=== PATIENT | female | born 1930 | race Caucasian/White ===

== ENCOUNTER → 2016-05-26 | Outpatient (CLI) | payer MEDICARE, OTHER ==
[~2016-05-26] MED LIST: ASCO-262 PO; BUPR300T PO; CALC-80 PO; CARB1TAB7 PO; CHOL200035 PO; CRAN1TAB PO; DIAZ10TA PO; DNPZ10T PO; HYDR1TAB86 PO; METO-272 PO; NITR100C PO; OMEP-10 PO; OMG1KC PO; POTA10CA43 PO; ROPI0.25 PO; SITA50TA PO; triam/hctz PO
== END ==
LOC: FS 10:32
PROVIDERS: ATTEND Internal Medicine Hematology & Oncology
DX: D61.818 Other pancytopenia (principal); G20 Parkinson's disease; I12.9 Hypertensive chronic kidney disease with stage 1 through stage 4 chronic kidney disease, or unspecified chronic kidney disease; N18.3 Chronic kidney disease, stage 3 (moderate); E78.5 Hyperlipidemia, unspecified; D64.9 Anemia, unspecified; Z79.899 Other long term (current) drug therapy
CPT/HCPCS: 99213

== ENCOUNTER 2016-07-16 13:48 | Outpatient (RCR) | payer MEDICARE, OTHER ==
[2016-06-30 13:48] LABS: BASOPHILS % (AUTO) 0 % (0-10); EOSINOPHILS % (AUTO) 2 % (0-10); LYMPHOCYTES # (AUTO) 0.6 X 10^3 (1.0-4.0); LYMPHOCYTES % (AUTO) 25 % (12-44); MEAN CORPUSCULAR HEMOGLOBIN 27 PG (25-34); MEAN CORPUSCULAR HGB CONC 30 G/DL (32-36); MEAN CORPUSCULAR VOLUME 88 FL (80-99); MEAN PLATELET VOLUME 9.6 FL (7.4-10.4); MONOCYTES # (AUTO) 0.3 X 10^3 (0.0-1.0); MONOCYTES % (AUTO) 10 % (0-12); NEUTROPHILS # (AUTO) 1.6 X 10^3 (1.8-7.8); NEUTROPHILS % (AUTO) 63 % (42-75); PLATELET COUNT 124 10^3/uL (130-400); RED BLOOD COUNT 3.36 10^6/uL (4.35-5.85); RED CELL DISTRIBUTION WIDTH 17.7 % (10.0-14.5); RETICULOCYTE % 1.26 % (0.50-2.40); WHITE BLOOD COUNT 2.5 10^3/uL (4.3-11.0)
[2016-06-30 14:59] LABS: BAND NEUTROPHILS 6 %; BASOPHILS % (MANUAL) 1 %; EOSINOPHILS % (MANUAL) 1 %; LYMPHOCYTES % (MANUAL) 26 %; NEUTROPHILS % (MANUAL) 56 %
[2016-06-30 15:00] LABS: ANISOCYTOSIS SLIGHT; POIKILOCYTOSIS SLIGHT
== END 2016-09-28 | disposition home or self-care (01) ==
LOC: ONC 13:48
PROVIDERS: ATTEND Internal Medicine Hematology & Oncology
DX: D61.818 Other pancytopenia (principal); G20 Parkinson's disease; I10 Essential (primary) hypertension; E78.5 Hyperlipidemia, unspecified; Z79.899 Other long term (current) drug therapy
CPT/HCPCS: 36415; 38221; 85007; 85027; 85045; 88305; 88311; 88313; 99213

== ENCOUNTER 2016-12-22 14:29 | Outpatient (RCR) | payer MEDICARE, OTHER | END 2017-03-22 | disposition home or self-care (01) | LOC: ONC 14:29 | PROVIDERS: ATTEND Internal Medicine Hematology & Oncology | DX: D61.818 Other pancytopenia (principal); G20 Parkinson's disease; I12.9 Hypertensive chronic kidney disease with stage 1 through stage 4 chronic kidney disease, or unspecified chronic kidney disease; N18.3 Chronic kidney disease, stage 3 (moderate); E78.5 Hyperlipidemia, unspecified; Z79.899 Other long term (current) drug therapy | CPT/HCPCS: 99213 ==

== ENCOUNTER 2017-06-22 13:45 | Outpatient (RCR) | payer MEDICARE, OTHER | END 2017-09-20 | disposition home or self-care (01) | LOC: ONC 13:45 | PROVIDERS: ATTEND Internal Medicine Hematology & Oncology | DX: D61.818 Other pancytopenia (principal); G20 Parkinson's disease; I12.9 Hypertensive chronic kidney disease with stage 1 through stage 4 chronic kidney disease, or unspecified chronic kidney disease; N18.3 Chronic kidney disease, stage 3 (moderate); E78.5 Hyperlipidemia, unspecified; Z79.899 Other long term (current) drug therapy | CPT/HCPCS: 99213 ==

== ENCOUNTER 2017-10-06 13:10 | Outpatient (RCR) | payer MEDICARE, OTHER ==
[~2017-10-06 13:10] MED LIST changes: +FERRIC CARBOXYMALTOSE (CANCER) 750 MG in NS (IVPB) CANCER CENTER 250 ML IV SCH
== END 2017-10-15 | disposition home or self-care (01) ==
LOC: ONC 13:10
PROVIDERS: ATTEND Internal Medicine Hematology & Oncology
DX: D61.818 Other pancytopenia (principal); I12.9 Hypertensive chronic kidney disease with stage 1 through stage 4 chronic kidney disease, or unspecified chronic kidney disease; N18.3 Chronic kidney disease, stage 3 (moderate); E78.5 Hyperlipidemia, unspecified; G20 Parkinson's disease; Z79.899 Other long term (current) drug therapy
CPT/HCPCS: 96365

== ENCOUNTER 2017-12-06 08:59 | Inpatient (IN) | payer MEDICARE, OTHER ==
[2017-12-06] VITALS (15 sets, daily range): BP systolic 104–179; BP diastolic 46–76
[~2017-12-06] VITALS: Ht 157.5 cm; Wt 69.4 kg
[~2017-12-06 08:59] MED LIST changes: -FERRIC CARBOXYMALTOSE (CANCER) 750 MG in NS (IVPB) CANCER CENTER 250 ML IV SCH
--- NOTE | 2017-12-06 12:11 | History & Physical-Hospitalist ---
History of Present Illness HPI/Chief Complaint Pt is an 87yoCF with a PMH of IDDMII, anemia of chronic disease, HTN who presented as a direct admit from [facility] for a GI bleed. She states her symptoms started on 12/04 evening with bright red blood per rectum. It continued to worsen and she began to vomit bright red blood as well today. She was then sent from her NH to the ER for evaluation where she was found to be anemic at 7.5 down from labs just a few days ago of 9.8. She denies any abdominal pain or history of GI bleeds. She was transferred here for surgical evaluation. Source: patient, family Exam Limitations: clinical condition Date Seen 12/06/17 Time Seen by a Provider: 12:03 Attending Physician Anirudh Martinez MD PCP Samir Zarate DO Referring Physician Date of Admission Home Medications & Allergies Home Medications Reviewed patient Home Medication Reconciliation performed by pharmacy medication reconciliations cartography technician and/or nursing. Patients Allergies have been reviewed. Allergies Allergies Coded Allergies celecoxib (Verified Allergy, Unknown, 12/06/17) Sulfa (Sulfonamide Antibiotics) (Verified Adverse Reaction, Severe, 05/27/05) Past Hmcygek-Jgmnej-Ihhein Hx Past Med/Social Hx: Reviewed Nursing Past Med/Soc Hx Patient Social History Employed/Student: retired Smoking Status: Never a Smoker Immunizations Up To Date Date of Influenza Vaccine: Nov 15, 2010 Past Medical History Surgeries: Appendectomy, Gallbladder, Hysterectomy, Joint Replacement Cardiac: Hypertension Neurological: Dementia Reproductive: Yes Family History Reviewed Nursing Family Hx No Pertinent Family Hx Review of Systems Constitutional: No chills, No fever EENTM: No blurred vision, No double vision, No nose congestion, No throat pain Respiratory: No cough, No dyspnea on exertion, No short of breath Cardiovascular: No chest pain, No edema, No palpitations Gastrointestinal: No abdominal pain, No constipation, No diarrhea; hematemesis , melena; No nausea; vomiting Genitourinary: No dysuria, No frequency Musculoskeletal: No joint pain, No muscle pain Skin: No lesions, No rash Psychiatric/Neurological: Denies Headache, Denies Numbness, Denies Tingling Physical Exam Physical Exam Vital Signs Vital Signs - First Documented 12/06/17 12/06/17 11:00 11:15 Temp 97.0 Pulse 76 Resp 11 B/P (MAP) 179/72 (107) Pulse Ox 100 O2 Delivery Nasal Cannula O2 Flow Rate 2.00 Capillary Refill : Height, Weight, BMI Height: '" Weight: lbs. oz. kg; BMI Method: General Appearance: No Apparent Distress, Chronically ill HEENT: PERRL/EOMI, Moist Mucous Membranes Neck: Non Tender, Supple Respiratory: Lungs Clear, No Respiratory Distress Cardiovascular: Regular Rate, Rhythm, No Murmur Gastrointestinal: Normal Bowel Sounds, Non Tender, Soft Extremity: Normal Capillary Refill, No Calf Tenderness Neurologic/Psychiatric: Alert, Oriented x3, Normal Mood/Affect Skin: Normal Color, Warm/Dry Results Results/Procedures Labs Laboratory Tests 12/09/17 03:02 12/10/17 05:30 Patient resulted labs reviewed. Assessment/Plan Admission Diagnosis GI Bleed Admission Status: Inpatient Order (span 2 midnights) Reason for Inpatient Admission: needs surgery evaluation, will take more than two days to stabilize for DC Diagnosis/Problems Diagnosis/Problems (1) GI (gastrointestinal bleed) Status: Acute Assessment & Plan: Will get CBC and T&S now INR at [facility] normal Transfused 1 unit pRBCs at [facility] Monitor in ICU Qualifiers: GI bleed type/associated pathology: unspecified gastrointestinal hemorrhage type Qualified Codes: K92.2 - Gastrointestinal hemorrhage, unspecified (2) Insulin dependent diabetes mellitus Assessment & Plan: Resume home insulin and SSI (3) Essential (primary) hypertension Assessment & Plan: BP well controlled Will hold home meds for now (4) Dementia Assessment & Plan: On Carbidopa at baseline but denied history of parkinsons Qualifiers: Dementia type: unspecified type ANIRUDH MARTINEZ MD Dec 06, 2017 12:11
[2017-12-06] MEDS ORDERED: PANTOPRAZOLE 40 MG (PROTONIX) VIAL IV SCH (12:18)
[2017-12-06] MEDS: NS IV 1000 ML 1,000 ML IV SCH ×2 (12:25→19:19)
[2017-12-06] MEDS ORDERED: CATHETER FLUSH 10 ML SYR IV PRN (12:30)
[2017-12-06 13:01] LABS: HEMOGLOBIN 8.2 G/DL (11.5-16.0); MEAN PLATELET VOLUME 9.8 FL (7.4-10.4); RED BLOOD COUNT 2.68 10^6/uL (4.35-5.85); WHITE BLOOD COUNT 4.3 10^3/uL (4.3-11.0)
[2017-12-06] MEDS ORDERED: RIVA1PAT13 TD (13:27)
[2017-12-06] MEDS ORDERED: ACID1TAB PO (13:27)
[2017-12-06] MEDS ORDERED: ROTI1PAT12 TD (13:27)
[2017-12-06] MEDS ORDERED: OMEP40CA36 PO (13:27)
[2017-12-06] MEDS ORDERED: SITA50TA PO (13:27)
[2017-12-06] MEDS ORDERED: POTA10TA36 PO (13:27)
[2017-12-06] MEDS ORDERED: POLY119P5 PO (13:27)
[2017-12-06] MEDS ORDERED: GLIM2TAB PO (13:27)
[2017-12-06] MEDS ORDERED: BRIMON0.2 OU (13:27)
[2017-12-06] MEDS ORDERED: CARB1TAB22 PO (13:27)
[2017-12-06] MEDS ORDERED: ASPI-999 PO (13:27)
[2017-12-06] MEDS ORDERED: METO-387 PO (13:27)
[2017-12-06] MEDS ORDERED: PROC10TA10 PO (13:27)
[2017-12-06] MEDS ORDERED: DOCU-143 PO ×2 (13:27→13:39)
[2017-12-06] MEDS ORDERED: TRIA1TAB3 PO (13:27)
[2017-12-06] MEDS ORDERED: CITA10TA7 PO (13:27)
[2017-12-06] MEDS ORDERED: HYDR-3820 PO ×2 (13:27→13:39)
[2017-12-06] MEDS ORDERED: TRIM100T PO (13:27)
[2017-12-06] MEDS ORDERED: FENT1PAT11 TD (13:27)
[2017-12-06] MEDS ORDERED: CRAN405C PO (13:27)
[2017-12-06] MEDS ORDERED: INSU300I SC (13:27)
[2017-12-06] MEDS ORDERED: SUCR100P PO (13:39)
[2017-12-06] MEDS ORDERED: POLY17PO6 PO (13:39)
[2017-12-06] MEDS ORDERED: ACET325T38 PO (13:39)
[2017-12-06] MEDS ORDERED: DIAZ2TAB2 PO (13:39)
[2017-12-06] MEDS ORDERED: MAG355OR16 PO (13:39)
[2017-12-06] MEDS ORDERED: MIRT30TA6 PO (13:39)
[2017-12-06] MEDS ORDERED: LEG CRAMP PO (13:39)
[2017-12-06] MEDS ORDERED: DIAZ2TAB PO (13:39)
[2017-12-06] MEDS ORDERED: ONDN4T PO (13:39)
[2017-12-06] MEDS ORDERED: FAMO1TAB21 PO (13:39)
[2017-12-06] MEDS ORDERED: INSU100I14 SQ (13:39)
[2017-12-06] MEDS ORDERED: NAPR220T66 PO (13:39)
--- NOTE | 2017-12-06 15:54 | Consultation ---
History of Present Illness History of Present Illness Patient Consulted On(oscar/time) 12/06/17 15:49 Time Seen by Provider: 10:49 History of Present Illness Surgery asked to consult regarding Hematemesis and Hematochezia. HPI per IM: Pt is an 87yoCF with a PMH of IDDMII, anemia of chronic disease, HTN who presented as a direct admit from [facility] for a GI bleed. She states her symptoms started on 12/04 evening with bright red blood per rectum. It continued to worsen and she began to vomit bright red blood as well today. She was then sent from her NH to the ER for evaluation where she was found to be anemic at 7.5 down from labs just a few days ago of 9.8. She denies any abdominal pain or history of GI bleeds. She was transferred here for surgical evaluation. Source: patient, family We spoke to pt this am and just spoke to her daughter. Daughter states she has had "vomiting problems for past 3 years"; nothing seems to bring it on, happens more after waking up in am, but has had some in the afternoon. She also relates a possible history of Cirrhosis which apparently she went to [facility] for about 18 yrs ago. She does not see a doctor about this. She has never had hematemesis prior to this; "always a yellow or green liquid". Daughter thinks she had a colonoscopy more than 10 yrs ago; has never had bleeding from below before. Pt is alert to name and place, but cannot tell the day, month or year. Allergies and Home Medications Allergies Coded Allergies: celecoxib (Verified Allergy, Unknown, 12/06/17) Sulfa (Sulfonamide Antibiotics) (Verified Adverse Reaction, Severe, ) Home Medications Acetaminophen 325 Mg Tablet, 650 MG PO Q4H PRN for FEVER, (Reported) Aspirin 81 Mg Tab.chew, 81 MG PO DAILY, (Reported) Brimonidine Tartrate 5 Ml Btl, 1 DROP OU BID, (Reported) Carbidopa/Levodopa 1 Each Tablet, 1 TAB PO 0700,1100,1500,1900, (Reported) Citalopram Hydrobromide 10 Mg Tablet, 10 MG PO DAILY, (Reported) Cranberry Extract 405 Mg Capsule, 405 MG PO DAILY, (Reported) Diazepam 2 Mg Tablet, 2 MG PO 0800,1400, (Reported) Diazepam 2 Mg Tablet, 2 MG PO DAILY PRN for AGITATION, (Reported) Docusate Sodium 100 Mg Capsule, 100 MG PO DAILY, (Reported) Docusate Sodium 100 Mg Capsule, 100 MG PO BID PRN for CONSTIPATION-1ST LINE, ( Reported) Famotidine/Ca Carb/Mag Hydrox 1 Each Tab.chew, 1 TAB PO Q8H PRN for NAUSEA, ( Reported) Fentanyl 1 Each Patch.td72, 100 MCG TD Q72H, (Reported) Glimepiride 2 Mg Tablet, 2 MG PO DAILY, (Reported) Hydrocodone/Acetaminophen 1 Each Tablet, 1 TAB PO BID, (Reported) Hydrocodone/Acetaminophen 1 Each Tablet, 1 TAB PO DAILY PRN for PAIN-MODERATE, ( Reported) Insulin Aspart 300 Units/3 Ml Solution, SQ UD PRN for BLOOD SUGAR, (Reported) >200 = 2 UNITS >250 = 4 UNITS >300 = 6 UNITS Insulin Glargine,Hum.rec.anlog 300 Unit/1 Ml Insuln.pen, 18 UNITS SC 1600, ( Reported) L. Acidophilus/Bulgaricus 1 Each Tablet, 2 TAB PO BID, (Reported) Mag Hydrox/Aluminum Hyd/Simeth 355 Ml Oral.susp, 15 ML PO UD PRN for STOMACH UPSET, (Reported) Metoprolol Succinate 25 Mg Tab.er.24h, 25 MG PO BID, (Reported) Mirtazapine 30 Mg Tablet, 30 MG PO HS, (Reported) Naproxen Sodium 220 Mg Tablet, 220 MG PO BID PRN for PAIN-MILD, (Reported) Omeprazole 40 Mg Capsule.dr, 40 MG PO DAILY, (Reported) Ondansetron HCl 4 Mg Tab, 4 MG PO Q6H PRN for NAUSEA/VOMITING-1ST LINE, ( Reported) Polyethylene Glycol 3350 119 Gm Powder, 8.5 GM PO DAILY, (Reported) Polyethylene Glycol 3350 17 Gm Powd.pack, 17 GM PO Q72H PRN for CONSTIPATION- 2ND LINE, (Reported) Potassium Chloride 10 Meq Tab.er.prt, 10 MEQ PO DAILY, (Reported) Prochlorperazine Maleate 10 Mg Tablet, 10 MG PO BID PRN for NAUSEA/VOMITING-4TH LINE, (Reported) Rivastigmine 1 Each Patch.td24, 13.3 MG TD DAILY, (Reported) Rotigotine 1 Each Patch.td24, 1 PATCH TD HS, (Reported) Sitagliptin Phosphate 50 Mg Tablet, 50 MG PO DAILY, (Reported) Triamterene/Hydrochlorothiazid 1 Each Tablet, 1 TAB PO DAILY, (Reported) Trimethoprim 100 Mg Tablet, 100 MG PO DAILY, (Reported) [Leg Cramp] , 2 TAB PO HS PRN for LEG CRAMPS, (Reported) Patient Home Medication List Home Medication List Reviewed: Yes Past Hjrkuhj-Iwdnqn-Ublood Hx Patient Social History Alcohol Use: Denies Use Number of Drinks Today: 0 Recreational Drug Use: No Smoking Status: Never a Smoker Recent Foreign Travel: No Contact w/Someone Who Travel: No Recent Infectious Disease Expo: No Recent Hopitalizations: Yes (with surgery) Physical Abuse Screen: No Sexual Abuse: No Immunizations Up To Date Date of Pneumonia Vaccine: Nov 18, 2015 Date of Influenza Vaccine: Nov 29, 2017 Seasonal Allergies Seasonal Allergies: No Surgeries Surgeries: Appendectomy, Gallbladder, Hysterectomy, Joint Replacement Respiratory History of Respiratory Disorde: No Cardiovascular History of Cardiac Disorders: Yes Cardiac Disorders: Hypertension Neurological History of Neurological Disord: Yes (scarlet fever) Neurological Disorders: Dementia Reproductive System Hx Reproductive Disorders: Yes Genitourinary History of Genitourinary Disor: Yes (CKD) Gastrointestinal History of Gastrointestinal Di: Yes Gastrointestinal Disorders: Gastroesophageal Reflux Musculoskeletal History of Musculoskeletal Dis: Yes Musculoskeletal Disorders: Back Injury, Chronic Back Pain Endocrine History of Endocrine Disorders: Yes Endocrine Disorders: Diabetes, Non-Insulin dep HEENT History of HEENT Disorders: No Cancer History of Cancer: No Psychosocial History of Psychiatric Problem: No Integumentary History of Skin or Integumenta: No Blood Transfusions History of Blood Disorders: No Adverse Reaction to a Blood Tr: No Family Medical History Significant Family History: Cancer (denies any colon cancer in her family), Diabetes (brother) Review of Systems-General Constitutional: No chills, No diaphoresis; malaise, weakness EENTM: blurred vision; No mouth pain, No mouth swelling, No epistaxis, No throat swelling Respiratory: No cough, No dyspnea on exertion, No hemoptysis Cardiovascular: No chest pain, No edema, No palpitations Gastrointestinal: No abdominal pain; constipation, hematemesis, jaundice ( daughter thinks 18 yrs ago "skin was a little yellow", nothing since then), nausea, vomiting Genitourinary: No dysuria, No frequency, No hematuria Musculoskeletal: back pain, joint pain, muscle stiffness Skin: No change in color, No change in hair/nails Psychiatric/Neurological: Denies Anxiety, Denies Depressed, Denies Seizure, Denies Tingling; Tremors Other pt denies any abnormal bleeding or bruising, no heat or cold intolerance Physical Exam-General Problems Physical Exam Vital Signs Vital Signs - First Documented 12/06/17 12/06/17 11:00 11:15 Temp 97.0 Pulse 76 Resp 11 B/P (MAP) 179/72 (107) Pulse Ox 100 O2 Delivery Nasal Cannula O2 Flow Rate 2.00 Capillary Refill : General Appearance: no apparent distress, thin Eyes: Bilateral Eye PERRL, Bilateral Eye EOMI HEENT: pharynx normal; No scleral icterus (R), No scleral icterus (L), No pale conjunctivae (R), No pale conjunctivae (L) Neck: non-tender; No thyromegaly Respiratory: chest non-tender, lungs clear, normal breath sounds, no respiratory distress, no accessory muscle use Cardiovascular: regular rate, rhythm, no edema, no murmur Gastrointestinal: normal bowel sounds, non tender, soft, no organomegaly, no pulsatile mass Back: no CVA tenderness, no vertebral tenderness Extremities: no pedal edema, no calf tenderness, normal capillary refill Neurologic/Psychiatric: hybrid car mechanic II-XII nml as tested, no motor/sensory deficits, alert, normal mood/affect Skin: normal color, warm/dry Lymphatic: no adenopathy (neck, axilla or groin) Data Review Labs Laboratory Tests 12/06/17 12:50: White Blood Count 4.3, Red Blood Count 2.68L, Hemoglobin 8.2L, Hematocrit 26L, Mean Corpuscular Volume 96, Mean Corpuscular Hemoglobin 31, Mean Corpuscular Hemoglobin Concent 32, Red Cell Distribution Width 18.0H, Platelet Count 130, Mean Platelet Volume 9.8 Assessment/Plan Assessment/Plan Assessment/Plan Hematemesis Hematochezia DM, HTN Parkinson's Dementia Anemia Pt is anemic, but current Hg is even lower than 3 days ago. I spoke with daughter and went over options; 1) do nothing and treat symptoms 2) EGD 3) Colonoscopy. We did talk about risks and complications not limited to pain, bleeding, infection, possible esophageal perforation or intestinal perforation. The daughter is not sure if we found a colon cancer that they would want surgery. At this time, they want to go ahead with the colonoscopy and then make a decision on possible colonoscopy tomorrow. I think this is a reasonable course of action. All questions answered to their satisfaction. Clinical Quality Measures DVT/VTE Risk/Contraindication: Risk Factor Score Per Nursin RFS Level Per Nursing on Admit: 2=Moderate ELLI HAYES DO Dec 06, 2017 15:54
[2017-12-06] MEDS ORDERED: proPOfol 200 MG/20 ML (DIPRIVAN) VIAL IV ONE ×2 (16:15→17:13)
[2017-12-06] MEDS ORDERED: EPINEPHrine INJECTION 1 MG/ML AMP ONE (16:20)
--- NOTE | 2017-12-06 19:25 | Progress Note-Post Operative ---
Post-Operative Progess Note Surgeon (s)/Solar Energy Sales Specialist (s) Surgeon ELLI HAYES DO Solar Energy Sales Specialist: Aneta Pre-Operative Diagnosis GI bleed Post-Operative Diagnosis Gastric Mass - bleeding Procedure & Operative Findings Date of Procedure 12/06/17 Procedure Performed/Findings EGD with removal of Gastric mass Anesthesia Type IV sedation by WIRE PULLER Estimated Blood Loss Estimated blood loss (mL): 500ml Specimens/Packing Specimens Removed gastric mass ELLI HAYES DO Dec 06, 2017 19:25
[2017-12-06 19:43] LABS: BASOPHILS % (AUTO) 0 % (0-10); EOSINOPHILS % (AUTO) 0 % (0-10); HEMATOCRIT 23 % (35-52); HEMOGLOBIN 7.4 G/DL (11.5-16.0); LYMPHOCYTES # (AUTO) 1.7 X 10^3 (1.0-4.0); LYMPHOCYTES % (AUTO) 20 % (12-44); MEAN CORPUSCULAR HEMOGLOBIN 31 PG (25-34); MEAN CORPUSCULAR HGB CONC 32 G/DL (32-36); MEAN CORPUSCULAR VOLUME 97 FL (80-99); MONOCYTES # (AUTO) 0.6 X 10^3 (0.0-1.0); MONOCYTES % (AUTO) 7 % (0-12); NEUTROPHILS # (AUTO) 6.1 X 10^3 (1.8-7.8); NEUTROPHILS % (AUTO) 73 % (42-75); PLATELET COUNT 200 10^3/uL (130-400); RED BLOOD COUNT 2.38 10^6/uL (4.35-5.85); RED CELL DISTRIBUTION WIDTH 18.8 % (10.0-14.5); WHITE BLOOD COUNT 8.3 10^3/uL (4.3-11.0)
[2017-12-06] MEDS: PANTOPRAZOLE 40 MG (PROTONIX) VIAL IV SCH (20:49)
[2017-12-07] VITALS (29 sets, daily range): BP systolic 105–171; BP diastolic 46–94
--- NOTE | 2017-12-07 00:27 | CONSULTATION REPORT ---
DATE OF SERVICE: 12/06/2017 The patient is admitted to ICU bed 10. IMPRESSION: 1. An 87-year-old female transferred from [facility] with gastrointestinal bleeding. 2. Previous history of iron deficiency anemia since 2011 with no significant benefit from oral iron replacement. 3. 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 4. Status post parenteral iron therapy with the most recent dose in 09/2017. RECOMMENDATIONS: 1. Agree with the surgical consult for evaluation of GI tract because of amadou hematochezia and hematemesis. Proceed with EGD and colonoscopy. 2. Agree with packed red blood cell transfusion to maintain hemoglobin more than 8 grams per deciliter because of her age and general condition. 3. Obtain serum ferritin level and if this is low, the patient may need parenteral iron therapy. 4. Continue Aranesp 25 mcg weekly to maintain hemoglobin around 10 grams per deciliter. 5. Continue rest of medical care as you are doing. BRIEF HISTORY: The patient is an 87-year-old female with a history of borderline pancytopenia since the last few years. The patient had an initial bone marrow aspiration biopsy in 2011 at [facility], which was nondiagnostic. She has been following with me since mid-2015 and had a bone marrow evaluation in 06/2016, which showed no significant abnormality other than absent iron stores. She was initially on oral iron replacement and later on required parenteral iron therapy with some benefit. She also had chronic kidney disease and it was felt that she has a combination of anemia of chronic disease and iron deficiency. Because of this, she was started on erythropoietic stimulating agents since the last several months to prevent transfusion requirement. The patient gives a history of hematochezia and hematemesis since last Wednesday with fairly sudden drop in her hemoglobin level. Because of this, she was transferred from [place] to [facility] for further evaluation and management. PAST MEDICAL HISTORY: Significant for: 1. Diabetes mellitus type 2 diagnosed more than 8 years ago. 2. Hypertension, more than 20 years and on treatment. 3. Parkinson's disease diagnosed approximately 8 years ago and is on treatment. 4. Osteoarthritis involving major joints. 5. Questionable liver problems in the past. 6. Chronic kidney disease, stage III to IV, diagnosed few years ago. PAST SURGICAL HISTORY: Include tonsillectomy and adenoidectomy in 1952, double inguinal hernia repair in 1952, appendectomy in 1943, breast biopsies in 1952 and 1984, which was benign. D and C is between 1967 and 1978. Hysterectomy in 2001, cholecystectomy in 2001, right knee replacement in 2002, right hip replacement in 2005, bilateral cataract surgeries in 2006, dental surgery in 2006. SOCIAL HISTORY: The patient is . She lives in [facility] in [place]. She has 2 daughters, one of whom lives in [place], [place] and another in [place], [place]. 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 She gives a significant history of exposure to pesticides, fertilizers, etc. over the years. No history of tobacco, alcohol or other recreational drug use. FAMILY HISTORY: Unremarkable with no malignancies or hematologic problems in the family that the patient or her family knows of. PHYSICAL EXAMINATION: GENERAL: Showed an elderly female, somnolent after an endoscopic procedure. VITAL SIGNS: She was afebrile. Pulse rate of 76, respirations 8, blood pressure 119/56, oxygen saturation 98% on 2 liters of oxygen by nasal cannula. HEENT: Normocephalic, conjunctivae slightly pale, oral mucosa moist. NECK: Supple, with no JVD. No lymphadenopathy palpable. CHEST: Symmetrical. LUNGS: Clear to auscultation without wheezes or rales. CARDIOVASCULAR: Regular in rate and rhythm. No murmurs or gallops heard. ABDOMEN: Soft, nontender with no hepatosplenomegaly or other masses palpable. EXTREMITIES: Showed no edema. NEUROLOGIC: Could not be completed as she was somnolent, but arousable. She is moving all 4 extremities. LABORATORY DATA: CBC done today showed WBC 4.3, hemoglobin 8.2, MCV 96, platelet count 130,000. Chemistry panel was not done today. Thank you for allowing me to participate in this patient's care. I will follow the patient with you and make appropriate recommendations. Job ID: [id number] DocumentID: [id number] Dictated Date: 12/06/2017 17:23:58 Electrical Engineering Intern Date: 12/07/2017 00:26:20 Dictated By: YVONNE GREEN MD
[2017-12-07 04:09] LABS: BASOPHILS % (AUTO) 0 % (0-10); EOSINOPHILS % (AUTO) 0 % (0-10); LYMPHOCYTES # (AUTO) 1.2 X 10^3 (1.0-4.0); LYMPHOCYTES % (AUTO) 21 % (12-44); MEAN CORPUSCULAR HEMOGLOBIN 31 PG (25-34); MEAN CORPUSCULAR HGB CONC 32 G/DL (32-36); MEAN CORPUSCULAR VOLUME 98 FL (80-99); MEAN PLATELET VOLUME 10.4 FL (7.4-10.4); MONOCYTES # (AUTO) 0.6 X 10^3 (0.0-1.0); MONOCYTES % (AUTO) 10 % (0-12); NEUTROPHILS % (AUTO) 69 % (42-75); PLATELET COUNT 126 10^3/uL (130-400); RED BLOOD COUNT 1.84 10^6/uL (4.35-5.85); RED CELL DISTRIBUTION WIDTH 18.5 % (10.0-14.5); WHITE BLOOD COUNT 5.9 10^3/uL (4.3-11.0)
[2017-12-07 04:21] LABS: HEMATOCRIT 18 % (35-52); HEMOGLOBIN 5.7 G/DL (11.5-16.0)
[2017-12-07 04:22] LABS: INR 1.4 (0.8-1.4); PROTHROMBIN TIME PATIENT 17.1 SEC (12.2-14.7)
[2017-12-07] MEDS: NS IV 1000 ML 1,000 ML IV SCH ×4 (04:29→21:45)
[2017-12-07 04:32] LABS: ALBUMIN 2.5 GM/DL (3.2-4.5); BILIRUBIN,TOTAL 0.4 MG/DL (0.1-1.0); CREATININE SERUM 1.68 MG/DL (0.60-1.30); MAGNESIUM 1.4 MG/DL (1.8-2.4); PHOSPHORUS 4.9 MG/DL (2.3-4.7); POTASSIUM 6.1 MMOL/L (3.6-5.0); TOTAL PROTEIN 4.1 GM/DL (6.4-8.2)
--- NOTE | 2017-12-07 04:47 | OPERATIVE REPORT ---
DATE OF SERVICE: PREOPERATIVE DIAGNOSES: 1. Hematemesis. 2. Hematochezia. 3. Anemia. POSTOPERATIVE DIAGNOSES: Gastric mass with bleeding. PROCEDURE: EGD with resection of gastric mass. SURGEON: Christopher Hayes DO CASEWORKER PROTECTIVE SERVICES: Tyson Cornell DO. ANESTHESIA: IV sedation. SPECIMEN: Gastric mass sent in portion in pieces. BLOOD LOSS: Approximately 500 mL. INDICATION FOR PROCEDURE: The patient is an 87-year-old female who was transferred down from an outside institution secondary to hematochezia, hematemesis and anemia. FINDINGS: The patient had a large gastric mass with what looked like the fundus of the stomach and what was probably a large hiatal hernia. PROCEDURE NOTE: After informed consent was obtained, the patient in her bed in the ICU, was given IV sedation by the CAN WASHER who then monitored her vitals the entire time, heart rate, blood pressure and pulse ox and the scope was inserted down the mouth into the esophagus, which was tortuous and into the stomach, pushed into the stomach, saw a large clot in the fundus and what was looked like a hiatal hernia. Pushed into the rest of the stomach, there was blood covering the garibay and all the way towards the antrum. Pushed in the duodenum, there was blood coming in this, but did not see any ulcers in the duodenum and pulled back. No ulcers in the antrum. Retroflexed, it looked like a large hiatal hernia and then pulled the scope back into the fundus, which was in the hiatal hernia and saw this large clot. We started flushing it off with saline. Once I flushed the clot, suction as much as I could, noted a gastric mass. Pictures were taken. I then elected to do a snare to get around this and try and snare to remove this gastric mass en bloc. Removed it, actually to take in 2 pieces, tried to go slowly with the cautery, but it looked like the second time with the second piece, cut a slit through too fast and then there was some bleeding from a vessel, tried to clip this, released the clip, but did not look like it went down and then it had been bleeding, so we could not see. I then spent about 40 minutes trying to suction out the clot and to flush the clot out. Used flushes of saline as well as on the pump, tried to grasp some of the mass and some of the clot to get out of the way with a Qu[employer] Net pulling the scope in and out. Tried to place a NG tube to try and suction out some of this blood, so we could see the bleeding. I had a very hard time. Finally switched to a pediatric colonoscope, placed this down the mouth into the esophagus and into the stomach and able to sit the patient up and flushed most of the clot out, still some bleeding and elected to use some epinephrine injected in 1 mL increments around the bleeding area. This seemed to slow down, so we could see it and then deployed another clip. This stopped the bleeding. We flushed all clots. There was a little bit of clot left, but there was no bleeding at the end of the case. The patient's vitals were stable. The scope was removed out of the mouth and she was recovered in her ICU room. We will recheck her hemoglobin tonight and in the morning. Job ID: [id number] DocumentID: [id number] Dictated Date: 12/06/2017 21:49:14 Offset Pressman Date: 12/07/2017 04:47:06 Dictated By: CHRISTOPHER HAYES DO
[2017-12-07 05:06] LABS: HEMOGLOBIN 5.8 G/DL (11.5-16.0)
--- NOTE | 2017-12-07 05:35 | Pulmonary Consultation ---
History of Present Illness History of Present Illness Date of Consultation 12/07/17 05:30 Time Seen by Provider: 05:30 Date of Admission History of Present Illness yo wiht hx of IDDM, anemia of chronic disease admitted as direct admit from [facility] secondary to acute GIB. Symptoms started on 12/04 with BRBPR and progressed to hematemesis. Hb was found to be 7.5 down from 9.8 3 days prior. denies abominal pain. no prior hx of major GIB. This Am hb is down to 5.8. Allergies and Home Medications Allergies Coded Allergies: celecoxib (Verified Allergy, Unknown, 12/06/17) Sulfa (Sulfonamide Antibiotics) (Verified Adverse Reaction, Severe, ) Home Medications Acetaminophen 325 Mg Tablet, 650 MG PO Q4H PRN for FEVER, (Reported) Aspirin 81 Mg Tab.chew, 81 MG PO DAILY, (Reported) Brimonidine Tartrate 5 Ml Btl, 1 DROP OU BID, (Reported) Carbidopa/Levodopa 1 Each Tablet, 1 TAB PO 0700,1100,1500,1900, (Reported) Citalopram Hydrobromide 10 Mg Tablet, 10 MG PO DAILY, (Reported) Cranberry Extract 405 Mg Capsule, 405 MG PO DAILY, (Reported) Diazepam 2 Mg Tablet, 2 MG PO 0800,1400, (Reported) Diazepam 2 Mg Tablet, 2 MG PO DAILY PRN for AGITATION, (Reported) Docusate Sodium 100 Mg Capsule, 100 MG PO DAILY, (Reported) Docusate Sodium 100 Mg Capsule, 100 MG PO BID PRN for CONSTIPATION-1ST LINE, ( Reported) Famotidine/Ca Carb/Mag Hydrox 1 Each Tab.chew, 1 TAB PO Q8H PRN for NAUSEA, ( Reported) Fentanyl 1 Each Patch.td72, 100 MCG TD Q72H, (Reported) Glimepiride 2 Mg Tablet, 2 MG PO DAILY, (Reported) Hydrocodone/Acetaminophen 1 Each Tablet, 1 TAB PO BID, (Reported) Hydrocodone/Acetaminophen 1 Each Tablet, 1 TAB PO DAILY PRN for PAIN-MODERATE, ( Reported) Insulin Aspart 300 Units/3 Ml Solution, SQ UD PRN for BLOOD SUGAR, (Reported) >200 = 2 UNITS >250 = 4 UNITS >300 = 6 UNITS Insulin Glargine,Hum.rec.anlog 300 Unit/1 Ml Insuln.pen, 18 UNITS SC 1600, ( Reported) L. Acidophilus/Bulgaricus 1 Each Tablet, 2 TAB PO BID, (Reported) Mag Hydrox/Aluminum Hyd/Simeth 355 Ml Oral.susp, 15 ML PO UD PRN for STOMACH UPSET, (Reported) Metoprolol Succinate 25 Mg Tab.er.24h, 25 MG PO BID, (Reported) Mirtazapine 30 Mg Tablet, 30 MG PO HS, (Reported) Naproxen Sodium 220 Mg Tablet, 220 MG PO BID PRN for PAIN-MILD, (Reported) Omeprazole 40 Mg Capsule.dr, 40 MG PO DAILY, (Reported) Ondansetron HCl 4 Mg Tab, 4 MG PO Q6H PRN for NAUSEA/VOMITING-1ST LINE, ( Reported) Polyethylene Glycol 3350 119 Gm Powder, 8.5 GM PO DAILY, (Reported) Polyethylene Glycol 3350 17 Gm Powd.pack, 17 GM PO Q72H PRN for CONSTIPATION- 2ND LINE, (Reported) Potassium Chloride 10 Meq Tab.er.prt, 10 MEQ PO DAILY, (Reported) Prochlorperazine Maleate 10 Mg Tablet, 10 MG PO BID PRN for NAUSEA/VOMITING-4TH LINE, (Reported) Rivastigmine 1 Each Patch.td24, 13.3 MG TD DAILY, (Reported) Rotigotine 1 Each Patch.td24, 1 PATCH TD HS, (Reported) Sitagliptin Phosphate 50 Mg Tablet, 50 MG PO DAILY, (Reported) Triamterene/Hydrochlorothiazid 1 Each Tablet, 1 TAB PO DAILY, (Reported) Trimethoprim 100 Mg Tablet, 100 MG PO DAILY, (Reported) [Leg Cramp] , 2 TAB PO HS PRN for LEG CRAMPS, (Reported) Past Xdgeleb-Demrdv-Cylqia Hx Past Med/Social Hx: Reviewed Nursing Past Med/Soc Hx Patient Social History Alcohol Use: Denies Use Number of Drinks Today: 0 Recreational Drug Use: No Smoking Status: Never a Smoker Recent Foreign Travel: No Contact w/Someone Who Travel: No Recent Infectious Disease Expo: No Recent Hopitalizations: Yes (with surgery) Immunizations Up To Date Date of Pneumonia Vaccine: Nov 18, 2015 Date of Influenza Vaccine: Nov 29, 2017 Seasonal Allergies Seasonal Allergies: No Past Medical History Appendectomy, Gallbladder, Hysterectomy, Joint Replacement Respiratory: No Cardiac: Yes Hypertension Neurological: Yes (scarlet fever) Dementia Reproductive Disorders: Yes Genitourinary: Yes (CKD) Gastrointestinal: Yes Gastroesophageal Reflux Musculoskeletal: Yes Back Injury, Chronic Back Pain Endocrine: Yes Diabetes, Non-Insulin dep Are Your Blood Sugars Over 250: No HEENT: No Cancer: No Psychosocial: No Integumentary: No Blood Disorders: No Adverse Reaction/Blood Tranf: No Family Medical History Reviewed Nursing Family Hx Cancer (denies any colon cancer in her family), Diabetes (brother) Review of Systems Constitutional: Weakness, Malaise; No: Fever, Chills, Sweats, Other Eyes: No: Pain, Vision change, Conjunctivae inflammation, Eyelid inflammation, Other, Redness ENT: No: Ear pain, Ear discharge, Nose pain, Nose discharge, Nose congestion, Mouth pain, Mouth swelling, Throat pain, Throat swelling, Other Respiratory: No: Cough, Dry, Shortness of breath, SOB with excertion, Wheezing , Hemoptysis, Pleuritic Pain, Sputum, Wheezing, Other Gastrointestinal: Vomiting, Hematochezia; No: Nausea, Abdominal Pain, Diarrhea , Constipation, Melena, Other Neurological: Weakness, Confusion Sepsis Event Evaluation Height, Weight, BMI Height: 5'2.00" Weight: 146lbs. 0.0oz. 66.746084wb; 26.7 BMI Method: Exam Exam Vital Signs Date Time Temp Pulse Resp B/P (MAP) Pulse Ox O2 Delivery O2 Flow Rate FiO2 12/07/17 04:00 98.1 12/07/17 04:00 100 Nasal Cannula 2.00 12/07/17 03:00 85 14 116/47 (70) 97 Room Air 12/07/17 02:00 97 15 110/48 (68) 97 Room Air 12/07/17 01:00 93 19 117/51 (73) 98 Room Air 12/07/17 01:00 97 12/07/17 00:00 97.6 98 Room Air 12/07/17 00:00 100 Nasal Cannula 2.00 12/07/17 00:00 81 13 112/46 (68) 100 Room Air 12/06/17 23:00 82 11 110/46 (67) 99 Nasal Cannula 2.00 12/06/17 22:00 85 14 126/52 (76) 98 Nasal Cannula 2.00 12/06/17 21:00 88 13 117/64 (81) 100 Nasal Cannula 2.00 12/06/17 20:00 100 Nasal Cannula 2.00 12/06/17 20:00 96.7 85 15 138/70 (92) 100 Nasal Cannula 2.00 12/06/17 19:00 80 158/63 (94) 99 Nasal Cannula 2.00 12/06/17 19:00 80 12/06/17 18:00 85 8 109/65 (80) 100 Nasal Cannula 2.00 12/06/17 17:00 106 16 96 Nasal Cannula 2.00 12/06/17 16:00 99 Nasal Cannula 2.00 12/06/17 16:00 76 8 119/56 (77) 98 Nasal Cannula 2.00 12/06/17 16:00 97.2 12/06/17 15:00 77 8 104/76 (85) 98 Nasal Cannula 2.00 12/06/17 14:00 81 152/70 (97) 99 Nasal Cannula 2.00 12/06/17 13:38 98 Nasal Cannula 2.00 12/06/17 13:00 75 8 120/48 (72) 99 Nasal Cannula 2.00 12/06/17 13:00 75 12/06/17 12:00 73 11 119/55 (76) 100 Nasal Cannula 2.00 12/06/17 11:45 78 17 137/62 (87) 100 Nasal Cannula 2.00 12/06/17 11:30 77 11 148/65 (92) 100 Nasal Cannula 2.00 12/06/17 11:15 85 11 153/65 (94) 100 Nasal Cannula 2.00 12/06/17 11:03 73 12/06/17 11:00 76 179/72 (107) 100 Nasal Cannula 2.00 12/06/17 11:00 97.0 I & O 12/07/17 07:00 Intake Total 1000 ml Output Total 575 ml Balance 425 ml Height & Weight Height: 5'2.00" Weight: 146lbs. 0.0oz. 66.216776ju; 26.7 BMI Method: General Appearance: No Apparent Distress, WD/WN HEENT: PERRL/EOMI, Moist Mucous Membranes Neck: Non Tender, Supple Respiratory: Lungs Clear, No Respiratory Distress Cardiovascular: Regular Rate, Rhythm, No Murmur Gastrointestinal: normal bowel sounds, non tender, soft, no organomegaly, no pulsatile mass Extremity: Normal Capillary Refill, No Calf Tenderness Neurologic/Psychiatric: Alert, Oriented x3, Normal Mood/Affect Skin: Normal Color, Warm/Dry Results Lab Laboratory Tests 12/06/17 12:50 12/06/17 19:30 12/07/17 03:45 12/07/17 04:55 Assessment/Plan Assessment/Plan Acute GIB with hematemesis hematochezia s/p EGD -pt had 1 unit of PRBC yesterday -Hb decreased from 8.2 to 5.8 this AM -EICU ordered 1 unit of PRBC secondary to significant drop and tachycardia I am going to add another unit for total 2 units of PRBC transfusion this morning. -IVF NS at 125 -Monitor H&H Q6 Hyperkalemia -10 units regular insulin, 1 amp D50, 2 amp bicarb, -recheck 2 hours after treatment Pankinson's/dementia Sinus tach -IVF and transfusion OUMOU DAWSON DO Dec 07, 2017 05:35
[2017-12-07] MEDS ORDERED: inSUlin (REGULAR) HUMAN 1 UNIT/0.01 ML (CHARGE PER UNIT) IV ONE (05:45)
[2017-12-07] MEDS ORDERED: DEXTROSE 50% 50 ML (IMS) SYR IV ONE (05:45)
[2017-12-07] MEDS ORDERED: SODIUM BICARB 8.4% 50 MEQ/50 ML (ABBOTT) SYR IV ONE (05:45)
[2017-12-07] MEDS: MAGNESIUM 1 GM/100 ML IVPB 100 ML IV SCH ×5 (06:00→09:10)
[2017-12-07] MEDS: inSUlin ASPART (NovoLOG) 1 UNIT/0.01 ML (CHARGE PER UNIT) SQ SCH ×4 (06:00→18:53)
[2017-12-07] MEDS: KCL 20 MEQ TAB (K-DUR) PO SCH (06:00)
[2017-12-07] MEDS: POTASSIUM CL 10MEQ/50ML IVPB 50 ML IV SCH (06:00)
--- NOTE | 2017-12-07 07:53 | Diagnostic Imaging Report ---
INDICATION: Dyspnea. FINDINGS: There is cardiomegaly. Mediastinum is unremarkable. There are some patchy bibasilar atelectasis and/or pneumonitis. There are small bilateral pleural effusions. There is no pneumothorax. IMPRESSION: Patchy bibasilar atelectasis and/or pneumonitis and small bilateral pleural effusions. Cardiomegaly. Dictated by: Dictated on workstation # [id number]
--- NOTE | 2017-12-07 08:03 | Progress Note-Hospitalist ---
Subjective HPI/CC On Admission Date Seen by Provider: Dec 07, 2017 Time Seen by Provider: 07:57 Pt is an 87yoCF with a PMH of IDDMII, anemia of chronic disease, HTN who presented as a direct admit from [facility] for a GI bleed. She states her symptoms started on 12/04 evening with bright red blood per rectum. It continued to worsen and she began to vomit bright red blood as well today. She was then sent from her NH to the ER for evaluation where she was found to be anemic at 7.5 down from labs just a few days ago of 9.8. She denies any abdominal pain or history of GI bleeds. She was transferred here for surgical evaluation. Subjective/Events-last exam Pt sleeping and resting comfortably. Awakens easily. Denies pain or continued hematemesis or BRBPR. Objective Exam Vital Signs Vital Signs Date Time Temp Pulse Resp B/P (MAP) Pulse Ox O2 Delivery O2 Flow Rate FiO2 12/07/17 06:04 98.3 103 17 132/50 99 Room Air 12/07/17 04:00 2.00 Capillary Refill : General Appearance: No Apparent Distress, WD/WN Respiratory: Lungs Clear, No Respiratory Distress Cardiovascular: Regular Rate, Rhythm, No Murmur Gastrointestinal: Normal Bowel Sounds, Non Tender, Soft Extremity: No Calf Tenderness, Pedal Edema Neurologic/Psychiatric: Alert Results/Procedures Lab Laboratory Tests 12/06/17 12:50 12/06/17 19:30 12/07/17 03:45 12/07/17 04:55 Patient resulted labs reviewed. Assessment/Plan Assessment and Plan Assess & Plan/Chief Complaint GI Bleed Diagnosis/Problems Diagnosis/Problems (1) GI (gastrointestinal bleed) Status: Acute Assessment & Plan: Hgb 8.2 yesterday down to 5.8 this AM 2u pRBCs ordered Underwent EGD yesterday which revealed gastric mass Monitor in ICU Surgery consulted appreciate recs Protonix BID Qualifiers: GI bleed type/associated pathology: unspecified gastrointestinal hemorrhage type Qualified Codes: K92.2 - Gastrointestinal hemorrhage, unspecified (2) Gastric mass Status: Acute Assessment & Plan: Gastric mass noted on EGD Discussed with Dr Velez and concerning for malignancy based on appearance Was able to sample some tissue but began bleeding and unsure of quality of specimen obtained Will discuss with family and patient regarding findings when daughter arrives (3) Anemia Assessment & Plan: Acute blood loss on chronic anemia Currently being transfused Heme/Onc consulted, appreciate recs Qualifiers: Anemia type: due to chronic kidney disease Chronic kidney disease stage: stage 3 (moderate) Qualified Codes: N18.3 - Chronic kidney disease, stage 3 ( moderate); D63.1 - Anemia in chronic kidney disease (4) Insulin dependent diabetes mellitus Assessment & Plan: Fasting blood sugar was 149 this AM with no basal insulin Trend this AM with SSI (5) Essential (primary) hypertension Assessment & Plan: BP well controlled Will hold home meds for now (6) Hyperkalemia Assessment & Plan: s/p 10 units Regular insulin with an amp of D50 and bicarb Recheck in 2 hours Monitor on Telemetry (7) Dementia Assessment & Plan: On Carbidopa at baseline but denied history of parkinsons Qualifiers: Dementia type: unspecified type Clinical Quality Measures DVT/VTE Risk/Contraindication: Risk Factor Score Per Nursin RFS Level Per Nursing on Admit: 2=Moderate ANIRUDH LEDESMA MD Dec 07, 2017 8:03 am
[2017-12-07] MEDS: PANTOPRAZOLE 40 MG (PROTONIX) VIAL IV SCH ×2 (08:09→20:46)
--- NOTE | 2017-12-07 10:34 | Diagnostic Imaging Report ---
PROCEDURE: CT abdomen without contrast. TECHNIQUE: Multiple contiguous axial images were obtained through the abdomen without the use of intravenous contrast. INDICATION: Gastric mass recently resected. COMPARISON: CT abdomen and pelvis of 10/05/2006 FINDINGS: Large sliding-type hiatal hernia is present with approximately half the stomach in the chest. The stomach is decompressed and has apparent wall thickening throughout its entirety. Correlation with recent endoscopy is advised. The colon is incompletely imaged on the CT of the abdomen. The visualized aspects of the transverse colon have no definitive wall thickening. If there is concern for mucosal-based lesion, then colonoscopy is the study of choice. Nodular liver is indicative of cirrhosis. The spleen is enlarged measuring 15 cm and suggest portal hypertension. Cholecystectomy has been performed. No adrenal mass. Multiple bilateral renal exophytic hypodensities are likely cysts but incompletely evaluated. No renal stones are identified. Mild stranding within the omentum and mesenteric root is likely due to fluid associated with liver failure. Atherosclerotic aorta. IMPRESSION: 1. Large sliding-type hiatal hernia with diffuse gastric wall thickening. Correlation with recent endoscopy is recommended for etiology. 2. Colon is incompletely imaged on a CT abdomen. The visualized aspects of the transverse, ascending and descending colon have no definitive mass lesion. Correlation with colonoscopy is advised. 3. Cirrhosis with splenomegaly suggests portal hypertension. Small amount of abdominal ascites is present. Dictated by: Dictated on workstation # [id number]
[2017-12-07 12:35] LABS: CALCIUM 8.5 MG/DL (8.5-10.1); CREATININE SERUM 1.6 MG/DL (0.60-1.30); MAGNESIUM 2.6 MG/DL (1.8-2.4); PHOSPHORUS 4.1 MG/DL (2.3-4.7); POTASSIUM 4.8 MMOL/L (3.6-5.0)
[2017-12-07 12:54] LABS: HEMOGLOBIN 9.1 G/DL (11.5-16.0)
[2017-12-07 17:59] LABS: HEMOGLOBIN 8.1 G/DL (11.5-16.0)
--- NOTE | 2017-12-07 20:57 | Progress Note ---
Subjective Time Seen by a Provider: 13:11 Subjective/Events-last exam Pt seen and examined, lying comfortably in bed. Denies abdominal pain, has had multiple melanotic stools. Review of Systems General: No Chills, No Night Sweats; Fatigue Cardiovascular: No: Chest Pain, Palpitations Gastrointestinal: No: Nausea, Vomiting Objective Exam Vital Signs Date Time Temp Pulse Resp B/P (MAP) Pulse Ox O2 Delivery O2 Flow Rate FiO2 12/07/17 20:00 111 22 164/67 (99) 95 Room Air 12/07/17 19:52 100.0 118 20 158/68 (98) 98 Room Air 12/07/17 19:00 104 19 158/68 (98) 94 Room Air 12/07/17 19:00 102 12/07/17 18:00 98 20 122/88 (99) 96 Room Air 12/07/17 17:32 97.8 12/07/17 17:00 108 16 135/70 (91) 96 Room Air 12/07/17 16:21 2 Nasal Cannula 12/07/17 16:00 99 8 140/66 (90) 96 Room Air 12/07/17 16:00 Room Air 12/07/17 15:00 107 15 150/75 (100) 97 Room Air 12/07/17 14:38 98.7 12/07/17 14:00 110 14 156/65 (95) 97 Room Air 12/07/17 13:00 100 12 145/68 (93) 97 Room Air 12/07/17 13:00 104 12/07/17 12:00 99 15 97 Room Air 12/07/17 12:00 Room Air 12/07/17 11:51 97.9 12/07/17 11:00 95 8 96 Room Air 12/07/17 10:00 102 26 137/69 (91) 96 Room Air 12/07/17 09:51 97.9 105 137/69 12/07/17 09:00 103 10 171/66 (101) 96 Room Air 12/07/17 08:25 98.6 100 17 134/65 96 Room Air 12/07/17 08:05 97.7 104 10 153/61 95 Room Air 12/07/17 08:03 97.7 98 10 153/61 96 Room Air 12/07/17 08:00 98 10 153/61 (91) 97 Room Air 12/07/17 08:00 Room Air 12/07/17 07:30 97.7 12/07/17 07:00 108 12/07/17 07:00 109 22 127/47 (73) 97 Room Air 12/07/17 06:04 98.3 103 17 132/50 99 Room Air 12/07/17 06:00 99 11 132/50 (77) 96 Room Air 12/07/17 05:43 97.8 98 14 105/46 96 Room Air 12/07/17 05:00 101 14 113/50 (71) 96 Room Air 12/07/17 04:00 98 13 129/48 (75) 96 Room Air 12/07/17 04:00 98.1 12/07/17 04:00 100 Nasal Cannula 2.00 12/07/17 03:00 85 14 116/47 (70) 97 Room Air 12/07/17 02:00 97 15 110/48 (68) 97 Room Air 12/07/17 01:00 93 19 117/51 (73) 98 Room Air 12/07/17 01:00 97 12/07/17 00:00 97.6 98 Room Air 12/07/17 00:00 100 Nasal Cannula 2.00 12/07/17 00:00 81 13 112/46 (68) 100 Room Air 12/06/17 23:00 82 11 110/46 (67) 99 Nasal Cannula 2.00 12/06/17 22:00 85 14 126/52 (76) 98 Nasal Cannula 2.00 12/06/17 21:00 88 13 117/64 (81) 100 Nasal Cannula 2.00 I & O 12/07/17 07:00 Intake Total 1000 ml Output Total 750 ml Balance 250 ml Capillary Refill : General Appearance: No Apparent Distress, WD/WN HEENT: PERRL/EOMI, Moist Mucous Membranes Neck: Non Tender, Supple Respiratory: Lungs Clear, No Respiratory Distress Cardiovascular: Regular Rate, Rhythm, No Murmur Gastrointestinal: normal bowel sounds, non tender, soft, no organomegaly, no pulsatile mass Extremity: No Calf Tenderness, Pedal Edema Neurologic/Psychiatric: Alert Skin: Normal Color, Warm/Dry Results Lab Laboratory Tests 12/06/17 21:16: Glucometer 211H 12/07/17 01:27: Glucometer 174H 12/07/17 03:45: White Blood Count 5.9, Red Blood Count 1.84L, Hemoglobin 5.7#*L, Hematocrit 18*L , Mean Corpuscular Volume 98, Mean Corpuscular Hemoglobin 31, Mean Corpuscular Hemoglobin Concent 32, Red Cell Distribution Width 18.5H, Platelet Count 126L, Mean Platelet Volume 10.4, Neutrophils (%) (Auto) 69, Lymphocytes (%) (Auto) 21 , Monocytes (%) (Auto) 10, Eosinophils (%) (Auto) 0, Basophils (%) (Auto) 0, Neutrophils # (Auto) 4.0, Lymphocytes # (Auto) 1.2, Monocytes # (Auto) 0.6, Eosinophils # (Auto) 0.0, Basophils # (Auto) 0.0, Prothrombin Time 17.1H, INR Comment 1.4, Sodium Level 139, Potassium Level 6.1H, Chloride Level 112H, Carbon Dioxide Level 19L, Anion Gap 8, Blood Urea Nitrogen 44H, Creatinine 1.68H , Estimat Glomerular Filtration Rate 29, BUN/Creatinine Ratio 26, Glucose Level 149H, Calcium Level 8.0L, Corrected Calcium 9.2, Phosphorus Level 4.9H, Magnesium Level 1.4L, Total Bilirubin 0.4, Aspartate Amino Transf (AST/SGOT) 20 , Alanine Aminotransferase (ALT/SGPT) 14, Alkaline Phosphatase 66, Total Protein 4.1L, Albumin 2.5L 12/07/17 04:55: Hemoglobin 5.8*L, Hematocrit 19*L 12/07/17 12:09: Sodium Level 141, Potassium Level 4.8, Chloride Level 111H, Carbon Dioxide Level 20L, Anion Gap 10, Blood Urea Nitrogen 47H, Creatinine 1.60H, Estimat Glomerular Filtration Rate 31, BUN/Creatinine Ratio 29, Glucose Level 181H, Calcium Level 8.5, Phosphorus Level 4.1, Magnesium Level 2.6H 12/07/17 12:45: Hemoglobin 9.1#L, Hematocrit 27L 12/07/17 17:24: Glucometer 128H 12/07/17 17:55: Hemoglobin 8.1L, Hematocrit 24L Microbiology 12/06/17 MRSA Screen - Final, Complete MRSA not isolated Assessment/Plan Assessment/Plan Assessment/Plan Gastric Mass - was the cause of bleeding, sent to pathology Hematemesis Hematochezia DM, HTN Parkinson's Dementia Anemia Pt required transfusion and is still having melanotic stools, this was expected. Will hold off on colonscopy; probably not necessary. May repeat EGD tomorrow to determine if pt is still bleeding. Daughter had no questions; they are just waiting on pathology. Clinical Quality Measures DVT/VTE Risk/Contraindication: Risk Factor Score Per Nursin RFS Level Per Nursing on Admit: 2=Moderate ELLI HAYES DO Dec 07, 2017 20:57
[2017-12-08] VITALS (31 sets, daily range): BP systolic 104–230; BP diastolic 58–117
[2017-12-08] MEDS: inSUlin ASPART (NovoLOG) 1 UNIT/0.01 ML (CHARGE PER UNIT) SQ SCH ×4 (00:20→18:16)
[2017-12-08 03:54] LABS: BASOPHILS % (AUTO) 0 % (0-10); EOSINOPHILS % (AUTO) 0 % (0-10); HEMATOCRIT 23 % (35-52); HEMOGLOBIN 7.5 G/DL (11.5-16.0); LYMPHOCYTES # (AUTO) 0.8 X 10^3 (1.0-4.0); LYMPHOCYTES % (AUTO) 15 % (12-44); MEAN CORPUSCULAR HEMOGLOBIN 30 PG (25-34); MEAN CORPUSCULAR HGB CONC 33 G/DL (32-36); MEAN CORPUSCULAR VOLUME 92 FL (80-99); MEAN PLATELET VOLUME 10.2 FL (7.4-10.4); MONOCYTES # (AUTO) 0.5 X 10^3 (0.0-1.0); MONOCYTES % (AUTO) 10 % (0-12); NEUTROPHILS # (AUTO) 3.9 X 10^3 (1.8-7.8); NEUTROPHILS % (AUTO) 75 % (42-75); PLATELET COUNT 92 10^3/uL (130-400); RED BLOOD COUNT 2.49 10^6/uL (4.35-5.85); RED CELL DISTRIBUTION WIDTH 19.2 % (10.0-14.5); WHITE BLOOD COUNT 5.2 10^3/uL (4.3-11.0)
[2017-12-08 04:14] LABS: ALBUMIN 2.7 GM/DL (3.2-4.5); BILIRUBIN,TOTAL 0.6 MG/DL (0.1-1.0); CALCIUM 8.4 MG/DL (8.5-10.1); CREATININE SERUM 1.39 MG/DL (0.60-1.30); PHOSPHORUS 2.7 MG/DL (2.3-4.7); POTASSIUM 3.9 MMOL/L (3.6-5.0); TOTAL PROTEIN 4.2 GM/DL (6.4-8.2)
[2017-12-08] MEDS: POTASSIUM CL 10MEQ/50ML IVPB 50 ML IV SCH (05:06)
[2017-12-08] MEDS: MAGNESIUM 1 GM/100 ML IVPB 100 ML IV SCH (05:07)
[2017-12-08] MEDS: KCL 20 MEQ TAB (K-DUR) PO SCH (05:07)
[2017-12-08] MEDS ORDERED: morphine INJ 4 MG/ML 1 ML (VIAL/SYRINGE) IVP PRN (05:45)
[2017-12-08] MEDS: NS IV 1000 ML 1,000 ML IV SCH (05:49)
--- NOTE | 2017-12-08 06:03 | Pulmonary Progress Note ---
Subjective Time Seen by a Provider: 06:03 Sepsis Event Evaluation Height, Weight, BMI Height: 5'2.00" Weight: 149lbs. 1.0oz. 67.920190xp; 26.7 BMI Method: Exam Exam Vital Signs Date Time Temp Pulse Resp B/P (MAP) Pulse Ox O2 Delivery O2 Flow Rate FiO2 12/08/17 04:00 99.4 12/08/17 04:00 98 Room Air 12/08/17 03:00 112 19 104/85 (91) 95 Room Air 12/08/17 02:00 115 27 159/69 (99) 95 Room Air 12/08/17 01:35 115 12/08/17 01:00 107 17 158/58 (91) 96 Room Air 12/08/17 00:00 110 12 159/72 (101) 96 Room Air 12/08/17 00:00 98 Room Air 12/07/17 23:55 98.9 12/07/17 23:00 106 28 160/69 (99) 96 Room Air 12/07/17 22:00 106 21 160/70 (100) 95 Room Air 12/07/17 21:00 105 19 159/94 (115) 96 Room Air 12/07/17 20:00 98 Room Air 12/07/17 20:00 111 22 164/67 (99) 95 Room Air 12/07/17 19:52 100.0 118 20 158/68 (98) 98 Room Air 12/07/17 19:00 104 19 158/68 (98) 94 Room Air 12/07/17 19:00 102 12/07/17 18:00 98 20 122/88 (99) 96 Room Air 12/07/17 17:32 97.8 12/07/17 17:00 108 16 135/70 (91) 96 Room Air 12/07/17 16:21 2 Nasal Cannula 12/07/17 16:00 99 8 140/66 (90) 96 Room Air 12/07/17 16:00 Room Air 12/07/17 15:00 107 15 150/75 (100) 97 Room Air 12/07/17 14:38 98.7 12/07/17 14:00 110 14 156/65 (95) 97 Room Air 12/07/17 13:00 100 12 145/68 (93) 97 Room Air 12/07/17 13:00 104 12/07/17 12:00 99 15 97 Room Air 12/07/17 12:00 Room Air 12/07/17 11:51 97.9 12/07/17 11:00 95 8 96 Room Air 12/07/17 10:00 102 26 137/69 (91) 96 Room Air 12/07/17 09:51 97.9 105 137/69 12/07/17 09:00 103 10 171/66 (101) 96 Room Air 12/07/17 08:25 98.6 100 17 134/65 96 Room Air 12/07/17 08:05 97.7 104 10 153/61 95 Room Air 12/07/17 08:03 97.7 98 10 153/61 96 Room Air 12/07/17 08:00 98 10 153/61 (91) 97 Room Air 12/07/17 08:00 Room Air 12/07/17 07:30 97.7 12/07/17 07:00 108 12/07/17 07:00 109 22 127/47 (73) 97 Room Air 12/07/17 06:04 98.3 103 17 132/50 99 Room Air 12/07/17 06:00 99 11 132/50 (77) 96 Room Air I & O 12/08/17 07:00 Intake Total 1400 ml Output Total 1675 ml Balance -275 ml Height & Weight Height: 5'2.00" Weight: 149lbs. 1.0oz. 67.996662ou; 26.7 BMI Method: General Appearance: No Apparent Distress, WD/WN HEENT: PERRL/EOMI, Moist Mucous Membranes Neck: Non Tender, Supple Respiratory: Lungs Clear, No Respiratory Distress Cardiovascular: Regular Rate, Rhythm, No Murmur Gastrointestinal: normal bowel sounds, non tender, soft, no organomegaly, no pulsatile mass Extremity: No Calf Tenderness, Pedal Edema Neurologic/Psychiatric: Alert Skin: Normal Color, Warm/Dry Results Lab Laboratory Tests 12/06/17 12:50 12/06/17 19:30 12/07/17 03:45 12/07/17 04:55 12/07/17 12:09 12/07/17 12:45 12/07/17 17:55 12/08/17 03:15 Assessment/Plan Assessment/Plan Acute GIB with hematemesis hematochezia s/p EGD -Hb dropped from 9.1 to 7.5. -secondary to persistent drop and continuation of blood per rectum will transfuse 2 units of PRBC. -IVF NS at 125 -Monitor H&H Q6 Pankinson's/dementia Sinus tach -IVF and transfusion OUMOU DAWSON DO Dec 08, 2017 06:03
--- NOTE | 2017-12-08 07:34 | Progress Note-Hospitalist ---
Subjective HPI/CC On Admission Date Seen by Provider: Dec 08, 2017 Time Seen by Provider: 07:34 Pt is an 87yoCF with a PMH of IDDMII, anemia of chronic disease, HTN who presented as a direct admit from [facility] for a GI bleed. She states her symptoms started on 12/04 evening with bright red blood per rectum. It continued to worsen and she began to vomit bright red blood as well today. She was then sent from her NH to the ER for evaluation where she was found to be anemic at 7.5 down from labs just a few days ago of 9.8. She denies any abdominal pain or history of GI bleeds. She was transferred here for surgical evaluation. Subjective/Events-last exam Pt complains of pain all over. States still have dark stools. Pt states she hopes Dr Velez can do the scope today to "get some answers even if they're bad. " Objective Exam Vital Signs Vital Signs Date Time Temp Pulse Resp B/P (MAP) Pulse Ox O2 Delivery O2 Flow Rate FiO2 12/08/17 06:00 112 23 182/64 (103) 97 Room Air 12/08/17 04:00 99.4 12/07/17 04:00 2.00 Capillary Refill : General Appearance: No Apparent Distress, Chronically ill Respiratory: Lungs Clear, No Respiratory Distress Cardiovascular: No Murmur, Tachycardia Gastrointestinal: Normal Bowel Sounds, Soft Rectal: Other (rectal tube in place) Extremity: No Calf Tenderness, No Pedal Edema Neurologic/Psychiatric: Alert, Other (oriented to person and place) Results/Procedures Lab Laboratory Tests 12/07/17 12:09 12/07/17 12:45 12/07/17 17:55 12/08/17 03:15 Patient resulted labs reviewed. Assessment/Plan Assessment and Plan Assess & Plan/Chief Complaint GI Bleed Diagnosis/Problems Diagnosis/Problems (1) GI (gastrointestinal bleed) Status: Acute Assessment & Plan: Hgb 7.5 2u pRBCs ordered again by Dr Ulrich Total will be 5 units transfused Underwent EGD 12/07 which revealed gastric mass Surgery consulted appreciate recvidhya Protonix BID Qualifiers: GI bleed type/associated pathology: unspecified gastrointestinal hemorrhage type Qualified Codes: K92.2 - Gastrointestinal hemorrhage, unspecified (2) Gastric mass Status: Acute Assessment & Plan: Gastric mass noted on EGD Discussed with Dr Velez and concerning for malignancy based on appearance Was able to sample some tissue but began bleeding and unsure of quality of specimen obtained Discussed this with family who would like to discuss with Dr Lopez regarding options (3) Anemia Assessment & Plan: Acute blood loss on chronic anemia Transfusions ordered Heme/Onc consulted, appreciate recs Qualifiers: Anemia type: due to chronic kidney disease Chronic kidney disease stage: stage 3 (moderate) Qualified Codes: N18.3 - Chronic kidney disease, stage 3 ( moderate); D63.1 - Anemia in chronic kidney disease (4) Insulin dependent diabetes mellitus Assessment & Plan: Fasting blood sugar within range Continue SSI (5) Essential (primary) hypertension Assessment & Plan: BP well controlled Will hold home meds for now (6) Hyperkalemia Status: Resolved Assessment & Plan: Resolved (7) Dementia Assessment & Plan: On Carbidopa at baseline but denied history of parkinsons Qualifiers: Dementia type: unspecified type Clinical Quality Measures DVT/VTE Risk/Contraindication: Risk Factor Score Per Nursin RFS Level Per Nursing on Admit: 2=Moderate ANIRUDH LEDESMA MD Dec 08, 2017 7:34 am
[2017-12-08] MEDS ORDERED: fentaNYL INJECTION 100 MCG/2 ML AMP IVP PRN (07:45)
[2017-12-08] MEDS: 1/2 NS IV SOLUTION 1,000 ML IV SCH ×2 (07:51→17:42)
[2017-12-08] MEDS: PANTOPRAZOLE 40 MG (PROTONIX) VIAL IV SCH ×2 (07:51→20:15)
[2017-12-08] MEDS: NITROGLYCERIN 2% OINT 1 GM UNIT DOSE PACKET TOP PRN (07:51)
[2017-12-08] MEDS ORDERED: NS IV 500 ML 500 ML ONE (09:22)
[2017-12-08] MEDS ORDERED: NS IV 500 ML 500 ML IV ONE (09:45)
[2017-12-08] MEDS: LORazepam INJ 2 MG/ML (ATIVAN) VIAL IVP PRN (09:52)
--- NOTE | 2017-12-08 10:40 | Progress Note ---
Subjective Time Seen by a Provider: 09:31 Subjective/Events-last exam Pt seen and examined, states she feels "bad"; however, she is talking about "feeling jittery". She is asking to take her valium. She denies abdominal pain. Has a rectal tube in place, appears to have only brown fecal material right now (no maroone, melena or bright red color). Review of Systems General: No Chills, No Night Sweats; Fatigue Pulmonary: No Dyspnea, No Cough Cardiovascular: Palpitations; No: Chest Pain Gastrointestinal: No: Nausea, Vomiting Objective Exam Vital Signs Date Time Temp Pulse Resp B/P (MAP) Pulse Ox O2 Delivery O2 Flow Rate FiO2 12/08/17 10:00 126 32 196/93 (127) 97 Room Air 12/08/17 09:46 98.5 123 24 200/75 100 12/08/17 09:31 99.1 123 23 182/84 97 Room Air 12/08/17 09:24 182/84 (116) 12/08/17 09:00 124 22 215/97 (136) 100 Room Air 12/08/17 08:00 124 23 213/103 (139) 100 Room Air 12/08/17 08:00 98 Room Air 12/08/17 07:54 99.7 12/08/17 07:00 124 12/08/17 07:00 124 19 230/91 (137) 92 Room Air 12/08/17 06:00 112 23 182/64 (103) 97 Room Air 12/08/17 05:00 107 21 175/97 (123) 96 Room Air 12/08/17 04:00 99.4 12/08/17 04:00 98 Room Air 12/08/17 04:00 121 12 185/97 (126) 97 Room Air 12/08/17 03:00 112 19 104/85 (91) 95 Room Air 12/08/17 02:00 115 27 159/69 (99) 95 Room Air 12/08/17 01:35 115 12/08/17 01:00 107 17 158/58 (91) 96 Room Air 12/08/17 00:00 110 12 159/72 (101) 96 Room Air 12/08/17 00:00 98 Room Air 12/07/17 23:55 98.9 12/07/17 23:00 106 28 160/69 (99) 96 Room Air 12/07/17 22:00 106 21 160/70 (100) 95 Room Air 12/07/17 21:00 105 19 159/94 (115) 96 Room Air 12/07/17 20:00 98 Room Air 12/07/17 20:00 111 22 164/67 (99) 95 Room Air 12/07/17 19:52 100.0 118 20 158/68 (98) 98 Room Air 12/07/17 19:00 104 19 158/68 (98) 94 Room Air 12/07/17 19:00 102 12/07/17 18:00 98 20 122/88 (99) 96 Room Air 12/07/17 17:32 97.8 12/07/17 17:00 108 16 135/70 (91) 96 Room Air 12/07/17 16:21 2 Nasal Cannula 12/07/17 16:00 99 8 140/66 (90) 96 Room Air 12/07/17 16:00 Room Air 12/07/17 15:00 107 15 150/75 (100) 97 Room Air 12/07/17 14:38 98.7 12/07/17 14:00 110 14 156/65 (95) 97 Room Air 12/07/17 13:00 100 12 145/68 (93) 97 Room Air 12/07/17 13:00 104 12/07/17 12:00 99 15 97 Room Air 12/07/17 12:00 Room Air 12/07/17 11:51 97.9 12/07/17 11:00 95 8 96 Room Air I & O 12/08/17 07:00 Intake Total 3400 ml Output Total 1675 ml Balance 1725 ml Capillary Refill : General Appearance: Chronically ill, Mild Distress HEENT: PERRL/EOMI, Moist Mucous Membranes Neck: Non Tender, Supple Respiratory: Lungs Clear, No Respiratory Distress Cardiovascular: No Murmur, Tachycardia Gastrointestinal: normal bowel sounds, non tender, soft, no organomegaly, no pulsatile mass Extremity: No Calf Tenderness, No Pedal Edema Neurologic/Psychiatric: Alert, Other (oriented to person and place) Skin: Normal Color, Warm/Dry Results Lab Laboratory Tests 12/07/17 12:09: Sodium Level 141, Potassium Level 4.8, Chloride Level 111H, Carbon Dioxide Level 20L, Anion Gap 10, Blood Urea Nitrogen 47H, Creatinine 1.60H, Estimat Glomerular Filtration Rate 31, BUN/Creatinine Ratio 29, Glucose Level 181H, Calcium Level 8.5, Phosphorus Level 4.1, Magnesium Level 2.6H 12/07/17 12:45: Hemoglobin 9.1#L, Hematocrit 27L 12/07/17 17:24: Glucometer 128H 12/07/17 17:55: Hemoglobin 8.1L, Hematocrit 24L 12/08/17 03:15: White Blood Count 5.2, Red Blood Count 2.49L, Hemoglobin 7.5L, Hematocrit 23L, Mean Corpuscular Volume 92, Mean Corpuscular Hemoglobin 30, Mean Corpuscular Hemoglobin Concent 33, Red Cell Distribution Width 19.2H, Platelet Count 92L, Mean Platelet Volume 10.2, Neutrophils (%) (Auto) 75, Lymphocytes (%) (Auto) 15 , Monocytes (%) (Auto) 10, Eosinophils (%) (Auto) 0, Basophils (%) (Auto) 0, Neutrophils # (Auto) 3.9, Lymphocytes # (Auto) 0.8L, Monocytes # (Auto) 0.5, Eosinophils # (Auto) 0.0, Basophils # (Auto) 0.0, Sodium Level 144, Potassium Level 3.9, Chloride Level 116H, Carbon Dioxide Level 18L, Anion Gap 10, Blood Urea Nitrogen 44H, Creatinine 1.39H, Estimat Glomerular Filtration Rate 36, BUN/ Creatinine Ratio 32, Glucose Level 164H, Calcium Level 8.4L, Corrected Calcium 9.4, Phosphorus Level 2.7, Magnesium Level 2.0, Total Bilirubin 0.6, Aspartate Amino Transf (AST/SGOT) 23, Alanine Aminotransferase (ALT/SGPT) 20, Alkaline Phosphatase 64, Total Protein 4.2L, Albumin 2.7L Microbiology 12/06/17 MRSA Screen - Final, Complete MRSA not isolated Assessment/Plan Assessment/Plan Assessment/Plan Gastric Mass - was the cause of bleeding, sent to pathology Hematemesis Hematochezia DM, HTN Parkinson's Dementia Anemia Pt required transfusion and is still having melanotic stools, this was expected. Will D/C rectal tube it is not doing anything at this time. Ordered clear liquids to try and flush out stomach; plan to repeat EGD tomorrow to determine if pt is still bleeding. Daughter had no questions; still waiting on pathology. Clinical Quality Measures DVT/VTE Risk/Contraindication: Risk Factor Score Per Nursin RFS Level Per Nursing on Admit: 2=Moderate ELLI HAYES DO Dec 08, 2017 10:40
[2017-12-08] MEDS ORDERED: HYDROcodone/APAP 10 MG/325 MG (LORTAB) TAB PO PRN (11:15)
[2017-12-08] MEDS ORDERED: fentaNYL PATCH 100 MCG (DURAGESIC) TD SCH (11:15)
[2017-12-08] MEDS: SINEMET 25/250 (CARBIDOPA/LEVODOPA) TAB PO SCH ×3 (11:36→20:15)
[2017-12-08] MEDS: meTOprolol 5 MG/5 ML (LOPRESSOR) VIAL IV PRN ×2 (11:36→21:09)
[2017-12-08] MEDS: RIVASTIGMINE 9.5 MG PATCH (EXELON) NON-FORMULARY TD SCH (13:20)
[2017-12-08] MEDS: RIVASTIGMINE 4.6 MG PATCH (EXELON) TD SCH (13:20)
[2017-12-08] MEDS: DIAZEPAM 2 MG (VALIUM) TAB PO SCH (15:28)
--- NOTE | 2017-12-08 16:41 | Progress Note-Standard ---
Standard Progress Note Progress Notes/Assess & Plan Date Seen by a Provider: Dec 08, 2017 Time Seen by a Provider: 14:15 Progress/Assessment & Plan 87-year-old female admitted with hematemesis, hematochezia and melena. Patient has history of iron deficiency anemia in the past with EGD showing gastritis. She has required parenteral iron therapy a few years ago and recently. She also has chronic kidney disease stage 3-4 and was on ESAs. EGD done this time showed a gastric mass with bleeding. Biopsies obtained were negative with no tissue other than blood and blood clot. Today I had a discussion with the patient and her daughters regarding further options. They would like to know the diagnosis and options before deciding how to proceed. I have discussed this with Dr. Martinez. Patient will need a repeat EGD with biopsies for tissue diagnosis. Continue transfusion support if continued bleeding. I am out of the office until 12/16/17. YVONNE GREEN Dec 08, 2017 16:41
[2017-12-08] MEDS: HYDROcodone/APAP 10 MG/325 MG (LORTAB) TAB PO SCH (20:15)
[2017-12-08] MEDS: MIRTAZAPINE 15 MG (REMERON) TAB PO SCH (20:15)
[2017-12-09] VITALS (20 sets, daily range): BP systolic 111–201; BP diastolic 6–110
[2017-12-09] MEDS: inSUlin ASPART (NovoLOG) 1 UNIT/0.01 ML (CHARGE PER UNIT) SQ SCH ×3 (00:21→11:16)
[2017-12-09] MEDS: 1/2 NS IV SOLUTION 1,000 ML IV SCH (01:20)
[2017-12-09] MEDS: meTOprolol 5 MG/5 ML (LOPRESSOR) VIAL IV PRN (03:30)
[2017-12-09 03:38] LABS: BASOPHILS % (AUTO) 0 % (0-10); EOSINOPHILS % (AUTO) 1 % (0-10); HEMATOCRIT 32 % (35-52); HEMOGLOBIN 10.7 G/DL (11.5-16.0); LYMPHOCYTES # (AUTO) 0.9 X 10^3 (1.0-4.0); LYMPHOCYTES % (AUTO) 17 % (12-44); MEAN CORPUSCULAR HEMOGLOBIN 30 PG (25-34); MEAN CORPUSCULAR HGB CONC 33 G/DL (32-36); MEAN CORPUSCULAR VOLUME 90 FL (80-99); MEAN PLATELET VOLUME 10.1 FL (7.4-10.4); MONOCYTES # (AUTO) 0.6 X 10^3 (0.0-1.0); MONOCYTES % (AUTO) 10 % (0-12); NEUTROPHILS % (AUTO) 72 % (42-75); PLATELET COUNT 93 10^3/uL (130-400); RED BLOOD COUNT 3.61 10^6/uL (4.35-5.85); WHITE BLOOD COUNT 5.6 10^3/uL (4.3-11.0)
[2017-12-09 04:00] LABS: ALBUMIN 3.2 GM/DL (3.2-4.5); BILIRUBIN,TOTAL 1.1 MG/DL (0.1-1.0); CALCIUM 9.1 MG/DL (8.5-10.1); CREATININE SERUM 1.14 MG/DL (0.60-1.30); POTASSIUM 3.2 MMOL/L (3.6-5.0); TOTAL PROTEIN 5.3 GM/DL (6.4-8.2)
[2017-12-09 04:06] LABS: MAGNESIUM 1.6 MG/DL (1.8-2.4); PHOSPHORUS 1.7 MG/DL (2.3-4.7)
[2017-12-09] MEDS: NITROGLYCERIN 2% OINT 1 GM UNIT DOSE PACKET TOP PRN (05:17)
--- NOTE | 2017-12-09 05:40 | Pulmonary Progress Note ---
Subjective Time Seen by a Provider: 05:51 Subjective/Events-last exam Pt became agitated last night. Sitter at bedside. Ativan was given. Sepsis Event Evaluation Height, Weight, BMI Height: 5'2.00" Weight: 149lbs. 1.0oz. 67.238913dx; 26.7 BMI Method: Exam Exam Vital Signs Date Time Temp Pulse Resp B/P (MAP) Pulse Ox O2 Delivery O2 Flow Rate FiO2 12/09/17 05:00 85 200/101 (134) 98 Room Air 12/09/17 04:00 88 195/97 (129) 98 Room Air 12/09/17 04:00 98 Room Air 12/09/17 03:00 88 186/106 (132) 100 Room Air 12/09/17 02:00 86 24 100 Room Air 12/09/17 01:00 92 12/09/17 01:00 92 13 173/90 (117) 100 Room Air 12/09/17 00:00 98 Room Air 12/09/17 00:00 98.9 12/09/17 00:00 90 20 Room Air 12/08/17 23:00 96 20 162/68 (99) 99 Room Air 12/08/17 22:00 104 22 196/78 (117) Room Air 12/08/17 21:00 105 21 183/83 (116) 98 Room Air 12/08/17 20:00 98 Room Air 12/08/17 20:00 98.3 105 20 182/71 (108) 98 Room Air 12/08/17 19:00 100 22 180/81 (114) 100 Room Air 12/08/17 19:00 96 12/08/17 18:00 98 23 172/70 (104) 97 Room Air 12/08/17 17:00 97 24 194/105 (134) Room Air 12/08/17 16:00 92 17 155/90 (111) Room Air 12/08/17 16:00 100 Room Air 12/08/17 15:58 99.9 12/08/17 15:23 98.3 98 22 159/81 100 OxyMask 12/08/17 15:00 103 13 171/78 (109) Room Air 12/08/17 14:00 101 18 178/95 (122) Room Air 12/08/17 13:26 99.6 102 20 172/74 99 12/08/17 13:11 98.9 110 20 192/92 100 12/08/17 13:00 93 12/08/17 13:00 93 23 178/113 (134) 100 Room Air 12/08/17 12:00 104 24 207/104 (138) Room Air 12/08/17 12:00 100 Room Air 12/08/17 11:43 98.1 12/08/17 11:42 91 26 174/71 98 Room Air 12/08/17 11:42 98.1 12/08/17 11:00 125 32 202/91 (128) 93 Room Air 12/08/17 10:00 126 32 196/93 (127) 97 Room Air 12/08/17 09:46 98.5 123 24 200/75 100 12/08/17 09:31 99.1 123 23 182/84 97 Room Air 12/08/17 09:24 182/84 (116) 12/08/17 09:00 124 22 215/97 (136) 100 Room Air 12/08/17 08:00 124 23 213/103 (139) 100 Room Air 12/08/17 08:00 98 Room Air 12/08/17 07:54 99.7 12/08/17 07:00 124 12/08/17 07:00 124 19 230/91 (137) 92 Room Air 12/08/17 06:00 112 23 182/64 (103) 97 Room Air I & O 12/09/17 07:00 Intake Total 795 ml Output Total 905 ml Balance -110 ml Height & Weight Height: 5'2.00" Weight: 149lbs. 1.0oz. 67.694089ug; 26.7 BMI Method: General Appearance: Chronically ill, Mild Distress HEENT: PERRL/EOMI, Moist Mucous Membranes Neck: Non Tender, Supple Respiratory: Lungs Clear, No Respiratory Distress Cardiovascular: No Murmur, Tachycardia Gastrointestinal: normal bowel sounds, non tender, soft, no organomegaly, no pulsatile mass Extremity: No Calf Tenderness, No Pedal Edema Neurologic/Psychiatric: Alert, Other (oriented to person and place) Skin: Normal Color, Warm/Dry Results Lab Laboratory Tests 12/07/17 12:09 12/07/17 12:45 12/07/17 17:55 12/08/17 03:15 12/09/17 03:02 Assessment/Plan Assessment/Plan Acute GIB with hematemesis hematochezia s/p EGD -HB is now stable -repeat EGD planned for today Hypokalemia -IVF 1/2 NS add 20meq KCL -Replace Decreased UO -will give 40mg of IV lasix Agitation -Will add PRN Haldol HTN urgency -Add Vasotec PRN -Nitro paste was also added Pankinson's/dementia Sinus tach -IVF and transfusion OUMOU DAWSON DO Dec 09, 2017 05:40
[2017-12-09] MEDS ORDERED: POTASSIUM CHLORIDE INJ 20 MEQ in 1/2 NS IV SOLUTION 1,000 ML IV SCH (05:42)
[2017-12-09] MEDS ORDERED: FUROSEMIDE 40 MG/4 ML INJ (LASIX) IVP ONE (05:45)
[2017-12-09] MEDS ORDERED: HALOPERIDOL 5 MG/ML (HALDOL) AMP IV PRN (06:00)
[2017-12-09] MEDS: POTASSIUM CL 10MEQ/50ML IVPB 50 ML IV SCH (06:18)
[2017-12-09] MEDS: KCL 20 MEQ TAB (K-DUR) PO SCH (06:18)
[2017-12-09] MEDS: MAGNESIUM 1 GM/100 ML IVPB 100 ML IV SCH ×4 (06:18→08:25)
[2017-12-09] MEDS ORDERED: 1/2 NS W/KCL 20 MEQ/L 1,000 ML IV ONE (06:30)
[2017-12-09] MEDS: ENALAPRILAT 2.5 MG/2 ML (VASOTEC) VIAL IV PRN (06:31)
[2017-12-09] MEDS ORDERED: POTASSIUM PHOSPHATE INJ 30 MM in NS (IVPB) 250 ML IV NR (06:40)
[2017-12-09] MEDS: 1/2 NS W/KCL 20 MEQ/L 1,000 ML IV SCH (06:47)
--- NOTE | 2017-12-09 07:25 | Progress Note-Hospitalist ---
Subjective HPI/CC On Admission Date Seen by Provider: Dec 09, 2017 Time Seen by Provider: 07:21 Pt is an 87yoCF with a PMH of IDDMII, anemia of chronic disease, HTN who presented as a direct admit from [facility] for a GI bleed. She states her symptoms started on 12/04 evening with bright red blood per rectum. It continued to worsen and she began to vomit bright red blood as well today. She was then sent from her NH to the ER for evaluation where she was found to be anemic at 7.5 down from labs just a few days ago of 9.8. She denies any abdominal pain or history of GI bleeds. She was transferred here for surgical evaluation. Subjective/Events-last exam Pt reports feeling well today. Pain improved. BP remains high. Objective Exam Vital Signs Vital Signs Date Time Temp Pulse Resp B/P (MAP) Pulse Ox O2 Delivery O2 Flow Rate FiO2 12/09/17 05:00 85 200/101 (134) 98 Room Air 12/09/17 02:00 24 12/09/17 00:00 98.9 12/07/17 04:00 2.00 Capillary Refill : General Appearance: No Apparent Distress, Chronically ill Respiratory: Lungs Clear, No Respiratory Distress Cardiovascular: Regular Rate, Rhythm, No Murmur Gastrointestinal: Normal Bowel Sounds, Non Tender, Soft Genital/Rectal: Other (morton in place) Extremity: No Calf Tenderness, No Pedal Edema Neurologic/Psychiatric: Alert, Oriented x3 Results/Procedures Lab Laboratory Tests 12/09/17 03:02 Patient resulted labs reviewed. Assessment/Plan Assessment and Plan Assess & Plan/Chief Complaint GI Bleed Diagnosis/Problems Diagnosis/Problems (1) GI (gastrointestinal bleed) Status: Acute Assessment & Plan: Hgb 10.7 Total 5 units transfused this hospitalization Underwent EGD 12/07 which revealed gastric mass, per Surgery note plan to repeat today Surgery consulted appreciate recs Protonix BID Qualifiers: GI bleed type/associated pathology: unspecified gastrointestinal hemorrhage type Qualified Codes: K92.2 - Gastrointestinal hemorrhage, unspecified (2) Gastric mass Status: Acute Assessment & Plan: Gastric mass noted on EGD, plan to repeat today Per Dr John foote showed just blood Oncology consulted, appreciate recs (3) Anemia Assessment & Plan: Acute blood loss on chronic anemia Transfusions ordered Heme/Onc consulted, appreciate recs Qualifiers: Anemia type: due to chronic kidney disease Chronic kidney disease stage: stage 3 (moderate) Qualified Codes: N18.3 - Chronic kidney disease, stage 3 ( moderate); D63.1 - Anemia in chronic kidney disease (4) Insulin dependent diabetes mellitus Assessment & Plan: Fasting blood sugar within range Continue SSI (5) Essential (primary) hypertension Assessment & Plan: BP elevated COntineu home meds Vasotec and NItropaste prn (6) Dementia Assessment & Plan: Continue Carbidopa Qualifiers: Dementia type: unspecified type (7) Hyperkalemia Status: Resolved Assessment & Plan: Resolved Clinical Quality Measures DVT/VTE Risk/Contraindication: Risk Factor Score Per Nursin RFS Level Per Nursing on Admit: 2=Moderate ANIRUDH LEDESMA MD Dec 09, 2017 7:25 am
[2017-12-09] MEDS: PANTOPRAZOLE 40 MG (PROTONIX) VIAL IV SCH ×2 (07:42→21:29)
[2017-12-09] MEDS: DIAZEPAM 2 MG (VALIUM) TAB PO SCH ×2 (07:42→13:14)
[2017-12-09] MEDS: SINEMET 25/250 (CARBIDOPA/LEVODOPA) TAB PO SCH ×4 (07:42→18:30)
[2017-12-09] MEDS: RIVASTIGMINE 4.6 MG PATCH (EXELON) TD SCH (07:43)
[2017-12-09] MEDS: RIVASTIGMINE 9.5 MG PATCH (EXELON) NON-FORMULARY TD SCH (07:43)
[2017-12-09] MEDS: HYDROcodone/APAP 10 MG/325 MG (LORTAB) TAB PO SCH ×2 (08:20→21:31)
[2017-12-09] MEDS ORDERED: proPOfol 200 MG/20 ML (DIPRIVAN) VIAL IV ONE (09:05)
[2017-12-09] MEDS ORDERED: NS IV 500 ML 500 ML ONE (09:08)
--- NOTE | 2017-12-09 09:33 | Diagnostic Imaging Report ---
INDICATION: Dyspnea. COMPARISON: 12/07/2017. FINDINGS: Single frontal radiographic view of the chest was obtained and demonstrates low inspiratory volumes. There are coarse prominent interstitial opacities suggestive of underlying chronic interstitial lung disease. No large effusion or pneumothorax is seen on today's study. Cardiac silhouette is mildly enlarged. Pulmonary vasculature is within normal limits. Bony structures show no acute abnormalities. IMPRESSION: 1. Stable exam of the chest showing probable chronic interstitial lung disease. 2. Mild cardiomegaly. No evidence of overt failure. Dictated by: Dictated on workstation # [id number]
--- NOTE | 2017-12-09 10:45 | Anesthesia-Procedure Note ---
Procedures/Interventions Procedure Start/Stop/Diagnosis Date of Procedure: Dec 09, 2017 Start Time: 09:10 Stop Time: 09:27 Additional Procedures Procedures Consulted for sedation in ICU. Report obtained. Supplies at bedside. Propofol 200 mg IV total, pt chioma procedure well. VSS, report to PRESCRIPTION CLERK LENSES care assumed. ANN MEMBRENO CRNA Dec 09, 2017 10:45
--- NOTE | 2017-12-09 10:45 | Anesthesia-General Post-Op ---
MAC Patient Condition Mental Status/LOC: Same as Preop Cardiovascular: Satisfactory Nausea/Vomiting: Absent Respiratory: Satisfactory Pain: Controlled Complications: Absent Post Op Complications Complications None Follow Up Care/Instructions Patient Instructions None needed. Anesthesiology Discharge Order Discharge Order Patient is doing well, no complaints, stable vital signs, no apparent adverse anesthesia problems. No complications reported per nursing. ANN MEMBRENO CRNA Dec 09, 2017 10:45
--- NOTE | 2017-12-09 20:51 | Progress Note-Post Operative ---
Post-Operative Progess Note Surgeon (s)/Blender/Braze Applicator (s) Surgeon ELLI HAYES DO Blender/Braze Applicator: none Pre-Operative Diagnosis GI bleed Post-Operative Diagnosis Same plus Gastric Mass Hiatal Hernia Gastritis Procedure & Operative Findings Date of Procedure 12/09/17 Procedure Performed/Findings EGD with bx Anesthesia Type iv sedation by dust puller Estimated Blood Loss Estimated blood loss (mL): scant Specimens/Packing Specimens Removed bx of gastric mass and washings ELLI HAYES DO Dec 09, 2017 20:51
[2017-12-09] MEDS ORDERED: ROTIGOTINE 8 MG TD SCH (21:00)
--- NOTE | 2017-12-09 21:07 | OPERATIVE REPORT ---
DATE OF SERVICE: PREOPERATIVE DIAGNOSES: Gastrointestinal bleed, history gastric mass. POSTOPERATIVE DIAGNOSES: Gastrointestinal bleed, history of gastric mass pending pathology plus hiatal hernia and gastritis. PROCEDURE: EGD with biopsy. SURGEON: Christopher Hayes DO. HEADING PINNER: None. ANESTHESIA: IV sedation by the ROLLER INSPECTOR AND MENDER. SPECIMEN: Biopsy gastric mass and washings. BLOOD LOSS: Scant. FLUIDS: Per anesthesia. POSTOPERATIVE CONDITION: Stable. INDICATION FOR PROCEDURE: The patient is an 87-year-old female who had some GI bleed, had a gastric mass removed, but then had some excess bleeding. Unfortunately, pathology came back that only got the blood clots, did not able to grasp the mass when we removed it with a [employer] on last time. A scope was done today to make sure she was not continuing to bleed. FINDINGS: The patient had no bleeding, could see the spot. The clip was actually off, but there was no bleeding. There was still a small portion of mass, did a small biopsy here and then did some washings. PROCEDURE NOTE: After informed consent was obtained, the patient was in her bed in the ICU. She was given IV sedation by the ROLLER INSPECTOR AND MENDER who then monitored her vitals the entire time, heart rate, blood pressure and pulse ox and the scope was inserted down the mouth into the esophagus and then down in the stomach. Entered the hiatal hernia where we saw the gastric mass. It was not bleeding at this time. The clip was not in place. Pictures were taken. Pushed pass this into the stomach, again saw gastritis. At this point, I then elected to try and take a very small bite of the mass, tried not to cause any bleeding like before got a very small bite, also washed this area and then suctioned this up to be sent for pathology for spin down. There was no bleeding at the end the case. Pulled the scope up, suctioned out all the air and then pulled the scope up the esophagus and out the mouth. The patient tolerated the procedure. She was recovered in her ICU bed. Job ID: [id number] DocumentID: [id number] Dictated Date: 12/09/2017 20:50:48 Hand Spring Repairer Date: 12/09/2017 21:06:56 Dictated By: CHRISTOPHER HAYES DO
[2017-12-09] MEDS: MIRTAZAPINE 15 MG (REMERON) TAB PO SCH (21:30)
[2017-12-09] MEDS: LORazepam INJ 2 MG/ML (ATIVAN) VIAL IVP PRN (21:30)
[2017-12-09] MEDS: inSUlin ASPART (NovoLOG) 1 UNIT/0.01 ML (CHARGE PER UNIT) SC SCH (21:31)
[2017-12-10] MEDS: 1/2 NS W/KCL 20 MEQ/L 1,000 ML IV SCH (00:13)
[2017-12-10 04:00] VITALS: BP 198/92
[2017-12-10] MEDS: ENALAPRILAT 2.5 MG/2 ML (VASOTEC) VIAL IV PRN (04:04)
[2017-12-10 04:52] VITALS: BP 170/80
[2017-12-10 05:45] LABS: BASOPHILS % (AUTO) 0 % (0-10); EOSINOPHILS # (AUTO) 0.1 10^3/uL (0.0-0.3); EOSINOPHILS % (AUTO) 3 % (0-10); HEMATOCRIT 31 % (35-52); HEMOGLOBIN 10.4 G/DL (11.5-16.0); LYMPHOCYTES # (AUTO) 0.9 X 10^3 (1.0-4.0); LYMPHOCYTES % (AUTO) 23 % (12-44); MEAN CORPUSCULAR HEMOGLOBIN 31 PG (25-34); MEAN CORPUSCULAR HGB CONC 34 G/DL (32-36); MEAN CORPUSCULAR VOLUME 91 FL (80-99); MEAN PLATELET VOLUME 10.1 FL (7.4-10.4); MONOCYTES # (AUTO) 0.5 X 10^3 (0.0-1.0); MONOCYTES % (AUTO) 13 % (0-12); NEUTROPHILS # (AUTO) 2.4 X 10^3 (1.8-7.8); NEUTROPHILS % (AUTO) 62 % (42-75); PLATELET COUNT 81 10^3/uL (130-400); RED BLOOD COUNT 3.38 10^6/uL (4.35-5.85); RED CELL DISTRIBUTION WIDTH 18.6 % (10.0-14.5); WHITE BLOOD COUNT 3.9 10^3/uL (4.3-11.0)
[2017-12-10] MEDS: inSUlin ASPART (NovoLOG) 1 UNIT/0.01 ML (CHARGE PER UNIT) SC SCH ×2 (05:54→11:56)
[2017-12-10 05:59] LABS: BUN/CREATININE RATIO 30; CALCIUM 8.6 MG/DL (8.5-10.1); CARBON DIOXIDE 18 MMOL/L (21-32); CHLORIDE 111 MMOL/L (98-107); CREATININE SERUM 0.88 MG/DL (0.60-1.30); GFR ESTIMATED > 60; GLUCOSE 159 MG/DL (70-105); POTASSIUM 3.3 MMOL/L (3.6-5.0); SODIUM 139 MMOL/L (135-145)
[2017-12-10] MEDS: SINEMET 25/250 (CARBIDOPA/LEVODOPA) TAB PO SCH ×2 (06:47→11:56)
[2017-12-10 07:56] VITALS: BP 180/90
[2017-12-10] MEDS: DIAZEPAM 2 MG (VALIUM) TAB PO SCH (08:27)
[2017-12-10] MEDS: HYDROcodone/APAP 10 MG/325 MG (LORTAB) TAB PO SCH (08:28)
[2017-12-10] MEDS: PANTOPRAZOLE 40 MG (PROTONIX) VIAL IV SCH (08:28)
[2017-12-10] MEDS: RIVASTIGMINE 9.5 MG PATCH (EXELON) NON-FORMULARY TD SCH (08:29)
[2017-12-10] MEDS: RIVASTIGMINE 4.6 MG PATCH (EXELON) TD SCH (08:29)
--- NOTE | 2017-12-10 10:44 | Progress Note ---
Subjective Time Seen by a Provider: 10:01 Subjective/Events-last exam Pt seen and examined, laying comfortably in bed. Pt denies pain and has no complaints. Review of Systems General: No Chills, No Night Sweats Pulmonary: No Dyspnea, No Cough Cardiovascular: No: Chest Pain, Palpitations Gastrointestinal: No: Abdominal Pain Objective Exam Vital Signs Date Time Temp Pulse Resp B/P (MAP) Pulse Ox O2 Delivery O2 Flow Rate FiO2 12/10/17 07:56 97.8 98 20 180/90 (120) 100 Room Air 12/10/17 07:00 92 12/10/17 04:52 170/80 (110) 12/10/17 04:00 96.9 94 20 198/92 (127) 99 Room Air 12/10/17 01:00 102 12/09/17 23:08 98.2 91 20 179/82 (114) 98 Room Air 12/09/17 20:00 98.3 92 16 164/78 (106) 96 Room Air 12/09/17 19:54 99 12/09/17 16:00 89 15 135/110 (118) Room Air 12/09/17 15:38 Room Air 12/09/17 15:20 98.0 12/09/17 15:00 84 17 164/70 (101) Room Air 12/09/17 14:00 82 21 163/85 (111) 100 Room Air 12/09/17 13:00 86 12/09/17 13:00 87 20 111/91 (98) 99 Room Air 12/09/17 12:00 87 17 142/76 (98) 99 Room Air 12/09/17 11:28 Room Air 12/09/17 11:13 97.2 12/09/17 11:00 91 13 154/82 (106) 99 Room Air I & O 12/10/17 07:00 Intake Total 2360 ml Output Total 2785 ml Balance -425 ml Capillary Refill : General Appearance: No Apparent Distress, Chronically ill HEENT: PERRL/EOMI, Moist Mucous Membranes Respiratory: Lungs Clear, No Respiratory Distress Cardiovascular: Regular Rate, Rhythm, No Murmur Gastrointestinal: normal bowel sounds, non tender, soft, no organomegaly, no pulsatile mass Extremity: No Calf Tenderness, No Pedal Edema Neurologic/Psychiatric: Alert, Oriented x3 Skin: Normal Color, Warm/Dry Results Lab Laboratory Tests 12/09/17 11:02: Lab Scanned Report Transfusion Reaction Form 12/09/17 11:10: Glucometer 220H 12/09/17 17:23: Glucometer 186H 12/09/17 20:10: Glucometer 186H 12/10/17 05:30: White Blood Count 3.9L, Red Blood Count 3.38L, Hemoglobin 10.4L, Hematocrit 31L , Mean Corpuscular Volume 91, Mean Corpuscular Hemoglobin 31, Mean Corpuscular Hemoglobin Concent 34, Red Cell Distribution Width 18.6H, Platelet Count 81L, Mean Platelet Volume 10.1, Neutrophils (%) (Auto) 62, Lymphocytes (%) (Auto) 23 , Monocytes (%) (Auto) 13H, Eosinophils (%) (Auto) 3, Basophils (%) (Auto) 0, Neutrophils # (Auto) 2.4, Lymphocytes # (Auto) 0.9L, Monocytes # (Auto) 0.5, Eosinophils # (Auto) 0.1, Basophils # (Auto) 0.0, Sodium Level 139, Potassium Level 3.3L, Chloride Level 111H, Carbon Dioxide Level 18L, Anion Gap 10, Blood Urea Nitrogen 26H, Creatinine 0.88, Estimat Glomerular Filtration Rate > 60, BUN /Creatinine Ratio 30, Glucose Level 159H, Calcium Level 8.6 12/10/17 05:38: Glucometer 159H Microbiology 12/06/17 MRSA Screen - Final, Complete MRSA not isolated Assessment/Plan Assessment/Plan Assessment/Plan Gastric Mass - was the cause of bleeding, sent to pathology Hematemesis Hematochezia DM, HTN Parkinson's Dementia Anemia Pt's Hg is stable, just waiting on pathology; hopefully got big enough piece this time. Ok to D/C home from surgical standpoint. Clinical Quality Measures DVT/VTE Risk/Contraindication: Risk Factor Score Per Nursin RFS Level Per Nursing on Admit: 2=Moderate ELLI HAYES DO Dec 10, 2017 10:44
--- NOTE | 2017-12-10 13:16 | D/C HH Face to Face Order ---
D/C Face to Face Orders Instructions for Patient Via [facility], Patient Instructions/FollowUp: Please continue to take your medications as written. Please follow up as scheduled with Dr Lopez next Wednesday and with your PCP. Physician to follow Patient: Dr Zarate Discharge Diet for Home: No Restrictions Patient Data-Allergies,Ht & Wt Patient Allergies: Coded Allergies: celecoxib (Verified Allergy, Unknown, 12/06/17) Sulfa (Sulfonamide Antibiotics) (Verified Adverse Reaction, Severe, ) Height (Feet): 5 Height (Inches): 2.00 Weight (Pounds): 153 Weight (Ounces): 1.0 Home Health Need/Face to Face Date of Face to Face: Dec 10, 2017 Clinical Findings: Generalized weakness and fatigue I have seen Pt [id number]: Yes Discharged To: Other (Assisted Living Facility) Diagnosis/Conditions: GI Bleed, gastric mass, HTN Patient is Homebound due to: CognItive deficits, Jaylen fall risk due to instabilty Homebound Status Due to the above stated illness, injury or surgical procedure (medical condition or diagnosis) and associated clinical findings, the patient is homebound because of his/her inability to leave home except with aid of a supportive device and/or person AND leaving the home requires a considerable and taxing effort or is medically contraindicated. Pt req the following assistanc: Aid of another person, [facility] Nursing Orders Home Health Services Order: [facility] Coordinator-Evaluate & Treat, Physical Therapy-Evaluate & Treat Home Health Infusion Therapy Line Type: Peripheral IV Site Location: Hand Therapy Orders Therapy Orders: OT (must have SN or PT order), Physical Therapy Therapy Specific Orders: Eval assistive deivces, Teach strategies/cognitive deficits, Increase strength/endurance Certify Stmt I certify that this patient is under my care and that I, a nurse practitioner or a physician; a central supply assistant working with me, had a face to face encounter that - meets the physician face to face encounter requirements with this patient as dated. ANIRUDH LEDESMA MD Dec 10, 2017 1:16 pm
--- NOTE | 2017-12-10 13:18 | Discharge Summary-Hospitalist ---
Diagnosis/Chief Complaint Date of Admission Dec 06, 2017 at 10:50 am Date of Discharge Discharge Date: Dec 10, 2017 Admission Diagnosis GI Bleed Discharge Diagnosis (1) GI (gastrointestinal bleed) Status: Acute Assessment & Plan: Hgb 10.7 Total 5 units transfused this hospitalization Underwent EGD 12/07 which revealed gastric mass, per Surgery note plan to repeat today Surgery consulted appreciate recs Protonix BID (2) Gastric mass Status: Acute Assessment & Plan: Gastric mass noted on EGD, plan to repeat today Per Dr John foote showed just blood Oncology consulted, appreciate recs (3) Anemia Assessment & Plan: Acute blood loss on chronic anemia Transfusions ordered Heme/Onc consulted, appreciate recs (4) Insulin dependent diabetes mellitus Assessment & Plan: Fasting blood sugar within range Continue SSI (5) Essential (primary) hypertension Assessment & Plan: BP elevated COntineu home meds Vasotec and NItropaste prn (6) Dementia Assessment & Plan: Continue Carbidopa (7) Hyperkalemia Status: Resolved Assessment & Plan: Resolved Discharge Summary Discharge Physical Exam Allergies: Coded Allergies: celecoxib (Verified Allergy, Unknown, 12/06/17) Sulfa (Sulfonamide Antibiotics) (Verified Adverse Reaction, Severe, ) Vitals & I&Os Vital Signs Date Time Temp Pulse Resp B/P (MAP) Pulse Ox O2 Delivery O2 Flow Rate FiO2 12/10/17 07:56 97.8 98 20 180/90 (120) 100 Room Air 12/07/17 04:00 2.00 Hospital Course Labs (last 24 hrs) Laboratory Tests 12/09/17 17:23: Glucometer 186H 12/09/17 20:10: Glucometer 186H 12/10/17 05:30: White Blood Count 3.9L, Red Blood Count 3.38L, Hemoglobin 10.4L, Hematocrit 31L , Mean Corpuscular Volume 91, Mean Corpuscular Hemoglobin 31, Mean Corpuscular Hemoglobin Concent 34, Red Cell Distribution Width 18.6H, Platelet Count 81L, Mean Platelet Volume 10.1, Neutrophils (%) (Auto) 62, Lymphocytes (%) (Auto) 23 , Monocytes (%) (Auto) 13H, Eosinophils (%) (Auto) 3, Basophils (%) (Auto) 0, Neutrophils # (Auto) 2.4, Lymphocytes # (Auto) 0.9L, Monocytes # (Auto) 0.5, Eosinophils # (Auto) 0.1, Basophils # (Auto) 0.0, Sodium Level 139, Potassium Level 3.3L, Chloride Level 111H, Carbon Dioxide Level 18L, Anion Gap 10, Blood Urea Nitrogen 26H, Creatinine 0.88, Estimat Glomerular Filtration Rate > 60, BUN /Creatinine Ratio 30, Glucose Level 159H, Calcium Level 8.6 12/10/17 05:38: Glucometer 159H 12/10/17 11:45: Glucometer 175H Microbiology 12/06/17 MRSA Screen - Final, Complete MRSA not isolated Patient resulted labs reviewed. Pending Labs Laboratory Tests 12/10/17 05:30: White Blood Count 3.9, Red Blood Count 3.38, Hemoglobin 10.4, Hematocrit 31, Mean Corpuscular Volume 91, Mean Corpuscular Hemoglobin 31, Mean Corpuscular Hemoglobin Concent 34, Red Cell Distribution Width 18.6, Platelet Count 81, Mean Platelet Volume 10.1, Neutrophils (%) (Auto) 62, Lymphocytes (%) (Auto) 23 , Monocytes (%) (Auto) 13, Eosinophils (%) (Auto) 3, Basophils (%) (Auto) 0, Neutrophils # (Auto) 2.4, Lymphocytes # (Auto) 0.9, Monocytes # (Auto) 0.5, Eosinophils # (Auto) 0.1, Basophils # (Auto) 0.0, Sodium Level 139, Potassium Level 3.3, Chloride Level 111, Carbon Dioxide Level 18, Anion Gap 10, Blood Urea Nitrogen 26, Creatinine 0.88, Estimat Glomerular Filtration Rate > 60, BUN/ Creatinine Ratio 30, Glucose Level 159, Calcium Level 8.6 12/10/17 05:38: Glucometer 159 12/10/17 11:45: Glucometer 175 Discharge Home Medications: Active Scripts Active Reported Aleve (Naproxen Sodium) 220 Mg Tablet 220 Mg PO BID PRN Valium (Diazepam) 2 Mg Tablet 2 Mg PO DAILY PRN Zofran (Ondansetron HCl) 4 Mg Tab 4 Mg PO Q6H PRN Tylenol (Acetaminophen) 325 Mg Tablet 650 Mg PO Q4H PRN Maalox Advanced Suspension (Mag Hydrox/Aluminum Hyd/Simeth) 355 Ml Oral.susp 15 Ml PO UD PRN Pepcid Complete Tablet Chew (Famotidine/Ca Carb/Mag Hydrox) 1 Each Tab.chew 1 Tab PO Q8H PRN Miralax (Polyethylene Glycol 3350) 17 Gm Powd.pack 17 Gm PO Q72H PRN Hydrocodon-Acetaminophn 10-325 (Hydrocodone/Acetaminophen) 1 Each Tablet 1 Tab PO DAILY PRN Colace (Docusate Sodium) 100 Mg Capsule 100 Mg PO BID PRN Novolog Flexpen (Insulin Aspart) 300 Units/3 Ml Solution SQ UD PRN >200 = 2 UNITS >250 = 4 UNITS >300 = 6 UNITS [Leg Cramp] 2 Tab PO HS PRN Mirtazapine 30 Mg Tablet 30 Mg PO HS Diazepam 2 Mg Tablet 2 Mg PO 0800,1400 Prochlorperazine Maleate 10 Mg Tablet 10 Mg PO BID PRN Trimethoprim 100 Mg Tablet 100 Mg PO DAILY Colace (Docusate Sodium) 100 Mg Capsule 100 Mg PO DAILY Fentanyl Patch 100 MCG (Fentanyl) 1 Each Patch.td72 100 Mcg TD Q72H Neupro (Rotigotine) 1 Each Patch.td24 8 Mg TD HS Carbidopa-Levodopa 25-250 Tab (Carbidopa/Levodopa) 1 Each Tablet 1 Tab PO 0700, 1100,1500,1900 Toujeo Solostar (Insulin Glargine,Hum.rec.anlog) 300 Unit/1 Ml Insuln.pen 18 Units SC 1600 Brimonidine Tartrate 5 Ml Btl 1 Drop OU BID Metoprolol Succinate 25 Mg Tab.er.24h 25 Mg PO BID Hydrocodon-Acetaminophn 10-325 (Hydrocodone/Acetaminophen) 1 Each Tablet 1 Tab PO BID Floranex Tablet (L. Acidophilus/Bulgaricus) 1 Each Tablet 2 Tab PO BID Aspirin 81 Mg Tab.chew 81 Mg PO DAILY Januvia (Sitagliptin Phosphate) 50 Mg Tablet 50 Mg PO DAILY Triamterene-Hctz 37.5-25 mg Tb (Triamterene/Hydrochlorothiazid) 1 Each Tablet 1 Tab PO DAILY Potassium Chloride 10 Meq Tab.er.prt 10 Meq PO DAILY Rivastigmine 1 Each Patch.td24 13.3 Mg TD DAILY Glimepiride 2 Mg Tablet 2 Mg PO DAILY Citalopram HBr (Citalopram Hydrobromide) 10 Mg Tablet 10 Mg PO DAILY Omeprazole 40 Mg Capsule.dr 40 Mg PO DAILY Miralax (Polyethylene Glycol 3350) 119 Gm Powder 8.5 Gm PO DAILY Cranberry (Cranberry Extract) 405 Mg Capsule 405 Mg PO DAILY Instructions to patient/family Please see electronic discharge instructions given to patient. Clinical Quality Measures DVT/VTE Risk/Contraindication: Risk Factor Score Per Nursin RFS Level Per Nursing on Admit: 2=Moderate Problem Qualifiers (1) GI (gastrointestinal bleed): GI bleed type/associated pathology: unspecified gastrointestinal hemorrhage type Qualified Codes: K92.2 - Gastrointestinal hemorrhage, unspecified (2) Anemia: Anemia type: due to chronic kidney disease Chronic kidney disease stage: stage 3 (moderate) Qualified Codes: N18.3 - Chronic kidney disease, stage 3 ( moderate); D63.1 - Anemia in chronic kidney disease (3) Dementia: Dementia type: unspecified type ANIRUDH LEDESMA MD Dec 10, 2017 1:18 pm
[2017-12-10 13:55] VITALS: BP 180/90
[2017-12-11] MEDS ORDERED: FENTANYL PATCH REMOVAL TP SCH (11:15)
== END 2017-12-10 13:40 | disposition home health service (06) | DRG 378 ==
LOC: ICU 10:50 → 4TH 12-09 16:10
PROVIDERS: ADMIT Family Medicine; ATTEND Family Medicine
PROC: 0W3P8ZZ Control Bleeding in Gastrointestinal Tract, Via Natural or Artificial Opening Endoscopic (ICD-10-PCS; 2017-12-06)
PROC: 0DB68ZX Excision of Stomach, Via Natural or Artificial Opening Endoscopic, Diagnostic (ICD-10-PCS; principal; 2017-12-06 16:20)
PROC: 0DB68ZX Excision of Stomach, Via Natural or Artificial Opening Endoscopic, Diagnostic (ICD-10-PCS; 2017-12-09)
DX: K92.2 Gastrointestinal hemorrhage, unspecified (principal); I12.9 Hypertensive chronic kidney disease with stage 1 through stage 4 chronic kidney disease, or unspecified chronic kidney disease; N18.4 Chronic kidney disease, stage 4 (severe); I16.0 Hypertensive urgency; D63.1 Anemia in chronic kidney disease; D50.0 Iron deficiency anemia secondary to blood loss (chronic); G20 Parkinson's disease; F02.80 Dementia in other diseases classified elsewhere, unspecified severity, without behavioral disturbance, psychotic disturbance, mood disturbance, and anxiety; Z66 Do not resuscitate; K44.9 Diaphragmatic hernia without obstruction or gangrene; K29.70 Gastritis, unspecified, without bleeding; M19.91 Primary osteoarthritis, unspecified site; E11.9 Type 2 diabetes mellitus without complications; Z79.4 Long term (current) use of insulin; K21.9 Gastro-esophageal reflux disease without esophagitis; M54.9 Dorsalgia, unspecified; Z96.60 Presence of unspecified orthopedic joint implant; E87.5 Hyperkalemia; R00.0 Tachycardia, unspecified; E87.6 Hypokalemia; R45.1 Restlessness and agitation
CPT/HCPCS: 36415; 71045; 74150; 80048; 80053; 82962; 83735; 84100; 85014; 85018; 85025; 85027; 85610; 86850; 86900; 86901; 86920; 87081; 88305

== ENCOUNTER 2017-12-12 10:58 | Inpatient (IN) | payer MEDICARE, OTHER ==
[~2017-12-12] VITALS: Ht 157.5 cm; Wt 67.7 kg
[~2017-12-12 10:58] MED LIST changes: +ACET325T38 PO; +ACID1TAB PO; +ASPI-999 PO; +BRIMON0.2 OU; +CARB1TAB22 PO; +CITA10TA7 PO; +CRAN405C PO; +DIAZ2TAB PO; +DIAZ2TAB2 PO; +DOCU-143 PO; +FAMO1TAB21 PO; +FENT1PAT11 TD; +GLIM2TAB PO; +HYDR-3820 PO; +INSU100I14 SQ; +INSU300I SC; +LEG CRAMP PO; +MAG355OR16 PO; +METO-387 PO; +MIRT30TA6 PO; +NAPR220T66 PO; +OMEP40CA36 PO; +ONDN4T PO; +POLY119P5 PO; +POLY17PO6 PO; +POTA10TA36 PO; +PROC10TA10 PO; +RIVA1PAT13 TD; +ROTI1PAT12 TD; +SUCR100P PO; +TRIA1TAB3 PO; +TRIM100T PO
--- NOTE | 2017-12-12 11:10 | ED General ---
General Stated Complaint: ABDOMEN SWELLING Source of Information: Patient Exam Limitations: No Limitations History of Present Illness Date Seen by Provider: Dec 12, 2017 Time Seen by Provider: 11:06 Initial Comments To ER per private vehicle accompanied by her adult children with reports of left -sided abdominal discomfort, vomiting without blood, distended abdomen and swelling in her legs. She was admitted here a few days ago for hematemesis and bloody stools. On EGD a large mass was identified in the stomach as the source of blood. Timing/Duration: 2-3 Days Severity: Moderate Associated Systoms: Nausea/Vomiting Allergies and Home Medications Allergies Coded Allergies: celecoxib (Verified Allergy, Unknown, 12/06/17) Sulfa (Sulfonamide Antibiotics) (Verified Adverse Reaction, Severe, ) Home Medications Acetaminophen 325 Mg Tablet, 650 MG PO Q4H PRN for FEVER, (Reported) Brimonidine Tartrate 5 Ml Btl, 1 DROP OU BID, (Reported) Carbidopa/Levodopa 1 Each Tablet, 1 TAB PO 0700,1100,1500,1900, (Reported) Citalopram Hydrobromide 10 Mg Tablet, 10 MG PO DAILY, (Reported) Cranberry Extract 405 Mg Capsule, 405 MG PO DAILY, (Reported) Diazepam 2 Mg Tablet, 2 MG PO 0800,1400, (Reported) Diazepam 2 Mg Tablet, 2 MG PO DAILY PRN for AGITATION, (Reported) Docusate Sodium 100 Mg Capsule, 100 MG PO DAILY, (Reported) Docusate Sodium 100 Mg Capsule, 100 MG PO BID PRN for CONSTIPATION-1ST LINE, ( Reported) Famotidine/Ca Carb/Mag Hydrox 1 Each Tab.chew, 1 TAB PO Q8H PRN for NAUSEA, ( Reported) Fentanyl 1 Each Patch.td72, 100 MCG TD Q72H, (Reported) Hydrocodone/Acetaminophen 1 Each Tablet, 1 TAB PO BID, (Reported) Hydrocodone/Acetaminophen 1 Each Tablet, 1 TAB PO DAILY PRN for PAIN-MODERATE, ( Reported) Insulin Aspart 300 Units/3 Ml Solution, SQ UD PRN for BLOOD SUGAR, (Reported) >200 = 2 UNITS >250 = 4 UNITS >300 = 6 UNITS L. Acidophilus/Bulgaricus 1 Each Tablet, 2 TAB PO BID, (Reported) Mag Hydrox/Aluminum Hyd/Simeth 355 Ml Oral.susp, 15 ML PO UD PRN for STOMACH UPSET, (Reported) Metoprolol Succinate 25 Mg Tab.er.24h, 25 MG PO BID, (Reported) Mirtazapine 30 Mg Tablet, 30 MG PO HS, (Reported) Omeprazole 40 Mg Capsule.dr, 40 MG PO DAILY, (Reported) Ondansetron HCl 4 Mg Tab, 4 MG PO Q6H PRN for NAUSEA/VOMITING-1ST LINE, ( Reported) Polyethylene Glycol 3350 119 Gm Powder, 8.5 GM PO DAILY, (Reported) Polyethylene Glycol 3350 17 Gm Powd.pack, 17 GM PO Q72H PRN for CONSTIPATION- 2ND LINE, (Reported) Potassium Chloride 10 Meq Tab.er.prt, 10 MEQ PO DAILY, (Reported) Prochlorperazine Maleate 10 Mg Tablet, 10 MG PO BID PRN for NAUSEA/VOMITING-4TH LINE, (Reported) Rivastigmine 1 Each Patch.td24, 13.3 MG TD DAILY, (Reported) Rotigotine 1 Each Patch.td24, 8 MG TD HS, (Reported) Triamterene/Hydrochlorothiazid 1 Each Tablet, 1 TAB PO DAILY, (Reported) Trimethoprim 100 Mg Tablet, 100 MG PO DAILY, (Reported) [Leg Cramp] , 2 TAB PO HS PRN for LEG CRAMPS, (Reported) Patient Home Medication List Home Medication List Reviewed: Yes Review of Systems Review of Systems Constitutional: see HPI EENTM: see HPI Respiratory: no symptoms reported Cardiovascular: see HPI Genitourinary: no symptoms reported Musculoskeletal: no symptoms reported Skin: no symptoms reported Psychiatric/Neurological: No Symptoms Reported Hematologic/Lymphatic: No Symptoms Reported Past Kxzfvpo-Icyxty-Nrnynb Hx Patient Social History Recent Foreign Travel: No Contact w/Someone Who Travel: No Recent Hopitalizations: Yes (with surgery) Immunizations Up To Date Date of Pneumonia Vaccine: Nov 18, 2015 Date of Influenza Vaccine: Nov 29, 2017 Seasonal Allergies Seasonal Allergies: No Past Medical History Appendectomy, Gallbladder, Hysterectomy, Joint Replacement Respiratory: No Cardiac: Yes Hypertension Neurological: Yes (scarlet fever) Dementia Reproductive Disorders: Yes Genitourinary: Yes (CKD) Gastrointestinal: Yes Gastroesophageal Reflux Musculoskeletal: Yes Back Injury, Chronic Back Pain Endocrine: Yes Diabetes, Non-Insulin dep HEENT: No Cancer: No Psychosocial: No Integumentary: No Blood Disorders: No Adverse Reaction/Blood Tranf: No Family Medical History Cancer, Diabetes Physical Exam Vital Signs Vital Signs - First Documented 10/28/18 11:05 Temp 97.5 Pulse 89 Resp 18 B/P (MAP) 194/99 (130) Pulse Ox 100 Capillary Refill : Height, Weight, BMI Height: 5'2.00" Weight: 153lbs. 1.0oz. 69.895997ez; 26.7 BMI Method: General Appearance: No Apparent Distress, WD/WN Eyes: Bilateral Eye Normal Inspection, Bilateral Eye PERRL, Bilateral Eye EOMI Neck: Full Range of Motion, Normal Inspection Respiratory: Normal Breath Sounds, No Accessory Muscle Use, No Respiratory Distress Cardiovascular: Regular Rate, Rhythm, Normal Peripheral Pulses Gastrointestinal: Non Tender, Soft Extremity: Normal Capillary Refill, Pedal Edema (3+ ble) Neurologic/Psychiatric: Alert, Oriented x3 Skin: Normal Color, Warm/Dry Progress/Results/Core Measures Suspected Sepsis SIRS Temperature: Pulse: Respiratory Rate: Laboratory Tests 12/12/17 11:08: White Blood Count 5.7 Blood Pressure / Mean: Laboratory Tests 12/12/17 11:08: Creatinine 1.06, Platelet Count 146, Total Bilirubin 1.0 Results/Orders Lab Results Laboratory Tests Test 12/12/17 11:08 Range/Units White Blood Count 5.7 4.3-11.0 10^3/uL Red Blood Count 4.07 L 4.35-5.85 10^6/uL Hemoglobin 12.3 11.5-16.0 G/DL Hematocrit 37 35-52 % Mean Corpuscular Volume 92 80-99 FL Mean Corpuscular Hemoglobin 30 25-34 PG Mean Corpuscular Hemoglobin Concent 33 32-36 G/DL Red Cell Distribution Width 18.9 H 10.0-14.5 % Platelet Count 146 130-400 10^3/uL Mean Platelet Volume 10.4 7.4-10.4 FL Neutrophils (%) (Auto) 66 42-75 % Lymphocytes (%) (Auto) 21 12-44 % Monocytes (%) (Auto) 9 0-12 % Eosinophils (%) (Auto) 3 0-10 % Basophils (%) (Auto) 0 0-10 % Neutrophils # (Auto) 3.8 1.8-7.8 X 10^3 Lymphocytes # (Auto) 1.2 1.0-4.0 X 10^3 Monocytes # (Auto) 0.5 0.0-1.0 X 10^3 Eosinophils # (Auto) 0.2 0.0-0.3 10^3/uL Basophils # (Auto) 0.0 0.0-0.1 10^3/uL Sodium Level 141 135-145 MMOL/L Potassium Level 3.7 3.6-5.0 MMOL/L Chloride Level 109 H 98-107 MMOL/L Carbon Dioxide Level 22 21-32 MMOL/L Anion Gap 10 5-14 MMOL/L Blood Urea Nitrogen 20 H 7-18 MG/DL Creatinine 1.06 0.60-1.30 MG/DL Estimat Glomerular Filtration Rate 49 BUN/Creatinine Ratio 19 Glucose Level 160 H 70-105 MG/DL Calcium Level 9.7 8.5-10.1 MG/DL Corrected Calcium 10.2 H 8.5-10.1 MG/DL Total Bilirubin 1.0 0.1-1.0 MG/DL Aspartate Amino Transf (AST/SGOT) 27 5-34 U/L Alanine Aminotransferase (ALT/SGPT) 8 0-55 U/L Alkaline Phosphatase 91 40-136 U/L Troponin I 1.16 *H <0.30 NG/ML B-Type Natriuretic Peptide 238.1 H <100.0 PG/ML Total Protein 5.9 L 6.4-8.2 GM/DL Albumin 3.4 3.2-4.5 GM/DL My Orders Orders - RAMÍREZ MARTE APRN Cbc With Automated Diff (12/12/17 11:06) Comprehensive Metabolic Panel (12/12/17 11:06) BNP (12/12/17 11:06) Ua Culture If Indicated (12/12/17 11:06) Iv Heplock-Insert (Order) (12/12/17 11:06) Troponin I (12/12/17 11:10) Ekg Tracing (12/12/17 11:10) Continuous Ekg Monitoring (12/12/17 11:10) Ct Abdomen/Pelvis Wo (12/12/17 11:11) Vital Signs/I&O 12/12/17 11:05 Temp 97.5 Pulse 89 Resp 18 B/P (MAP) 194/99 (130) Pulse Ox 100 Capillary Refill : Departure Communication (Admissions) Time/Spoke to Admitting Phy: 12:[address] Horta. We will admit, consult cardiology also consult palliative care Time/Spoke to Consulting Phy: 12:[address] Torres. He agrees to consult. Total 6-patient is hypertensive so I'll order Lopressor 5 mg IV. Her troponin was elevated but anticoagulant use would be contraindicated given the life threatening GI bleed that she just had. Impression Primary Impression: Anasarca Additional Impressions: Gastric mass NSTEMI (non-ST elevated myocardial infarction) Disposition: ADMITTED INPATIENT Condition: Stable Admissions Decision to Admit Reason: Admit from ER (General) Decision to Admit/Date: Dec 12, 2017 Time/Decision to Admit Time: 12:07 Departure-Patient Inst. Referrals: MARIANNE HAUSER DO (PCP/Family) Primary Care Physician RAMÍREZ MARTE APRN Dec 12, 2017 11:10
[2017-12-12 11:23] LABS: BASOPHILS % (AUTO) 0 % (0-10); EOSINOPHILS # (AUTO) 0.2 10^3/uL (0.0-0.3); EOSINOPHILS % (AUTO) 3 % (0-10); HEMATOCRIT 37 % (35-52); HEMOGLOBIN 12.3 G/DL (11.5-16.0); LYMPHOCYTES # (AUTO) 1.2 X 10^3 (1.0-4.0); LYMPHOCYTES % (AUTO) 21 % (12-44); MEAN CORPUSCULAR HEMOGLOBIN 30 PG (25-34); MEAN CORPUSCULAR HGB CONC 33 G/DL (32-36); MEAN CORPUSCULAR VOLUME 92 FL (80-99); MEAN PLATELET VOLUME 10.4 FL (7.4-10.4); MONOCYTES # (AUTO) 0.5 X 10^3 (0.0-1.0); MONOCYTES % (AUTO) 9 % (0-12); NEUTROPHILS # (AUTO) 3.8 X 10^3 (1.8-7.8); NEUTROPHILS % (AUTO) 66 % (42-75); PLATELET COUNT 146 10^3/uL (130-400); RED BLOOD COUNT 4.07 10^6/uL (4.35-5.85); RED CELL DISTRIBUTION WIDTH 18.9 % (10.0-14.5); WHITE BLOOD COUNT 5.7 10^3/uL (4.3-11.0)
[2017-12-12 11:38] LABS: ALBUMIN 3.4 GM/DL (3.2-4.5); CALCIUM 9.7 MG/DL (8.5-10.1); CREATININE SERUM 1.06 MG/DL (0.60-1.30); POTASSIUM 3.7 MMOL/L (3.6-5.0); TOTAL PROTEIN 5.9 GM/DL (6.4-8.2)
--- NOTE | 2017-12-12 11:59 | Diagnostic Imaging Report ---
PROCEDURE: CT abdomen and pelvis without contrast. TECHNIQUE: Multiple contiguous axial images were obtained through the abdomen and pelvis without the use of intravenous contrast. INDICATION: Abdominal distention, recent episodes of hematemesis and blood per stool. The exam compared with an abdominal CT 12/07/2017. FINDINGS: There has been increased now moderate volume of abdominal pelvic free fluid without evidence for its loculation. Bibasilar small nonloculated pleural effusions have also increased. There is a large retrocardiac gastric hernia. Some nodularity of the contour of the liver most notably at its somewhat atrophic left hepatic lobe unchanged; underlying cirrhosis could not be excluded. Mild splenomegaly without focal splenic parenchymal abnormality, this is unchanged. Low-density bilateral renal nodules unchanged likely cystic although incompletely characterized owing to the absence of contrast. There is no hydronephrosis and the adrenals are negative. There is a periumbilical midline ventral fatty abdominal wall hernia without herniated viscus. There is diverticulosis of the sigmoid without features of diverticulitis. There is no small or large bowel obstruction and no focal or regional perienteric or pericolonic edema. No focal inflammatory changes. IMPRESSION: 1. Increased third space fluids in the pleural space and peritoneal cavity. No loculated collection. 2. 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 3. Sigmoid diverticulosis without features of active diverticulitis. Chronic fatty umbilical hernia. Unobstructed urinary tracts with renal nodules bilaterally believed cystic but incompletely characterized owing to the absence of contrast. Dictated by: Dictated on workstation # [id number]
[2017-12-12] MEDS ORDERED: meTOprolol 5 MG/5 ML (LOPRESSOR) VIAL IV ONE (12:15)
--- OUTSIDE RECORDS SUMMARY | 2017-12-12 12:26 | XMS REPORT | Clinical Summary ---
Author Author [facility] Organization [facility] Address Unknown Phone Unavailable Care Team Providers Care Yard Stocker Name Role Phone PCP Unavailable Allergies Not on File Current Medications Not on file Active Problems Not on file Social History Tobacco Use Types Packs/Day Years Used Date Never Assessed Sex Assigned at Date Recorded Not on file Last Filed Vital Signs Not on file Plan of Treatment Not on file Results Not on filefrom Last 3 Months
[2017-12-12 13:20] VITALS: BP 198/88
[2017-12-12] MEDS ORDERED: ANTACID SUSP 30 ML UDC (MYLANTA) PO PRN (15:00)
[2017-12-12] MEDS ORDERED: MILK OF MAGNESIA 400 MG/5 ML 30 ML UDC PO PRN (15:00)
[2017-12-12] MEDS ORDERED: MELATONIN 3 MG TABLET PO PRN (15:00)
[2017-12-12] MEDS ORDERED: ACETAMINOPHEN 325 MG TABLET PO PRN (15:00)
[2017-12-12] MEDS ORDERED: ONDANSETRON 4 MG/2 ML (SDV) Z0FRAN IV PRN (15:00)
[2017-12-12] MEDS ORDERED: BENZONATATE 100 MG (TESSALON) CAPSULE PO PRN (15:00)
[2017-12-12] MEDS ORDERED: lisINopril 10 MG (PRINIVIL) TABLET PO NR (15:30)
[2017-12-12 15:50] VITALS: BP 210/93
[2017-12-12] MEDS ORDERED: cloNIDine 0.1 MG (CATAPRES) TAB PO ONE (17:30)
[2017-12-12] MEDS: inSUlin ASPART (NovoLOG) 1 UNIT/0.01 ML (CHARGE PER UNIT) SC SCH ×2 (17:42→21:17)
--- NOTE | 2017-12-12 17:49 | Consultation-Cardiology ---
HPI-Cardiology Cardiology Consultation Date of Consultation 12/12/17 Date of Admission Time Seen by Provider: 17:44 Indication: Hypertension, elevated troponin level HPI 87 years old lady with history of GI bleed, was hospitalized recently for massive GI bleed required multiple blood transfusion. Was feeling better, prior to discharge was having some increasing abdominal distention, after discharge she reported that her abdominal distention became worse and she had worsening pedal edema. She denied any chest pain, had some fatigue and loss of energy. Return to the ER today with increasing abdominal distention and abdominal discomfort. Denied any chest pain. She was noted to be severely hypertensive and had elevation in troponin level Home Medications & Allergies Allergies: Coded Allergies: celecoxib (Verified Allergy, Unknown, 12/12/17) Sulfa (Sulfonamide Antibiotics) (Verified Adverse Reaction, Severe, ) Home Medication List Reviewed: Yes [id number] Hx Patient Social History Marital Status: Alcohol Use: Denies Use Recreational Drug Use: No Smoking Status: Never a Smoker Recent Foreign Travel: No Recent Infectious Disease Expo: No Recent Hopitalizations: Yes (with surgery) Physical Abuse Screen: No Sexual Abuse: No Immunizations Up To Date Date of Pneumonia Vaccine: Nov 18, 2015 Date of Influenza Vaccine: Dec 01, 2017 Past Medical History Past medical history as described below Family Medical History Significant Family History: Cancer, Diabetes Family Medical Hx Non contributory Review of Systems Constitutional: see HPI, malaise, weakness EENTM: see HPI, no symptoms reported Respiratory: see HPI; No cough; dyspnea on exertion; No hemoptysis, No orthopnea, No phlegm, No short of breath, No stridor, No wheezing, No other Cardiovascular: see HPI; No chest pain; edema; No Hx of Intervention, No palpitations, No syncope, No vascular heart diseas, No other Gastrointestinal: see HPI, other (Abdominal distention and discomfort) Genitourinary: no symptoms reported, see HPI Musculoskeletal: see HPI, joint pain Skin: no symptoms reported, see HPI Psychiatric/Neurological: No Symptoms Reported, See HPI Reviewed Test Results Reviewed Test Results Lab Laboratory Tests Test 12/12/17 11:08 12/12/17 16:17 Range/Units White Blood Count 5.7 4.3-11.0 10^3/uL Red Blood Count 4.07 L 4.35-5.85 10^6/uL Hemoglobin 12.3 11.5-16.0 G/DL Hematocrit 37 35-52 % Mean Corpuscular Volume 92 80-99 FL Mean Corpuscular Hemoglobin 30 25-34 PG Mean Corpuscular Hemoglobin Concent 33 32-36 G/DL Red Cell Distribution Width 18.9 H 10.0-14.5 % Platelet Count 146 130-400 10^3/uL Mean Platelet Volume 10.4 7.4-10.4 FL Neutrophils (%) (Auto) 66 42-75 % Lymphocytes (%) (Auto) 21 12-44 % Monocytes (%) (Auto) 9 0-12 % Eosinophils (%) (Auto) 3 0-10 % Basophils (%) (Auto) 0 0-10 % Neutrophils # (Auto) 3.8 1.8-7.8 X 10^3 Lymphocytes # (Auto) 1.2 1.0-4.0 X 10^3 Monocytes # (Auto) 0.5 0.0-1.0 X 10^3 Eosinophils # (Auto) 0.2 0.0-0.3 10^3/uL Basophils # (Auto) 0.0 0.0-0.1 10^3/uL Sodium Level 141 135-145 MMOL/L Potassium Level 3.7 3.6-5.0 MMOL/L Chloride Level 109 H 98-107 MMOL/L Carbon Dioxide Level 22 21-32 MMOL/L Anion Gap 10 5-14 MMOL/L Blood Urea Nitrogen 20 H 7-18 MG/DL Creatinine 1.06 0.60-1.30 MG/DL Estimat Glomerular Filtration Rate 49 BUN/Creatinine Ratio 19 Glucose Level 160 H 70-105 MG/DL Calcium Level 9.7 8.5-10.1 MG/DL Corrected Calcium 10.2 H 8.5-10.1 MG/DL Total Bilirubin 1.0 0.1-1.0 MG/DL Aspartate Amino Transf (AST/SGOT) 27 5-34 U/L Alanine Aminotransferase (ALT/SGPT) 8 0-55 U/L Alkaline Phosphatase 91 40-136 U/L Troponin I 1.16 *H <0.30 NG/ML B-Type Natriuretic Peptide 238.1 H <100.0 PG/ML Total Protein 5.9 L 6.4-8.2 GM/DL Albumin 3.4 3.2-4.5 GM/DL Glucometer 314 H 70-110 MG/DL Physical Exam Vital Signs Vital Signs - First Documented 12/12/17 12/12/17 11:05 13:20 Temp 97.5 Pulse 89 Resp 18 B/P (MAP) 194/99 (130) Pulse Ox 100 O2 Delivery Room Air Capillary Refill : Less Than 3 Seconds Height, Weight, BMI Height: 5'2.00" Weight: 140lbs. 1.0oz. [id number]; 25.6 BMI Method:Stated General Appearance: WD/WN, Mild Distress Eyes: Bilateral Eye Normal Inspection, Bilateral Eye PERRL, Bilateral Eye EOMI HEENT: PERRL/EOMI, TMs Normal, Normal ENT Inspection, Pharynx Normal Neck: Full Range of Motion, Normal Inspection, Non Tender, Supple, Carotid Bruit Respiratory: Chest Non Tender, Normal Breath Sounds, No Accessory Muscle Use, No Respiratory Distress, Crackles Cardiovascular: Regular Rate, Rhythm, No Edema, No JVD, Normal Peripheral Pulses, Systolic Murmur Gastrointestinal: Normal Bowel Sounds, No Organomegaly, No Pulsatile Mass, Soft , Distended, Tenderness Back: Normal Inspection, No CVA Tenderness, No Vertebral Tenderness Extremity: Normal Capillary Refill, Normal Inspection, Normal Range of Motion, Non Tender, No Calf Tenderness, Pedal Edema Neurologic/Psychiatric: Alert, Oriented x3, No Motor/Sensory Deficits, Normal Mood/Affect Skin: Normal Color, Warm/Dry Lymphatic: No Adenopathy A/P-Cardiology Admission Diagnosis Coronary artery disease Hypertension Anasarca Diabetes mellitus Assessment/Plan Elevated troponin level, probably combination of severe anemia and coronary artery disease. At this time patient cannot tolerate aggressive anticoagulation due to her current condition and recent GI bleed. Pathology report is pending. We will continue monitoring. Planning to evaluate 2-D echocardiogram Anasarca, increasing abdominal distention and peripheral edema. Mild elevation in troponin and BNP. Starting Lasix and monitor her tolerance and response. Hypertension, resistant to metoprolol, I started lisinopril without improvement , blood pressure is still significantly elevated. I will add clonidine and evaluate tolerance and response. Gastric mass, status post massive GI bleed, biopsy was done, pathology report is pending. Chronic kidney disease stage 3-4. Continue to monitor while receiving diuretics and PAMELA inhibitor. Diabetes mellitus, followed and managed by primary care physician History of dementia Clinical Quality Measures DVT/VTE Risk/Contraindication: Risk Factor Score Per Nursin RFS Level Per Nursing on Admit: 4+=Very High JASON CAGE MD Dec 12, 2017 17:49
[2017-12-12] MEDS ORDERED: FUROSEMIDE 40 MG/4 ML INJ (LASIX) IVP ONE (18:00)
[2017-12-12] MEDS ORDERED: FUROSEMIDE 40 MG/4 ML INJ (LASIX) ONE (18:29)
[2017-12-12] MEDS ORDERED: cloNIDine 0.1 MG (CATAPRES) TAB ONE (18:29)
[2017-12-12 20:30] VITALS: BP 177/79
[2017-12-12] MEDS: cloNIDine 0.1 MG (CATAPRES) TAB PO SCH (21:17)
[2017-12-12 22:00] VITALS: BP 159/70
[2017-12-13] VITALS: BP 177/81
[2017-12-13 04:00] VITALS: BP_SYST 190; BP_SYST 205; BP_DIAS 94; BP_DIAS 95
[2017-12-13] MEDS: inSUlin ASPART (NovoLOG) 1 UNIT/0.01 ML (CHARGE PER UNIT) SC SCH ×4 (06:03→21:22)
[2017-12-13 06:34] LABS: BASOPHILS % (AUTO) 0 % (0-10); EOSINOPHILS # (AUTO) 0.1 10^3/uL (0.0-0.3); EOSINOPHILS % (AUTO) 3 % (0-10); HEMATOCRIT 33 % (35-52); HEMOGLOBIN 10.5 G/DL (11.5-16.0); LYMPHOCYTES # (AUTO) 0.9 X 10^3 (1.0-4.0); LYMPHOCYTES % (AUTO) 24 % (12-44); MEAN CORPUSCULAR HEMOGLOBIN 30 PG (25-34); MEAN CORPUSCULAR HGB CONC 32 G/DL (32-36); MEAN CORPUSCULAR VOLUME 92 FL (80-99); MEAN PLATELET VOLUME 10.6 FL (7.4-10.4); MONOCYTES # (AUTO) 0.4 X 10^3 (0.0-1.0); MONOCYTES % (AUTO) 12 % (0-12); NEUTROPHILS # (AUTO) 2.2 X 10^3 (1.8-7.8); NEUTROPHILS % (AUTO) 62 % (42-75); PLATELET COUNT 94 10^3/uL (130-400); RED BLOOD COUNT 3.55 10^6/uL (4.35-5.85); RED CELL DISTRIBUTION WIDTH 18.5 % (10.0-14.5); WHITE BLOOD COUNT 3.6 10^3/uL (4.3-11.0)
[2017-12-13 06:49] LABS: ALANINE AMINOTRANSFERASE 20 U/L (0-55); ALBUMIN 2.8 GM/DL (3.2-4.5); ALKALINE PHOSPHATASE 79 U/L (40-136); BILIRUBIN,TOTAL 0.9 MG/DL (0.1-1.0); BUN/CREATININE RATIO 21; CALCIUM 9.2 MG/DL (8.5-10.1); CARBON DIOXIDE 22 MMOL/L (21-32); CHLORIDE 108 MMOL/L (98-107); CREATININE SERUM 0.85 MG/DL (0.60-1.30); GFR ESTIMATED > 60; GLUCOSE 157 MG/DL (70-105); POTASSIUM 3.6 MMOL/L (3.6-5.0); SODIUM 139 MMOL/L (135-145); TOTAL PROTEIN 4.8 GM/DL (6.4-8.2)
[2017-12-13 07:49] VITALS: BP 196/80
--- NOTE | 2017-12-13 08:29 | Cardiology Progress Note ---
Subjective Date Seen by Provider: Dec 13, 2017 Time Seen by Provider: 08:26 Subjective/Events-last exam Patient is laying down in bed, was having nausea this morning. No chest pain. Still having abdominal discomfort and distention Review of Systems General: No Chills, No Night Sweats, No Fatigue, No Malaise, No Appetite, No Other HEENT: No Head Aches, No Visual Changes, No Eye Pain, No Ear Pain, No Dysphasia , No Sinus Congestion, No Post Nasal Drip, No Sore Throat, No Other Pulmonary: Dyspnea; No Cough, No Pleuritic Chest Pain, No Other Cardiovascular: Edema; No: Chest Pain, Palpitations, Orthopnea, Paroxysmal Noc. Dyspnea, Lt Headedness, Other Objective-Cardiology Exam Last Set of Vital Signs Vital Signs 12/13/17 12/13/17 07:49 08:18 Temp 98.6 Pulse 90 Resp 16 B/P (MAP) 196/80 (118) Pulse Ox 97 O2 Delivery Room Air Capillary Refill : Less Than 3 Seconds I&O Intake and Output 12/13/17 00:00 Intake Total 275 ml Output Total 400 ml Balance -125 ml Intake Oral 275 ml Output Urine Total 400 ml Daily Weight Change No General: Alert, Oriented X3, Cooperative HEENT: Atraumatic, PERRLA Neck: Supple, No JVD, No Thyromegaly Lungs: Clear to Auscultation, Normal Air Movement Heart: Normal S1, Normal S2, No Murmurs, Other (Systolic murmur, S3) Abdomen: Normal Bowel Sounds, Soft, No Tenderness, No Hepatosplenomegaly, No Masses, Other (Distended abdomen) Extremities: No Clubbing, No Cyanosis, Normal Pulses, No Tenderness/Swelling, Other (+2- 3 edema) Skin: No Rashes, No Breakdown, No Significant Lesion Neuro: Normal Gait, Normal Speech, Strength at 5/5 X4 Ext, Normal Tone, Sensation Intact Psych/Mental Status: Mental Status NL, Mood NL Results Lab Laboratory Tests 12/12/17 11:08 12/13/17 06:05 A/P-Cardiology Admission Diagnosis Coronary artery disease Hypertension Anasarca Diabetes mellitus Assessment/Plan Elevated troponin level, probably combination of severe anemia and coronary artery disease. At this time patient cannot tolerate aggressive anticoagulation due to her current condition and recent GI bleed. Pathology report is pending. We will continue monitoring. Planning to evaluate 2-D echocardiogram Anasarca, increasing abdominal distention and peripheral edema. Mild elevation in troponin and BNP. Give daily Lasix and start hydrochlorothiazide and monitor tolerance and response Hypertension, resistant to metoprolol, continue on lisinopril and clonidine, I added hydrochlorothiazide today, monitor tolerance and response Gastric mass, status post massive GI bleed, biopsy was done, pathology report is pending. Chronic kidney disease stage 3-4. Continue to monitor while receiving diuretics and PAMELA inhibitor. Diabetes mellitus, followed and managed by primary care physician History of dementia Clinical Quality Measures DVT/VTE Risk/Contraindication: Risk Factor Score Per Nursin RFS Level Per Nursing on Admit: 4+=Very High JASNO CAGE MD Dec 13, 2017 08:29
[2017-12-13] MEDS: lisINopril 10 MG (PRINIVIL) TABLET PO SCH (10:26)
[2017-12-13] MEDS: FUROSEMIDE 40 MG/4 ML INJ (LASIX) IVP SCH (10:26)
[2017-12-13] MEDS: HYDROCHLOROTHIAZIDE 25 MG (HCTZ) TAB PO SCH (10:26)
[2017-12-13] MEDS: cloNIDine 0.1 MG (CATAPRES) TAB PO SCH ×2 (10:26→20:16)
[2017-12-13 11:12] VITALS: BP 156/74
[2017-12-13] MEDS ORDERED: GLIM2TAB PO (12:23)
[2017-12-13] MEDS ORDERED: SITA50TA PO (12:24)
[2017-12-13] MEDS ORDERED: INSU300I SQ (12:27)
[2017-12-13] MEDS ORDERED: MAG355OR16 PO (12:31)
[2017-12-13 15:45] VITALS: BP 176/76
--- NOTE | 2017-12-13 16:48 | History & Physical-Hospitalist ---
History of Present Illness HPI/Chief Complaint The patient is an 87-year-old white female who was admitted here on 12/06 and discharged on 12/10 in an admission triggered by significant upper GI bleeding. Endoscopy was performed but did not yield a positive diagnosis. CT scan showed a large gastric mass. She returned on 12/12 brought to the emergency room by her children with reports of left-sided abdominal pain and vomiting without blood. Her abdomen was said to be distended and she had developed swelling in her legs. She is a resident of a correction and suffers from dementia. When questioning her she had no idea why she was here but did agree that her children had brought her down from [place]. Date Seen 12/13/17 Attending Physician Carrol Martinez MD PCP Maykel Marley MD Referring Physician Date of Admission Dec 12, 2017 at 12:09 Home Medications & Allergies Home Medications Reviewed patient Home Medication Reconciliation performed by pharmacy medication reconciliations automotive service technician and/or nursing. Patients Allergies have been reviewed. Allergies Allergies Coded Allergies celecoxib (Verified Allergy, Unknown, 12/12/17) Sulfa (Sulfonamide Antibiotics) (Verified Adverse Reaction, Severe, 12/12/17) Past Nzszpty-[id number]-Flplwm Hx Patient Social History Marrital Status: Alcohol Use: Denies Use Recreational Drug Use: No Smoking Status: Never a Smoker Physical Abuse Screen: No Sexual Abuse: No Recent Foreign Travel: No Contact w/other who traveled: No Recent Hopitalizations: Yes (with surgery) Recent Infectious Disease Expo: No Immunizations Up To Date Date of Pneumonia Vaccine: Nov 18, 2015 Date of Influenza Vaccine: Dec 01, 2017 Seasonal Allergies Seasonal Allergies: No Past Medical History Surgeries: Appendectomy, Gallbladder, Hysterectomy, Joint Replacement Currently Using CPAP: No Currently Using BIPAP: No Cardiac: Hypertension Neurological: Dementia Reproductive: Yes Gastrointestinal: Gastroesophageal Reflux Musculoskeletal: Chronic Back Pain Endocrine: Diabetes, Non-Insulin dep History of Blood Disorders: No Adverse Reaction to Blood Mercedes: No Family History Cancer, Diabetes Physical Exam Physical Exam Vital Signs Vital Signs - First Documented 12/12/17 12/12/17 11:05 13:20 Temp 97.5 Pulse 89 Resp 18 B/P (MAP) 194/99 (130) Pulse Ox 100 O2 Delivery Room Air Capillary Refill : Less Than 3 Seconds Height, Weight, BMI Height: 5'2.00" Weight: 140lbs. 1.0oz. 63.159858xr; 25.6 BMI Method:Stated Results Results/Procedures Labs Laboratory Tests 12/12/17 11:08 12/13/17 06:05 Patient resulted labs reviewed. Clinical Quality Measures DVT/VTE Risk/Contraindication: Risk Factor Score Per Nursin RFS Level Per Nursing on Admit: 4+=Very High JÚNIOR LOREDO MD Dec 13, 2017 16:48
[2017-12-13 19:10] VITALS: BP 186/89
[2017-12-14 00:20] VITALS: BP 145/67
[2017-12-14 04:02] VITALS: BP 149/73
[2017-12-14] MEDS: inSUlin ASPART (NovoLOG) 1 UNIT/0.01 ML (CHARGE PER UNIT) SC SCH ×4 (06:25→22:15)
[2017-12-14 06:49] LABS: CALCIUM 8.9 MG/DL (8.5-10.1); CREATININE SERUM 1.08 MG/DL (0.60-1.30); POTASSIUM 3.4 MMOL/L (3.6-5.0)
[2017-12-14 07:27] VITALS: BP 169/77
--- NOTE | 2017-12-14 07:58 | Cardiology Progress Note ---
Subjective Date Seen by Provider: Dec 14, 2017 Time Seen by Provider: 07:56 Subjective/Events-last exam Patient is in bed, feeling better, no new complaint Review of Systems General: No Chills, No Night Sweats, No Fatigue, No Malaise, No Appetite, No Other HEENT: No Head Aches, No Visual Changes, No Eye Pain, No Ear Pain, No Dysphasia , No Sinus Congestion, No Post Nasal Drip, No Sore Throat, No Other Pulmonary: Dyspnea; No Cough, No Pleuritic Chest Pain, No Other Cardiovascular: No: Chest Pain, Palpitations, Orthopnea, Paroxysmal Noc. Dyspnea, Edema, Lt Headedness, Other Objective-Cardiology Exam Last Set of Vital Signs Vital Signs 12/14/17 07:27 Temp 97.7 Pulse 88 Resp 17 B/P (MAP) 169/77 (107) Pulse Ox 98 O2 Delivery Room Air Capillary Refill : Less Than 3 Seconds I&O Intake and Output 12/14/17 00:00 Intake Total 1095 ml Output Total 2000 ml Balance -905 ml Intake Oral 1095 ml Output Urine Total 2000 ml # Bowel Movements 3 General: Alert, Oriented X3, Cooperative HEENT: Atraumatic, PERRLA Neck: Supple, No JVD, No Thyromegaly Lungs: Clear to Auscultation, Normal Air Movement Heart: Normal S1, Normal S2, No Murmurs, Other (Systolic murmur, S3) Abdomen: Normal Bowel Sounds, Soft, No Tenderness, No Hepatosplenomegaly, No Masses, Other (Distended abdomen) Extremities: No Clubbing, No Cyanosis, Normal Pulses, No Tenderness/Swelling, Other (+2- 3 edema) Skin: No Rashes, No Breakdown, No Significant Lesion Neuro: Normal Gait, Normal Speech, Strength at 5/5 X4 Ext, Normal Tone, Sensation Intact Psych/Mental Status: Mental Status NL, Mood NL Results Lab Laboratory Tests 12/14/17 06:03 A/P-Cardiology Admission Diagnosis Coronary artery disease Hypertension Anasarca Diabetes mellitus Assessment/Plan Elevated troponin level, probably combination of severe anemia and coronary artery disease and severe LVH. At this time patient cannot tolerate aggressive anticoagulation due to her current condition and recent GI bleed. Pathology report is pending. We will continue monitoring. Planning to evaluate 2-D echocardiogram Anasarca, increasing abdominal distention and peripheral edema. Mild elevation in troponin and BNP. or congestive heart failure, acute left ventricular diastolic dysfunction secondary to hypertensive heart disease, normal systolic function. continue to monitor intake and output. Malignant Hypertension, resistant to multiple medication, slightly better at this time. Continue to monitor Gastric mass, status post massive GI bleed, biopsy was done, pathology report is pending. managed by primary care team Chronic kidney disease stage 3-4. Continue to monitor while receiving diuretics and PAMELA inhibitor. Diabetes mellitus, followed and managed by primary care physician History of dementia Clinical Quality Measures DVT/VTE Risk/Contraindication: Risk Factor Score Per Nursin RFS Level Per Nursing on Admit: 4+=Very High JASON CAGE MD Dec 14, 2017 07:58
[2017-12-14] MEDS: lisINopril 10 MG (PRINIVIL) TABLET PO SCH (07:59)
[2017-12-14] MEDS: cloNIDine 0.1 MG (CATAPRES) TAB PO SCH ×2 (07:59→22:14)
[2017-12-14] MEDS: HYDROCHLOROTHIAZIDE 25 MG (HCTZ) TAB PO SCH (07:59)
[2017-12-14] MEDS: FUROSEMIDE 40 MG/4 ML INJ (LASIX) IVP SCH (08:00)
[2017-12-14 12:00] VITALS: BP 136/61
[2017-12-14] MEDS: SPIRONOLACTONE 25 MG (ALDACTONE) TAB PO SCH ×2 (12:30→18:35)
--- NOTE | 2017-12-14 12:44 | Progress Note-Hospitalist ---
Progress Note Progress Notes/Assess & Plan Date Seen 12/14/17 Time Seen by Provider: 12:36 Assessment & Plan The patient remains quite charming and is considerably better oriented today than yesterday. I conducted a rather extensive chart review from the patient's last visit. The gastric mass described in the last visit was not seen on CT scan but rather at endoscopy to evaluate for cause of bleeding. Attempts were made at Gastro scopic removal of the mass. Specimens submitted to pathology provided no clear cut diagnosis. It is also noted on the [address] scans that the liver was somewhat small and its character suggested cirrhosis. In addition the spleen appeared quite large which would be consistent. Finally ascites was noted. She reports that she has never been told that she has cirrhosis. She does not know of any incidents of previous hepatitis that might have been cofactors. She is a non-inbiber of alcoholic beverages. Physical exam: She is alert and vivacious. Lungs are clear to auscultation. CV is regular. Abdomen is slightly protuberant. No fluid wave is elicited. Extremities show 1-2+ bilateral pretibial edema. It is noted that her albumin is 2.5. Impression: Hepatic cirrhosis, undefined. 2.splenomegaly secondary to number 1. 3.ascites and pedal edema secondary to number 1. Plan: Add spironolactone and Lasix for diuresis. JÚNIOR LOREDO MD Dec 14, 2017 12:44
[2017-12-14] MEDS ORDERED: CRAMP PO PRN (14:15)
[2017-12-14] MEDS ORDERED: NON-FORMULARY MEDICATION 1 EA EA (Polyethylene Glycol 3350 (Miralax) 17 GM) PO PRN (14:15)
[2017-12-14] MEDS ORDERED: DIAZEPAM 2 MG (VALIUM) TAB PO PRN (14:15)
[2017-12-14] MEDS ORDERED: NON-FORMULARY MEDICATION 1 EA EA (Ondansetron HCl (Zofran) 4 MG) PO PRN (14:15)
[2017-12-14] MEDS ORDERED: DOCUSATE SODIUM 100 MG (COLACE) CAP PO PRN (14:15)
[2017-12-14] MEDS ORDERED: PROCHLORPERAZINE 10 MG TAB (COMPAZINE) PO PRN (14:15)
[2017-12-14] MEDS ORDERED: HYDROcodone/APAP 10 MG/325 MG (LORTAB) TAB PO PRN (14:15)
[2017-12-14] MEDS: DIAZEPAM 2 MG (VALIUM) TAB PO SCH (15:06)
[2017-12-14] MEDS ORDERED: POLYETHYLENE GLYCOL 17 GM (MIRALAX) PACK PO PRN (15:15)
[2017-12-14] MEDS ORDERED: ONDANSETRON 4 MG (ZOFRAN) ORAL DISSOLVE TAB PO PRN (15:15)
[2017-12-14 15:50] VITALS: BP 138/64
[2017-12-14] MEDS: TRIMETHOPRIM 100 MG TAB (PROLOPRIM) NON-FORMULARY PO SCH (15:50)
[2017-12-14] MEDS: MIRTAZAPINE 15 MG (REMERON) TAB PO SCH ×2 (15:51→22:14)
[2017-12-14] MEDS: SINEMET 25/250 (CARBIDOPA/LEVODOPA) TAB PO SCH ×2 (15:51→18:35)
[2017-12-14] MEDS ORDERED: FENTANYL PATCH REMOVAL TP SCH (15:59)
[2017-12-14] MEDS ORDERED: fentaNYL PATCH 100 MCG (DURAGESIC) TD SCH (16:00)
[2017-12-14 20:00] VITALS: BP 144/74
[2017-12-14] MEDS ORDERED: ROTIGOTINE 8 MG TD SCH (21:00)
[2017-12-14] MEDS: POLYETHYLENE GLYCOL 17 GM (MIRALAX) PACK PO SCH (22:15)
[2017-12-14] MEDS: HYDROcodone/APAP 10 MG/325 MG (LORTAB) TAB PO SCH (22:16)
[2017-12-14] MEDS: BRIMONIDINE 0.2% (ALPHAGAN) OPHTH SOLN 5 ML BTL OU SCH (22:17)
[2017-12-15 00:32] VITALS: BP 147/70
[2017-12-15 04:02] VITALS: BP 143/74
[2017-12-15] MEDS: PANTOPRAZOLE 40 MG (PROTONIX) TAB PO SCH (06:26)
[2017-12-15] MEDS: KCL 10 MEQ TAB (MICRO K) PO SCH (06:26)
[2017-12-15] MEDS: SPIRONOLACTONE 25 MG (ALDACTONE) TAB PO SCH ×2 (06:26→16:59)
[2017-12-15] MEDS: SINEMET 25/250 (CARBIDOPA/LEVODOPA) TAB PO SCH ×4 (06:26→18:28)
[2017-12-15] MEDS: inSUlin ASPART (NovoLOG) 1 UNIT/0.01 ML (CHARGE PER UNIT) SC SCH ×4 (06:27→22:22)
[2017-12-15 06:49] LABS: HEPATITIS C ANTIBODY C Non-Reactive (Non-Reactive)
[2017-12-15 08:00] VITALS: BP 137/74
[2017-12-15] MEDS: lisINopril 10 MG (PRINIVIL) TABLET PO SCH (08:27)
[2017-12-15] MEDS: DIAZEPAM 2 MG (VALIUM) TAB PO SCH ×2 (08:27→14:44)
[2017-12-15] MEDS: FUROSEMIDE 40 MG (LASIX) TAB PO SCH (08:27)
[2017-12-15] MEDS: HYDROCHLOROTHIAZIDE 25 MG (HCTZ) TAB PO SCH (08:27)
[2017-12-15] MEDS: cloNIDine 0.1 MG (CATAPRES) TAB PO SCH ×2 (08:27→22:21)
[2017-12-15] MEDS: HYDROcodone/APAP 10 MG/325 MG (LORTAB) TAB PO SCH ×2 (08:27→22:22)
[2017-12-15] MEDS: TRIAMTERENE/HCTZ 75-50 (MAXZIDE,DYAZIDE) TABLET PO SCH (08:27)
[2017-12-15] MEDS: TRIMETHOPRIM 100 MG TAB (PROLOPRIM) NON-FORMULARY PO SCH (08:28)
[2017-12-15] MEDS: BRIMONIDINE 0.2% (ALPHAGAN) OPHTH SOLN 5 ML BTL OU SCH ×2 (08:30→22:23)
--- NOTE | 2017-12-15 08:44 | Cardiology Progress Note ---
Subjective Date Seen by Provider: Dec 15, 2017 Time Seen by Provider: 08:42 Subjective/Events-last exam Patient sitting up in bed, no new complaints. Denies any chest pain or dyspnea. No other complaints at this time. Review of Systems General: No Night Sweats, No Fatigue, No Malaise HEENT: No Visual Changes, No Dysphasia Pulmonary: No Dyspnea, No Cough Cardiovascular: No: Chest Pain, Palpitations, Paroxysmal Noc. Dyspnea, Edema Gastrointestinal: No: Nausea, Vomiting, Abdominal Pain Genitourinary: No Dysuria, No Frequency Musculoskeletal: No: neck pain, back pain Neurological: No: Weakness, Numbness, Change in speech, Confusion Objective-Cardiology Exam Last Set of Vital Signs Vital Signs 12/15/17 12/15/17 04:02 07:00 Temp 97.7 Pulse 82 Resp 17 B/P (MAP) 143/74 (97) Pulse Ox 98 O2 Delivery Room Air Capillary Refill : Less Than 3 Seconds I&O Intake and Output 12/15/17 00:00 Intake Total 1020 ml Output Total 900 ml Balance 120 ml Intake Oral 1020 ml Output Urine Total 900 ml # Voids 16 # Bowel Movements 3 General: Alert, Oriented X3, Cooperative HEENT: Atraumatic, PERRLA Neck: Supple, No JVD, No Thyromegaly Lungs: Clear to Auscultation, Normal Air Movement Heart: Normal S1, Normal S2, No Murmurs, Other (Systolic murmur, S3) Abdomen: Normal Bowel Sounds, Soft, No Tenderness, No Hepatosplenomegaly, No Masses, Other (Distended abdomen) Extremities: No Clubbing, No Cyanosis, Normal Pulses, No Tenderness/Swelling, Other (+2- 3 edema) Skin: No Rashes, No Breakdown, No Significant Lesion Neuro: Normal Gait, Normal Speech, Strength at 5/5 X4 Ext, Normal Tone, Sensation Intact Psych/Mental Status: Mental Status NL, Mood NL A/P-Cardiology Admission Diagnosis Coronary artery disease Hypertension Anasarca Diabetes mellitus Assessment/Plan Elevated troponin level, probably combination of severe anemia and coronary artery disease and severe LVH. At this time patient cannot tolerate aggressive anticoagulation due to her current condition and recent GI bleed. Pathology report is pending. We will continue monitoring. 2D Echo revealed Normal EF with grade 2 diastolic dysfunction. Anasarca, increasing abdominal distention and peripheral edema. Mild elevation in troponin and BNP.Improving. 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 Continue to monitor Gastric mass, status post massive GI bleed, biopsy was done, pathology report is pending. managed by primary care team Chronic kidney disease stage 3-4. Continue to monitor while receiving diuretics and PAMELA inhibitor. Diabetes mellitus, followed and managed by primary care physician History of dementia Clinical Quality Measures DVT/VTE Risk/Contraindication: Risk Factor Score Per Nursin RFS Level Per Nursing on Admit: 4+=Very High CHELSEY NORMAN Dec 15, 2017 08:44
[2017-12-15] MEDS ORDERED: POLYETHYLENE GLYCOL 8.5 GM PO SCH (09:00)
[2017-12-15] MEDS ORDERED: DOCUSATE SODIUM 100 MG (COLACE) CAP PO SCH (09:00)
[2017-12-15] MEDS ORDERED: RIVASTIGMINE 13.3 MG TD SCH (09:00)
[2017-12-15] MEDS ORDERED: NON-FORMULARY MEDICATION 1 EA EA (Triamterene/Hydrochlorothiazid (Triamterene-Hctz 37.5-25 PO SCH (09:00)
--- NOTE | 2017-12-15 10:39 | Progress Note-Hospitalist ---
Subjective HPI/CC On Admission Date Seen by Provider: Dec 15, 2017 Time Seen by Provider: 09:30 The patient is an 87-year-old white female who was admitted here on 12/06 and discharged on 12/10 in an admission triggered by significant upper GI bleeding. Endoscopy was performed but did not yield a positive diagnosis. CT scan showed a large gastric mass. She returned on 12/12 brought to the emergency room by her children with reports of left-sided abdominal pain and vomiting without blood. Her abdomen was said to be distended and she had developed swelling in her legs. She is a resident of a long term and suffers from dementia. When questioning her she had no idea why she was here but did agree that her children had brought her down from [place]. Subjective/Events-last exam Patient in process of disposition May need to go to long term skilled instead of assisted living Will order ultrasound and INR and ammonia level due to ascites and diagnosis of probable hospice enrollment Cirrhosis as noted on CT scan Conferred with Dr. stephen frias and reviewed office notes but no mention of any type of cancer Conferred with Dr. Velez regarding gastric mass but no varices were noted on EGD when completed last admission Cardiology okay with discharge also Denies any pain Baseline confusion Poor prognosis overall Review of Systems Cardiovascular: Edema Neurological: Confusion Objective Exam Vital Signs Vital Signs Date Time Temp Pulse Resp B/P (MAP) Pulse Ox O2 Delivery O2 Flow Rate FiO2 12/15/17 08:30 Room Air 12/15/17 08:00 97.8 91 18 137/74 (95) 97 Capillary Refill : Less Than 3 Seconds General Appearance: No Apparent Distress, WD/WN Respiratory: Chest Non Tender, Lungs Clear, Normal Breath Sounds, No Accessory Muscle Use, No Respiratory Distress Cardiovascular: Regular Rate, Rhythm, No Gallop, No JVD, No Murmur, Normal Peripheral Pulses Gastrointestinal: Other (ascites) Extremity: Pedal Edema Neurologic/Psychiatric: Alert, No Motor/Sensory Deficits, Normal Mood/Affect, Disoriented Results/Procedures Lab Laboratory Tests 12/15/17 10:45 Patient resulted labs reviewed. Assessment/Plan Assessment and Plan Assess & Plan/Chief Complaint Assessment: Anasarca Cirrhosis on CT scan Pancytopenia sees Dr. Roland on a regular basis Iron deficiency sees Dr. 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 Diagnosis/Problems Diagnosis/Problems (1) NSTEMI (non-ST elevated myocardial infarction) Status: Acute (2) Anasarca Status: Acute (3) Ascites Status: Acute Qualifiers: Ascites type: other type Qualified Codes: R18.8 - Other ascites (4) Parkinson disease Status: Chronic (5) Recurrent UTI Status: Chronic (6) Iron deficiency Status: Chronic (7) GI (gastrointestinal bleed) Status: Acute Qualifiers: GI bleed type/associated pathology: unspecified gastrointestinal hemorrhage type Qualified Codes: K92.2 - Gastrointestinal hemorrhage, unspecified (8) Anemia Status: Chronic Qualifiers: Anemia type: iron deficiency Iron deficiency anemia type: unspecified iron deficiency Qualified Codes: D50.9 - Iron deficiency anemia, unspecified (9) Essential (primary) hypertension Status: Chronic (10) Dementia Status: Chronic (11) Insulin dependent diabetes mellitus Status: Chronic Clinical Quality Measures DVT/VTE Risk/Contraindication: Risk Factor Score Per Nursin RFS Level Per Nursing on Admit: 4+=Very High MARISELA FIGUEROA DO Dec 15, 2017 10:39
[2017-12-15 10:55] LABS: BASOPHILS % (AUTO) 0 % (0-10); EOSINOPHILS % (AUTO) 1 % (0-10); HEMATOCRIT 32 % (35-52); HEMOGLOBIN 10.2 G/DL (11.5-16.0); LYMPHOCYTES # (AUTO) 0.8 X 10^3 (1.0-4.0); LYMPHOCYTES % (AUTO) 19 % (12-44); MEAN CORPUSCULAR HEMOGLOBIN 30 PG (25-34); MEAN CORPUSCULAR HGB CONC 32 G/DL (32-36); MEAN CORPUSCULAR VOLUME 93 FL (80-99); MEAN PLATELET VOLUME 10.2 FL (7.4-10.4); MONOCYTES # (AUTO) 0.5 X 10^3 (0.0-1.0); MONOCYTES % (AUTO) 11 % (0-12); NEUTROPHILS # (AUTO) 2.9 X 10^3 (1.8-7.8); NEUTROPHILS % (AUTO) 69 % (42-75); PLATELET COUNT 89 10^3/uL (130-400); RED CELL DISTRIBUTION WIDTH 17.6 % (10.0-14.5); WHITE BLOOD COUNT 4.2 10^3/uL (4.3-11.0)
[2017-12-15 11:12] LABS: ALBUMIN 2.7 GM/DL (3.2-4.5); BILIRUBIN,TOTAL 0.6 MG/DL (0.1-1.0); CALCIUM 8.8 MG/DL (8.5-10.1); CREATININE SERUM 1.27 MG/DL (0.60-1.30); POTASSIUM 3.5 MMOL/L (3.6-5.0); TOTAL PROTEIN 4.5 GM/DL (6.4-8.2)
[2017-12-15 12:34] LABS: INR 1.1 (0.8-1.4); PROTHROMBIN TIME PATIENT 14.3 SEC (12.2-14.7)
[2017-12-15 12:59] VITALS: BP 126/71
--- NOTE | 2017-12-15 14:04 | Occupational Therapy Eval ---
OT Evaluation-General/PLF Medical Diagnosis Admission Date Dec 12, 2017 at 12:09 Medical Diagnosis: anasarca, gastric mass, NSTEMI Onset Date: Dec 12, 2017 Therapy Diagnosis Therapy Diagnosis: impaired self care skills Height/Weight Height (Feet): 5 Height (Inches): 2.00 Weight (Pounds): 153 Weight (Ounces): 1.2 Precautions Precautions/Isolations: Fall Prevention, Standard Precautions Safety Interventions: Bed Exit Alarm Referral Physician: Miguelina Medical History Pertinent Medical History: CAD, DM, Dementia Additional Medical History GI bleed, gastric mass, chronic kidney disease, Reviewed History: Yes Social History Home: Assisted Living ADL-Prior Level of Function Functional Corder Measure 0=Not Assessed/NA 4=Minimal Assistance 1=Total Assistance 5=Supervision or Setup 2=Maximal Assistance 6=Modified Corder 3=Moderate Assistance 7=Complete Corder ADL PLOF Comments Pt reports she is able to complete basic self care tasks, but has assistance as needed. Uses 4WW Self Care OT Current Status Subjective Pt in bed, agrees to therapy. Pt states she feels a little better today. Pt reports pain in left LE with transfer. Pt states pain is chronic, but does not rate. Mental Status/Objective Patient Orientation: Person, Confused, Place Current Glasses/Contacts: Yes Upper Extremity ROM Not formally assessed, but appears to be grossly functional ADL-Treatment ADL-Current Pt supine to sit with supervision and increased time. Pt requests to use BSC. Sit to stand with minimal assistance. Pt requires verbal cues for safety when transferring. Assist required to pull Depends down/up, but able to complete toileting hygiene. Pt transferred back to bed. Sit to supine with minimal assistance. Pt resting in bed with needs met and nurse aide present after session. Bed alarm on. Functional Corder Measure 0=Not Assessed/NA 4=Minimal Assistance 1=Total Assistance 5=Supervision or Setup 2=Maximal Assistance 6=Modified Corder 3=Moderate Assistance 7=Complete IndependenceIRFPAI Quality Coding Scale 6 Independent with activity with or without an assistive device 5 Patient requires set up or clean up by helper. Patient completes activity by themselves 4 Supervision or touching assist (CGA). [place] provide cues , steadying assist 3 The helper provides less than half the effort to complete the activity 2 The helper provides more than half the effort to complete the activity 1 Dependent. The helper does all the effort to complete an activity 7 Patient refused to complete or attempt activity 9 The patient did not perform the activity before the current illness or injury 88 Not attempted due to Medical conditions or safety concerns Toileting (FIM): 2 Education OT Patient Education: Rehab process Teaching Recipient: Patient Teaching Methods: Discussion Response to Teaching: Reinforcement Needed OT Short Term Goals Short Term Goals 1=Demonstrate adherence to instructed precautions during ADL tasks. 2=Patient will verbalize/demonstrate understanding of assistive devices/ modifications for ADL. 3=Patient will improve strength/tolerance for activity to enable patient to perform ADL's. OT Senior Living Goals Senior Living Goals Time Frame: Dec 25, 2017 Grooming(FIM): 5 Bathing(FIM): 4 Upper Body Dressing(FIM): 5 Toileting(FIM): 4 Toilet/Commode Transfer(FIM): 4 Additional Goals: 1-Demonstrate ADL Tasks, 2-Verbalize Understanding, 3- ImproveStrength/Evelio 1=Demonstrate adherence to instructed precautions during ADL tasks. 2=Patient will verbalize/demonstrate understanding of assistive devices/ modifications for ADL. 3=Patient will improve strength/tolerance for activity to enable patient to perform ADL's. OT Education/Plan Problem List/Assessment Pt demonstrates decreased ADL functioning, mobility, strength, and activity tolerance. Pt to benefit from skilled OT intervention for ADL training, transfers, strengthening, and safety education to increase level of independence and allow safe discharge plan. Discharge Recommendations Plan/Recommendations: Continue POC Treatment Plan/Plan of Care Treatment,Training & Education: Yes Patient would benefit from OT for education, treatment and training to promote independence in ADL's, mobility, safety and/or upper extremity function for ADL' s. Plan of Care: ADL Retraining, Functional Mobility, UE Funct Exercise/Act Treatment Duration: Dec 25, 2017 Frequency: 5 times per week Estimated Hrs Per Day: .25 hour per day Rehab Potential: Fair Time/GCodes Start Time: 13:30 Stop Time: 13:52 Total Time Billed (hr/min): 22 Billed Treatment Time 1 visit, TRUPTI(22minutes) KIRSTEN BUTTS OT Dec 15, 2017 14:04
--- NOTE | 2017-12-15 14:28 | Cardiology Progress Note ---
Subjective Date Seen by Provider: Dec 15, 2017 Time Seen by Provider: 14:27 Subjective/Events-last exam Patient is in bed, feeling better, no chest pain. No palpitation. Edema is improving Review of Systems General: No Chills, No Night Sweats, No Fatigue, No Malaise, No Appetite, No Other HEENT: No Head Aches, No Visual Changes, No Eye Pain, No Ear Pain, No Dysphasia , No Sinus Congestion, No Post Nasal Drip, No Sore Throat, No Other Pulmonary: No Dyspnea, No Cough, No Pleuritic Chest Pain, No Other Cardiovascular: Edema; No: Chest Pain, Palpitations, Orthopnea, Paroxysmal Noc. Dyspnea, Lt Headedness, Other Objective-Cardiology Exam Last Set of Vital Signs Vital Signs 12/15/17 12/15/17 08:00 08:30 Temp 97.8 Pulse 91 Resp 18 B/P (MAP) 137/74 (95) Pulse Ox 97 O2 Delivery Room Air Capillary Refill : Less Than 3 Seconds I&O Intake and Output 12/15/17 00:00 Intake Total 1020 ml Output Total 900 ml Balance 120 ml Intake Oral 1020 ml Output Urine Total 900 ml # Voids 16 # Bowel Movements 3 General: Alert, Oriented X3, Cooperative HEENT: Atraumatic, PERRLA Neck: Supple, No JVD, No Thyromegaly Lungs: Clear to Auscultation, Normal Air Movement Heart: Normal S1, Normal S2, No Murmurs, Other (Systolic murmur, S3) Abdomen: Normal Bowel Sounds, Soft, No Tenderness, No Hepatosplenomegaly, No Masses, Other (Distended abdomen) Extremities: No Clubbing, No Cyanosis, Normal Pulses, No Tenderness/Swelling, Other (+2- 3 edema) Skin: No Rashes, No Breakdown, No Significant Lesion Neuro: Normal Gait, Normal Speech, Strength at 5/5 X4 Ext, Normal Tone, Sensation Intact Psych/Mental Status: Mental Status NL, Mood NL Results Lab Laboratory Tests 12/15/17 10:45 A/P-Cardiology Admission Diagnosis Coronary artery disease Hypertension Anasarca Diabetes mellitus Assessment/Plan Elevated troponin level, probably combination of severe anemia and coronary artery disease and severe LVH. At this time patient cannot tolerate aggressive anticoagulation due to her current condition and recent GI bleed. Pathology report is pending. We will continue monitoring. 2D Echo revealed Normal EF with grade 2 diastolic dysfunction. Anasarca, increasing abdominal distention and peripheral edema. Mild elevation in troponin and BNP. Liver cirrhosis, responding to diuretic, started on Aldactone. Continue to monitor. 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 Continue to monitor Gastric mass, status post massive GI bleed, biopsy was done, followed by primary care team Chronic kidney disease stage 3-4. Continue to monitor while receiving diuretics and PAMELA inhibitor. Diabetes mellitus, followed and managed by primary care physician History of dementia Clinical Quality Measures DVT/VTE Risk/Contraindication: Risk Factor Score Per Nursin RFS Level Per Nursing on Admit: 4+=Very High JASON CAGE MD Dec 15, 2017 2:28 pm
--- NOTE | 2017-12-15 14:41 | Physical Therapy Evaluation ---
PT Evaluation-General Medical Diagnosis Admission Date Dec 12, 2017 at 12:09 Medical Diagnosis: anasarca, gastric mass, NSTEMI Onset Date: Dec 12, 2017 Therapy Diagnosis Therapy Diagnosis: impaired mobility Height/Weight Height (Feet): 5 Height (Inches): 2.00 Weight (Pounds): 153 Weight (Ounces): 1.2 Precautions Precautions/Isolations: Fall Prevention, Standard Precautions Weight Bear Status Right Lower Extremity: Right Full Weight Bearing Left Lower Extremity: Left Full Weight Bearing Referral Physician: Miguelina Reason for Referral: Evaluation/Treatment Medical History Pertinent Medical History: CAD, DM, Dementia Additional Medical History TKA Current History Pt presented to the ER 12/10 with GI bleed. Returned home but 2 days later was re-admitted with abdominal pain. Reviewed History: Yes Social History Home: Assisted Living Current Living Status: Alone Prior/Core FIM Prior Level of Function Functional [place] Measure 0=Not Assessed/NA 4=Minimal Assistance 1=Total Assistance 5=Supervision or Setup 2=Maximal Assistance 6=Modified [place] 3=Moderate Assistance 7=Complete IndependenceIRFPAI Quality Coding Scale 6 Independent with activity with or without an assistive device 5 Patient requires set up or clean up by helper. Patient completes activity by themselves 4 Supervision or touching assist (CGA). [place] provide cues , steadying assist 3 The helper provides less than half the effort to complete the activity 2 The helper provides more than half the effort to complete the activity 1 Dependent. The helper does all the effort to complete an activity 7 Patient refused to complete or attempt activity 9 The patient did not perform the activity before the current illness or injury 88 Not attempted due to Medical conditions or safety concerns PT Evaluation-Current Subjective Pt reports she is feeling stronger today. No c/o pain. Objective Patient Orientation: Person, Place, Situation Problem Solving: Fair ROM/Strength Strength Upper Extremities gross 4/5 Strength Lower Extremities gross 4/5 Sensory Vision: Wears Glasses Hearing: Functional Transfers Functional [place] Measure 0=Not Assessed/NA 4=Minimal Assistance 1=Total Assistance 5=Supervision or Setup 2=Maximal Assistance 6=Modified [place] 3=Moderate Assistance 7=Complete [place] Transfers (B, C, W/C) (FIM): 4 Scootin Rollin Supine to/from Sit: 4 Sit to/from Stand: 4 assist for single leg into bed, light assist to forward wt shift to come to standing Gait Distance (FIM): 9=018-55 ft Distance: 125 Gait Level of Assist: 4 Gait Persons Needed: 1 Gait Assistive Device: Walker 4 Wheeled Comments/Gait Description forward flexed posture with minimal ability to correct posture due to contracture Balance Sitting Static: Good Sitting Dynamic: Good Standing Static: Poor Standing Dynamic: Poor Assessment/Needs Rehab Potential: Fair Post Rehab Potential-Barriers: cognition, age PT Long-Term Goals Long-Term Goals PT Telecommunications Engineer Goals Time Frame: Dec 24, 2017 Transfers (B,C,W/C) (FIM): 5 Gait (FIM): 5 Gait distance (FIM): 3=150 ft Distance: 150 Gait Assistive Device: Walker 4 Wheeled PT Plan Problem List Problem List: Balance, Gait, Transfer, Bed Mobility Treatment/Plan Treatment Plan: Continue Plan of Care Treatment Plan: Bed Mobility, Education, Functional Activity Evelio, Functional Strength, Gait, Transfers Treatment Duration: Dec 24, 2017 Frequency: 6 times per week Estimated Hrs Per Day: .25 hour per day Patient and/or Family Agrees t: Yes Time/GCodes Time In: 1410 Time Out: 1440 Total Billed Treatment Time: 30 Total Billed Treatment visit, eval mod complexity 30 min G Codes Necessary: No JOSE CARLOS SKINNER PT Dec 15, 2017 14:41
--- NOTE | 2017-12-15 15:25 | Diagnostic Imaging Report ---
PROCEDURE: US abdomen complete. TECHNIQUE: Multiple real-time grayscale images were obtained over the abdomen in various projections. INDICATION: Ascites and cirrhosis. FINDINGS: The liver is upper limits of normal in size. Liver is markedly heterogeneous and demonstrates a nodular contour suggestive of cirrhosis. No discrete liver mass is identified. The portal vein appears patent and shows normal direction of flow. Gallbladder is surgically absent. No definite biliary duct dilatation is seen. The visualized pancreas is unremarkable. Spleen is enlarged at 18 cm. Aorta was obscured by bowel gas. IVC is unremarkable. Both kidneys contain cysts, largest on the right approximately 4.4 cm in diameter. Cyst on the left is 2.5 cm. There is upper abdominal ascites. IMPRESSION: 1. Features suggestive of cirrhosis and portal hypertension with splenomegaly and ascites. No discrete liver mass is detected. 2. Bilateral renal cystic disease. Dictated by: Dictated on workstation # [id number]
[2017-12-15 15:50] VITALS: BP 119/58
[2017-12-15 20:00] VITALS: BP 146/72
[2017-12-15] MEDS: MIRTAZAPINE 15 MG (REMERON) TAB PO SCH (22:21)
[2017-12-15] MEDS: POLYETHYLENE GLYCOL 17 GM (MIRALAX) PACK PO SCH (22:27)
[2017-12-16] VITALS: BP 119/57
[2017-12-16 04:20] VITALS: BP 150/67
[2017-12-16] MEDS: SINEMET 25/250 (CARBIDOPA/LEVODOPA) TAB PO SCH ×2 (06:32→11:09)
[2017-12-16] MEDS: KCL 10 MEQ TAB (MICRO K) PO SCH (06:32)
[2017-12-16] MEDS: SPIRONOLACTONE 25 MG (ALDACTONE) TAB PO SCH (06:32)
[2017-12-16] MEDS: inSUlin ASPART (NovoLOG) 1 UNIT/0.01 ML (CHARGE PER UNIT) SC SCH ×2 (06:32→10:58)
[2017-12-16] MEDS: PANTOPRAZOLE 40 MG (PROTONIX) TAB PO SCH (06:32)
--- NOTE | 2017-12-16 07:35 | Cardiology Progress Note ---
Subjective Date Seen by Provider: Dec 16, 2017 Time Seen by Provider: 07:31 Subjective/Events-last exam Patient is in bed, feeling better, still having edema Review of Systems General: No Chills, No Night Sweats, No Fatigue, No Malaise, No Appetite, No Other HEENT: No Head Aches, No Visual Changes, No Eye Pain, No Ear Pain, No Dysphasia , No Sinus Congestion, No Post Nasal Drip, No Sore Throat, No Other Pulmonary: Dyspnea; No Cough, No Pleuritic Chest Pain, No Other Cardiovascular: No: Chest Pain, Palpitations, Orthopnea, Paroxysmal Noc. Dyspnea, Edema, Lt Headedness, Other Objective-Cardiology Exam Last Set of Vital Signs Vital Signs 12/16/17 04:20 Temp 97.5 Pulse 77 Resp 16 B/P (MAP) 150/67 (94) Pulse Ox 97 O2 Delivery Room Air Capillary Refill : Less Than 3 Seconds I&O Intake and Output 12/16/17 00:00 Intake Total 700 ml Output Total 900 ml Balance -200 ml Intake Oral 700 ml Output Urine Total 900 ml # Voids 1 General: Alert, Oriented X3, Cooperative HEENT: Atraumatic, PERRLA Neck: Supple, No JVD, No Thyromegaly Lungs: Clear to Auscultation, Normal Air Movement Heart: Normal S1, Normal S2, No Murmurs, Other (Systolic murmur, S3) Abdomen: Normal Bowel Sounds, Soft, No Tenderness, No Hepatosplenomegaly, No Masses, Other (Distended abdomen) Extremities: No Clubbing, No Cyanosis, Normal Pulses, No Tenderness/Swelling, Other (+2- 3 edema) Skin: No Rashes, No Breakdown, No Significant Lesion Neuro: Normal Gait, Normal Speech, Strength at 5/5 X4 Ext, Normal Tone, Sensation Intact Psych/Mental Status: Mental Status NL, Mood NL Results Lab Laboratory Tests 12/15/17 10:45 A/P-Cardiology Admission Diagnosis Coronary artery disease Hypertension Anasarca Diabetes mellitus Assessment/Plan Elevated troponin level, probably combination of severe anemia and coronary artery disease and severe LVH. 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 Continue to monitor Gastric mass, status post massive GI bleed, biopsy was done, followed by primary care team Chronic kidney disease stage 3-4. Continue to monitor while receiving diuretics and PAMELA inhibitor. Diabetes mellitus, followed and managed by primary care physician History of dementia Clinical Quality Measures DVT/VTE Risk/Contraindication: Risk Factor Score Per Nursin RFS Level Per Nursing on Admit: 4+=Very High JASON CAGE MD Dec 16, 2017 07:35
[2017-12-16 08:00] VITALS: BP 107/57
[2017-12-16] MEDS ORDERED: FURO40TA4 PO (09:21)
[2017-12-16] MEDS ORDERED: LISI10TA2 PO (09:21)
[2017-12-16] MEDS ORDERED: FENT1PAT11 TD (09:21)
[2017-12-16] MEDS ORDERED: CLON0.1T PO (09:21)
[2017-12-16] MEDS ORDERED: SPIR25TA5 PO (09:21)
--- NOTE | 2017-12-16 09:23 | Discharge Summary-Hospitalist ---
Diagnosis/Chief Complaint Date of Admission Dec 12, 2017 at 12:09 Date of Discharge Discharge Date: Dec 16, 2017 Discharge Diagnosis (1) Cirrhosis Status: Chronic (2) NSTEMI (non-ST elevated myocardial infarction) Status: Acute (3) Anasarca Status: Acute (4) Ascites Status: Acute (5) Parkinson disease Status: Chronic (6) Recurrent UTI Status: Chronic (7) Iron deficiency Status: Chronic (8) GI (gastrointestinal bleed) Status: Resolved (9) Anemia Status: Chronic (10) Essential (primary) hypertension Status: Chronic (11) Dementia Status: Chronic (12) Insulin dependent diabetes mellitus Status: Chronic Discharge Summary Discharge Physical Exam Allergies: Coded Allergies: celecoxib (Verified Allergy, Unknown, 12/12/17) Sulfa (Sulfonamide Antibiotics) (Verified Adverse Reaction, Severe, ) Vitals & I&Os Vital Signs Date Time Temp Pulse Resp B/P (MAP) Pulse Ox O2 Delivery O2 Flow Rate FiO2 12/16/17 12:25 78 16 107/57 95 Room Air 12/16/17 08:00 98.0 General Appearance: No Apparent Distress, WD/WN, Chronically ill Respiratory: Chest Non Tender, Lungs Clear, Normal Breath Sounds, No Accessory Muscle Use, No Respiratory Distress Cardiovascular: Regular Rate, Rhythm, No Edema, No Gallop, No JVD, No Murmur, Normal Peripheral Pulses Neurologic/Psychiatric: Alert, Oriented x3, No Motor/Sensory Deficits, Normal Mood/Affect Hospital Course Hospital course: patient had a lengthy hospital course when she was admitted shortly after DC from previous admit for GIB. She was admitted for anasarca and placed on diuretics and closely monitored. NSTEMI was managed conservatively due to recent GIB and patient was not a candidate for aggressive CAD management. End stage cirrhosis was confirmed and patient did improve on diuresis and was able to return back to AL in [facility] and all in agreement with the plan. Dr Marley was out of the office so I was unable to update him on the plan but will be available if needed for any additional questions. Pt is deemed a Hospice candidate for end stage cirrhosis. Labs (last 24 hrs) Patient resulted labs reviewed. Pending Labs Discussion & Recommendations Discharge Planning: <30 minutes discharge planning Discharge Home Medications: Active Scripts Active Furosemide 40 Mg Tablet 40 Mg PO DAILY Spironolactone 25 Mg Tablet 50 Mg PO LASIXBID Lisinopril 10 Mg Tablet 10 Mg PO DAILY Clonidine HCl 0.1 Mg Tablet 0.1 Mg PO BID Fentanyl Patch 100 MCG (Fentanyl) 1 Each Patch.td72 100 Mcg TD Q72H Reported Ina Leónostar (Insulin Glargine,Hum.rec.anlog) 300 Unit/1 Ml Insuln.pen 18 Unit SQ DAILY Valium (Diazepam) 2 Mg Tablet 2 Mg PO DAILY PRN Zofran (Ondansetron HCl) 4 Mg Tab 4 Mg PO Q6H PRN Tylenol (Acetaminophen) 325 Mg Tablet 650 Mg PO Q4H PRN Maalox Advanced Suspension (Mag Hydrox/Aluminum Hyd/Simeth) 355 Ml Oral.susp 15 Ml PO UD PRN Pepcid Complete Tablet Chew (Famotidine/Ca Carb/Mag Hydrox) 1 Each Tab.chew 1 Tab PO Q8H PRN Miralax (Polyethylene Glycol 3350) 17 Gm Powd.pack 17 Gm PO Q72H PRN Hydrocodon-Acetaminophn 10-325 (Hydrocodone/Acetaminophen) 1 Each Tablet 1 Tab PO DAILY PRN Colace (Docusate Sodium) 100 Mg Capsule 100 Mg PO BID PRN Novolog Flexpen (Insulin Aspart) 300 Units/3 Ml Solution SQ UD PRN >200 = 2 UNITS >250 = 4 UNITS >300 = 6 UNITS [Leg Cramp] 2 Tab PO HS PRN Mirtazapine 30 Mg Tablet 30 Mg PO HS Diazepam 2 Mg Tablet 2 Mg PO 0800,1400 Prochlorperazine Maleate 10 Mg Tablet 10 Mg PO BID PRN Trimethoprim 100 Mg Tablet 100 Mg PO DAILY Colace (Docusate Sodium) 100 Mg Capsule 100 Mg PO DAILY Neupro (Rotigotine) 1 Each Patch.td24 8 Mg TD HS Carbidopa-Levodopa 25-250 Tab (Carbidopa/Levodopa) 1 Each Tablet 1 Tab PO 0700, 1100,1500,1900 Brimonidine Tartrate 5 Ml Btl 1 Drop OU BID Metoprolol Succinate 25 Mg Tab.er.24h 25 Mg PO BID Hydrocodon-Acetaminophn 10-325 (Hydrocodone/Acetaminophen) 1 Each Tablet 1 Tab PO BID Floranex Tablet (L. Acidophilus/Bulgaricus) 1 Each Tablet 2 Tab PO BID Triamterene-Hctz 37.5-25 mg Tb (Triamterene/Hydrochlorothiazid) 1 Each Tablet 1 Tab PO DAILY Potassium Chloride 10 Meq Tab.er.prt 10 Meq PO DAILY Rivastigmine 1 Each Patch.td24 13.3 Mg TD DAILY Omeprazole 40 Mg Capsule.dr 40 Mg PO DAILY Miralax (Polyethylene Glycol 3350) 119 Gm Powder 8.5 Gm PO DAILY Cranberry (Cranberry Extract) 405 Mg Capsule 405 Mg PO DAILY Instructions to patient/family Please see electronic discharge instructions given to patient. Clinical Quality Measures DVT/VTE Risk/Contraindication: Risk Factor Score Per Nursin RFS Level Per Nursing on Admit: 4+=Very High Problem Qualifiers (1) Cirrhosis: Hepatic cirrhosis type: unspecified hepatic cirrhosis Ascites presence: unspecified Qualified Codes: K74.60 - Unspecified cirrhosis of liver (2) Ascites: Ascites type: other type Qualified Codes: R18.8 - Other ascites (3) GI (gastrointestinal bleed): GI bleed type/associated pathology: unspecified gastrointestinal hemorrhage type Qualified Codes: K92.2 - Gastrointestinal hemorrhage, unspecified (4) Anemia: Anemia type: iron deficiency Iron deficiency anemia type: unspecified iron deficiency Qualified Codes: D50.9 - Iron deficiency anemia, unspecified MARISELA FIGUEROA DO Dec 16, 2017 09:23
[2017-12-16] MEDS: FUROSEMIDE 40 MG (LASIX) TAB PO SCH (09:47)
[2017-12-16] MEDS: BRIMONIDINE 0.2% (ALPHAGAN) OPHTH SOLN 5 ML BTL OU SCH (09:47)
[2017-12-16] MEDS: TRIMETHOPRIM 100 MG TAB (PROLOPRIM) NON-FORMULARY PO SCH (09:47)
[2017-12-16] MEDS: lisINopril 10 MG (PRINIVIL) TABLET PO SCH (09:48)
[2017-12-16] MEDS: cloNIDine 0.1 MG (CATAPRES) TAB PO SCH (09:48)
[2017-12-16] MEDS: HYDROcodone/APAP 10 MG/325 MG (LORTAB) TAB PO SCH (09:48)
[2017-12-16] MEDS: HYDROCHLOROTHIAZIDE 25 MG (HCTZ) TAB PO SCH (09:48)
[2017-12-16] MEDS: TRIAMTERENE/HCTZ 75-50 (MAXZIDE,DYAZIDE) TABLET PO SCH (10:10)
[2017-12-16] MEDS: DIAZEPAM 2 MG (VALIUM) TAB PO SCH (10:10)
[2017-12-16 12:25] VITALS: BP 107/57
--- NOTE | 2017-12-17 09:58 | Physician Query Clarification ---
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 Torres?. OK ruled out? Please document a response below. PHYSICIAN RESPONSE Do you agree w/Consulting Dx?: Yes In responding to this query, please exercise your independent professional judgment. The purpose of this communication is to more accurately reflect the complexity of your patients condition. The fact that a question is asked does not imply that any particular answer is desired or expected. Thank you for your timely response to this clarification. Requestors name: Kinsey THIS PHYSICIAN QUERY FORM IS A PERMANENT PART OF THE MEDICAL RECORD KINSEY SKAGGS Dec 17, 2017 09:57 MARISELA FIGUEROA DO Dec 17, 2017 12:27
--- NOTE | 2017-12-17 10:04 | Physician Query Clarification ---
PQ-Further Specificity Admission/Discharge Admission Date: Dec 12, 2017 at 12:09 Discharge Date: Dec 16, 2017 at 12:20 The medical record reflects the following clinical scenario: History/Risk Factors: Cirrhosis, ascites, CAD, Hypertensive cardiorenal disease with CKD stg 3, pancytopenia, iron deficiency anemia Diabetes, Parkinson's Clinical Findings: Troponin 1.16, BNP 238, Abdominal US - cirrhosis and portal hypertension Treatment: 40 mg Lasix IVP, Lisinopril, Clonidine for HTN Question: Can you further specify principal diagnosis per the clinical indicators above? Please document below. 1. Cirrhosis liver 2. [place] 3. Other, with explanation of the clinical findings. 4. Clinically undetermined, no explanation for the clinical findings. PHYSICIAN RESPONSE Can you specify per above: 1 In responding to this query, please exercise your independent professional judgment. The purpose of this communication is to more accurately reflect the complexity of your patients condition. The fact that a question is asked does not imply that any particular answer is desired or expected. Thank you for your timely response to this clarification. Requestors name: Kinsey THIS PHYSICIAN QUERY FORM IS A PERMANENT PART OF THE MEDICAL RECORD KINSEY SKAGGS Dec 17, 2017 10:04 MARISELA FIGUEROA DO Dec 17, 2017 12:28
--- NOTE | 2017-12-17 12:26 | D/C HH Face to Face Order ---
D/C Face to Face Orders Instructions for Patient Via [facility], Patient Instructions/FollowUp: Dr Marley in 1 week Physician to follow Patient: Dr Marley Discharge Diet for Home: No Restrictions Patient Problems: End stage cirrhosis Anasarca NSTEMI Recent GIB Anemia Patient Data-Allergies,Ht & Wt Patient Allergies: Coded Allergies: celecoxib (Verified Allergy, Unknown, 12/12/17) Sulfa (Sulfonamide Antibiotics) (Verified Adverse Reaction, Severe, ) Height (Feet): 5 Height (Inches): 2.00 Weight (Pounds): 149 Weight (Ounces): 3.0 Home Health Need/Face to Face Date of Face to Face: Dec 16, 2017 Clinical Findings: Generalized weakness and fatigue, Muscle weakness, Shortness of breath, Unsteady gait I have seen Pt [id number]: Yes Discharged To: Home Diagnosis/Conditions: End stage cirrhosis Anasarca NSTEMI Recent GIB Anemia Patient is Homebound due to: Jaylen fall risk due to instabilty, Pain w/ ambulation, Shortness of breath/distress Homebound Status Due to the above stated illness, injury or surgical procedure (medical condition or diagnosis) and associated clinical findings, the patient is homebound because of his/her inability to leave home except with aid of a supportive device and/or person AND leaving the home requires a considerable and taxing effort or is medically contraindicated. Pt req the following assistanc: Aid of another person, [facility] Line Start Date: Dec 12, 2017 Line Start Time: 1108 Line Type: Saline Lock Site Location: Antecubital Certify Stmt I certify that this patient is under my care and that I, a nurse practitioner or a physician; a surgical first assistant working with me, had a face to face encounter that - meets the physician face to face encounter requirements with this patient as dated. MARISELA FIGUEROA DO Dec 17, 2017 12:26
--- NOTE | 2017-12-21 12:54 | Physician Query Clarification ---
PQ-Further Specificity Admission/Discharge Admission Date: Dec 12, 2017 at 12:09 Discharge Date: Dec 16, 2017 at 12:20 The medical record reflects the following clinical scenario: History/Risk Factors: HTN, CKD stg 3, severe anemia, CAD, cirrhosis w/anasarca Clinical Findings: Troponin 1.16, 2D echo - normal EF grade 2 diastolic dysfunction Treatment: Monitoring Question: Can you further specify elevated troponin level probably combination of severe anemia and CAD and severe LVH per the clinical indicators above? Please document below. 1. elevated troponin level probably combination of severe anemia and CAD and severe LVH - [place] ruled out 2. NSTEMI 3. Other, with explanation of the clinical findings. 4. Clinically undetermined, no explanation for the clinical findings. PHYSICIAN RESPONSE Can you specify per above: 2 In responding to this query, please exercise your independent professional judgment. The purpose of this communication is to more accurately reflect the complexity of your patients condition. The fact that a question is asked does not imply that any particular answer is desired or expected. Thank you for your timely response to this clarification. Requestors name: Kinsey THIS PHYSICIAN QUERY FORM IS A PERMANENT PART OF THE MEDICAL RECORD KINSEY SKAGGS Dec 21, 2017 12:53 JASON CAGE MD Dec 22, 2017 07:28
== END 2017-12-16 12:20 | DRG 432 ==
LOC: EDUNIT# 10:58 → ER 10:59 → 4TH 12:09
PROVIDERS: ADMIT Family Medicine; ATTEND Family Medicine
DX: K74.60 Unspecified cirrhosis of liver (principal); R18.8 Other ascites; I21.4 Non-ST elevation (NSTEMI) myocardial infarction; I25.10 Atherosclerotic heart disease of native coronary artery without angina pectoris; I13.10 Hypertensive heart and chronic kidney disease without heart failure, with stage 1 through stage 4 chronic kidney disease, or unspecified chronic kidney disease; N18.3 Chronic kidney disease, stage 3 (moderate); D61.818 Other pancytopenia; K31.9 Disease of stomach and duodenum, unspecified; D50.9 Iron deficiency anemia, unspecified; Z66 Do not resuscitate; E11.9 Type 2 diabetes mellitus without complications; F03.90 Unspecified dementia, unspecified severity, without behavioral disturbance, psychotic disturbance, mood disturbance, and anxiety; K21.9 Gastro-esophageal reflux disease without esophagitis; M54.9 Dorsalgia, unspecified; G20 Parkinson's disease
CPT/HCPCS: 36415; 74176; 76700; 80048; 80053; 80074; 82140; 82962; 83880; 84443; 84484; 85025; 85610; 88112; 88305; 93005; 93306; 96374

== ENCOUNTER 2017-12-29 12:39 | Outpatient (RCR) | payer MEDICARE, OTHER ==
[~2017-12-29 12:39] MED LIST changes: +CLON0.1T PO; +FURO40TA4 PO; +INSU300I SQ; +LISI10TA2 PO; +SPIR25TA5 PO
[2017-12-29 13:01] LABS: ABSOLUTE RETIC # 54 10e9/L (24-90); BASOPHILS % (AUTO) 0 % (0-10); EOSINOPHILS % (AUTO) 0 % (0-10); HEMATOCRIT 35 % (35-52); HEMOGLOBIN 11.2 G/DL (11.5-16.0); LYMPHOCYTES # (AUTO) 0.8 X 10^3 (1.0-4.0); LYMPHOCYTES % (AUTO) 19 % (12-44); MEAN CORPUSCULAR HEMOGLOBIN 30 PG (25-34); MEAN CORPUSCULAR HGB CONC 33 G/DL (32-36); MEAN CORPUSCULAR VOLUME 92 FL (80-99); MEAN PLATELET VOLUME 10.3 FL (7.4-10.4); MONOCYTES # (AUTO) 0.3 X 10^3 (0.0-1.0); MONOCYTES % (AUTO) 7 % (0-12); NEUTROPHILS # (AUTO) 3.1 X 10^3 (1.8-7.8); NEUTROPHILS % (AUTO) 74 % (42-75); PLATELET COUNT 135 10^3/uL (130-400); RED CELL DISTRIBUTION WIDTH 17.2 % (10.0-14.5); RETICULOCYTE % 1.45 % (0.50-2.40); WHITE BLOOD COUNT 4.2 10^3/uL (4.3-11.0)
[2017-12-29 13:12] LABS: ALBUMIN 3.8 GM/DL (3.2-4.5); BILIRUBIN,TOTAL 0.8 MG/DL (0.1-1.0); CREATININE SERUM 1.86 MG/DL (0.60-1.30); TOTAL PROTEIN 6.5 GM/DL (6.4-8.2)
[2018-01-05] MEDS ORDERED: CITA10TA7 PO (16:19)
[2018-01-05] MEDS ORDERED: FURO40TA4 PO (16:19)
[2018-01-05] MEDS ORDERED: CLON0.1T PO (16:19)
[2018-01-05] MEDS ORDERED: ACID1TAB PO (16:19)
[2018-01-05] MEDS ORDERED: SPIR25TA5 PO (16:19)
[2018-01-05] MEDS ORDERED: LISI10TA2 PO (16:19)
[2018-01-05] MEDS ORDERED: FENT1PAT60 TD (16:19)
[2018-01-14] MEDS ORDERED: ACHD5005 PO (09:09)
[2018-01-14] MEDS ORDERED: FENT1PAT60 TD (09:09)
[2018-01-14] MEDS ORDERED: DIAZ2TAB2 PO (09:09)
== END 2018-03-29 | disposition home or self-care (01) ==
LOC: ONC 12:39
PROVIDERS: ATTEND Internal Medicine Hematology & Oncology
DX: D61.818 Other pancytopenia (principal); I12.9 Hypertensive chronic kidney disease with stage 1 through stage 4 chronic kidney disease, or unspecified chronic kidney disease; N18.3 Chronic kidney disease, stage 3 (moderate); E78.5 Hyperlipidemia, unspecified; G20 Parkinson's disease; Z79.899 Other long term (current) drug therapy
CPT/HCPCS: 80053; 82728; 85025; 85045; 99213

== ENCOUNTER 2018-01-05 13:53 | Inpatient (IN) | payer MEDICARE, OTHER ==
[~2018-01-05] VITALS: Ht 157.5 cm; Wt 76.9 kg
[2018-01-05] VITALS (34 sets, daily range): BP systolic 73–249; BP diastolic 38–129
[2018-01-05] MEDS: PROPOFOL DRIP (ICU) 100 ML IV SCH (15:30)
[2018-01-05] MEDS ORDERED: inSUlin ASPART (NovoLOG) 1 UNIT/0.01 ML (CHARGE PER UNIT) SC SCH ×2 (15:30→21:00)
--- NOTE | 2018-01-05 15:43 | History & Physical-Hospitalist ---
History of Present Illness HPI/Chief Complaint Pt is an 87yoCF with a PMH GI bleed, Parkinson's dementia, CKD stage 3, and chronic anemia who was transferred here from [facility] due to respiratory failure requiring mechanical ventilation. She is unable to provide me any history at this time so all history comes from records and EMS. The EMS who transferred her here were also the ones on scene at her [facility]. They state they were called when her nurses found her slumped in a chair, unresponsive, and with agonal breathes. On their arrival she had a respiratory rate around 5 and was not protecting her airway so she was intubated in the field and brought to the ER. Further workup there revealed a mildly elevated troponin and a negative CT head. Her last known well was around 1030AM per RN at [facility] and was found slumped in her chair at 1130am. They even noticed periods of apnea up to 45 seconds. BS was 128 BS and sats were in the 90s. Her last BP was 136/57 last night. The [facility] RN also states she has been feeling well and had been behaving normally prior today. Source: patient, EMS Exam Limitations: clinical condition Date Seen 01/05/18 Time Seen by a Provider: 15:06 Attending Physician Anirudh Martinez MD PCP Maykel Marley MD Referring Physician Date of Admission Home Medications & Allergies Home Medications Reviewed patient Home Medication Reconciliation performed by pharmacy medication reconciliations rv repair technician and/or nursing. Patients Allergies have been reviewed. Allergies Allergies Coded Allergies celecoxib (Verified Allergy, Unknown, 12/12/17) Sulfa (Sulfonamide Antibiotics) (Verified Adverse Reaction, Severe, 12/12/17) Past Hzqfbhn-Pdwnht-Hppcdn Hx Past Med/Social Hx: Reviewed Nursing Past Med/Soc Hx Patient Social History Employed/Student: retired Recent Hopitalizations: Yes (with surgery) Immunizations Up To Date Date of Pneumonia Vaccine: Nov 18, 2015 Date of Influenza Vaccine: Dec 01, 2017 Seasonal Allergies Seasonal Allergies: No Past Medical History Surgeries: Appendectomy, Gallbladder, Hysterectomy, Joint Replacement Currently Using CPAP: No Currently Using BIPAP: No Cardiac: Hypertension Neurological: Dementia Reproductive: Yes Gastrointestinal: Gastroesophageal Reflux Musculoskeletal: Chronic Back Pain Endocrine: Diabetes, Non-Insulin dep History of Blood Disorders: No Adverse Reaction to Blood Mercedes: No Family History Reviewed Nursing Family Hx Cancer, Diabetes Review of Systems ROS-Unable to Obtain: INtubated Constitutional: see HPI Physical Exam Physical Exam Vital Signs Capillary Refill : Height, Weight, BMI Height: 5'2.00" Weight: 149lbs. 3.0oz. [id number]; 25.6 BMI Method:Stated General Appearance: Chronically ill HEENT: Moist Mucous Membranes; No Scleral Icterus (L), No Scleral Icterus (R); Other (pinpoint pupils, minimally reactive) Respiratory: Lungs Clear, Other (intubated ) Cardiovascular: Regular Rate, Rhythm, No Murmur Gastrointestinal: Non Tender Extremity: No Calf Tenderness, No Pedal Edema Neurologic/Psychiatric: Other (biting at ETT, did not respond to verbal or physical stimuli) Skin: Normal Color, Warm/Dry; No Mottled, No Petechia Results Results/Procedures Labs Patient resulted labs reviewed. Assessment/Plan Admission Diagnosis Acute Respiratory Failure Admission Status: Inpatient Order (span 2 midnights) Reason for Inpatient Admission: On vent, will need more than two midnights to stabilize Critical Care Critically Ill Patient Critical Care Start Time: 15:06 Stop date: Jan 05, 2018 Stop Time: 16:27 Diagnosis/Problems Diagnosis/Problems (1) Respiratory failure Assessment & Plan: Sats reported in 60s per EMS ABG pending On vent Pulm consulted, appreciate recs CXR ordered as ETT needed advanced per [facility] report Qualifiers: Chronicity: acute Respiratory failure complication: hypoxia Qualified Codes: J96.01 - Acute respiratory failure with hypoxia (2) Unresponsive Assessment & Plan: Found unresponsive Concern for possible stroke Creatinine elevated- unable to obtain CTA Consider MRI if stabilizes (3) Acute on chronic renal failure Assessment & Plan: Market Master 2.6 at outside facility with hyperkalemia Market Master 1.86 1 week ago Repeat BMP pending Qualifiers: Acute renal failure type: unspecified Chronic kidney disease stage: stage 3 (moderate) Qualified Codes: N17.9 - Acute kidney failure, unspecified; N18.3 - Chronic kidney disease, stage 3 (moderate) (4) Hyperkalemia Status: Resolved Assessment & Plan: K 6.5- Treated with insulin, dextrose, calcium, and IV fluid Repeating 5.6 Resolution Date/Time: 12/08/17 @ 07:39 (5) Essential (primary) hypertension Status: Chronic Assessment & Plan: BP elevated on arrival Trend (6) Parkinson disease Status: Chronic Assessment & Plan: Baseline dementia (7) Insulin dependent diabetes mellitus Status: Chronic Assessment & Plan: Will add Q6 accuchecks (8) Anemia Status: Chronic Assessment & Plan: At baseline Qualifiers: Anemia type: due to chronic kidney disease Chronic kidney disease stage: stage 3 (moderate) Qualified Codes: N18.3 - Chronic kidney disease, stage 3 ( moderate); D63.1 - Anemia in chronic kidney disease ANIRUDH MARTINEZ MD Jan 05, 2018 15:43
[2018-01-05 15:48] LABS: BASOPHILS % (AUTO) 0 % (0-10); EOSINOPHILS % (AUTO) 0 % (0-10); HEMATOCRIT 32 % (35-52); HEMOGLOBIN 10.4 G/DL (11.5-16.0); LYMPHOCYTES # (AUTO) 0.9 X 10^3 (1.0-4.0); LYMPHOCYTES % (AUTO) 32 % (12-44); MEAN CORPUSCULAR HEMOGLOBIN 30 PG (25-34); MEAN CORPUSCULAR HGB CONC 32 G/DL (32-36); MEAN CORPUSCULAR VOLUME 94 FL (80-99); MEAN PLATELET VOLUME 10.4 FL (7.4-10.4); MONOCYTES # (AUTO) 0.3 X 10^3 (0.0-1.0); MONOCYTES % (AUTO) 11 % (0-12); NEUTROPHILS # (AUTO) 1.6 X 10^3 (1.8-7.8); NEUTROPHILS % (AUTO) 57 % (42-75); PLATELET COUNT 111 10^3/uL (130-400); RED BLOOD COUNT 3.42 10^6/uL (4.35-5.85); RED CELL DISTRIBUTION WIDTH 17.5 % (10.0-14.5); WHITE BLOOD COUNT 2.8 10^3/uL (4.3-11.0)
[2018-01-05 15:52] LABS: ABG BASE EXCESS -1.7 MMOL/L (-2.5-2.5); ABG OXYGEN SATURATION 98 % (94-100); ABG PCO2 30 MMHG (35-45); ABG PH 7.47 (7.37-7.43); ABG PO2 79 MMHG (79-93); ABG TCO2 22.6 MMOL/L (21.0-31.0)
[2018-01-05 15:53] LABS: ALLENS TEST POSITIVE; INSPIRED O2 30%; VENTILATOR YES
[2018-01-05 16:07] LABS: ALANINE AMINOTRANSFERASE 8 U/L (0-55); ALBUMIN 3.6 GM/DL (3.2-4.5); ALKALINE PHOSPHATASE 89 U/L (40-136); BILIRUBIN,TOTAL 1.2 MG/DL (0.1-1.0); BUN/CREATININE RATIO 19; CALCIUM 9.9 MG/DL (8.5-10.1); CARBON DIOXIDE 21 MMOL/L (21-32); CHLORIDE 107 MMOL/L (98-107); CREATININE SERUM 2.52 MG/DL (0.60-1.30); GFR ESTIMATED 18; GLUCOSE 95 MG/DL (70-105); MAGNESIUM 1.5 MG/DL (1.8-2.4); POTASSIUM 5.6 MMOL/L (3.6-5.0); SODIUM 138 MMOL/L (135-145); TOTAL PROTEIN 6.4 GM/DL (6.4-8.2); TRIGLYCERIDES 119 MG/DL (<150)
[2018-01-05] MEDS ORDERED: NS (IVPB) 250 ML ONE (16:07)
[2018-01-05] MEDS ORDERED: NOREPINEPHRINE 4 MG/4 ML (LEVOPHED) AMP IV ONE (16:08)
--- OUTSIDE RECORDS SUMMARY | 2018-01-05 16:08 | XMS REPORT | Clinical Summary ---
Author Author [facility] Organization [facility] Address Unknown Phone Unavailable Care Team Providers Care Sole Stainer Name Role Phone PCP Unavailable Allergies Not [...]
[2018-01-05] MEDS ORDERED: NOREPINEPHRINE 4 MG in NS (IVPB) 250 ML IV SCH (16:15)
[2018-01-05] MEDS ORDERED: SPIR25TA5 PO (16:19)
[2018-01-05] MEDS ORDERED: FURO40TA4 PO (16:19)
[2018-01-05] MEDS ORDERED: CLON0.1T PO (16:19)
[2018-01-05] MEDS ORDERED: CITA10TA7 PO (16:19)
[2018-01-05] MEDS ORDERED: LISI10TA2 PO (16:19)
[2018-01-05] MEDS ORDERED: FENT1PAT60 TD (16:19)
[2018-01-05] MEDS ORDERED: ACID1TAB PO (16:19)
[2018-01-05] MEDS ORDERED: NS IV 1000 ML 1,000 ML IV SCH (16:30)
--- NOTE | 2018-01-05 16:41 | Diagnostic Imaging Report ---
INDICATION: Respiratory failure. EXAMINATION: Portable chest at 3:49 p.m. FINDINGS: There is an ET tube with the tip at the thoracic inlet. Heart size and pulmonary vascularity are normal. Lungs have no infiltrates. There is no effusion or pneumothorax. There is some scarring in the apices of both lungs. IMPRESSION: ET tube tip is near the thoracic inlet and ideally should be advanced up to 5 cm to ensure adequate ventilation of both lungs. CRITICAL FINDING Report was called to patient's nurse in the [facility] ICU at 4:37 p.m., by david. Dictated by: Dictated on workstation # [id number]
[2018-01-05] MEDS ORDERED: MIDAZOLAM 5 MG/5 ML (VERSED) VIAL ONE (16:51)
[2018-01-05] MEDS: NS IV 1000 ML 1,000 ML IV SCH (17:00)
--- NOTE | 2018-01-05 17:15 | Pulmonary Consultation ---
History of Present Illness History of Present Illness Date of Consultation 01/05/18 17:07 Time Seen by Provider: 17:07 Date of Admission History of Present Illness 87yo with hx of dementia, Parkinson's, CKD stage 3 found unresponsive at [facility] and in acute respiratory distress. She was intubated by EMS with a size 6.5 ET tube and transferred here for ICU care. She is currently sedated on vent. CXR shows ET needs advanced 5cm. CT of head done at [facility] was negative. I am consulted for ICU management. All info obtained from chart. Allergies and Home Medications Allergies Coded Allergies: celecoxib (Verified Allergy, Unknown, 12/12/17) Sulfa (Sulfonamide Antibiotics) (Verified Adverse Reaction, Severe, ) Home Medications Acetaminophen 325 Mg Tablet, 650 MG PO Q4H PRN for FEVER, (Reported) Brimonidine Tartrate 5 Ml Btl, 1 DROP OU BID, (Reported) Carbidopa/Levodopa 1 Each Tablet, 1 TAB PO 0700,1100,1500,1900, (Reported) Citalopram Hydrobromide 10 Mg Tablet, 10 MG PO DAILY, (Reported) Clonidine HCl 0.1 Mg Tablet, 0.1 MG PO BID, (Reported) Cranberry Extract 405 Mg Capsule, 405 MG PO DAILY, (Reported) Diazepam 2 Mg Tablet, 2 MG PO 0900,1300, (Reported) Diazepam 2 Mg Tablet, 2 MG PO DAILY PRN for AGITATION, (Reported) Docusate Sodium 100 Mg Capsule, 100 MG PO DAILY, (Reported) Docusate Sodium 100 Mg Capsule, 100 MG PO BID PRN for CONSTIPATION-1ST LINE, ( Reported) Famotidine/Ca Carb/Mag Hydrox 1 Each Tab.chew, 1 TAB PO Q8H PRN for NAUSEA, ( Reported) Fentanyl 1 Each Patch.td72, 100 MCG TD Q72H, (Reported) Furosemide 40 Mg Tablet, 40 MG PO 0600, (Reported) Hydrocodone/Acetaminophen 1 Each Tablet, 1 TAB PO 0900,2000, (Reported) Hydrocodone/Acetaminophen 1 Each Tablet, 1 TAB PO DAILY PRN for PAIN-MODERATE, ( Reported) Insulin Aspart 300 Units/3 Ml Solution, SQ UD PRN for BLOOD SUGAR, (Reported) >200 = 2 UNITS >250 = 4 UNITS >300 = 6 UNITS Insulin Glargine,Hum.rec.anlog 300 Unit/1 Ml Insuln.pen, 18 UNIT SQ 1600, ( Reported) L. Acidophilus/Bulgaricus 1 Each Tablet, 2 TAB PO BID, (Reported) Lisinopril 10 Mg Tablet, 10 MG PO DAILY, (Reported) Mag Hydrox/Aluminum Hyd/Simeth 355 Ml Oral.susp, 15 ML PO UD PRN for STOMACH UPSET, (Reported) Metoprolol Succinate 25 Mg Tab.er.24h, 25 MG PO 0900,1999, (Reported) Mirtazapine 30 Mg Tablet, 30 MG PO HS, (Reported) Omeprazole 40 Mg Capsule.dr, 40 MG PO DAILY, (Reported) Ondansetron HCl 4 Mg Tab, 4 MG PO Q6H PRN for NAUSEA/VOMITING-1ST LINE, ( Reported) Polyethylene Glycol 3350 119 Gm Powder, 8.5 GM PO DAILY, (Reported) Polyethylene Glycol 3350 17 Gm Powd.pack, 17 GM PO Q72H PRN for CONSTIPATION- 2ND LINE, (Reported) Potassium Chloride 10 Meq Tab.er.prt, 10 MEQ PO DAILY, (Reported) Prochlorperazine Maleate 10 Mg Tablet, 10 MG PO BID PRN for NAUSEA/VOMITING-4TH LINE, (Reported) Rivastigmine 1 Each Patch.td24, 13.3 MG TD DAILY, (Reported) Rotigotine 1 Each Patch.td24, 8 MG TD HS, (Reported) Spironolactone 25 Mg Tablet, 50 MG PO DAILY, (Reported) TAKES 2 (25MG) TABLETS Triamterene/Hydrochlorothiazid 1 Each Tablet, 1 TAB PO DAILY, (Reported) Trimethoprim 100 Mg Tablet, 100 MG PO HS, (Reported) [Leg Cramp] , 2 TAB PO HS, (Reported) Past Dfetlsk-Oijrfy-Yxxcsa Hx Past Med/Social Hx: Reviewed Nursing Past Med/Soc Hx Patient Social History Recent Hopitalizations: Yes (with surgery) Immunizations Up To Date Date of Pneumonia Vaccine: Nov 18, 2015 Date of Influenza Vaccine: Dec 01, 2017 Seasonal Allergies Seasonal Allergies: No Past Medical History Appendectomy, Gallbladder, Hysterectomy, Joint Replacement Respiratory: Yes Pneumonia, COPD Currently Using CPAP: No Currently Using BIPAP: No Cardiac: Yes Hypertension Neurological: Yes (scarlet fever) Dementia Reproductive Disorders: Yes Genitourinary: Yes (CKD) Gastrointestinal: Yes Gastroesophageal Reflux Musculoskeletal: Yes (SPINAL STENOSIS) Chronic Back Pain Endocrine: Yes Diabetes, Non-Insulin dep HEENT: No Cancer: No Psychosocial: No Integumentary: No Blood Disorders: No Adverse Reaction/Blood Tranf: No Family Medical History Reviewed Nursing Family Hx Cancer, Diabetes Sepsis Event Evaluation Height, Weight, BMI Height: 5'2.00" Weight: 149lbs. 3.0oz. 67.077017yb; 25.6 BMI Method:Stated Exam Exam Vital Signs Date Time Temp Pulse Resp B/P (MAP) Pulse Ox O2 Delivery O2 Flow Rate FiO2 01/05/18 16:02 99.3 01/05/18 15:45 70 14 95/58 (70) 100 Mechanical Ventilator 30.00 01/05/18 15:30 79 14 180/87 (118) 100 Mechanical Ventilator 30.00 01/05/18 15:06 75 14 100 30 01/05/18 15:06 97.0 77 11 155/124 (134) 100 Mechanical Ventilator 30.00 Height & Weight Height: 5'2.00" Weight: 149lbs. 3.0oz. 67.692101na; 25.6 BMI Method:Stated General Appearance: Chronically ill HEENT: Moist Mucous Membranes; No Scleral Icterus (L), No Scleral Icterus (R); Other (pinpoint pupils, minimally reactive) Respiratory: Lungs Clear, Other (intubated ) Cardiovascular: Regular Rate, Rhythm, No Murmur Capillary Refill: Less Than 3 Seconds Extremity: No Calf Tenderness, No Pedal Edema Neurologic/Psychiatric: Other (biting at ETT, did not respond to verbal or physical stimuli) Skin: Normal Color, Warm/Dry; No Mottled, No Petechia Results Lab Laboratory Tests 01/05/18 15:35 Assessment/Plan Assessment/Plan Acute on chronic respiratory failure -Continue vent mgmt -Will reintubate with a size 7.5 tube -Change vent to Vt 400, RR 18 and repeat ABG in 1hr -Diprivan Unresponsive -Head CT is negative CKD with hyperkalemia -s/p insulin, bicarb -IVF -repeat Anemia OUMOU DAWSON DO Jan 05, 2018 17:15
--- NOTE | 2018-01-05 17:56 | Diagnostic Imaging Report ---
EXAM: Chest 1 view, AP/PA only. INDICATION: Respiratory failure. Intubated. COMPARISON: Chest radiograph from 01/05/2018. FINDINGS: ETT tip midway between the level of the clavicles and oscar. A new enteric tube tip terminates above the diaphragm in the distal esophagus. This should be advanced. Right IJ CVC tip mid SVC. Normal heart size and central pulmonary vascularity. Mild bibasilar atelectasis or infiltrate. Small left pleural effusion. No acute osseous findings. IMPRESSION: 1. Interval advancement of the ETT with the tip now midway between the level of clavicles and oscar. 2. New NG tube tip is in the distal esophagus. This should be advanced. Dictated by: Dictated on workstation # [id number]
--- NOTE | 2018-01-05 17:57 | Consultation-Cardiology ---
HPI-Cardiology Cardiology Consultation: Date of Consultation 01/05/18 Date of Admission Attending Physician Carrol Martinez MD Admitting Physician Maykel Marley MD Consulting Physician Basia FRAIRE MD HPI: Time Seen by a Provider: 17:00 Chief Complaint: Hypotension This is a 87-year-old lady who has history of GI bleed, Parkinson's disease, progressive dementia, chronic kidney disease stage III, anemia, recent non- STEMI. She was transferred from [facility] due to respiratory failure requiring ventilation and advanced care. The patient was already intubated/ventilated when I saw her in the ICU therefore history is limited to discussion with all the attendings and discussion with the nurses and review of the records. Apparently she was found to be unresponsive and in respiratory distress. Normal blood sugar. Previously blood pressure was stable. No clear history of chest pain, syncope or near syncope. Review of Systems-Cardiology Review of Systems Constitutional: As described under HPI; No As described under HPI, No no symptoms reported, No chills, No fever, No lightheadedness Eyes: No As described under HPI, No no symptoms reported, No blindness, No blurred vision, No contact lenses, No drainage, No decreased acuity, No foreign body sensation, No pain, No vision change Ears/Nose/Throat: No As described under HPI, No no symptoms reported, No chronic hearing loss, No ear discharge, No ear pain, No nasal drainage, No ulcerations Respiratory: No no symptoms reported; As described under HPI; No As described under HPI, No cough; orthopnea; No shortness of breath, No SOB with excertion Cardiovascular: No no symptoms reported; As described under HPI; No As described under HPI, No chest pain, No edema, No irregular heart rate, No lightheadedness, No palpitations Gastrointestinal: No no symptoms reported, No As described under HPI, No abdomen distended, No abdominal pain, No blood streaked bowels, No constipation , No diarrhea, No nausea, No vomiting, No stool coloration changes Genitourinary: No As described under HPI, No burning, No dysuria, No discharge , No frequency, No flank pain, No hematuria, No urgency : Yes : No Skin: No rash, No skin related problems, No ulcerations Psychiatric/Neurological: As described under HPI; No anxiety, No depression, No seizure, No focal weakness, No syncope Hematologic: No bleeding abnormalities [id number] Hx Patient Social History Employed/Student: retired Immunizations Up To Date Date of Pneumonia Vaccine: Nov 18, 2015 Date of Influenza Vaccine: Dec 01, 2017 Past Medical History PMH As described under Assessment. Allergies and Home Medications Allergies Coded Allergies: celecoxib (Verified Allergy, Unknown, 12/12/17) Sulfa (Sulfonamide Antibiotics) (Verified Adverse Reaction, Severe, ) Home Medications Acetaminophen 325 Mg Tablet, 650 MG PO Q4H PRN for FEVER, (Reported) Brimonidine Tartrate 5 Ml Btl, 1 DROP OU BID, (Reported) Carbidopa/Levodopa 1 Each Tablet, 1 TAB PO 0700,1100,1500,1900, (Reported) Citalopram Hydrobromide 10 Mg Tablet, 10 MG PO DAILY, (Reported) Clonidine HCl 0.1 Mg Tablet, 0.1 MG PO BID, (Reported) Cranberry Extract 405 Mg Capsule, 405 MG PO DAILY, (Reported) Diazepam 2 Mg Tablet, 2 MG PO 0900,1300, (Reported) Diazepam 2 Mg Tablet, 2 MG PO DAILY PRN for AGITATION, (Reported) Docusate Sodium 100 Mg Capsule, 100 MG PO DAILY, (Reported) Docusate Sodium 100 Mg Capsule, 100 MG PO BID PRN for CONSTIPATION-1ST LINE, ( Reported) Famotidine/Ca Carb/Mag Hydrox 1 Each Tab.chew, 1 TAB PO Q8H PRN for NAUSEA, ( Reported) Fentanyl 1 Each Patch.td72, 100 MCG TD Q72H, (Reported) Furosemide 40 Mg Tablet, 40 MG PO 0600, (Reported) Hydrocodone/Acetaminophen 1 Each Tablet, 1 TAB PO 0900,2000, (Reported) Hydrocodone/Acetaminophen 1 Each Tablet, 1 TAB PO DAILY PRN for PAIN-MODERATE, ( Reported) Insulin Aspart 300 Units/3 Ml Solution, SQ UD PRN for BLOOD SUGAR, (Reported) >200 = 2 UNITS >250 = 4 UNITS >300 = 6 UNITS Insulin Glargine,Hum.rec.anlog 300 Unit/1 Ml Insuln.pen, 18 UNIT SQ 1600, ( Reported) L. Acidophilus/Bulgaricus 1 Each Tablet, 2 TAB PO BID, (Reported) Lisinopril 10 Mg Tablet, 10 MG PO DAILY, (Reported) Mag Hydrox/Aluminum Hyd/Simeth 355 Ml Oral.susp, 15 ML PO UD PRN for STOMACH UPSET, (Reported) Metoprolol Succinate 25 Mg Tab.er.24h, 25 MG PO 899,1999, (Reported) Mirtazapine 30 Mg Tablet, 30 MG PO HS, (Reported) Omeprazole 40 Mg Capsule.dr, 40 MG PO DAILY, (Reported) Ondansetron HCl 4 Mg Tab, 4 MG PO Q6H PRN for NAUSEA/VOMITING-1ST LINE, ( Reported) Polyethylene Glycol 3350 119 Gm Powder, 8.5 GM PO DAILY, (Reported) Polyethylene Glycol 3350 17 Gm Powd.pack, 17 GM PO Q72H PRN for CONSTIPATION- 2ND LINE, (Reported) Potassium Chloride 10 Meq Tab.er.prt, 10 MEQ PO DAILY, (Reported) Prochlorperazine Maleate 10 Mg Tablet, 10 MG PO BID PRN for NAUSEA/VOMITING-4TH LINE, (Reported) Rivastigmine 1 Each Patch.td24, 13.3 MG TD DAILY, (Reported) Rotigotine 1 Each Patch.td24, 8 MG TD HS, (Reported) Spironolactone 25 Mg Tablet, 50 MG PO DAILY, (Reported) TAKES 2 (25MG) TABLETS Triamterene/Hydrochlorothiazid 1 Each Tablet, 1 TAB PO DAILY, (Reported) Trimethoprim 100 Mg Tablet, 100 MG PO HS, (Reported) [Leg Cramp] , 2 TAB PO HS, (Reported) Patient Home Medication List Home Medication List Reviewed: Yes Physical Exam-Cardiology Physical Exam Vital Signs/I&O 01/05/18 01/05/18 01/05/18 01/05/18 15:06 15:06 15:15 15:19 Temp 97.0 Pulse 77 75 73 Resp 11 14 B/P (MAP) 155/124 (134) Pulse Ox 100 100 O2 Delivery Mechanical Ventilator Mechanical Ventilator O2 Flow Rate 30.00 FiO2 30 01/05/18 01/05/18 01/05/18 01/05/18 15:30 15:45 16:00 16:02 Temp 99.3 Pulse 79 70 69 Resp 14 14 14 B/P (MAP) 180/87 (118) 95/58 (70) 73/38 (50) Pulse Ox 100 100 100 O2 Delivery Mechanical Ventilator Mechanical Ventilator Mechanical Ventilator O2 Flow Rate 30.00 30.00 30.00 01/05/18 01/05/18 01/05/18 11/21/18 16:15 16:30 16:45 16:58 Pulse 60 73 75 78 Resp 13 14 16 16 B/P (MAP) 115/60 (78) 194/91 (125) 199/91 (127) Pulse Ox 100 100 100 100 O2 Delivery Mechanical Ventilator Mechanical Ventilator Mechanical Ventilator O2 Flow Rate 30.00 30.00 30.00 FiO2 60 01/05/18 01/05/18 17:00 17:15 Pulse 102 80 Resp 13 15 B/P (MAP) 249/129 (169) 170/96 (120) Pulse Ox 100 100 O2 Delivery Mechanical Ventilator Mechanical Ventilator O2 Flow Rate 30.00 30.00 Capillary Refill : Less Than 3 Seconds Constitutional: appears stated age; No apparent distress; well-developed, well- nourished HEENT: PERRL; No discharge; hearing is well preserved, oral hygience is good; No ulceration, No xanthelasmas are seen Neck: No carotid bruit; carotid pulses are 2 + bilaterally Respiratory: chest is bilaterally symmetric, lungs clear to auscultation, other (ventilated.) Cardiovascular: regular rate-rhythm; No irregularly irregular, No extra beats, No parasternal heave is noted, No JVD, No edema, No bradycardia, No tachycardia , No point of maximal impulse, No cardiac thrills are palpable; S1 and S2; No gallop/S3, No gallop/S4, No diastolic murmur, No systolic murmur, No friction rub, No click, No other Gastrointestinal: No tender, No soft, No round, No distended, No pulsatile mass , No organomegaly, No guarding, No rebound, No tenderness, No hernia, No mass, No audible bowel sounds, No abnormal bowel sounds, No abdominal bruits, No spleenomegaly, No other Rectal: deferred Extremities: No normal range of motion, No non-tender, No normal inspection, No pedal edema, No calf tenderness, No normal capillary refill, No pelvis stable , No calf tenderness, No inflammation, No pedal edema, No slow capillary refill , No swelling, No other, No abrasion, No clubbing, No cyanosis, No ecchymosis, No laceration, No no lower extremity edema bilateral, No significant edema, No tenderness, No wound Neurologic/Psychiatric: other (intubated/ventilated) Skin: No normal color, No warm/dry, No cyanosis, No cool, No diaphoresis, No damp, No ecchymosis, No jaundice, No mottled, No pallor, No rash, No tattoos/ piercings, No ulcerations, No rash on exposed areas, No ulcerations on exposed areas, No other Data Review Labs Laboratory Tests 01/05/18 15:35: White Blood Count 2.8L, Red Blood Count 3.42L, Hemoglobin 10.4L, Hematocrit 32L , Mean Corpuscular Volume 94, Mean Corpuscular Hemoglobin 30, Mean Corpuscular Hemoglobin Concent 32, Red Cell Distribution Width 17.5H, Platelet Count 111L, Mean Platelet Volume 10.4, Neutrophils (%) (Auto) 57, Lymphocytes (%) (Auto) 32 , Monocytes (%) (Auto) 11, Eosinophils (%) (Auto) 0, Basophils (%) (Auto) 0, Neutrophils # (Auto) 1.6L, Lymphocytes # (Auto) 0.9L, Monocytes # (Auto) 0.3, Eosinophils # (Auto) 0.0, Basophils # (Auto) 0.0, Sodium Level 138, Potassium Level 5.6H, Chloride Level 107, Carbon Dioxide Level 21, Anion Gap 10, Blood Urea Nitrogen 47H, Creatinine 2.52H, Estimat Glomerular Filtration Rate 18, BUN/ Creatinine Ratio 19, Glucose Level 95, Calcium Level 9.9, Corrected Calcium 10.2H, Magnesium Level 1.5L, Total Bilirubin 1.2H, Aspartate Amino Transf (AST/ SGOT) 36H, Alanine Aminotransferase (ALT/SGPT) 8, Alkaline Phosphatase 89, Troponin I < 0.30, Total Protein 6.4, Albumin 3.6, Triglycerides Level 119 01/05/18 15:39: Glucometer 90 01/05/18 15:45: Blood Gas Puncture Site RIGHT RADIAL, Blood Gas Patient Temperature 97.0, Arterial Blood pH 7.47H, Arterial Blood Partial Pressure CO2 30L, Arterial Blood Partial Pressure O2 79, Arterial Blood HCO3 22L, Arterial Blood Total CO2 22.6, Arterial Blood Oxygen Saturation 98, Arterial Blood Base Excess -1.7, Yogesh Test POSITIVE, Blood Gas Ventilator Setting YES, Blood Gas Inspired Oxygen 30% A/P-Cardiology Assessment/Admission Diagnosis Hypotension, Respiratory distress, Hyperkalemia, Acute on chronic kidney disease, Dementia, Anemia, recent GI bleed Plan Intubated/ventilated. CT head. Hypotension: Blood pressure improved with IV fluids. Recent non-STEMI: Troponin on admission is negative. We will recommend echocardiogram. Can be done in the morning. Leukopenia, unclear etiology. I will defer to Dr. Martinez. Hyperkalemia: Insulin, dextrose. Acute on chronic kidney disease: Creatinine 2.5. Guarded prognosis. Thank you for your consultation. Please call me if you have any questions. Sharron Fraire MD, FACP, FACC, FSCAI, FHRS, CCDS Interventional Cardiology Cardiac Electrophysiology Vascular Medicine and Endovascular Interventions Basia FRAIRE MD Jan 05, 2018 17:57
[2018-01-05] MEDS ORDERED: RT-ALBUTEROL/IPRATROPIUM 3 ML (DUONEB) VIAL ONE (18:33)
[2018-01-05 18:53] LABS: HEMOGLOBIN 9.2 G/DL (11.5-16.0); MEAN PLATELET VOLUME 10.8 FL (7.4-10.4); RED BLOOD COUNT 3.03 10^6/uL (4.35-5.85); RED CELL DISTRIBUTION WIDTH 17.4 % (10.0-14.5); WHITE BLOOD COUNT 2.6 10^3/uL (4.3-11.0)
[2018-01-05 19:11] LABS: CALCIUM 8.9 MG/DL (8.5-10.1); CREATININE SERUM 2.15 MG/DL (0.60-1.30); PHOSPHORUS 2.9 MG/DL (2.3-4.7); POTASSIUM 5.3 MMOL/L (3.6-5.0)
[2018-01-05 19:28] LABS: ABG OXYGEN SATURATION 100 % (94-100); ABG PCO2 38 MMHG (35-45); ABG PH 7.35 (7.37-7.43); ABG PO2 219 MMHG (79-93)
[2018-01-05 19:29] LABS: ALLENS TEST POSITIVE; INSPIRED O2 60%; PATIENT TEMP 97.6; VENTILATOR YES
[2018-01-05] MEDS: MAGNESIUM 1 GM/100 ML IVPB 100 ML IV SCH ×2 (20:19→21:26)
[2018-01-05] MEDS ORDERED: RT-ALBUTEROL/IPRATROPIUM 3 ML (DUONEB) VIAL INH PRN (20:45)
[2018-01-05] MEDS: RT-ALBUTEROL/IPRATROPIUM 3 ML (DUONEB) VIAL INH SCH (21:02)
[2018-01-05] MEDS ORDERED: fentaNYL INJECTION 100 MCG/2 ML AMP IVP ONE (21:30)
[2018-01-05] MEDS ORDERED: LORazepam INJ 2 MG/ML (ATIVAN) VIAL IVP ONE (21:30)
--- NOTE | 2018-01-05 21:56 | Consultation ---
History of Present Illness History of Present Illness Patient Consulted On(oscar/time) 01/05/18 21:55 Date Seen by Provider: Jan 05, 2018 Time Seen by Provider: 17:00 History of Present Illness Consult requested by Dr. Martinez for central line placement for hypotension 87 year old female found unresponsive at [facility] and in acute respiratory distress. She was intubated by EMS transferred here for ICU care. She is currently sedated on vent. Patient blood pressures have dropped to 70's systolic. She has IV access but concern is she may need to be started on pressors. Patient sedated and unable to provide any information. Allergies and Home Medications Allergies Coded Allergies: celecoxib (Verified Allergy, Unknown, 12/12/17) Sulfa (Sulfonamide Antibiotics) (Verified Adverse Reaction, Severe, ) Home Medications Acetaminophen 325 Mg Tablet, 650 MG PO Q4H PRN for FEVER, (Reported) Brimonidine Tartrate 5 Ml Btl, 1 DROP OU BID, (Reported) Carbidopa/Levodopa 1 Each Tablet, 1 TAB PO 0700,1100,1500,1900, (Reported) Citalopram Hydrobromide 10 Mg Tablet, 10 MG PO DAILY, (Reported) Clonidine HCl 0.1 Mg Tablet, 0.1 MG PO BID, (Reported) Cranberry Extract 405 Mg Capsule, 405 MG PO DAILY, (Reported) Diazepam 2 Mg Tablet, 2 MG PO 0900,1300, (Reported) Diazepam 2 Mg Tablet, 2 MG PO DAILY PRN for AGITATION, (Reported) Docusate Sodium 100 Mg Capsule, 100 MG PO DAILY, (Reported) Docusate Sodium 100 Mg Capsule, 100 MG PO BID PRN for CONSTIPATION-1ST LINE, ( Reported) Famotidine/Ca Carb/Mag Hydrox 1 Each Tab.chew, 1 TAB PO Q8H PRN for NAUSEA, ( Reported) Fentanyl 1 Each Patch.td72, 100 MCG TD Q72H, (Reported) Furosemide 40 Mg Tablet, 40 MG PO 0600, (Reported) Hydrocodone/Acetaminophen 1 Each Tablet, 1 TAB PO 0900,2000, (Reported) Hydrocodone/Acetaminophen 1 Each Tablet, 1 TAB PO DAILY PRN for PAIN-MODERATE, ( Reported) Insulin Aspart 300 Units/3 Ml Solution, SQ UD PRN for BLOOD SUGAR, (Reported) >200 = 2 UNITS >250 = 4 UNITS >300 = 6 UNITS Insulin Glargine,Hum.rec.anlog 300 Unit/1 Ml Insuln.pen, 18 UNIT SQ 1600, ( Reported) L. Acidophilus/Bulgaricus 1 Each Tablet, 2 TAB PO BID, (Reported) Lisinopril 10 Mg Tablet, 10 MG PO DAILY, (Reported) Mag Hydrox/Aluminum Hyd/Simeth 355 Ml Oral.susp, 15 ML PO UD PRN for STOMACH UPSET, (Reported) Metoprolol Succinate 25 Mg Tab.er.24h, 25 MG PO 00,1999, (Reported) Mirtazapine 30 Mg Tablet, 30 MG PO HS, (Reported) Omeprazole 40 Mg Capsule.dr, 40 MG PO DAILY, (Reported) Ondansetron HCl 4 Mg Tab, 4 MG PO Q6H PRN for NAUSEA/VOMITING-1ST LINE, ( Reported) Polyethylene Glycol 3350 119 Gm Powder, 8.5 GM PO DAILY, (Reported) Polyethylene Glycol 3350 17 Gm Powd.pack, 17 GM PO Q72H PRN for CONSTIPATION- 2ND LINE, (Reported) Potassium Chloride 10 Meq Tab.er.prt, 10 MEQ PO DAILY, (Reported) Prochlorperazine Maleate 10 Mg Tablet, 10 MG PO BID PRN for NAUSEA/VOMITING-4TH LINE, (Reported) Rivastigmine 1 Each Patch.td24, 13.3 MG TD DAILY, (Reported) Rotigotine 1 Each Patch.td24, 8 MG TD HS, (Reported) Spironolactone 25 Mg Tablet, 50 MG PO DAILY, (Reported) TAKES 2 (25MG) TABLETS Triamterene/Hydrochlorothiazid 1 Each Tablet, 1 TAB PO DAILY, (Reported) Trimethoprim 100 Mg Tablet, 100 MG PO HS, (Reported) [Leg Cramp] , 2 TAB PO HS, (Reported) Patient Home Medication List Home Medication List Reviewed: Yes Past Eojbmpv-Beawgi-Mfwayt Hx Patient Social History Alcohol Use: Denies Use Recreational Drug Use: No Smoking Status: Unknown if Ever Smoked Recent Foreign Travel: No Contact w/Someone Who Travel: No Recent Infectious Disease Expo: No Recent Hopitalizations: Yes (with surgery) Physical Abuse Screen: No Sexual Abuse: No Immunizations Up To Date Date of Pneumonia Vaccine: Nov 18, 2015 Date of Influenza Vaccine: Dec 01, 2017 Seasonal Allergies Seasonal Allergies: No Surgeries Surgeries: Appendectomy, Gallbladder, Hysterectomy, Joint Replacement Respiratory History of Respiratory Disorde: Yes Respiratory Disorders: Pneumonia, COPD Cardiovascular History of Cardiac Disorders: Yes Cardiac Disorders: Hypertension Neurological History of Neurological Disord: Yes Neurological Disorders: Dementia Reproductive System Hx Reproductive Disorders: Yes Genitourinary History of Genitourinary Disor: Yes (CKD) Gastrointestinal History of Gastrointestinal Di: Yes Gastrointestinal Disorders: Gastroesophageal Reflux Musculoskeletal History of Musculoskeletal Dis: Yes (SPINAL STENOSIS) Musculoskeletal Disorders: Chronic Back Pain Endocrine History of Endocrine Disorders: Yes Endocrine Disorders: Diabetes, Non-Insulin dep HEENT History of HEENT Disorders: No Cancer History of Cancer: No Psychosocial History of Psychiatric Problem: No Integumentary History of Skin or Integumenta: No Blood Transfusions History of Blood Disorders: No Adverse Reaction to a Blood Tr: No Family Medical History Significant Family History: Cancer, Diabetes Review of Systems-General ROS-Unable to Obtain: unable to obtain, patient intubated. Physical Exam-General Problems Physical Exam Vital Signs Vital Signs - First Documented 01/05/18 15:06 Temp 97.0 Pulse 77 Resp 11 B/P (MAP) 155/124 (134) Pulse Ox 100 O2 Delivery Mechanical Ventilator O2 Flow Rate 30.00 FiO2 30 Capillary Refill : Less Than 3 Seconds General Appearance: other (intubated) HEENT: PERRL/EOMI Neck: supple Respiratory: other (intubated equal expansion of chest) Cardiovascular: regular rate, rhythm Gastrointestinal: non tender, soft Rectal: deferred Back: normal inspection Extremities: normal inspection Neurologic/Psychiatric: No alert (intubated and sedated) Skin: warm/dry Lymphatic: no adenopathy Data Review Labs Laboratory Tests 01/05/18 15:35: White Blood Count 2.8L, Red Blood Count 3.42L, Hemoglobin 10.4L, Hematocrit 32L , Mean Corpuscular Volume 94, Mean Corpuscular Hemoglobin 30, Mean Corpuscular Hemoglobin Concent 32, Red Cell Distribution Width 17.5H, Platelet Count 111L, Mean Platelet Volume 10.4, Neutrophils (%) (Auto) 57, Lymphocytes (%) (Auto) 32 , Monocytes (%) (Auto) 11, Eosinophils (%) (Auto) 0, Basophils (%) (Auto) 0, Neutrophils # (Auto) 1.6L, Lymphocytes # (Auto) 0.9L, Monocytes # (Auto) 0.3, Eosinophils # (Auto) 0.0, Basophils # (Auto) 0.0, Sodium Level 138, Potassium Level 5.6H, Chloride Level 107, Carbon Dioxide Level 21, Anion Gap 10, Blood Urea Nitrogen 47H, Creatinine 2.52H, Estimat Glomerular Filtration Rate 18, BUN/ Creatinine Ratio 19, Glucose Level 95, Calcium Level 9.9, Corrected Calcium 10.2H, Magnesium Level 1.5L, Total Bilirubin 1.2H, Aspartate Amino Transf (AST/ SGOT) 36H, Alanine Aminotransferase (ALT/SGPT) 8, Alkaline Phosphatase 89, Troponin I < 0.30, Total Protein 6.4, Albumin 3.6, Triglycerides Level 119 01/05/18 15:39: Glucometer 90 01/05/18 15:45: Blood Gas Puncture Site RIGHT RADIAL, Blood Gas Patient Temperature 97.0, Arterial Blood pH 7.47H, Arterial Blood Partial Pressure CO2 30L, Arterial Blood Partial Pressure O2 79, Arterial Blood HCO3 22L, Arterial Blood Total CO2 22.6, Arterial Blood Oxygen Saturation 98, Arterial Blood Base Excess -1.7, Yogesh Test POSITIVE, Blood Gas Ventilator Setting YES, Blood Gas Inspired Oxygen 30% 01/05/18 18:40: White Blood Count 2.6L, Red Blood Count 3.03L, Hemoglobin 9.2L, Hematocrit 29L, Mean Corpuscular Volume 95, Mean Corpuscular Hemoglobin 30, Mean Corpuscular Hemoglobin Concent 32, Red Cell Distribution Width 17.4H, Platelet Count 95L, Mean Platelet Volume 10.8H, Sodium Level 137, Potassium Level 5.3H, Chloride Level 110H, Carbon Dioxide Level 18L, Anion Gap 9, Blood Urea Nitrogen 44H, Creatinine 2.15H, Estimat Glomerular Filtration Rate 22, BUN/Creatinine Ratio 20 , Glucose Level 103, Calcium Level 8.9, Magnesium Level 1.0#*L, Phosphorus Level 2.9 01/05/18 19:15: Blood Gas Puncture Site LEFT RADIAL, Blood Gas Patient Temperature 97.6, Arterial Blood pH 7.35L, Arterial Blood Partial Pressure CO2 38, Arterial Blood Partial Pressure O2 219H, Arterial Blood HCO3 21L, Arterial Blood Total CO2 22.0 , Arterial Blood Oxygen Saturation 100, Arterial Blood Base Excess -4.0L, Yogesh Test POSITIVE, Blood Gas Ventilator Setting YES, Blood Gas Inspired Oxygen 60% Assessment/Plan Assessment/Plan Assessment/Plan respiratory failure hypotension unresponsive patient needing central line access. discussed risks and benefits with family members and understand and wish to have central line placed. chest x ray after central line placed medical management will sign off call if needed Clinical Quality Measures DVT/VTE Risk/Contraindication: Risk Factor Score Per Nursin RFS Level Per Nursing on Admit: 4+=Very High BOBBY BRUCE DO Jan 05, 2018 21:56
[2018-01-05] MEDS ORDERED: LORazepam INJ 2 MG/ML (ATIVAN) VIAL IV ONE (22:00)
[2018-01-05] MEDS ORDERED: fentaNYL INJECTION 100 MCG/2 ML AMP IV ONE (22:00)
[2018-01-05] MEDS ORDERED: LORazepam INJ 2 MG/ML (ATIVAN) VIAL IV PRN (22:00)
[2018-01-05] MEDS ORDERED: fentaNYL PATCH 100 MCG (DURAGESIC) ONE (22:33)
[2018-01-05] MEDS: fentaNYL PATCH 100 MCG (DURAGESIC) TD SCH (22:45)
[2018-01-05] MEDS: inSUlin ASPART (NovoLOG) 1 UNIT/0.01 ML (CHARGE PER UNIT) SC SCH (23:27)
[2018-01-06] VITALS (57 sets, daily range): BP systolic 86–185; BP diastolic 46–86
[2018-01-06] MEDS: RT-ALBUTEROL/IPRATROPIUM 3 ML (DUONEB) VIAL INH SCH ×6 (00:58→22:20)
[2018-01-06] MEDS: PROPOFOL DRIP (ICU) 100 ML IV SCH ×2 (01:36→15:26)
[2018-01-06] MEDS: NS IV 1000 ML 1,000 ML IV SCH ×6 (01:37→21:47)
[2018-01-06 03:52] LABS: BASOPHILS % (AUTO) 0 % (0-10); EOSINOPHILS % (AUTO) 0 % (0-10); HEMATOCRIT 27 % (35-52); HEMOGLOBIN 8.8 G/DL (11.5-16.0); LYMPHOCYTES # (AUTO) 0.6 X 10^3 (1.0-4.0); LYMPHOCYTES % (AUTO) 15 % (12-44); MEAN CORPUSCULAR HEMOGLOBIN 31 PG (25-34); MEAN CORPUSCULAR HGB CONC 32 G/DL (32-36); MEAN CORPUSCULAR VOLUME 96 FL (80-99); MEAN PLATELET VOLUME 10.4 FL (7.4-10.4); MONOCYTES # (AUTO) 0.4 X 10^3 (0.0-1.0); MONOCYTES % (AUTO) 11 % (0-12); NEUTROPHILS # (AUTO) 2.7 X 10^3 (1.8-7.8); NEUTROPHILS % (AUTO) 73 % (42-75); PLATELET COUNT 95 10^3/uL (130-400); RED BLOOD COUNT 2.87 10^6/uL (4.35-5.85); RED CELL DISTRIBUTION WIDTH 17.6 % (10.0-14.5); WHITE BLOOD COUNT 3.7 10^3/uL (4.3-11.0)
[2018-01-06 03:53] LABS: ABG BASE EXCESS -5.8 MMOL/L (-2.5-2.5); ABG OXYGEN SATURATION 100 % (94-100); ABG PCO2 43 MMHG (35-45); ABG PO2 186 MMHG (79-93); ABG TCO2 21.2 MMOL/L (21.0-31.0)
[2018-01-06 03:54] LABS: ABG PH 7.28 (7.37-7.43)
[2018-01-06 03:55] LABS: ALLENS TEST YES-POS; INSPIRED O2 40%; PATIENT TEMP 97.6; VENTILATOR YES
[2018-01-06 04:05] LABS: CALCIUM 9.1 MG/DL (8.5-10.1); CREATININE SERUM 2.29 MG/DL (0.60-1.30); MAGNESIUM 2.2 MG/DL (1.8-2.4); PHOSPHORUS 3.6 MG/DL (2.3-4.7); POTASSIUM 5.2 MMOL/L (3.6-5.0)
[2018-01-06] MEDS ORDERED: SODIUM BICARB 8.4% 50 MEQ/50 ML (ABBOTT) SYR IV ONE (05:15)
[2018-01-06] MEDS ORDERED: DIAZEPAM 2 MG (VALIUM) TAB PO PRN (05:30)
[2018-01-06] MEDS ORDERED: SOD POLYSTERENE 15 GM/60 ML (KAYEXALATE) UNIT DOSE PO ONE (05:30)
--- NOTE | 2018-01-06 05:30 | Pulmonary Progress Note ---
Sepsis Event Evaluation Height, Weight, BMI Height: 5'2.00" Weight: 128lbs. 6.0oz. 58.962278zw; 22.4 BMI Method:Stated Exam Exam Vital Signs Date Time Temp Pulse Resp B/P (MAP) Pulse Ox O2 Delivery O2 Flow Rate FiO2 01/06/18 04:04 85 16 100 Mechanical Ventilator 30.00 01/06/18 04:00 87 16 137/71 (93) 100 Mechanical Ventilator 40.00 01/06/18 03:45 86 16 161/70 (100) 100 Mechanical Ventilator 40.00 01/06/18 03:40 82 16 100 40 01/06/18 03:36 96.6 01/06/18 03:30 78 15 115/57 (76) 100 Mechanical Ventilator 40.00 01/06/18 03:21 Mechanical Ventilator 40 01/06/18 03:15 83 15 102/56 (71) 100 Mechanical Ventilator 40.00 01/06/18 03:00 84 15 107/56 (73) 100 Mechanical Ventilator 40.00 01/06/18 02:45 83 15 105/58 (74) 100 Mechanical Ventilator 40.00 01/06/18 02:30 82 16 120/57 (78) 100 Mechanical Ventilator 40.00 01/06/18 02:15 81 16 113/55 (74) 100 Mechanical Ventilator 40.00 01/06/18 02:00 83 15 108/51 (70) 100 Mechanical Ventilator 40.00 01/06/18 01:45 79 16 104/46 (65) 100 Mechanical Ventilator 40.00 01/06/18 01:36 75 96/49 01/06/18 01:30 79 16 96/49 (65) 100 Mechanical Ventilator 40.00 01/06/18 01:15 68 15 86/51 (63) 100 Mechanical Ventilator 40.00 01/06/18 01:00 78 16 105/52 (69) 100 Mechanical Ventilator 40.00 01/06/18 01:00 78 01/06/18 00:58 76 16 100 40 01/06/18 00:45 72 16 106/52 (70) 100 Mechanical Ventilator 40.00 01/06/18 00:30 73 16 103/53 (70) 100 Mechanical Ventilator 40.00 01/06/18 00:15 76 16 98/49 (65) 100 Mechanical Ventilator 40.00 01/06/18 00:00 77 16 98/49 (65) 100 Mechanical Ventilator 40.00 01/05/18 23:45 70 16 99/43 (61) 100 Mechanical Ventilator 40.00 01/05/18 23:31 Mechanical Ventilator 40 01/05/18 23:30 76 16 93/44 (60) 100 Mechanical Ventilator 40.00 01/05/18 23:25 96.2 01/05/18 23:15 71 15 98/44 (62) 100 Mechanical Ventilator 40.00 01/05/18 23:00 76 16 92/42 (59) 100 Mechanical Ventilator 40.00 01/05/18 22:53 77 16 100 40 01/05/18 22:45 78 15 92/42 (59) 100 Mechanical Ventilator 40.00 01/05/18 22:30 79 16 113/52 (72) 100 Mechanical Ventilator 40.00 01/05/18 22:15 82 16 136/70 (92) 100 Mechanical Ventilator 40.00 01/05/18 22:00 84 15 135/71 (92) 100 Mechanical Ventilator 40.00 01/05/18 21:45 84 16 131/69 (89) 100 Mechanical Ventilator 40.00 01/05/18 21:30 86 15 119/59 (79) 100 Mechanical Ventilator 40.00 01/05/18 21:15 88 15 175/97 (123) 100 Mechanical Ventilator 40.00 01/05/18 21:02 84 16 100 50 01/05/18 21:02 82 16 100 Mechanical Ventilator 40.00 01/05/18 21:00 84 16 223/101 (141) 100 Mechanical Ventilator 60.00 01/05/18 20:45 85 12 172/95 (120) 100 Mechanical Ventilator 60.00 01/05/18 20:30 81 15 186/94 (124) 100 Mechanical Ventilator 60.00 01/05/18 20:15 79 15 117/55 (75) 100 Mechanical Ventilator 60.00 01/05/18 20:04 97.5 01/05/18 20:00 Mechanical Ventilator 50 01/05/18 20:00 80 16 121/70 (87) 100 Mechanical Ventilator 60.00 01/05/18 19:45 81 15 143/72 (95) 100 Mechanical Ventilator 60.00 01/05/18 19:30 80 16 143/75 (97) 100 Mechanical Ventilator 60.00 01/05/18 19:15 78 15 128/68 (88) 100 Mechanical Ventilator 60.00 01/05/18 19:00 78 01/05/18 19:00 78 15 146/83 (104) 100 Mechanical Ventilator 60.00 01/05/18 18:40 75 16 100 60 01/05/18 18:00 76 16 183/91 (121) 100 Mechanical Ventilator 60.00 01/05/18 17:15 80 15 170/96 (120) 100 Mechanical Ventilator 60.00 01/05/18 17:00 102 13 249/129 (169) 100 Mechanical Ventilator 60.00 01/05/18 16:58 78 16 100 60 01/05/18 16:45 75 16 199/91 (127) 100 Mechanical Ventilator 30.00 01/05/18 16:30 73 14 194/91 (125) 100 Mechanical Ventilator 60.00 01/05/18 16:15 60 13 115/60 (78) 100 Mechanical Ventilator 30.00 01/05/18 16:02 99.3 01/05/18 16:00 69 14 73/38 (50) 100 Mechanical Ventilator 30.00 01/05/18 15:45 70 14 95/58 (70) 100 Mechanical Ventilator 30.00 01/05/18 15:30 79 14 180/87 (118) 100 Mechanical Ventilator 30.00 01/05/18 15:19 Mechanical Ventilator 01/05/18 15:15 73 01/05/18 15:06 75 14 100 30 01/05/18 15:06 97.0 77 11 155/124 (134) 100 Mechanical Ventilator 30.00 I & O 01/06/18 07:00 Intake Total 2400 ml Output Total 700 ml Balance 1700 ml Height & Weight Height: 5'2.00" Weight: 128lbs. 6.0oz. 58.112236zh; 22.4 BMI Method:Stated General Appearance: Chronically ill HEENT: Moist Mucous Membranes; No Scleral Icterus (L), No Scleral Icterus (R); Other (pinpoint pupils, minimally reactive) Respiratory: Lungs Clear, Other (intubated ) Cardiovascular: Regular Rate, Rhythm, No Murmur Capillary Refill: Less Than 3 Seconds Extremity: No Calf Tenderness, No Pedal Edema Neurologic/Psychiatric: Other (biting at ETT, did not respond to verbal or physical stimuli) Skin: Normal Color, Warm/Dry; No Mottled, No Petechia Results Lab Laboratory Tests 01/05/18 15:35 01/05/18 18:40 01/06/18 03:35 Assessment/Plan Assessment/Plan Acute on chronic respiratory failure -Continue vent mgmt -Will start weaning vent tomorrow -Add precedex -Change vent to Vt 400, RR 18 and repeat ABG in 1hr -Diprivan -Start solumedrol 40 IV Q 6 -check CT of chest without contrast Unresponsive -Head CT is negative CKD with hyperkalemia and metabolic acidosis -s/p insulin, bicarb -IVF -repeat Anemia with recent hx of GIB -CHeck Hb Q12 -start protonix 40mg BID -Will start TF Called back into room secondary to seizure activity. Will give 4mg of IV Ativan and start Keppra. OUMOU DAWSON DO Jan 06, 2018 05:30
--- NOTE | 2018-01-06 05:32 | Pulmonary Procedures ---
Pulmonary Procedures Date of Procedure Date of Service: Jan 05, 2018 Time of Intubation: 18:00 (with glidoscope ) Intubation Method: orotracheal Medications: Propofol, Versed Positive End Tide CO2: Yes Breath Sounds after Intubation: bilateral-equal Intubation Complications: no complications Post Intubation Xray: Yes OUMOU DAWSON DO Jan 06, 2018 05:32
[2018-01-06] MEDS: methylPREDNISolone 40 MG/ML (Solu-MEDROL) VIAL IV SCH ×3 (05:39→17:24)
[2018-01-06] MEDS: DEXMEDETOMIDINE INJECTION 200 MCG in NS (IVPB) 50 ML IV SCH ×2 (05:40→16:22)
[2018-01-06] MEDS: POTASSIUM CL 10MEQ/50ML IVPB 50 ML IV SCH (05:45)
[2018-01-06] MEDS: KCL 20 MEQ TAB (K-DUR) PO SCH (05:45)
[2018-01-06] MEDS: MAGNESIUM 1 GM/100 ML IVPB 100 ML IV SCH (05:45)
[2018-01-06] MEDS ORDERED: LORazepam INJ 2 MG/ML (ATIVAN) VIAL ONE (05:52)
[2018-01-06] MEDS ORDERED: LORazepam INJ 2 MG/ML (ATIVAN) VIAL IV PRN (06:00)
[2018-01-06] MEDS ORDERED: LEVETIRACETAM INJECTION 1,000 MG in NS (IVPB) 100 ML IV SCH (06:00)
[2018-01-06] MEDS: inSUlin ASPART (NovoLOG) 1 UNIT/0.01 ML (CHARGE PER UNIT) SC SCH ×3 (06:02→17:25)
--- NOTE | 2018-01-06 06:10 | Progress Note-Hospitalist ---
Subjective HPI/CC On Admission Date Seen by Provider: Jan 06, 2018 Time Seen by Provider: 06:04 Pt is an 87yoCF with a H GI bleed, Parkinson's dementia, CKD stage 3, and chronic anemia who was transferred here from [facility] due to respiratory failure requiring mechanical ventilation. She is unable to provide me any history at this time so all history comes from records and EMS. The EMS who transferred her here were also the ones on scene at her [facility]. They state they were called when her nurses found her slumped in a chair, unresponsive, and with agonal breathes. On their arrival she had a respiratory rate around 5 and was not protecting her airway so she was intubated in the field and brought to the ER. Further workup there revealed a mildly elevated troponin and a negative CT head. Her last known well was around 1030AM per RN at [facility] and was found slumped in her chair at 1130am. They even noticed periods of apnea up to 45 seconds. BS was 128 BS and sats were in the 90s. Her last BP was 136/57 last night. The [facility] RN also states she has been feeling well and had been behaving normally prior today. Subjective/Events-last exam Pt remains sedated and intubated. Daughter at bedside concerned about jerking and whether it could be a seizure. No history of seizure. Objective Exam Vital Signs Vital Signs Date Time Temp Pulse Resp B/P (MAP) Pulse Ox O2 Delivery O2 Flow Rate FiO2 01/06/18 05:45 89 14 150/72 (98) 100 Mechanical Ventilator 30.00 01/06/18 03:40 40 01/06/18 03:36 96.6 Capillary Refill : Less Than 3 Seconds General Appearance: Chronically ill, Other (intubated, sedated) Respiratory: Lungs Clear, Other (on vent) Cardiovascular: Regular Rate, Rhythm, No Murmur Gastrointestinal: Normal Bowel Sounds, Non Tender, Soft Genital/Rectal: Other (morton in place) Neurologic/Psychiatric: Other (sedated, rhythmic jerking noted of right uper extremity and left foot- resolved with ativan) Results/Procedures Lab Laboratory Tests 01/05/18 15:35 01/05/18 18:40 01/06/18 03:35 Patient resulted labs reviewed. Assessment/Plan Assessment and Plan Assess & Plan/Chief Complaint Acute Respiratory Failure Critical Care Critical Care: Critically Ill Patient Diagnosis/Problems Diagnosis/Problems (1) Respiratory failure Assessment & Plan: Remains on vent Pulm consulted, appreciate recs reintubated by Dr Ulrich yesterday Qualifiers: Chronicity: acute Respiratory failure complication: hypoxia Qualified Codes: J96.01 - Acute respiratory failure with hypoxia (2) Unresponsive Assessment & Plan: Found unresponsive Concern for possible stroke Creatinine elevated- unable to obtain CTA MRI ordered Will repeat CT head today Hold ASA until repeat CT head (3) Seizure-like activity Assessment & Plan: New onset Resolved with ativan Will start on keppra (4) Acute on chronic renal failure Assessment & Plan: Storeperson 2.5 today Storeperson 1.86 1 week ago Mild hyperkalemia Bicarb ordered for mild acidosis Monitor UOP Qualifiers: Acute renal failure type: unspecified Chronic kidney disease stage: stage 3 (moderate) Qualified Codes: N17.9 - Acute kidney failure, unspecified; N18.3 - Chronic kidney disease, stage 3 (moderate) (5) Hyperkalemia Status: Resolved Assessment & Plan: K 5.5 Bicarb given Resolution Date/Time: 12/08/17 @ 07:39 (6) Essential (primary) hypertension Status: Chronic Assessment & Plan: BP elevated on arrival Trend (7) Parkinson disease Status: Chronic Assessment & Plan: Baseline dementia (8) Insulin dependent diabetes mellitus Status: Chronic Assessment & Plan: Will add Q6 accuchecks SSI (9) Anemia Status: Chronic Assessment & Plan: At baseline Qualifiers: Anemia type: due to chronic kidney disease Chronic kidney disease stage: stage 3 (moderate) Qualified Codes: N18.3 - Chronic kidney disease, stage 3 ( moderate); D63.1 - Anemia in chronic kidney disease Clinical Quality Measures DVT/VTE Risk/Contraindication: Risk Factor Score Per Nursin RFS Level Per Nursing on Admit: 4+=Very High ANIRUDH LEDESMA MD Jan 06, 2018 06:10
[2018-01-06] MEDS ORDERED: NS (IVPB) 0 ML ONE (06:13)
[2018-01-06] MEDS ORDERED: LEVETIRACETAM 500 MG/5 ML (KEPPRA) VIAL IV ONE (06:14)
[2018-01-06] MEDS ORDERED: NS IV 1000 ML 1,000 ML IV SCH ×2 (06:15→16:45)
[2018-01-06] MEDS ORDERED: LEVETIRACETAM INJECTION 1,000 MG in NS (IVPB) 100 ML IV NR (07:26)
[2018-01-06] MEDS: PANTOPRAZOLE 40 MG (PROTONIX) VIAL IV SCH ×2 (07:36→20:44)
--- NOTE | 2018-01-06 09:19 | Diagnostic Imaging Report ---
PROCEDURE: CT chest without contrast. TECHNIQUE: Multiple contiguous axial images were obtained through the chest without the use of intravenous contrast. INDICATION: Dyspnea, respiratory failure. COMPARISON: None. DISCUSSION: Changes of chronic lung disease with interstitial scarring is noted. Atelectasis is present within the lung bases. Mild cardiomegaly. Endotracheal tube is in good position 2 cm above the oscar. Enteric tube is also present. No pleural or pericardial fluid. No pathologically enlarged lymph nodes identified on this noncontrast exam. Elevated left hemidiaphragm. The spleen is enlarged measuring 14 cm. Cystic changes within the right kidney are incompletely viewed. Accentuated thoracic kyphosis with degenerative disease. IMPRESSION: 1. Cardiomegaly. 2. Splenomegaly. Dictated by: Dictated on workstation # [id number]
--- NOTE | 2018-01-06 12:39 | Diagnostic Imaging Report ---
INDICATION: Mechanical ventilation. TECHNIQUE: Single view chest at 4:05 AM. CORRELATION STUDY: 01/05/2018 FINDINGS: Endotracheal tube, gastric tube and right IJ central line all remain in place. The gastric tube is likely just distal to the EG junction. The tip of the endotracheal tube is just above the level of the oscar. Heart size and mediastinum are stable given differences in technique. Scattered pulmonary parenchymal densities stable. No new infiltrate. IMPRESSION: 1. Generally stable appearance of the support lines and tubes. The gastric tube may have been advanced slightly since the prior study, the tip is at the gastroesophageal junction. Dictated by: Dictated on workstation # [id number]
--- NOTE | 2018-01-06 13:02 | Diagnostic Imaging Report ---
PROCEDURE: CT head wo r/o stroke. TECHNIQUE: Multiple contiguous axial images were obtained through the brain without the use of intravenous contrast. INDICATION: On mechanical ventilation, new onset seizure. Respiratory failure. Comparison study: 06/25/2011 Findings: The ventricles and sulci demonstrate generalized atrophic changes, increased from prior though likely age related. Scattered decreased attenuation is nonspecific and likely due to small vessel ischemic disease. Basal ganglia desiccation is present, benign. No intracranial hemorrhage. No midline shift or mass effect. Basal cisterns are preserved. Scattered intracranial vascular calcifications are present. Paranasal sinuses and mastoid air cells are clear. The orbits are unremarkable. Impression: 1. Senescent changes as described. No acute intracranial abnormality identified. Dictated by: Dictated on workstation # [id number]
--- NOTE | 2018-01-06 15:03 | Cardiology Progress Note ---
Cardiology SOAP Progress Note Subjective: Intubated/ventilated. Borderline blood pressure. Objective: I&O/Vital Signs 01/06/18 01/06/18 01/06/18 01/06/18 03:00 03:15 03:21 03:30 Pulse 84 83 78 Resp 15 15 15 B/P (MAP) 107/56 (73) 102/56 (71) 115/57 (76) Pulse Ox 100 100 100 O2 Delivery Mechanical Ventilator Mechanical Ventilator Mechanical Ventilator Mechanical Ventilator O2 Flow Rate 40.00 40.00 40.00 FiO2 40 01/06/18 01/06/18 01/06/18 01/06/18 03:36 03:40 03:45 04:00 Temp 96.6 Pulse 82 86 87 Resp 16 16 16 B/P (MAP) 161/70 (100) 137/71 (93) Pulse Ox 100 100 100 O2 Delivery Mechanical Ventilator Mechanical Ventilator O2 Flow Rate 40.00 40.00 FiO2 40 01/06/18 01/06/18 01/06/18 01/06/18 04:04 04:15 04:30 04:45 Pulse 85 85 81 85 Resp 16 17 17 15 B/P (MAP) 128/65 (86) 134/74 (94) 138/64 (88) Pulse Ox 100 100 100 100 O2 Delivery Mechanical Ventilator Mechanical Ventilator Mechanical Ventilator Mechanical Ventilator O2 Flow Rate 30.00 30.00 30.00 30.00 01/06/18 01/06/18 01/06/18 01/06/18 05:00 05:15 05:30 05:45 Pulse 88 81 90 89 Resp 16 16 16 14 B/P (MAP) 133/58 (83) 121/60 (80) 151/78 (102) 150/72 (98) Pulse Ox 100 100 100 100 O2 Delivery Mechanical Ventilator Mechanical Ventilator Mechanical Ventilator Mechanical Ventilator O2 Flow Rate 30.00 30.00 30.00 30.00 01/06/18 01/06/18 01/06/18 01/06/18 06:00 06:15 06:18 06:30 Pulse 96 91 60 89 Resp 16 16 16 16 B/P (MAP) 120/57 (78) 111/60 (77) 113/57 (75) Pulse Ox 100 100 100 100 O2 Delivery Mechanical Ventilator Mechanical Ventilator Mechanical Ventilator O2 Flow Rate 30.00 30.00 30.00 FiO2 30 11/2201/06/18 01/06/18 01/06/18 06:45 07:00 07:00 08:00 Pulse 89 90 89 Resp 16 15 B/P (MAP) 106/50 (68) 97/49 (65) Pulse Ox 100 100 O2 Delivery Mechanical Ventilator Mechanical Ventilator Mechanical Ventilator O2 Flow Rate 30.00 30.00 FiO2 40 01/06/18 01/06/18 01/06/18 01/06/18 08:00 08:24 09:00 10:00 Pulse 95 96 98 111 Resp 15 16 15 18 B/P (MAP) 131/77 (95) 154/77 (102) 185/85 (118) Pulse Ox 100 100 100 100 O2 Delivery Mechanical Ventilator Mechanical Ventilator Mechanical Ventilator O2 Flow Rate 30.00 30.00 30.00 FiO2 30 01/06/18 01/06/18 01/06/18 01/06/18 10:14 11:00 12:00 12:00 Pulse 102 103 103 Resp 18 19 20 B/P (MAP) 119/67 (84) 125/64 (84) Pulse Ox 100 100 100 O2 Delivery Mechanical Ventilator Mechanical Ventilator Mechanical Ventilator O2 Flow Rate 30.00 30.00 FiO2 30 40 01/06/18 01/06/18 12:32 14:10 Pulse 102 94 Resp 18 16 Pulse Ox 100 100 FiO2 30 30 01/06/18 00:00 Intake Total 1300 ml Output Total 550 ml Balance 750 ml Weight (Pounds): 128 Weight (Ounces): 6.0 Weight (Calculated Kilograms): 58.599915 Constitutional: appears stated age; No apparent distress; well-developed, well- nourished Respiratory: chest is bilaterally symmetric, lungs clear to auscultation, other (ventilated.) Cardiovascular: regular rate-rhythm; No irregularly irregular, No extra beats, No parasternal heave is noted, No JVD, No edema, No bradycardia, No tachycardia , No point of maximal impulse, No cardiac thrills are palpable; S1 and S2; No gallop/S3, No gallop/S4, No diastolic murmur; systolic murmur; No friction rub, No click, No other Gastrointestional: No tender, No soft, No round, No distended, No pulsatile mass, No organomegaly, No guarding, No rebound, No tenderness, No hernia, No mass, No audible bowel sounds, No abnormal bowel sounds, No abdominal bruits, No spleenomegaly, No other Extremities: No normal range of motion, No non-tender, No normal inspection, No pedal edema, No calf tenderness, No normal capillary refill, No pelvis stable , No calf tenderness, No inflammation, No pedal edema, No slow capillary refill , No swelling, No other, No abrasion, No clubbing, No cyanosis, No ecchymosis, No laceration, No no lower extremity edema bilateral, No significant edema, No tenderness, No wound Neurologic/Psychiatric: other (intubated/ventilated) Skin: No normal color, No warm/dry, No cyanosis, No cool, No diaphoresis, No damp, No ecchymosis, No jaundice, No mottled, No pallor, No rash, No tattoos/ piercings, No ulcerations, No rash on exposed areas, No ulcerations on exposed areas, No other Results/Procedures: Labs Laboratory Tests 01/05/18 15:35: White Blood Count 2.8L, Red Blood Count 3.42L, Hemoglobin 10.4L, Hematocrit 32L , Mean Corpuscular Volume 94, Mean Corpuscular Hemoglobin 30, Mean Corpuscular Hemoglobin Concent 32, Red Cell Distribution Width 17.5H, Platelet Count 111L, Mean Platelet Volume 10.4, Neutrophils (%) (Auto) 57, Lymphocytes (%) (Auto) 32 , Monocytes (%) (Auto) 11, Eosinophils (%) (Auto) 0, Basophils (%) (Auto) 0, Neutrophils # (Auto) 1.6L, Lymphocytes # (Auto) 0.9L, Monocytes # (Auto) 0.3, Eosinophils # (Auto) 0.0, Basophils # (Auto) 0.0, Sodium Level 138, Potassium Level 5.6H, Chloride Level 107, Carbon Dioxide Level 21, Anion Gap 10, Blood Urea Nitrogen 47H, Creatinine 2.52H, Estimat Glomerular Filtration Rate 18, BUN/ Creatinine Ratio 19, Glucose Level 95, Calcium Level 9.9, Corrected Calcium 10.2H, Magnesium Level 1.5L, Total Bilirubin 1.2H, Aspartate Amino Transf (AST/ SGOT) 36H, Alanine Aminotransferase (ALT/SGPT) 8, Alkaline Phosphatase 89, Troponin I < 0.30, Total Protein 6.4, Albumin 3.6, Triglycerides Level 119 01/05/18 15:39: Glucometer 90 01/05/18 15:45: Blood Gas Puncture Site RIGHT RADIAL, Blood Gas Patient Temperature 97.0, Arterial Blood pH 7.47H, Arterial Blood Partial Pressure CO2 30L, Arterial Blood Partial Pressure O2 79, Arterial Blood HCO3 22L, Arterial Blood Total CO2 22.6, Arterial Blood Oxygen Saturation 98, Arterial Blood Base Excess -1.7, Yogesh Test POSITIVE, Blood Gas Ventilator Setting YES, Blood Gas Inspired Oxygen 30% 01/05/18 18:40: White Blood Count 2.6L, Red Blood Count 3.03L, Hemoglobin 9.2L, Hematocrit 29L, Mean Corpuscular Volume 95, Mean Corpuscular Hemoglobin 30, Mean Corpuscular Hemoglobin Concent 32, Red Cell Distribution Width 17.4H, Platelet Count 95L, Mean Platelet Volume 10.8H, Sodium Level 137, Potassium Level 5.3H, Chloride Level 110H, Carbon Dioxide Level 18L, Anion Gap 9, Blood Urea Nitrogen 44H, Creatinine 2.15H, Estimat Glomerular Filtration Rate 22, BUN/Creatinine Ratio 20 , Glucose Level 103, Calcium Level 8.9, Magnesium Level 1.0#*L, Phosphorus Level 2.9 01/05/18 19:15: Blood Gas Puncture Site LEFT RADIAL, Blood Gas Patient Temperature 97.6, Arterial Blood pH 7.35L, Arterial Blood Partial Pressure CO2 38, Arterial Blood Partial Pressure O2 219H, Arterial Blood HCO3 21L, Arterial Blood Total CO2 22.0 , Arterial Blood Oxygen Saturation 100, Arterial Blood Base Excess -4.0L, Yogesh Test POSITIVE, Blood Gas Ventilator Setting YES, Blood Gas Inspired Oxygen 60% 01/05/18 23:24: Glucometer 193H 01/06/18 03:35: White Blood Count 3.7L, Red Blood Count 2.87L, Hemoglobin 8.8L, Hematocrit 27L, Mean Corpuscular Volume 96, Mean Corpuscular Hemoglobin 31, Mean Corpuscular Hemoglobin Concent 32, Red Cell Distribution Width 17.6H, Platelet Count 95L, Mean Platelet Volume 10.4, Neutrophils (%) (Auto) 73, Lymphocytes (%) (Auto) 15 , Monocytes (%) (Auto) 11, Eosinophils (%) (Auto) 0, Basophils (%) (Auto) 0, Neutrophils # (Auto) 2.7, Lymphocytes # (Auto) 0.6L, Monocytes # (Auto) 0.4, Eosinophils # (Auto) 0.0, Basophils # (Auto) 0.0, Sodium Level 137, Potassium Level 5.2H, Chloride Level 110H, Carbon Dioxide Level 18L, Anion Gap 9, Blood Urea Nitrogen 44H, Creatinine 2.29H, Estimat Glomerular Filtration Rate 20, BUN/ Creatinine Ratio 19, Glucose Level 129H, Calcium Level 9.1, Phosphorus Level 3.6 , Magnesium Level 2.2 01/06/18 03:45: Blood Gas Puncture Site RIGHT RADIAL, Blood Gas Patient Temperature 97.6, Arterial Blood pH 7.28*L, Arterial Blood Partial Pressure CO2 43, Arterial Blood Partial Pressure O2 186H, Arterial Blood HCO3 20L, Arterial Blood Total CO2 21.2, Arterial Blood Oxygen Saturation 100, Arterial Blood Base Excess -5.8L , Yogesh Test YES-POS, Blood Gas Ventilator Setting YES, Blood Gas Inspired Oxygen 40% 01/06/18 13:48: Glucometer 271H Microbiology 01/05/18 Gram Stain - Final, Resulted 01/05/18 Sputum Culture, Resulted Pending A/P: Assessment/Dx: Hypotension, Respiratory distress, Hypertrophic obstructive cardiomyopathy, Severe pulmonary hypertension, Significant dehydration, Hyperkalemia, Acute on chronic kidney disease, Dementia, Anemia, recent GI bleed Plan: Intubated/ventilated. CT head. Hypertrophic obstructive cardiomyopathy, with significant underfilling of the LV. Hyper dynamic LV function suggesting that the patient requires significant amount of fluids. Wide open fluids for now. CVP is 2. Target CVP at least 8. Will give low dose beta ifeanyi to improve LV filling. Dilated IVC suggesting increased right atrial pressure likely due to pulmonary hypertension. Pulmonary hypertension: Likely secondary to severe hypertrophic cardiomyopathy. Hypotension: Likely secondary to LVOT obstruction. Will give IV fluids. Continue ICU management. Recent non-STEMI: Troponin on admission is negative. Repeat troponin. No wall motion abnormalities on echocardiogram. History of recent significant GI bleed with anemia. History of cirrhosis with anasarca. Leukopenia, unclear etiology. I will defer to Dr. Martinez. Hyperkalemia: Insulin, dextrose. Acute on chronic kidney disease: Creatinine 2.5. Critical patient with complex medical and cardiology management as above. Over 30 minutes was spent taking care of this patient. Guarded prognosis. I discussed at length with daughter at the bedside. Thank you for your consultation. Please call me if you have any questions. Sharron Fraire MD, FACP, FACC, FSCAI, FHRS, CCDS Interventional Cardiology Cardiac Electrophysiology Vascular Medicine and Endovascular Interventions Basia FRAIRE MD Jan 06, 2018 3:03 pm
[2018-01-06 16:13] LABS: HEMOGLOBIN 6.8 G/DL (11.5-16.0)
[2018-01-06] MEDS: LEVETIRACETAM INJECTION 500 MG in NS (IVPB) 100 ML IV SCH ×2 (17:24→20:42)
[2018-01-06] MEDS: meTOprolol TARTRATE 25 MG (LOPRESSOR) TABLET PO SCH (20:44)
[2018-01-07] VITALS (36 sets, daily range): BP systolic 123–186; BP diastolic 55–113
[2018-01-07] MEDS: inSUlin ASPART (NovoLOG) 1 UNIT/0.01 ML (CHARGE PER UNIT) SC SCH ×4 (00:29→18:28)
[2018-01-07] MEDS: methylPREDNISolone 40 MG/ML (Solu-MEDROL) VIAL IV SCH ×4 (00:29→18:18)
[2018-01-07] MEDS: NS IV 1000 ML 1,000 ML IV SCH ×3 (01:59→08:20)
[2018-01-07] MEDS: RT-ALBUTEROL/IPRATROPIUM 3 ML (DUONEB) VIAL INH SCH ×6 (02:32→22:57)
[2018-01-07 03:41] LABS: BASOPHILS % (AUTO) 0 % (0-10); EOSINOPHILS % (AUTO) 0 % (0-10); HEMATOCRIT 29 % (35-52); HEMOGLOBIN 9.3 G/DL (11.5-16.0); LYMPHOCYTES # (AUTO) 0.2 X 10^3 (1.0-4.0); LYMPHOCYTES % (AUTO) 6 % (12-44); MEAN CORPUSCULAR HEMOGLOBIN 30 PG (25-34); MEAN CORPUSCULAR HGB CONC 32 G/DL (32-36); MEAN CORPUSCULAR VOLUME 96 FL (80-99); MEAN PLATELET VOLUME 10.9 FL (7.4-10.4); MONOCYTES # (AUTO) 0.1 X 10^3 (0.0-1.0); MONOCYTES % (AUTO) 4 % (0-12); NEUTROPHILS # (AUTO) 2.7 X 10^3 (1.8-7.8); NEUTROPHILS % (AUTO) 90 % (42-75); PLATELET COUNT 78 10^3/uL (130-400); RED BLOOD COUNT 3.05 10^6/uL (4.35-5.85); RED CELL DISTRIBUTION WIDTH 18.2 % (10.0-14.5)
[2018-01-07 03:45] LABS: ABG BASE EXCESS -7.8 MMOL/L (-2.5-2.5); ABG OXYGEN SATURATION 99 % (94-100); ABG PCO2 43 MMHG (35-45); ABG PO2 113 MMHG (79-93); ABG TCO2 19.5 MMOL/L (21.0-31.0)
[2018-01-07 03:46] LABS: ALLENS TEST YES-POS; INSPIRED O2 30%
[2018-01-07 03:47] LABS: PATIENT TEMP 98.5; VENTILATOR YES
[2018-01-07 03:48] LABS: ABG PH 7.25 (7.37-7.43)
[2018-01-07 04:09] LABS: CALCIUM 8.3 MG/DL (8.5-10.1); CREATININE SERUM 2.17 MG/DL (0.60-1.30); MAGNESIUM 1.8 MG/DL (1.8-2.4); PHOSPHORUS 4.1 MG/DL (2.3-4.7); POTASSIUM 4.4 MMOL/L (3.6-5.0)
[2018-01-07] MEDS: MAGNESIUM 1 GM/100 ML IVPB 100 ML IV SCH (04:12)
[2018-01-07] MEDS: POTASSIUM CL 10MEQ/50ML IVPB 50 ML IV SCH (04:12)
[2018-01-07] MEDS: KCL 20 MEQ TAB (K-DUR) PO SCH (04:13)
[2018-01-07] MEDS: PROPOFOL DRIP (ICU) 100 ML IV SCH ×2 (04:13→13:53)
[2018-01-07 04:45] LABS: ANISOCYTOSIS SLIGHT; BAND NEUTROPHILS 1 %; BASOPHILS % (MANUAL) 0 %; ELLIPT/OVALOCYTES SLIGHT; EOSINOPHILS % (MANUAL) 0 %; LYMPHOCYTES % (MANUAL) 7 %; MONOCYTES % (MANUAL) 1 %; NEUTROPHILS % (MANUAL) 91 %; POIKILOCYTOSIS SLIGHT; TEAR DROP CELLS SLIGHT
[2018-01-07 04:46] LABS: CRENATED RBC SLIGHT; ROULEAUX SLIGHT
[2018-01-07] MEDS ORDERED: FUROSEMIDE 40 MG/4 ML INJ (LASIX) IV ONE (05:00)
--- NOTE | 2018-01-07 05:41 | Pulmonary Progress Note ---
Subjective Time Seen by a Provider: 06:06 Subjective/Events-last exam Sedated on Vent Sepsis Event Evaluation Height, Weight, BMI Height: 5'2.00" Weight: 128lbs. 6.0oz. [id number]; 22.4 BMI Method:Stated Exam Exam Vital Signs Date Time Temp Pulse Resp B/P (MAP) Pulse Ox O2 Delivery O2 Flow Rate FiO2 01/07/18 04:58 105 17 100 30 01/07/18 03:18 Mechanical Ventilator 30 01/07/18 03:07 98.9 01/07/18 03:00 100 14 166/90 (115) 100 Mechanical Ventilator 30.00 01/07/18 02:33 102 17 100 30 01/07/18 02:00 102 12 186/93 (124) 100 Mechanical Ventilator 30.00 01/07/18 01:00 111 16 154/72 (99) 100 Mechanical Ventilator 30.00 01/07/18 01:00 110 01/07/18 00:39 98.4 109 16 135/61 100 Mechanical Ventilator 30 01/07/18 00:24 96 16 100 30 01/07/18 00:00 96 16 126/55 (78) 100 Mechanical Ventilator 30.00 01/07/18 00:00 Mechanical Ventilator 30 01/06/18 23:42 98.3 01/06/18 23:00 98 16 116/55 (75) 100 Mechanical Ventilator 30.00 01/06/18 22:29 98.4 102 16 132/63 100 Mechanical Ventilator 30 01/06/18 22:20 96 16 100 30 01/06/18 22:10 97.9 94 16 115/53 100 Mechanical Ventilator 30 01/06/18 22:00 98 16 115/53 (73) 100 Mechanical Ventilator 30.00 01/06/18 21:00 123 16 156/70 (98) 100 Mechanical Ventilator 30.00 01/06/18 20:28 101 16 100 30 01/06/18 20:00 98.6 01/06/18 20:00 Mechanical Ventilator 30 01/06/18 20:00 101 16 156/75 (102) 100 Mechanical Ventilator 30.00 01/06/18 19:00 98 15 120/60 (80) 100 Mechanical Ventilator 30.00 01/06/18 19:00 99 01/06/18 18:25 102 16 100 30 01/06/18 18:00 101 15 165/84 (111) 100 Mechanical Ventilator 30.00 01/06/18 17:00 111 17 163/84 (110) 99 Mechanical Ventilator 30.00 01/06/18 16:28 103 16 100 30 01/06/18 16:00 101 18 169/86 (113) 100 Mechanical Ventilator 30.00 01/06/18 15:26 100 18 100 Mechanical Ventilator 01/06/18 15:00 107 17 115/72 (86) 100 Mechanical Ventilator 30.00 01/06/18 14:10 94 16 100 30 01/06/18 14:00 96 16 106/63 (77) 100 Mechanical Ventilator 30.00 01/06/18 13:00 99 01/06/18 13:00 98 16 104/60 (75) 100 Mechanical Ventilator 30.00 01/06/18 12:32 102 18 100 30 01/06/18 12:00 103 20 125/64 (84) 100 Mechanical Ventilator 30.00 01/06/18 12:00 Mechanical Ventilator 40 01/06/18 11:00 103 19 119/67 (84) 100 Mechanical Ventilator 30.00 01/06/18 10:14 102 18 100 30 01/06/18 10:00 111 18 185/85 (118) 100 Mechanical Ventilator 30.00 01/06/18 09:00 98 15 154/77 (102) 100 Mechanical Ventilator 30.00 01/06/18 08:24 96 16 100 30 01/06/18 08:00 95 15 131/77 (95) 100 Mechanical Ventilator 30.00 01/06/18 08:00 Mechanical Ventilator 40 01/06/18 07:00 89 15 97/49 (65) 100 Mechanical Ventilator 30.00 01/06/18 07:00 90 01/06/18 06:45 89 16 106/50 (68) 100 Mechanical Ventilator 30.00 01/06/18 06:30 89 16 113/57 (75) 100 Mechanical Ventilator 30.00 01/06/18 06:18 60 16 100 30 01/06/18 06:15 91 16 111/60 (77) 100 Mechanical Ventilator 30.00 01/06/18 06:00 96 16 120/57 (78) 100 Mechanical Ventilator 30.00 01/06/18 05:45 89 14 150/72 (98) 100 Mechanical Ventilator 30.00 I & O 01/07/18 07:00 Intake Total 6754 ml Output Total 615 ml Balance 6139 ml Height & Weight Height: 5'2.00" Weight: 128lbs. 6.0oz. 58.452024jn; 22.4 BMI Method:Stated General Appearance: Chronically ill, Other (intubated, sedated) HEENT: Moist Mucous Membranes; No Scleral Icterus (L), No Scleral Icterus (R); Other (pinpoint pupils, minimally reactive) Respiratory: Lungs Clear, Other (on vent) Cardiovascular: Regular Rate, Rhythm, No Murmur Capillary Refill: Less Than 3 Seconds Extremity: No Calf Tenderness, No Pedal Edema Neurologic/Psychiatric: Other (sedated, rhythmic jerking noted of right uper extremity and left foot- resolved with ativan) Skin: Normal Color, Warm/Dry; No Mottled, No Petechia Results Lab Laboratory Tests 01/05/18 15:35 01/05/18 18:40 01/06/18 03:35 01/06/18 16:05 01/07/18 03:30 Assessment/Plan Assessment/Plan Acute on chronic respiratory failure -Continue vent mgmt -PT is not ready to wean yet -precedex and wean Diprivan -Diprivan -Start solumedrol 40 IV Q 6 -check CT of chest without contrast Unresponsive -Head CT is negative CKD with hyperkalemia and metabolic acidosis and decreased UO -HOLD LASIX -s/p insulin, bicarb -Start Bicarb gtt -Give 1 liter NS bolus -IVF -Check LA Anemia with recent hx of GIB -CHeck Hb Q12 -start protonix 40mg BID -Will start TF Seizure activity -Keppra -Ativan OUMOU CAMARGO DO Jan 07, 2018 05:41
[2018-01-07] MEDS ORDERED: SODIUM BICARB 8.4% 50 MEQ/50 ML (ABBOTT) SYR ONE (05:43)
[2018-01-07] MEDS ORDERED: SODIUM BICARB 8.4% 50 MEQ/50 ML (ABBOTT) SYR IV ONE (05:45)
[2018-01-07] MEDS ORDERED: NS IV 1000 ML 1,000 ML IV ONE (06:00)
[2018-01-07] MEDS: DEXMEDETOMIDINE INJECTION 200 MCG in NS (IVPB) 50 ML IV SCH ×6 (08:04→21:54)
--- NOTE | 2018-01-07 08:16 | Progress Note-Hospitalist ---
Subjective HPI/CC On Admission Date Seen by Provider: Jan 07, 2018 Time Seen by Provider: 06:45 Pt is an 87yoCF with a H GI bleed, Parkinson's dementia, CKD stage 3, and chronic anemia who was transferred here from [facility] due to respiratory failure requiring mechanical ventilation. She is unable to provide me any history at this time so all history comes from records and EMS. The EMS who transferred her here were also the ones on scene at her [facility]. They state they were called when her nurses found her slumped in a chair, unresponsive, and with agonal breathes. On their arrival she had a respiratory rate around 5 and was not protecting her airway so she was intubated in the field and brought to the ER. Further workup there revealed a mildly elevated troponin and a negative CT head. Her last known well was around 1030AM per RN at [facility] and was found slumped in her chair at 1130am. They even noticed periods of apnea up to 45 seconds. BS was 128 BS and sats were in the 90s. Her last BP was 136/57 last night. The [facility] RN also states she has been feeling well and had been behaving normally prior today. Subjective/Events-last exam Pt intubated and sedated. Daughter at bedside. Discussed current medical problems and guarded prognosis. Focused Exam Lactate Level 01/07/18 05:45: Lactic Acid Level 0.93 Lactic Acid Level Laboratory Tests Test 01/07/18 05:45 Lactic Acid Level 0.93 MMOL/L (0.50-2.00) Objective Exam Vital Signs Vital Signs Date Time Temp Pulse Resp B/P (MAP) Pulse Ox O2 Delivery O2 Flow Rate FiO2 01/07/18 06:45 106 18 100 25 01/07/18 06:00 130/60 (83) Mechanical Ventilator 30.00 01/07/18 03:07 98.9 Capillary Refill : Less Than 3 Seconds General Appearance: Chronically ill, Other (intubated, critically ill) Respiratory: Lungs Clear, Other (on vent) Cardiovascular: Regular Rate, Rhythm, Systolic Murmur Gastrointestinal: Normal Bowel Sounds, Non Tender, Soft Extremity: No Pedal Edema Skin: Normal Color, Warm/Dry Results/Procedures Lab Laboratory Tests 01/06/18 16:05 01/07/18 03:30 Patient resulted labs reviewed. Assessment/Plan Assessment and Plan Assess & Plan/Chief Complaint Acute Respiratory Failure Critical Care Critical Care: Critically Ill Patient Diagnosis/Problems Diagnosis/Problems (1) Respiratory failure Assessment & Plan: Remains on vent Pulm consulted, appreciate recs CT chest shows cardiomegaly and splenomegaly only Qualifiers: Chronicity: acute Respiratory failure complication: hypoxia Qualified Codes: J96.01 - Acute respiratory failure with hypoxia (2) Cardiomyopathy Assessment & Plan: Echo shows LVOT EF 70% Cardiology consulted Qualifiers: Cardiomyopathy type: obstructive hypertrophic Qualified Codes: I42.1 - Obstructive hypertrophic cardiomyopathy (3) Unresponsive Assessment & Plan: Found unresponsive Likely due to CVA Creatinine elevated- unable to obtain CTA MRI ordered Repeat CT head negative for acute findings (4) Seizure-like activity Assessment & Plan: New onset Resolved with ativan Cont keppra (5) Acute on chronic renal failure Assessment & Plan: Older Adult Social Work Specialist 2.17 Older Adult Social Work Specialist 1.86 1 week ago Persistent acidosis- started on bicarb gtt Monitor UOP Qualifiers: Acute renal failure type: unspecified Chronic kidney disease stage: stage 3 (moderate) Qualified Codes: N17.9 - Acute kidney failure, unspecified; N18.3 - Chronic kidney disease, stage 3 (moderate) (6) Hyperkalemia Status: Resolved Assessment & Plan: K 4.4 today Resolution Date/Time: 12/08/17 @ 7:39 am (7) Essential (primary) hypertension Status: Chronic Assessment & Plan: Improved-trend (8) Parkinson disease Status: Chronic Assessment & Plan: Baseline dementia (9) Insulin dependent diabetes mellitus Status: Chronic Assessment & Plan: Will add Q6 accuchecks SSI (10) Anemia Status: Chronic Assessment & Plan: At baseline Qualifiers: Anemia type: due to chronic kidney disease Chronic kidney disease stage: stage 3 (moderate) Qualified Codes: N18.3 - Chronic kidney disease, stage 3 ( moderate); D63.1 - Anemia in chronic kidney disease Clinical Quality Measures DVT/VTE Risk/Contraindication: Risk Factor Score Per Nursin RFS Level Per Nursing on Admit: 4+=Very High ANIRUDH LEDESMA MD Jan 07, 2018 8:16 am
[2018-01-07] MEDS: SODIUM BICARBONATE 8.4% VIAL 100 MEQ in 1/2 NS IV SOLUTION 1,000 ML IV SCH ×3 (08:18→23:38)
[2018-01-07] MEDS: meTOprolol TARTRATE 25 MG (LOPRESSOR) TABLET PO SCH ×3 (08:20→21:29)
[2018-01-07] MEDS: PANTOPRAZOLE 40 MG (PROTONIX) VIAL IV SCH ×2 (08:20→21:29)
[2018-01-07] MEDS: LEVETIRACETAM INJECTION 500 MG in NS (IVPB) 100 ML IV SCH ×2 (08:20→21:28)
--- NOTE | 2018-01-07 08:56 | Diagnostic Imaging Report ---
INDICATION: Shortness of breath. Comparison made with prior examination 01/06/2018. FINDINGS: There is cardiomegaly. There is venous congestion. There are patchy bibasilar infiltrates. There is no pneumothorax. Lines and tubes are in satisfactory position. Mediastinum is unremarkable. IMPRESSION: Patchy bibasilar infiltrates. Cardiomegaly and mild central pulmonary venous congestion. Dictated by: Dictated on workstation # [id number]
[2018-01-07] MEDS: fentaNYL INJECTION 100 MCG/2 ML AMP IV PRN (11:19)
[2018-01-07] MEDS ORDERED: ADENOSINE 6 MG/2 ML (ADENOCARD) VIAL IV ONE ×2 (11:58→12:15)
[2018-01-07] MEDS ORDERED: meTOprolol 5 MG/5 ML (LOPRESSOR) VIAL ONE (12:03)
[2018-01-07] MEDS ORDERED: meTOprolol 5 MG/5 ML (LOPRESSOR) VIAL IV ONE (12:15)
--- NOTE | 2018-01-07 13:19 | Diagnostic Imaging Report ---
CLINICAL INDICATION: Patient with renal failure and elevated LFTs. EXAM: Complete abdominal ultrasound. COMPARISON: Ultrasound of the abdomen dated 12/15/2017. CT scan of the abdomen and pelvis dated 12/12/2017. FINDINGS: Bowel gas obscures portions of this exam. Portions of the pancreatic tail is obscured by overlying bowel gas. Otherwise, the visualized portions of the pancreas shows no gross interval abnormality. Regions of the abdominal aorta and IVC are obscured. There is similar appearance of the liver with coarsened increased echotexture and lobulated liver surface consistent with liver cirrhosis. There is no liver mass seen. The main portal vein demonstrates hepatopedal flow. The liver measures 15 cm in craniocaudal dimension. The gallbladder is surgically removed. There is no intrahepatic ductal dilation. Common bile duct is obscured and not appropriately evaluated. There is again seen splenomegaly which measures 15.9 cm. Multiple bilateral renal cysts are seen with the largest one on the right measuring 4.0 cm in greatest dimension and the largest on the left measuring 2.7 cm in greatest dimension. There is no hydronephrosis or other renal mass seen. The right and left kidneys measure 8.6 cm in craniocaudal dimension and 9.2 cm in craniocaudal dimension. There is intra-abdominal free fluid about the liver and spleen which has not significantly changed. IMPRESSION: 1: There is no significant change to the complete abdominal ultrasound with no interval acute findings seen. 2: Limited exam due to overlying bowel gas. 3: Abdominal findings are consistent with liver cirrhosis and splenomegaly which suspected portal hypertension. There is no significant change to the abdominal ascites, as visualized. 4: Again seen bilateral renal cysts. 5: Gallbladder is surgically removed. Dictated by: Dictated on workstation # [id number]
--- NOTE | 2018-01-07 14:46 | Cardiology Progress Note ---
Cardiology SOAP Progress Note Subjective: Still intubated/ventilated. Tachycardic with heart rate in the 146. Objective: I&O/Vital Signs 01/07/18 01/07/18 01/07/18 01/07/18 04:58 05:00 05:55 06:00 Pulse 105 102 98 Resp 17 15 15 B/P (MAP) 146/74 (98) 130/60 (83) Pulse Ox 100 100 100 O2 Delivery Mechanical Ventilator Mechanical Ventilator O2 Flow Rate 30.00 30.00 FiO2 30 25 01/07/18 01/07/18 01/07/18 01/07/18 06:09 06:45 07:00 07:00 Pulse 106 106 105 Resp 18 18 B/P (MAP) 169/77 (107) Pulse Ox 100 100 O2 Delivery Mechanical Ventilator Mechanical Ventilator O2 Flow Rate 25.00 25.00 FiO2 25 01/07/18 01/07/18 01/07/18 01/07/18 08:00 08:00 08:23 09:00 Temp 97.7 Pulse 111 101 Resp 14 20 B/P (MAP) 148/77 (100) 146/113 (124) Pulse Ox 100 100 100 O2 Delivery Mechanical Ventilator Mechanical Ventilator Mechanical Ventilator O2 Flow Rate 25.00 25.00 FiO2 25 01/07/18 01/07/18 01/07/18 01/07/18 09:10 09:15 10:00 10:20 Pulse 99 103 94 133 Resp 20 11 19 B/P (MAP) 127/70 (89) 129/112 (118) Pulse Ox 100 100 100 100 O2 Delivery Mechanical Ventilator Mechanical Ventilator O2 Flow Rate 25.00 25.00 FiO2 25 25 01/07/18 01/07/18 01/07/18 01/07/18 11:00 11:19 12:00 12:00 Temp 97.6 Pulse 147 146 Resp 21 23 B/P (MAP) 136/70 (92) 128/56 (80) Pulse Ox 100 100 100 O2 Delivery Mechanical Ventilator Mechanical Ventilator Mechanical Ventilator O2 Flow Rate 25.00 25.00 FiO2 25 01/07/18 01/07/18 01/07/18 01/07/18 12:00 12:30 13:00 13:00 Temp 98.7 Pulse 133 133 133 Resp 21 21 B/P (MAP) 139/63 (88) Pulse Ox 100 100 O2 Delivery Mechanical Ventilator O2 Flow Rate 25.00 FiO2 25 01/07/18 01/07/18 01/07/18 13:53 14:27 15:55 Pulse 128 124 120 Resp B/P (MAP) 143/64 Pulse Ox 100 100 100 O2 Delivery Mechanical Ventilator FiO2 25 21 01/07/18 00:00 Intake Total 4548 ml Output Total 390 ml Balance 4158 ml Weight (Pounds): 151 Weight (Ounces): 9.0 Weight (Calculated Kilograms): 68.400544 Constitutional: appears stated age; No apparent distress; well-developed, well- nourished Respiratory: chest is bilaterally symmetric, lungs clear to auscultation, other (ventilated.) Cardiovascular: regular rate-rhythm; No irregularly irregular, No extra beats, No parasternal heave is noted, No JVD, No edema, No bradycardia; tachycardia; No point of maximal impulse, No cardiac thrills are palpable; S1 and S2; No gallop/S3, No gallop/S4, No diastolic murmur; systolic murmur; No friction rub, No click, No other Gastrointestional: No tender, No soft, No round, No distended, No pulsatile mass, No organomegaly, No guarding, No rebound, No tenderness, No hernia, No mass, No audible bowel sounds, No abnormal bowel sounds, No abdominal bruits, No spleenomegaly, No other Extremities: No normal range of motion, No non-tender, No normal inspection, No pedal edema, No calf tenderness, No normal capillary refill, No pelvis stable , No calf tenderness, No inflammation, No pedal edema, No slow capillary refill , No swelling, No other, No abrasion, No clubbing, No cyanosis, No ecchymosis, No laceration, No no lower extremity edema bilateral, No significant edema, No tenderness, No wound Neurologic/Psychiatric: other (intubated/ventilated) Skin: No normal color, No warm/dry, No cyanosis, No cool, No diaphoresis, No damp, No ecchymosis, No jaundice, No mottled, No pallor, No rash, No tattoos/ piercings, No ulcerations, No rash on exposed areas, No ulcerations on exposed areas, No other Results/Procedures: Labs Laboratory Tests 11/22/18 18:29: Glucometer 248H 01/07/18 00:11: Glucometer 292H 01/07/18 03:30: White Blood Count 3.0L, Red Blood Count 3.05L, Hemoglobin 9.3#L, Hematocrit 29L , Mean Corpuscular Volume 96, Mean Corpuscular Hemoglobin 30, Mean Corpuscular Hemoglobin Concent 32, Red Cell Distribution Width 18.2H, Platelet Count 78L, Mean Platelet Volume 10.9H, Neutrophils (%) (Auto) 90H, Lymphocytes (%) (Auto) 6L, Monocytes (%) (Auto) 4, Eosinophils (%) (Auto) 0, Basophils (%) (Auto) 0, Neutrophils # (Auto) 2.7, Lymphocytes # (Auto) 0.2L, Monocytes # (Auto) 0.1, Eosinophils # (Auto) 0.0, Basophils # (Auto) 0.0, Neutrophils % (Manual) 91, Lymphocytes % (Manual) 7, Monocytes % (Manual) 1, Eosinophils % (Manual) 0, Basophils % (Manual) 0, Band Neutrophils 1, Poikilocytosis SLIGHT, Anisocytosis SLIGHT, Tear Drop Cells SLIGHT, Crenated Cell SLIGHT, Elliptocytes SLIGHT, Rouleau SLIGHT, Blood Gas Puncture Site R RAD, Blood Gas Patient Temperature 98.5, Arterial Blood pH 7.25*L, Arterial Blood Partial Pressure CO2 43, Arterial Blood Partial Pressure O2 113H, Arterial Blood HCO3 18L, Arterial Blood Total CO2 19.5L, Arterial Blood Oxygen Saturation 99, Arterial Blood Base Excess -7.8L, Yogesh Test YES-POS, Blood Gas Ventilator Setting YES, Blood Gas Inspired Oxygen 30%, Sodium Level 142, Potassium Level 4.4, Chloride Level 117H , Carbon Dioxide Level 15L, Anion Gap 10, Blood Urea Nitrogen 41H, Creatinine 2.17H, Estimat Glomerular Filtration Rate 22, BUN/Creatinine Ratio 19, Glucose Level 284H, Calcium Level 8.3L, Phosphorus Level 4.1, Magnesium Level 1.8 01/07/18 05:45: Lactic Acid Level 0.93 01/07/18 12:21: Glucometer 379H 01/07/18 15:20: Hemoglobin 8.9L, Hematocrit 28L, Triglycerides Level 81 Microbiology 01/05/18 Gram Stain - Final, Complete 01/05/18 Sputum Culture - Final, Complete Usual upper respiratory nusrat A/P: Assessment/Dx: Hypotension, Respiratory distress, Hypertrophic obstructive cardiomyopathy, Severe pulmonary hypertension, Significant tachycardia, sinus tachycardia versus atrial tachycardia, Significant dehydration, Hyperkalemia, Acute on chronic kidney disease, Dementia, Anemia, recent GI bleed Plan: Intubated/ventilated. CT head. Hypertrophic obstructive cardiomyopathy, with significant underfilling of the LV. Hyper dynamic LV function suggesting that the patient requires significant amount of fluids. Target CVP at least 8. Will give low dose beta ifeanyi to improve LV filling. Significant tachycardia with heart rate 146. Narrow complex tachycardia; differential included atrial flutter. Therefore I gave adenosine bolus 6 mg IV with slowing of the ventricular response with no flutter waves however P waves were noted. 5 mg bolus of IV Lopressor was given with slow down the heart rate to 120s. P wave morphology suggesting either sinus tachycardia or atrial tachycardia. Will increase the dose of Lopressor to 25 mg 3 times a day. Dilated IVC suggesting increased right atrial pressure likely due to pulmonary hypertension. Pulmonary hypertension: Likely secondary to severe hypertrophic cardiomyopathy. Hypotension: Likely secondary to LVOT obstruction. Will give IV fluids. Continue ICU management. Recent non-STEMI: Troponins [address] deviation on serial EKGs. No wall motion abnormalities on echocardiogram. History of recent significant GI bleed with anemia. History of cirrhosis with anasarca. Leukopenia, unclear etiology. I will defer to Dr. Martinez. Hyperkalemia: Insulin, dextrose. Acute on chronic kidney disease: Creatinine 2.5. Critical patient with complex medical and cardiology management as above. Over 30 minutes was spent taking care of this patient. Guarded prognosis. I discussed at length with daughter at the bedside. Thank you for your consultation. Please call me if you have any questions. Sharron Fraire MD, FACP, FACC, FSCAI, FHRS, CCDS Interventional Cardiology Cardiac Electrophysiology Vascular Medicine and Endovascular Interventions Focused Exam Lactate Level 01/07/18 05:45: Lactic Acid Level 0.93 Basia FRAIRE MD Jan 07, 2018 2:46 pm
[2018-01-07 15:28] LABS: HEMOGLOBIN 8.9 G/DL (11.5-16.0)
--- NOTE | 2018-01-07 23:54 | OPERATIVE REPORT ---
DATE OF SERVICE: 01/07/2018 PREOPERATIVE DIAGNOSIS: Respiratory failure, hypotension, unresponsive. POSTOPERATIVE DIAGNOSIS: Respiratory failure, hypotension, unresponsive. PROCEDURE: Central line placement right internal jugular vein, ultrasound-guided. SURGEON: Bobby Cornell DO ANESTHESIA: 1% lidocaine. ESTIMATED BLOOD LOSS: Minimal. COMPLICATIONS: None. INDICATIONS: The patient is an 87-year-old female who was transferred from [place] with respiratory failure and being unresponsive. She was intubated and needing intensive care unit. The patient's blood pressure has dropped in the [address] Horta has requested that a central line be placed. Risks and benefits were discussed with family who understand risks and benefits and wished to proceed. Consent was signed on the chart. DESCRIPTION OF PROCEDURE: The patient was prepped and draped in sterile fashion. Timeout was performed. Using ultrasound, the right internal jugular vein was located. Local anesthetic was infiltrated in the area. The right internal jugular vein was then accessed under ultrasound guidance. Dark nonpulsatile blood was withdrawn. The guidewire was inserted through the needle and the needle was removed. An 11 blade scalpel was used to make a small stab incision at the insertion point. A dilator was then advanced over the wire and removed. The triple lumen catheter was inserted over the wire and the wire was removed. The catheter was then secured using 3-0 silk suture. All ports were accessed and flushed without difficulty. The area was then washed and dried, sterile bandage was applied. The patient tolerated the procedure well without any complications. Chest x-ray pending. Job ID: [id number] DocumentID: [id number] Dictated Date: 01/07/2018 16:21:32 [employer] Date: 01/07/2018 23:53:21 Dictated By: BOBBY CORNELL DO
[2018-01-08] VITALS (34 sets, daily range): BP systolic 125–200; BP diastolic 65–121
[2018-01-08] MEDS: methylPREDNISolone 40 MG/ML (Solu-MEDROL) VIAL IV SCH ×4 (00:28→17:39)
[2018-01-08] MEDS: inSUlin ASPART (NovoLOG) 1 UNIT/0.01 ML (CHARGE PER UNIT) SC SCH ×5 (00:28→20:14)
[2018-01-08] MEDS: fentaNYL INJECTION 100 MCG/2 ML AMP IV PRN ×4 (00:36→21:46)
[2018-01-08] MEDS: DEXMEDETOMIDINE INJECTION 200 MCG in NS (IVPB) 50 ML IV SCH (00:44)
[2018-01-08] MEDS: SODIUM BICARBONATE 8.4% VIAL 100 MEQ in 1/2 NS IV SOLUTION 1,000 ML IV SCH ×2 (01:49→09:56)
[2018-01-08] MEDS: PROPOFOL DRIP (ICU) 100 ML IV SCH ×2 (01:51→17:30)
[2018-01-08] MEDS: RT-ALBUTEROL/IPRATROPIUM 3 ML (DUONEB) VIAL INH SCH ×6 (01:55→22:12)
[2018-01-08 03:47] LABS: BASOPHILS % (AUTO) 0 % (0-10); EOSINOPHILS % (AUTO) 0 % (0-10); HEMATOCRIT 28 % (35-52); HEMOGLOBIN 8.9 G/DL (11.5-16.0); LYMPHOCYTES # (AUTO) 0.2 X 10^3 (1.0-4.0); LYMPHOCYTES % (AUTO) 10 % (12-44); MEAN CORPUSCULAR HEMOGLOBIN 30 PG (25-34); MEAN CORPUSCULAR HGB CONC 32 G/DL (32-36); MEAN CORPUSCULAR VOLUME 95 FL (80-99); MEAN PLATELET VOLUME 10.8 FL (7.4-10.4); MONOCYTES # (AUTO) 0.1 X 10^3 (0.0-1.0); MONOCYTES % (AUTO) 6 % (0-12); NEUTROPHILS # (AUTO) 1.9 X 10^3 (1.8-7.8); NEUTROPHILS % (AUTO) 85 % (42-75); PLATELET COUNT 74 10^3/uL (130-400); RED BLOOD COUNT 2.92 10^6/uL (4.35-5.85); RED CELL DISTRIBUTION WIDTH 18.5 % (10.0-14.5); WHITE BLOOD COUNT 2.2 10^3/uL (4.3-11.0)
[2018-01-08 03:54] LABS: ABG BASE EXCESS -1.7 MMOL/L (-2.5-2.5); ABG OXYGEN SATURATION 95 % (94-100); ABG PCO2 36 MMHG (35-45); ABG PH 7.41 (7.37-7.43); ABG PO2 71 MMHG (79-93); ABG TCO2 23.3 MMOL/L (21.0-31.0)
[2018-01-08 03:57] LABS: ALLENS TEST YES-POS; INSPIRED O2 21%; PATIENT TEMP 98.6; VENTILATOR YES
[2018-01-08 04:05] LABS: CALCIUM 8.8 MG/DL (8.5-10.1); CREATININE SERUM 1.91 MG/DL (0.60-1.30); MAGNESIUM 1.6 MG/DL (1.8-2.4); PHOSPHORUS 2.8 MG/DL (2.3-4.7); POTASSIUM 3.7 MMOL/L (3.6-5.0)
[2018-01-08] MEDS: KCL 20 MEQ TAB (K-DUR) PO SCH (04:58)
[2018-01-08] MEDS: POTASSIUM CL 10MEQ/50ML IVPB 50 ML IV SCH (04:58)
[2018-01-08] MEDS: MAGNESIUM 1 GM/100 ML IVPB 100 ML IV SCH ×3 (04:58→11:33)
--- NOTE | 2018-01-08 08:05 | Diagnostic Imaging Report ---
EXAM: CHEST 1 VIEW, AP/PA ONLY INDICATION: ICU management. Intubated. COMPARISON: Chest radiograph 01/07/2018. FINDINGS: Low lung volumes with bibasilar atelectasis or infiltrate. Small left pleural effusion. Calcified granuloma in the right upper lung. ETT tip approximately 2 cm from the oscar. Right IJ CVC tip mid SVC. NG tube tip and side-port below the diaphragm. No pneumothorax. No acute osseous findings. IMPRESSION: 1. Persistent low lung volumes with bibasilar atelectasis or infiltrate. Small left pleural effusion. 2. Support lines in the expected positions. Dictated by: Dictated on workstation # [id number]
[2018-01-08] MEDS ORDERED: inSUlin DETERMIR 1 UNIT/0.01 ML (LEVEMIR) CHARGE PER UNIT SQ ONE (08:13)
[2018-01-08] MEDS ORDERED: inSUlin DETERMIR 1 UNIT/0.01 ML (LEVEMIR) CHARGE PER UNIT SQ NR (08:15)
--- NOTE | 2018-01-08 08:26 | Progress Note-Hospitalist ---
Subjective HPI/CC On Admission Date Seen by Provider: Jan 08, 2018 Time Seen by Provider: 08:21 Pt is an 87yoCF with a H GI bleed, Parkinson's dementia, CKD stage 3, and chronic anemia who was transferred here from [facility] due to respiratory failure requiring mechanical ventilation. She is unable to provide me any history at this time so all history comes from records and EMS. The EMS who transferred her here were also the ones on scene at her [facility]. They state they were called when her nurses found her slumped in a chair, unresponsive, and with agonal breathes. On their arrival she had a respiratory rate around 5 and was not protecting her airway so she was intubated in the field and brought to the ER. Further workup there revealed a mildly elevated troponin and a negative CT head. Her last known well was around 1030AM per RN at [facility] and was found slumped in her chair at 1130am. They even noticed periods of apnea up to 45 seconds. BS was 128 BS and sats were in the 90s. Her last BP was 136/57 last night. The [facility] RN also states she has been feeling well and had been behaving normally prior today. Subjective/Events-last exam Pt remains sedated and intubated. Family at bedside. Focused Exam Lactate Level 01/07/18 05:45: Lactic Acid Level 0.93 Objective Exam Vital Signs Vital Signs Date Time Temp Pulse Resp B/P (MAP) Pulse Ox O2 Delivery O2 Flow Rate FiO2 01/08/18 06:41 113 22 97 21 01/08/18 06:00 168/76 (106) Mechanical Ventilator 21.00 01/08/18 04:00 98.6 Capillary Refill : Less Than 3 Seconds General Appearance: Other (resting comfortably on vent) Respiratory: Lungs Clear, Other (on vent) Cardiovascular: Normal Peripheral Pulses, Tachycardia Gastrointestinal: Normal Bowel Sounds, Non Tender, Soft Extremity: No Calf Tenderness, No Pedal Edema Results/Procedures Lab Laboratory Tests 01/07/18 15:20 01/08/18 03:45 Patient resulted labs reviewed. Assessment/Plan Assessment and Plan Assess & Plan/Chief Complaint Acute Respiratory Failure Critical Care Critical Care: Critically Ill Patient Diagnosis/Problems Diagnosis/Problems (1) Respiratory failure Assessment & Plan: Remains on vent Pulm consulted, appreciate recs CT chest shows cardiomegaly and splenomegaly only May be able to wean today- defer to Dr Ulrich Qualifiers: Chronicity: acute Respiratory failure complication: hypoxia Qualified Codes: J96.01 - Acute respiratory failure with hypoxia (2) Cardiomyopathy Assessment & Plan: Echo shows LVOT EF 70% Cardiology consulted Continue high volume fluids Qualifiers: Cardiomyopathy type: obstructive hypertrophic Qualified Codes: I42.1 - Obstructive hypertrophic cardiomyopathy (3) Unresponsive Assessment & Plan: Found unresponsive Likely due to CVA Creatinine elevated- unable to obtain CTA MRI ordered- plan to get today Repeat CT head negative for acute findings (4) Seizure-like activity Assessment & Plan: New onset this admission Resolved with ativan Cont keppra (5) Acute on chronic renal failure Assessment & Plan: 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 week ago Acidosis improved- still on bicarb gtt Monitor UOP- marginal at this time Qualifiers: Acute renal failure type: unspecified Chronic kidney disease stage: stage 3 (moderate) Qualified Codes: N17.9 - Acute kidney failure, unspecified; N18.3 - Chronic kidney disease, stage 3 (moderate) (6) Hyperkalemia Status: Resolved Assessment & Plan: REsolved Resolution Date/Time: 12/08/17 @ 07:39 (7) Essential (primary) hypertension Status: Chronic Assessment & Plan: Improved-trend (8) Parkinson disease Status: Chronic Assessment & Plan: Baseline dementia (9) Insulin dependent diabetes mellitus Status: Chronic Assessment & Plan: Will add Q6 accuchecks SSI basal insulin added (10) Anemia Status: Chronic Assessment & Plan: At baseline s/p 1 unit pRBCs this admission DC PM H&H checks Qualifiers: Anemia type: due to chronic kidney disease Chronic kidney disease stage: stage 3 (moderate) Qualified Codes: N18.3 - Chronic kidney disease, stage 3 ( moderate); D63.1 - Anemia in chronic kidney disease Clinical Quality Measures End of Life/Advance Care Plan: Advance Care discuss with: family member (s) Plan: clarifying prognosis Time spent on discussion(mins): 17 DVT/VTE Risk/Contraindication: Risk Factor Score Per Nursin RFS Level Per Nursing on Admit: 4+=Very High ANIRUDH LEDESMA MD Jan 08, 2018 08:26
[2018-01-08] MEDS: LEVETIRACETAM INJECTION 500 MG in NS (IVPB) 100 ML IV SCH ×2 (08:29→20:27)
[2018-01-08] MEDS: PANTOPRAZOLE 40 MG (PROTONIX) VIAL IV SCH ×2 (08:29→20:27)
[2018-01-08] MEDS: meTOprolol TARTRATE 25 MG (LOPRESSOR) TABLET PO SCH ×2 (08:33→12:58)
--- NOTE | 2018-01-08 11:35 | Pulmonary Progress Note ---
Subjective Time Seen by a Provider: 11:35 Subjective/Events-last exam pt sedated on vent. Sepsis Event Evaluation Height, Weight, BMI Height: 5'2.00" Weight: 163lbs. 9.0oz. 74.189799ii; 22.4 BMI Method:Stated Focused Exam Lactate Level 01/07/18 05:45: Lactic Acid Level 0.93 Exam Exam Vital Signs Date Time Temp Pulse Resp B/P (MAP) Pulse Ox O2 Delivery O2 Flow Rate FiO2 01/08/18 10:16 104 20 96 21 01/08/18 10:00 103 18 153/71 (98) 96 Mechanical Ventilator 21.00 01/08/18 09:13 97 Mechanical Ventilator 21 01/08/18 09:00 106 19 149/76 (100) 97 Mechanical Ventilator 21.00 01/08/18 08:00 97.8 112 17 168/78 (108) 96 Mechanical Ventilator 21.00 01/08/18 08:00 96 Mechanical Ventilator 21 01/08/18 07:00 105 16 145/72 (96) 98 Mechanical Ventilator 21.00 01/08/18 07:00 105 01/08/18 06:41 113 22 97 21 01/08/18 06:00 118 17 168/76 (106) 97 Mechanical Ventilator 21.00 01/08/18 05:01 112 21 96 21 01/08/18 05:00 111 18 150/72 (98) 96 Mechanical Ventilator 21.00 01/08/18 04:45 113 18 99 01/08/18 04:45 114 23 97 30 01/08/18 04:00 98.6 114 20 158/79 (105) 96 Mechanical Ventilator 21.00 01/08/18 04:00 96 Mechanical Ventilator 21 01/08/18 03:00 116 19 166/76 (106) 96 Mechanical Ventilator 21.00 01/08/18 02:00 103 16 168/80 (109) 97 Mechanical Ventilator 25.00 01/08/18 01:55 102 22 97 21 01/08/18 01:00 105 01/08/18 01:00 110 18 169/93 (118) 95 Mechanical Ventilator 25.00 01/08/18 00:40 99.5 01/08/18 00:00 107 20 165/76 (105) 96 Mechanical Ventilator 25.00 01/08/18 00:00 96 Mechanical Ventilator 25 01/07/18 23:00 105 20 160/75 (103) 97 Mechanical Ventilator 25.00 01/07/18 22:57 107 19 97 21 01/07/18 22:00 111 20 155/74 (101) 100 Mechanical Ventilator 25.00 01/07/18 21:00 113 19 157/73 (101) 100 Mechanical Ventilator 25.00 01/07/18 20:00 116 22 153/72 (99) 100 Mechanical Ventilator 25.00 01/07/18 20:00 100 Mechanical Ventilator 25 01/07/18 19:22 99.6 01/07/18 19:06 112 21 100 21 01/07/18 19:00 113 01/07/18 19:00 112 18 156/71 (99) 100 Mechanical Ventilator 25.00 01/07/18 18:00 114 20 157/71 (99) 100 Mechanical Ventilator 25.00 01/07/18 17:00 116 19 137/61 (86) 100 Mechanical Ventilator 25.00 01/07/18 16:45 98.7 01/07/18 16:00 117 22 139/62 (87) 100 Mechanical Ventilator 25.00 01/07/18 16:00 100 Mechanical Ventilator 25 01/07/18 15:55 120 22 100 21 01/07/18 15:00 125 20 139/63 (88) 100 Mechanical Ventilator 25.00 01/07/18 14:27 124 22 100 25 01/07/18 14:00 126 23 146/63 (90) 100 Mechanical Ventilator 25.00 01/07/18 13:53 128 23 143/64 100 Mechanical Ventilator 01/07/18 13:00 133 01/07/18 13:00 133 21 139/63 (88) 100 Mechanical Ventilator 25.00 01/07/18 12:30 133 21 100 25 01/07/18 12:00 98.7 01/07/18 12:00 146 23 128/56 (80) 100 Mechanical Ventilator 25.00 01/07/18 12:00 100 Mechanical Ventilator 25 I & O 01/08/18 07:00 Intake Total 851 ml Output Total 630 ml Balance 221 ml Height & Weight Height: 5'2.00" Weight: 163lbs. 9.0oz. 74.067497ln; 22.4 BMI Method:Stated General Appearance: Other (resting comfortably on vent) HEENT: Moist Mucous Membranes; No Scleral Icterus (L), No Scleral Icterus (R); Other (pinpoint pupils, minimally reactive) Respiratory: Lungs Clear, Other (on vent) Cardiovascular: Normal Peripheral Pulses, Tachycardia Capillary Refill: Less Than 3 Seconds Gastrointestinal: non tender, soft Extremity: No Calf Tenderness, No Pedal Edema Neurologic/Psychiatric: Other (sedated, rhythmic jerking noted of right uper extremity and left foot- resolved with ativan) Skin: Normal Color, Warm/Dry Results Lab Laboratory Tests 01/06/18 16:05 01/07/18 03:30 01/07/18 15:20 01/08/18 03:45 Assessment/Plan Assessment/Plan Acute on chronic respiratory failure -Continue vent mgmt -precedex and wean Diprivan -Diprivan -solumedrol 40 IV Q 6 Unresponsive -Head CT is negative CKD with hyperkalemia and metabolic acidosis and decreased UO -HOLD LASIX -s/p insulin, bicarb -Bicarb gtt - change to LR -IVF Anemia with recent hx of GIB -CHeck Hb Q12 -start protonix 40mg BID -Will start TF Pancytopenia -Consider hematology consult Seizure activity -Keppra -Ativan PRN -MRI brain is pending OUMOU DAWSON DO Jan 08, 2018 11:35
[2018-01-08] MEDS ORDERED: D5 LR IV SOLUTION 1,000 ML IV SCH (11:45)
[2018-01-08] MEDS ORDERED: LACTATED RINGERS 1,000 ML IV ONE ×2 (11:45→18:00)
[2018-01-08] MEDS: LACTATED RINGERS 1,000 ML IV SCH ×2 (11:52→19:58)
--- NOTE | 2018-01-08 12:18 | Cardiology Progress Note ---
Cardiology SOAP Progress Note Subjective: Still intubated/ventilated. Objective: I&O/Vital Signs 01/08/18 01/08/18 01/08/18 01/08/18 00:40 01:00 01:00 01:55 Temp 99.5 Pulse 110 105 102 Resp 18 22 B/P (MAP) 169/93 (118) Pulse Ox 95 97 O2 Delivery Mechanical Ventilator O2 Flow Rate 25.00 FiO2 21 01/08/18 01/08/18 01/08/18 01/08/18 02:00 03:00 04:00 04:00 Temp 98.6 Pulse 103 116 114 Resp 16 19 20 B/P (MAP) 168/80 (109) 166/76 (106) 158/79 (105) Pulse Ox 97 96 96 96 O2 Delivery Mechanical Ventilator Mechanical Ventilator Mechanical Ventilator Mechanical Ventilator O2 Flow Rate 25.00 21.00 21.00 FiO2 21 01/08/18 01/08/18 01/08/18 01/08/18 04:45 04:45 05:00 05:01 Pulse 114 113 111 112 Resp 23 18 18 21 B/P (MAP) 150/72 (98) Pulse Ox 97 99 96 96 O2 Delivery Mechanical Ventilator O2 Flow Rate 21.00 FiO2 30 21 01/08/18 01/08/18 01/08/18 01/08/18 06:00 06:41 07:00 07:00 Pulse 118 113 105 105 Resp 17 22 16 B/P (MAP) 168/76 (106) 145/72 (96) Pulse Ox 97 97 98 O2 Delivery Mechanical Ventilator Mechanical Ventilator O2 Flow Rate 21.00 21.00 FiO2 21 01/08/18 01/08/18 01/08/18 01/08/18 08:00 08:00 09:00 09:13 Temp 97.8 Pulse 112 106 Resp 17 19 B/P (MAP) 168/78 (108) 149/76 (100) Pulse Ox 96 96 97 97 O2 Delivery Mechanical Ventilator Mechanical Ventilator Mechanical Ventilator Mechanical Ventilator O2 Flow Rate 21.00 21.00 FiO2 21 21 01/08/18 01/08/18 01/08/18 10:00 10:16 11:56 Temp 98.3 Pulse 103 104 Resp 18 20 B/P (MAP) 153/71 (98) Pulse Ox 96 96 O2 Delivery Mechanical Ventilator Mechanical Ventilator O2 Flow Rate 21.00 21.00 FiO2 21 01/08/18 00:00 Intake Total 442 ml Output Total 375 ml Balance 67 ml Weight (Pounds): 163 Weight (Ounces): 9.0 Weight (Calculated Kilograms): 74.524935 Constitutional: appears stated age; No apparent distress; well-developed, well- nourished Respiratory: chest is bilaterally symmetric, lungs clear to auscultation, other (ventilated.) Cardiovascular: regular rate-rhythm; No irregularly irregular, No extra beats, No parasternal heave is noted, No JVD, No edema, No bradycardia; tachycardia; No point of maximal impulse, No cardiac thrills are palpable; S1 and S2; No gallop/S3, No gallop/S4, No diastolic murmur; systolic murmur; No friction rub, No click, No other Gastrointestional: No tender, No soft, No round, No distended, No pulsatile mass, No organomegaly, No guarding, No rebound, No tenderness, No hernia, No mass, No audible bowel sounds, No abnormal bowel sounds, No abdominal bruits, No spleenomegaly, No other Extremities: No normal range of motion, No non-tender, No normal inspection, No pedal edema, No calf tenderness, No normal capillary refill, No pelvis stable , No calf tenderness, No inflammation, No pedal edema, No slow capillary refill , No swelling, No other, No abrasion, No clubbing, No cyanosis, No ecchymosis, No laceration, No no lower extremity edema bilateral, No significant edema, No tenderness, No wound Neurologic/Psychiatric: other (intubated/ventilated) Skin: No normal color, No warm/dry, No cyanosis, No cool, No diaphoresis, No damp, No ecchymosis, No jaundice, No mottled, No pallor, No rash, No tattoos/ piercings, No ulcerations, No rash on exposed areas, No ulcerations on exposed areas, No other Results/Procedures: Labs Laboratory Tests 01/07/18 12:21: Glucometer 379H 01/07/18 15:20: Hemoglobin 8.9L, Hematocrit 28L, Triglycerides Level 81 01/07/18 18:24: Glucometer 359H 01/08/18 00:23: Glucometer 367H 01/08/18 03:45: White Blood Count 2.2L, Red Blood Count 2.92L, Hemoglobin 8.9L, Hematocrit 28L, Mean Corpuscular Volume 95, Mean Corpuscular Hemoglobin 30, Mean Corpuscular Hemoglobin Concent 32, Red Cell Distribution Width 18.5H, Platelet Count 74L, Mean Platelet Volume 10.8H, Neutrophils (%) (Auto) 85H, Lymphocytes (%) (Auto) 10L, Monocytes (%) (Auto) 6, Eosinophils (%) (Auto) 0, Basophils (%) (Auto) 0, Neutrophils # (Auto) 1.9, Lymphocytes # (Auto) 0.2L, Monocytes # (Auto) 0.1, Eosinophils # (Auto) 0.0, Basophils # (Auto) 0.0, Sodium Level 145, Potassium Level 3.7, Chloride Level 113H, Carbon Dioxide Level 21, Anion Gap 11, Blood Urea Nitrogen 46H, Creatinine 1.91H, Estimat Glomerular Filtration Rate 25, BUN/ Creatinine Ratio 24, Glucose Level 332H, Calcium Level 8.8, Phosphorus Level 2.8 , Magnesium Level 1.6L 01/08/18 03:48: Blood Gas Puncture Site R RAD, Blood Gas Patient Temperature 98.6, Arterial Blood pH 7.41, Arterial Blood Partial Pressure CO2 36, Arterial Blood Partial Pressure O2 71L, Arterial Blood HCO3 22L, Arterial Blood Total CO2 23.3, Arterial Blood Oxygen Saturation 95, Arterial Blood Base Excess -1.7, Yogesh Test YES-POS, Blood Gas Ventilator Setting YES, Blood Gas Inspired Oxygen 21% 01/08/18 11:12: Glucometer 296H Microbiology 01/05/18 Gram Stain - Final, Complete 01/05/18 Sputum Culture - Final, Complete Usual upper respiratory nusrat A/P: Assessment/Dx: Hypotension, Respiratory distress, Hypertrophic obstructive cardiomyopathy, Severe pulmonary hypertension, Improved tachycardia, Significant dehydration, Hyperkalemia, Acute on chronic kidney disease, Dementia, Anemia, recent GI bleed Plan: Intubated/ventilated. CT head. Hypertrophic obstructive cardiomyopathy, with significant underfilling of the LV. Hyper dynamic LV function suggesting that the patient requires significant amount of fluids. CVP 11. Will give low dose beta ifeanyi to improve LV filling. Improved tachycardia, sinus tachycardia. Continue beta ifeanyi. Dilated IVC suggesting increased right atrial pressure likely due to pulmonary hypertension. Pulmonary hypertension: Likely secondary to severe hypertrophic cardiomyopathy. Hypotension: Likely secondary to LVOT obstruction. Will give IV fluids. Continue ICU management. Recent non-STEMI: Troponins [address] deviation on serial EKGs. No wall motion abnormalities on echocardiogram. History of recent significant GI bleed with anemia. History of cirrhosis with anasarca. Leukopenia, unclear etiology. I will defer to Dr. Martinez. Hyperkalemia: Insulin, dextrose. Acute on chronic kidney disease: Creatinine 2.5. Thank you for your consultation. Please call me if you have any questions. Sharron Fraire MD, FACP, FACC, FSCAI, FHRS, CCDS Interventional Cardiology Cardiac Electrophysiology Vascular Medicine and Endovascular Interventions Focused Exam Lactate Level 01/07/18 05:45: Lactic Acid Level 0.93 Basia FRAIRE MD Jan 08, 2018 12:18 pm
[2018-01-08 15:59] LABS: ABG BASE EXCESS 0.5 MMOL/L (-2.5-2.5); ABG OXYGEN SATURATION 90 % (94-100); ABG PCO2 36 MMHG (35-45); ABG PH 7.44 (7.37-7.43); ABG PO2 57 MMHG (79-93); ABG TCO2 25.4 MMOL/L (21.0-31.0); ALLENS TEST YES-POS; INSPIRED O2 21%; PATIENT TEMP 97.6; VENTILATOR YES
--- NOTE | 2018-01-08 17:14 | Diagnostic Imaging Report ---
PROCEDURE: MR imaging of the brain without contrast. TECHNIQUE: Multiplanar, multisequence MR imaging of the brain was performed without contrast. INDICATION: Unresponsiveness. COMPARISON: None. FINDINGS: Evaluation of diffusion-weighted sequence demonstrates a two small foci of increased signal within the right basal ganglia (images 17 and 15, series 4). Corresponding areas of decreased signal are not identifiable on the ADC map, but this is not unexpected given their small size. Findings could be considered acute infarct. There is no evidence of hemorrhagic transformation. There are scattered and confluent areas of abnormal T2/FLAIR bright signal within the periventricular and subcortical deep white matter consistent with chronic small vessel ischemic changes. There is also generalized prominence of ventricles and cortical sulci consistent with age-related parenchymal volume loss. There is no mass effect or midline shift. There are no extra-axial masses or fluid collections. Midline transcervical anatomy is maintained. Major expected intracranial flow voids are seen. No focal bony calvarial lesions are seen. Fluid type bright signal is identified within bilateral mastoid air cells. Paranasal sinuses are clear. IMPRESSION: 1. Small diffusion bright foci within the right basal ganglia, which should be presumed to represent small foci of acute infarct. No hemorrhagic transformation. 2. Background of age-related parenchymal loss and chronic small vessel ischemic changes in the deep white matter. Dictated by: Dictated on workstation # [id number]
[2018-01-08] MEDS ORDERED: meTOprolol 5 MG/5 ML (LOPRESSOR) VIAL ONE (20:17)
[2018-01-08] MEDS: inSUlin DETERMIR 1 UNIT/0.01 ML (LEVEMIR) CHARGE PER UNIT SQ SCH (20:28)
[2018-01-08] MEDS: hydrALAZINE (APESOLINE) 20 MG/ML VIAL IV PRN (21:38)
[2018-01-09] VITALS (29 sets, daily range): BP systolic 131–192; BP diastolic 76–111
[2018-01-09] MEDS ORDERED: meTOprolol 5 MG/5 ML (LOPRESSOR) VIAL IV SCH
[2018-01-09] MEDS: LACTATED RINGERS 1,000 ML IV SCH ×2 (01:12→14:30)
[2018-01-09] MEDS: methylPREDNISolone 40 MG/ML (Solu-MEDROL) VIAL IV SCH ×2 (01:19→06:59)
[2018-01-09] MEDS: hydrALAZINE (APESOLINE) 20 MG/ML VIAL IV PRN ×3 (01:19→22:25)
[2018-01-09] MEDS: RT-ALBUTEROL/IPRATROPIUM 3 ML (DUONEB) VIAL INH SCH ×6 (02:13→22:20)
[2018-01-09 04:00] LABS: BASOPHILS % (AUTO) 0 % (0-10); EOSINOPHILS % (AUTO) 0 % (0-10); HEMATOCRIT 35 % (35-52); HEMOGLOBIN 11.7 G/DL (11.5-16.0); LYMPHOCYTES # (AUTO) 0.6 X 10^3 (1.0-4.0); LYMPHOCYTES % (AUTO) 5 % (12-44); MEAN CORPUSCULAR HEMOGLOBIN 31 PG (25-34); MEAN CORPUSCULAR HGB CONC 33 G/DL (32-36); MEAN CORPUSCULAR VOLUME 93 FL (80-99); MEAN PLATELET VOLUME 10.8 FL (7.4-10.4); MONOCYTES # (AUTO) 0.6 X 10^3 (0.0-1.0); MONOCYTES % (AUTO) 6 % (0-12); NEUTROPHILS % (AUTO) 89 % (42-75); PLATELET COUNT 120 10^3/uL (130-400); RED BLOOD COUNT 3.79 10^6/uL (4.35-5.85); RED CELL DISTRIBUTION WIDTH 18.7 % (10.0-14.5); WHITE BLOOD COUNT 11.2 10^3/uL (4.3-11.0)
[2018-01-09 04:19] LABS: CALCIUM 9.3 MG/DL (8.5-10.1); CREATININE SERUM 1.42 MG/DL (0.60-1.30); MAGNESIUM 1.7 MG/DL (1.8-2.4); PHOSPHORUS 2.1 MG/DL (2.3-4.7); POTASSIUM 3.2 MMOL/L (3.6-5.0)
[2018-01-09] MEDS ORDERED: NITROGLYCERIN 0.4 MG SL TABS BTL 25'S SL ONE (05:09)
--- NOTE | 2018-01-09 05:10 | Pulmonary Progress Note ---
Subjective Time Seen by a Provider: 05:26 Subjective/Events-last exam Complains of CP and SOB. Sepsis Event Evaluation Height, Weight, BMI Height: 5'2.00" Weight: 163lbs. 9.0oz. 74.505619kc; 22.4 BMI Method:Stated Focused Exam Lactate Level 01/07/18 05:45: Lactic Acid Level 0.93 Exam Exam Vital Signs Date Time Temp Pulse Resp B/P (MAP) Pulse Ox O2 Delivery O2 Flow Rate FiO2 01/09/18 04:30 106 35 188/89 (122) 92 Room Air 01/09/18 04:00 96 Room Air 01/09/18 04:00 100 30 176/79 (111) 93 Room Air 01/09/18 03:30 105 33 181/76 (111) 92 Room Air 01/09/18 03:00 130 20 192/105 (134) 91 Room Air 01/09/18 02:30 124 29 92 Room Air 01/09/18 02:16 93 Room Air 01/09/18 02:00 112 35 182/76 (111) 91 Room Air 01/09/18 01:30 110 32 174/86 (115) 91 Room Air 01/09/18 01:00 105 26 183/83 (116) 93 Room Air 01/09/18 01:00 105 01/09/18 00:00 96 Room Air 01/09/18 00:00 109 25 183/82 (115) 94 Room Air 01/08/18 23:30 112 20 179/86 (117) 92 Room Air 01/08/18 23:00 115 31 125/102 (110) 91 Room Air 01/08/18 22:30 116 30 181/120 (140) 92 Room Air 01/08/18 22:15 92 Room Air 01/08/18 22:00 112 19 182/112 (135) 92 Room Air 01/08/18 21:30 98 15 178/121 (140) 99 Room Air 01/08/18 21:00 98 14 193/106 (135) 97 Room Air 01/08/18 20:00 95 13 196/96 (129) 98 Room Air 01/08/18 20:00 96 Room Air 01/08/18 19:27 98.4 96 14 167/87 (113) 99 Room Air 01/08/18 19:00 93 11 100 Nasal Cannula 1.00 01/08/18 19:00 93 01/08/18 18:30 100 13 200/99 (132) 100 Nasal Cannula 1.00 01/08/18 18:11 100 Nasal Cannula 2.00 01/08/18 18:00 93 11 186/89 (121) 100 Nasal Cannula 3.00 01/08/18 17:46 98 190/97 (128) 100 Nasal Cannula 3.00 01/08/18 17:30 102 13 200/105 (136) 100 Nasal Cannula 3.00 01/08/18 16:16 Nasal Cannula 3.00 01/08/18 16:00 97.6 01/08/18 16:00 96 13 162/83 (109) 95 Mechanical Ventilator 21.00 01/08/18 16:00 96 Mechanical Ventilator 21 01/08/18 15:00 101 14 167/80 (109) 95 Mechanical Ventilator 21.00 01/08/18 14:28 96 18 96 21 01/08/18 14:00 101 14 158/87 (110) 96 Mechanical Ventilator 21.00 01/08/18 13:00 109 21 181/92 (121) 96 Mechanical Ventilator 21.00 01/08/18 12:45 100 01/08/18 12:00 110 17 166/94 (118) 97 Mechanical Ventilator 21.00 01/08/18 12:00 96 Mechanical Ventilator 21 01/08/18 11:56 98.3 Mechanical Ventilator 21.00 01/08/18 11:00 104 18 140/65 (90) 96 Mechanical Ventilator 21.00 01/08/18 10:16 104 20 96 21 01/08/18 10:00 103 18 153/71 (98) 96 Mechanical Ventilator 21.00 01/08/18 09:13 97 Mechanical Ventilator 21 01/08/18 09:00 106 19 149/76 (100) 97 Mechanical Ventilator 21.00 01/08/18 08:00 97.8 112 17 168/78 (108) 96 Mechanical Ventilator 21.00 01/08/18 08:00 96 Mechanical Ventilator 21 01/08/18 07:00 105 16 145/72 (96) 98 Mechanical Ventilator 21.00 01/08/18 07:00 105 01/08/18 06:41 113 22 97 21 01/08/18 06:00 118 17 168/76 (106) 97 Mechanical Ventilator 21.00 I & O 01/09/18 07:00 Intake Total 1655 ml Output Total 525 ml Balance 1130 ml Height & Weight Height: 5'2.00" Weight: 163lbs. 9.0oz. 74.911222iz; 22.4 BMI Method:Stated General Appearance: Moderate Distress HEENT: Moist Mucous Membranes; No Scleral Icterus (L), No Scleral Icterus (R) Respiratory: Lungs Clear Cardiovascular: Normal Peripheral Pulses, Tachycardia Capillary Refill: Less Than 3 Seconds Gastrointestinal: non tender, soft Extremity: No Calf Tenderness, No Pedal Edema Neurologic/Psychiatric: Other (sedated, rhythmic jerking noted of right uper extremity and left foot- resolved with ativan) Skin: Normal Color, Warm/Dry Results Lab Laboratory Tests 01/07/18 15:20 01/08/18 03:45 01/09/18 03:44 Assessment/Plan Assessment/Plan Acute on chronic respiratory failure -Pt is now off ventilator -solumedrol 40 IV Q 6 Acute CVA per MRI -Swallow eval -Will start ASA CP -Check ECG -Trop X3 pending -Will give SL nitro -1-2mg of morphine IV Q 4PRN Unresponsive -Head CT is negative CKD with hyperkalemia and metabolic acidosis and decreased UO -HOLD LASIX -s/p insulin, bicarb -Bicarb gtt - change to LR -IVF Anemia with recent hx of GIB -CHeck Hb Q12 -start protonix 40mg BID -Will start TF Pancytopenia -Consider hematology consult Seizure activity -Keppra -Ativan PRN -MRI brain is pending OUMOU DAWSON DO Jan 09, 2018 05:10
[2018-01-09] MEDS ORDERED: SODIUM PHOSPHATE INJ 30 MM in NS (IVPB) 250 ML IV ONE (05:15)
[2018-01-09] MEDS ORDERED: ASPIRIN 325 MG (5 GR) TABLET ONE (05:17)
[2018-01-09] MEDS: ASPIRIN 325 MG (5 GR) TABLET PO SCH (05:23)
[2018-01-09] MEDS: NITROGLYCERIN 0.4 MG SL TABS BTL 25'S SL PRN ×3 (05:24→05:36)
[2018-01-09] MEDS: MAGNESIUM 1 GM/100 ML IVPB 100 ML IV SCH ×5 (05:40→08:40)
[2018-01-09] MEDS: POTASSIUM CL 10MEQ/50ML IVPB 50 ML IV SCH ×6 (05:40→08:41)
[2018-01-09] MEDS: fentaNYL PATCH 100 MCG (DURAGESIC) TD SCH (05:41)
[2018-01-09] MEDS ORDERED: morphine INJ 4 MG/ML 1 ML (VIAL/SYRINGE) ONE (05:42)
[2018-01-09] MEDS: morphine INJ 4 MG/ML 1 ML (VIAL/SYRINGE) IVP PRN ×3 (05:44→23:04)
[2018-01-09] MEDS ORDERED: hydrALAZINE (APESOLINE) 20 MG/ML VIAL IV SCH (06:00)
[2018-01-09] MEDS: KCL 20 MEQ TAB (K-DUR) PO SCH (06:47)
[2018-01-09] MEDS: inSUlin ASPART (NovoLOG) 1 UNIT/0.01 ML (CHARGE PER UNIT) SC SCH ×4 (06:59→22:25)
[2018-01-09] MEDS: LEVETIRACETAM INJECTION 500 MG in NS (IVPB) 100 ML IV SCH ×2 (08:06→22:24)
[2018-01-09] MEDS: PANTOPRAZOLE 40 MG (PROTONIX) VIAL IV SCH ×2 (08:08→22:24)
--- NOTE | 2018-01-09 08:22 | Diagnostic Imaging Report ---
Indication: Respiratory failure Portable chest 4:09 AM Right IJ central tip projects over the SVC. There is cardiomegaly with pulmonary vascular congestion and a volume loss at both lung bases. Impression: Basilar atelectasis and pulmonary venous hypertension. No significant change from the previous day. Dictated by: Dictated on workstation # [id number]
[2018-01-09] MEDS: meTOprolol TARTRATE 25 MG (LOPRESSOR) TABLET PO SCH ×2 (08:40→22:24)
--- NOTE | 2018-01-09 08:42 | Progress Note-Hospitalist ---
Subjective HPI/CC On Admission Date Seen by Provider: Jan 09, 2018 Time Seen by Provider: 08:41 Pt is an 87yoCF with a H GI bleed, Parkinson's dementia, CKD stage 3, and chronic anemia who was transferred here from [facility] due to respiratory failure requiring mechanical ventilation. She is unable to provide me any history at this time so all history comes from records and EMS. The EMS who transferred her here were also the ones on scene at her [facility]. They state they were called when her nurses found her slumped in a chair, unresponsive, and with agonal breathes. On their arrival she had a respiratory rate around 5 and was not protecting her airway so she was intubated in the field and brought to the ER. Further workup there revealed a mildly elevated troponin and a negative CT head. Her last known well was around 1030AM per RN at [facility] and was found slumped in her chair at 1130am. They even noticed periods of apnea up to 45 seconds. BS was 128 BS and sats were in the 90s. Her last BP was 136/57 last night. The [facility] RN also states she has been feeling well and had been behaving normally prior today. Focused Exam Lactate Level 01/09/18 10:45: Lactic Acid Level 1.10 Objective Exam Vital Signs Vital Signs Date Time Temp Pulse Resp B/P (MAP) Pulse Ox O2 Delivery O2 Flow Rate FiO2 01/10/18 09:00 118 28 158/81 (106) 94 Room Air 01/10/18 07:44 97.5 01/08/18 19:00 1.00 01/08/18 16:00 21 Capillary Refill : Less Than 3 Seconds General Appearance: Chronically ill, Mild Distress Respiratory: No Accessory Muscle Use, No Respiratory Distress, Decreased Breath Sounds Cardiovascular: No Murmur, Tachycardia Gastrointestinal: Distended; No Guarding; Tenderness (mild epigastric) Extremity: No Calf Tenderness, No Pedal Edema Results/Procedures Lab Laboratory Tests 01/10/18 03:45 Patient resulted labs reviewed. Assessment/Plan Assessment and Plan Assess & Plan/Chief Complaint Acute Respiratory Failure Critical Care Critical Care: Critically Ill Patient Diagnosis/Problems Diagnosis/Problems (1) Respiratory failure Assessment & Plan: Extubated 01/08 Pulm consulted, appreciate recs CT chest shows cardiomegaly and splenomegaly only Qualifiers: Chronicity: acute Respiratory failure complication: hypoxia Qualified Codes: J96.01 - Acute respiratory failure with hypoxia (2) Cardiomyopathy Assessment & Plan: Echo shows LVOT EF 70% Cardiology consulted Continue high volume fluids Qualifiers: Cardiomyopathy type: obstructive hypertrophic Qualified Codes: I42.1 - Obstructive hypertrophic cardiomyopathy (3) Unresponsive Assessment & Plan: Found unresponsive Likely due to CVA Creatinine elevated- unable to obtain CTA MRI ordered- plan to get today Repeat CT head negative for acute findings (4) Seizure-like activity Assessment & Plan: New onset this admission Resolved with ativan Cont keppra (5) Acute on chronic renal failure Assessment & Plan: Ferry Engineer 1.91 Ferry Engineer 1.86 1 week ago Acidosis improved- still on bicarb gtt Monitor UOP- marginal at this time Qualifiers: Acute renal failure type: unspecified Chronic kidney disease stage: stage 3 (moderate) Qualified Codes: N17.9 - Acute kidney failure, unspecified; N18.3 - Chronic kidney disease, stage 3 (moderate) (6) Hyperkalemia Status: Resolved Assessment & Plan: REsolved Resolution Date/Time: 12/08/17 @ 07:39 (7) Essential (primary) hypertension Status: Chronic Assessment & Plan: Improved-trend (8) Parkinson disease Status: Chronic Assessment & Plan: Baseline dementia (9) Insulin dependent diabetes mellitus Status: Chronic Assessment & Plan: Will add Q6 accuchecks SSI basal insulin added (10) Anemia Status: Chronic Assessment & Plan: At baseline s/p 1 unit pRBCs this admission DC PM H&H checks Qualifiers: Anemia type: due to chronic kidney disease Chronic kidney disease stage: stage 3 (moderate) Qualified Codes: N18.3 - Chronic kidney disease, stage 3 ( moderate); D63.1 - Anemia in chronic kidney disease Clinical Quality Measures DVT/VTE Risk/Contraindication: Risk Factor Score Per Nursin RFS Level Per Nursing on Admit: 4+=Very High ANIRUDH LEDESMA MD Jan 09, 2018 08:42
[2018-01-09] MEDS: fentaNYL INJECTION 100 MCG/2 ML AMP IV PRN (09:43)
--- NOTE | 2018-01-09 09:52 | Progress Note-Hospitalist ---
Subjective HPI/CC On Admission Date Seen by Provider: Jan 09, 2018 Time Seen by Provider: 09:47 Pt is an 87yoCF with a H GI bleed, Parkinson's dementia, CKD stage 3, and chronic anemia who was transferred here from [facility] due to respiratory failure requiring mechanical ventilation. She is unable to provide me any history at this time so all history comes from records and EMS. The EMS who transferred her here were also the ones on scene at her [facility]. They state they were called when her nurses found her slumped in a chair, unresponsive, and with agonal breathes. On their arrival she had a respiratory rate around 5 and was not protecting her airway so she was intubated in the field and brought to the ER. Further workup there revealed a mildly elevated troponin and a negative CT head. Her last known well was around 1030AM per RN at [facility] and was found slumped in her chair at 1130am. They even noticed periods of apnea up to 45 seconds. BS was 128 BS and sats were in the 90s. Her last BP was 136/57 last night. The [facility] RN also states she has been feeling well and had been behaving normally prior today. Subjective/Events-last exam Pt reports chest/abdominal pain and is in bed holding abdomen and tearful. Cannot describe pain or when started exactly. Focused Exam Lactate Level 01/07/18 05:45: Lactic Acid Level 0.93 Objective Exam Vital Signs Vital Signs Date Time Temp Pulse Resp B/P (MAP) Pulse Ox O2 Delivery O2 Flow Rate FiO2 01/09/18 09:00 105 25 176/92 (120) 95 Room Air 01/08/18 19:27 98.4 01/08/18 19:00 1.00 01/08/18 16:00 21 Capillary Refill : Less Than 3 Seconds General Appearance: Chronically ill, Other (tearful, appears uncomfortabel) Neck: Other (central line in place) Respiratory: Lungs Clear, No Respiratory Distress Cardiovascular: Regular Rate, Rhythm, No Murmur Gastrointestinal: Soft, Abnormal Bowel Sounds (quiet), Distended; No Guarding; Tenderness (mild diffuse) Neurologic/Psychiatric: Alert, Other (oriented to person and place) Results/Procedures Lab Laboratory Tests 01/09/18 03:44 Patient resulted labs reviewed. Assessment/Plan Assessment and Plan Assess & Plan/Chief Complaint Acute Respiratory Failure Critical Care Critical Care: Critically Ill Patient Diagnosis/Problems Diagnosis/Problems (1) Respiratory failure Assessment & Plan: Extubated 01/08 Pulm consulted, appreciate recs CT chest shows cardiomegaly and splenomegaly only Qualifiers: Chronicity: acute Respiratory failure complication: hypoxia Qualified Codes: J96.01 - Acute respiratory failure with hypoxia (2) Abdominal pain Status: Acute Assessment & Plan: Examined with Dr Cornell Will get CT Abd/Pelvis Fentanyl for pain Qualifiers: Abdominal location: generalized Qualified Codes: R10.84 - Generalized abdominal pain (3) Unresponsive Assessment & Plan: Found unresponsive Likely due to CVA MRI ordered- shows small infarcts of right basal ganglia Repeat CT head negative for acute findings PT/OT consulted Will start statin and ASA (4) Cardiomyopathy Assessment & Plan: Echo shows LVOT EF 70% Cardiology consulted, appreciate recs Complained of "chest pain" this AM but points to abd Troponin negative Qualifiers: Cardiomyopathy type: obstructive hypertrophic Qualified Codes: I42.1 - Obstructive hypertrophic cardiomyopathy (5) Seizure-like activity Assessment & Plan: New onset this admission Resolved with ativan Cont keppra (6) Acute on chronic renal failure Assessment & Plan: Calf Skinner 1.4 DC bicarb gtt Monitor UOP- remains marginal at this time Qualifiers: Acute renal failure type: unspecified Chronic kidney disease stage: stage 3 (moderate) Qualified Codes: N17.9 - Acute kidney failure, unspecified; N18.3 - Chronic kidney disease, stage 3 (moderate) (7) Hyperkalemia Status: Resolved Assessment & Plan: REsolved Resolution Date/Time: 12/08/17 @ 07:39 (8) Essential (primary) hypertension Status: Chronic Assessment & Plan: Improved-trend (9) Parkinson disease Status: Chronic Assessment & Plan: Baseline dementia (10) Insulin dependent diabetes mellitus Status: Chronic Assessment & Plan: Will add Q6 accuchecks SSI basal insulin added (11) Anemia Status: Chronic Assessment & Plan: Up from baseline s/p 1 unit pRBCs this admission Qualifiers: Anemia type: due to chronic kidney disease Chronic kidney disease stage: stage 3 (moderate) Qualified Codes: N18.3 - Chronic kidney disease, stage 3 ( moderate); D63.1 - Anemia in chronic kidney disease Clinical Quality Measures DVT/VTE Risk/Contraindication: Risk Factor Score Per Nursin RFS Level Per Nursing on Admit: 4+=Very High ANIRUDH LEDESMA MD 25, 2018 09:51
--- NOTE | 2018-01-09 13:06 | Diagnostic Imaging Report ---
PROCEDURE: CT abdomen and pelvis without contrast. TECHNIQUE: Multiple contiguous axial images were obtained through the abdomen and pelvis without the use of intravenous contrast. INDICATION: Abdominal pain. Comparison made with a prior ultrasound from 01/07/[address] from 12/12/2017. FINDINGS: The visualized lung bases demonstrates large bilateral pleural effusion with associated lower lobe consolidation. Cardiomegaly also present. There are valvular calcifications. There is a large hiatal hernia. There is a markedly cirrhotic appearance of the liver without noncontrast evidence of a focal intrahepatic abnormality. The patient is status post cholecystectomy without evidence of biliary dilatation. There are granulomas within the spleen. The spleen is enlarged. The pancreas is markedly atrophic. There is no adrenal mass. There are bilateral renal cysts. There is no hydronephrosis. There is a moderate to large volume of ascites demonstrated throughout the abdomen and pelvis. There is also moderate to large degree of stool demonstrated within the distal left colon. There is no evidence of abnormal bowel dilation to suggest bowel obstruction. The urinary bladder is decompressed by Milian catheter. The patient appears to be status post a previous hysterectomy. There has been previous right hip arthroplasty. There is no pelvic fracture. No pathologically enlarged abdominal or pelvic lymph nodes evident. There are atherosclerotic calcification within a normal caliber aorta. There are advanced multilevel degenerative endplate changes and facet arthropathy present throughout the lumbar spine without evidence of an acute osseous abnormality. Note is also made of diffuse body wall edema. IMPRESSION: 1. Findings are compatible with third spacing with large pleural effusions, moderate to large abdominal pelvic ascites and diffuse body wall edema. 2. Cirrhotic liver with evidence of portal venous hypertension evidenced by splenomegaly. 3. Previous cholecystectomy and hysterectomy. There is no biliary dilatation. 4. Renal cyst, but no evidence of renal obstruction. 5. No evidence of bowel obstruction. 6. No definable abscess. 7. Large hiatal hernia. 8. Marked degenerative features throughout the spine. Previous right hip arthroplasty also noted. Dictated by: Dictated on workstation # [id number]
[2018-01-09] MEDS: fentaNYL INJECTION 100 MCG/2 ML AMP IVP PRN (13:21)
--- NOTE | 2018-01-09 13:21 | Cardiology Progress Note ---
Cardiology SOAP Progress Note Subjective: Complains of chest pain. Objective: I&O/Vital Signs 01/09/18 01/09/18 01/09/18 01/09/18 06:30 07:00 07:00 08:00 Pulse 105 105 101 Resp 27 B/P (MAP) 180/89 (119) 185/101 (129) Pulse Ox 96 97 96 O2 Delivery Room Air Room Air Room Air 01/09/18 01/09/18 01/09/18 01/09/18 08:00 09:00 10:00 10:08 Pulse 107 105 103 Resp 22 B/P (MAP) 187/101 (129) 176/92 (120) 178/84 (115) Pulse Ox 98 95 95 95 O2 Delivery Room Air Room Air Room Air Room Air 01/09/18 01/09/18 01/09/18 01/09/18 11:00 11:22 12:00 13:00 Temp 96.7 Pulse 107 113 Resp 21 B/P (MAP) 173/82 (112) 131/111 (118) Pulse Ox 98 95 97 O2 Delivery Room Air Room Air Room Air 01/09/18 01/09/18 01/09/18 01/09/18 13:00 13:54 14:00 15:00 Pulse 102 111 98 Resp 15 B/P (MAP) 182/84 (116) 173/91 (118) Pulse Ox 99 99 98 O2 Delivery Room Air Room Air Room Air 01/09/18 01/09/18 01/09/18 01/09/18 15:30 15:57 16:00 17:00 Temp 97.6 Pulse 114 112 Resp 18 B/P (MAP) 175/81 (112) 176/81 (112) Pulse Ox 95 96 97 O2 Delivery Room Air Room Air Room Air 01/09/18 18:00 Pulse 112 Resp 19 B/P (MAP) 167/104 (125) Pulse Ox 97 O2 Delivery Room Air 01/09/18 00:00 Intake Total 200 ml Output Total 325 ml Balance -125 ml Weight (Pounds): 167 Weight (Ounces): 9.0 Weight (Calculated Kilograms): [id number] Constitutional: appears stated age; No apparent distress; well-developed, well- nourished Respiratory: chest is bilaterally symmetric, lungs clear to auscultation Cardiovascular: regular rate-rhythm; No irregularly irregular, No extra beats, No parasternal heave is noted, No JVD, No edema, No bradycardia, No point of maximal impulse, No cardiac thrills are palpable; S1 and S2; No gallop/S3, No gallop/S4, No diastolic murmur; systolic murmur; No friction rub, No click, No other Gastrointestional: No tender, No soft, No round, No distended, No pulsatile mass, No organomegaly, No guarding, No rebound, No tenderness, No hernia, No mass, No audible bowel sounds, No abnormal bowel sounds, No abdominal bruits, No spleenomegaly, No other Extremities: No normal range of motion, No non-tender, No normal inspection, No pedal edema, No calf tenderness, No normal capillary refill, No pelvis stable , No calf tenderness, No inflammation, No pedal edema, No slow capillary refill , No swelling, No other, No abrasion, No clubbing, No cyanosis, No ecchymosis, No laceration, No no lower extremity edema bilateral, No significant edema, No tenderness, No wound Neurologic/Psychiatric: other (intubated/ventilated) Skin: No normal color, No warm/dry, No cyanosis, No cool, No diaphoresis, No damp, No ecchymosis, No jaundice, No mottled, No pallor, No rash, No tattoos/ piercings, No ulcerations, No rash on exposed areas, No ulcerations on exposed areas, No other Results/Procedures: Labs Laboratory Tests 01/08/18 20:12: Glucometer 147H 01/09/18 03:44: White Blood Count 11.2H, Red Blood Count 3.79L, Hemoglobin 11.7#, Hematocrit 35 , Mean Corpuscular Volume 93, Mean Corpuscular Hemoglobin 31, Mean Corpuscular Hemoglobin Concent 33, Red Cell Distribution Width 18.7H, Platelet Count 120L, Mean Platelet Volume 10.8H, Neutrophils (%) (Auto) 89H, Lymphocytes (%) (Auto) 5L, Monocytes (%) (Auto) 6, Eosinophils (%) (Auto) 0, Basophils (%) (Auto) 0, Neutrophils # (Auto) 10.0H, Lymphocytes # (Auto) 0.6L, Monocytes # (Auto) 0.6, Eosinophils # (Auto) 0.0, Basophils # (Auto) 0.0, Sodium Level 145, Potassium Level 3.2L, Chloride Level 111H, Carbon Dioxide Level 22, Anion Gap 12, Blood Urea Nitrogen 50H, Creatinine 1.42H, Estimat Glomerular Filtration Rate 35, BUN/ Creatinine Ratio 35, Glucose Level 204H, Calcium Level 9.3, Phosphorus Level 2.1L, Magnesium Level 1.7L, B-Type Natriuretic Peptide 1049.1H 01/09/18 05:40: Troponin I < 0.30 01/09/18 10:45: Lactic Acid Level 1.10 01/09/18 11:24: Glucometer 201H 01/09/18 11:30: Troponin I < 0.30 01/09/18 15:37: Glucometer 171H 01/09/18 18:00: Microbiology 01/05/18 Gram Stain - Final, Complete 01/05/18 Sputum Culture - Final, Complete Usual upper respiratory nusrat A/P: Assessment/Dx: Hypotension, resolved. Respiratory distress, extubated. Hypertrophic obstructive cardiomyopathy, Severe pulmonary hypertension, Improved tachycardia, Significant dehydration, Hyperkalemia, Acute on chronic kidney disease, Dementia, Anemia, recent GI bleed Plan: Extubated, doing well. Complaining of chest pain, negative serial troponin, no ST-T wave abnormality on EKG. Hypertrophic obstructive cardiomyopathy, with significant underfilling of the LV. Hyper dynamic LV function suggesting that the patient requires significant amount of fluids. CVP 11. Will give low dose beta ifeanyi to improve LV filling. Improved tachycardia, sinus tachycardia. Continue beta ifeanyi. Dilated IVC suggesting increased right atrial pressure likely due to pulmonary hypertension. Pulmonary hypertension: Likely secondary to severe hypertrophic cardiomyopathy. Hypotension: Likely secondary to LVOT obstruction. Will give IV fluids. Continue ICU management. Recent non-STEMI: Troponins [address] deviation on serial EKGs. No wall motion abnormalities on echocardiogram. History of recent significant GI bleed with anemia. History of cirrhosis with anasarca. Leukopenia, unclear etiology. I will defer to Dr. Martinez. Hyperkalemia: Insulin, dextrose. Acute on chronic kidney disease: Creatinine 2.5. Thank you for your consultation. Please call me if you have any questions. Sharron Fraire MD, FACP, FACC, FSCAI, FHRS, CCDS Interventional Cardiology Cardiac Electrophysiology Vascular Medicine and Endovascular Interventions Focused Exam Lactate Level 01/07/18 05:45: Lactic Acid Level 0.93 01/09/18 10:45: Lactic Acid Level 1.10 Lactic Acid Level Basia FRAIRE MD Jan 09, 2018 1:21 pm
--- NOTE | 2018-01-09 17:22 | Progress Note ---
Subjective Date Seen by a Provider: Jan 09, 2018 Time Seen by a Provider: 09:21 Subjective/Events-last exam Patient with some slight increased shortness of breath and increasing abdominal distention/pain. Patient has been extubated since last time I saw her. She is unsure when the symptoms began. She had a CT scan abdomen and pelvis that I reviewed which demonstrates a large amounts of abdominal and pelvic ascites and a small ventral hernia. Focused Exam Lactate Level 01/07/18 05:45: Lactic Acid Level 0.93 01/09/18 10:45: Lactic Acid Level 1.10 Objective Exam Vital Signs Date Time Temp Pulse Resp B/P (MAP) Pulse Ox O2 Delivery O2 Flow Rate FiO2 01/09/18 15:57 97.6 01/09/18 15:30 95 Room Air 01/09/18 15:00 98 15 173/91 (118) 98 Room Air 01/09/18 14:00 111 19 182/84 (116) 99 Room Air 01/09/18 13:54 99 Room Air 01/09/18 13:00 102 01/09/18 13:00 113 21 131/111 (118) 97 Room Air 01/09/18 12:00 95 Room Air 01/09/18 11:22 96.7 01/09/18 11:00 107 23 173/82 (112) 98 Room Air 01/09/18 10:08 95 Room Air 01/09/18 10:00 103 22 178/84 (115) 95 Room Air 01/09/18 09:00 105 25 176/92 (120) 95 Room Air 01/09/18 08:00 107 25 187/101 (129) 98 Room Air 01/09/18 08:00 96 Room Air 01/09/18 07:00 101 01/09/18 07:00 105 27 185/101 (129) 97 Room Air 01/09/18 06:30 105 26 180/89 (119) 96 Room Air 01/09/18 06:00 107 21 181/104 (129) 100 Room Air 01/09/18 05:50 95 Room Air 01/09/18 05:30 114 36 164/82 (109) 94 Room Air 01/09/18 05:00 120 37 143/88 (106) 92 Room Air 01/09/18 04:30 106 35 188/89 (122) 92 Room Air 01/09/18 04:00 96 Room Air 01/09/18 04:00 100 30 176/79 (111) 93 Room Air 01/09/18 03:30 105 33 181/76 (111) 92 Room Air 01/09/18 03:00 130 20 192/105 (134) 91 Room Air 01/09/18 02:30 124 29 92 Room Air 01/09/18 02:16 93 Room Air 01/09/18 02:00 112 35 182/76 (111) 91 Room Air 01/09/18 01:30 110 32 174/86 (115) 91 Room Air 01/09/18 01:00 105 26 183/83 (116) 93 Room Air 01/09/18 01:00 105 01/09/18 00:00 96 Room Air 01/09/18 00:00 109 25 183/82 (115) 94 Room Air 01/08/18 23:30 112 20 179/86 (117) 92 Room Air 01/08/18 23:00 115 31 125/102 (110) 91 Room Air 01/08/18 22:30 116 30 181/120 (140) 92 Room Air 01/08/18 22:15 92 Room Air 01/08/18 22:00 112 19 182/112 (135) 92 Room Air 01/08/18 21:30 98 15 178/121 (140) 99 Room Air 01/08/18 21:00 98 14 193/106 (135) 97 Room Air 01/08/18 20:00 95 13 196/96 (129) 98 Room Air 01/08/18 20:00 96 Room Air 01/08/18 19:27 98.4 96 14 167/87 (113) 99 Room Air 01/08/18 19:00 93 11 100 Nasal Cannula 1.00 01/08/18 19:00 93 01/08/18 18:30 100 13 200/99 (132) 100 Nasal Cannula 1.00 01/08/18 18:11 100 Nasal Cannula 2.00 01/08/18 18:00 93 11 186/89 (121) 100 Nasal Cannula 3.00 01/08/18 17:46 98 190/97 (128) 100 Nasal Cannula 3.00 01/08/18 17:30 102 13 200/105 (136) 100 Nasal Cannula 3.00 I & O 01/09/18 07:00 Intake Total 2955 ml Output Total 875 ml Balance 2080 ml Capillary Refill : Less Than 3 Seconds General Appearance: Chronically ill HEENT: Moist Mucous Membranes; No Scleral Icterus (L), No Scleral Icterus (R) Neck: Other Respiratory: Lungs Clear, No Respiratory Distress Cardiovascular: Regular Rate, Rhythm, No Murmur Gastrointestinal: non tender, distended, tenderness (Slight diffusely try reduce the whole ventral hernia) Extremity: No Calf Tenderness, No Pedal Edema Neurologic/Psychiatric: Alert Skin: Normal Color, Warm/Dry Results Lab Laboratory Tests 01/08/18 17:42: Glucometer 141H 01/08/18 20:12: Glucometer 147H 01/09/18 03:44: White Blood Count 11.2H, Red Blood Count 3.79L, Hemoglobin 11.7#, Hematocrit 35 , Mean Corpuscular Volume 93, Mean Corpuscular Hemoglobin 31, Mean Corpuscular Hemoglobin Concent 33, Red Cell Distribution Width 18.7H, Platelet Count 120L, Mean Platelet Volume 10.8H, Neutrophils (%) (Auto) 89H, Lymphocytes (%) (Auto) 5L, Monocytes (%) (Auto) 6, Eosinophils (%) (Auto) 0, Basophils (%) (Auto) 0, Neutrophils # (Auto) 10.0H, Lymphocytes # (Auto) 0.6L, Monocytes # (Auto) 0.6, Eosinophils # (Auto) 0.0, Basophils # (Auto) 0.0, Sodium Level 145, Potassium Level 3.2L, Chloride Level 111H, Carbon Dioxide Level 22, Anion Gap 12, Blood Urea Nitrogen 50H, Creatinine 1.42H, Estimat Glomerular Filtration Rate 35, BUN/ Creatinine Ratio 35, Glucose Level 204H, Calcium Level 9.3, Phosphorus Level 2.1L, Magnesium Level 1.7L, B-Type Natriuretic Peptide 1049.1H 01/09/18 05:40: Troponin I < 0.30 01/09/18 10:45: Lactic Acid Level 1.10 01/09/18 11:24: Glucometer 201H 01/09/18 11:30: Troponin I < 0.30 01/09/18 15:37: Glucometer 171H Microbiology 01/05/18 Gram Stain - Final, Complete 01/05/18 Sputum Culture - Final, Complete Usual upper respiratory nusrat Assessment/Plan Assessment/Plan Assessment/Plan respiratory failure hypotension unresponsive cirrhosis liver Abdominal ascites symptomatic Small ventral hernia reducible Patient likely benefit from paracentesis. We'll plan for GUIDED PARACENTESIS TOMORROW. OBTAIN CONSENT. Clinical Quality Measures DVT/VTE Risk/Contraindication: Risk Factor Score Per Nursin RFS Level Per Nursing on Admit: 4+=Very High BOBBY BRUCE DO Jan 09, 2018 17:22
[2018-01-09] MEDS ORDERED: ATORVASTATIN 20 MG (LIPITOR) TABLET PO SCH (21:00)
[2018-01-09] MEDS: inSUlin DETERMIR 1 UNIT/0.01 ML (LEVEMIR) CHARGE PER UNIT SQ SCH (22:25)
[2018-01-10] VITALS (24 sets, daily range): BP systolic 127–203; BP diastolic 58–120
[2018-01-10] MEDS: fentaNYL INJECTION 100 MCG/2 ML AMP IVP PRN ×2 (01:07→05:47)
[2018-01-10] MEDS: RT-ALBUTEROL/IPRATROPIUM 3 ML (DUONEB) VIAL INH SCH ×6 (02:26→22:40)
[2018-01-10 03:53] LABS: BASOPHILS % (AUTO) 0 % (0-10); EOSINOPHILS % (AUTO) 0 % (0-10); HEMATOCRIT 36 % (35-52); HEMOGLOBIN 11.8 G/DL (11.5-16.0); LYMPHOCYTES % (AUTO) 10 % (12-44); MEAN CORPUSCULAR HGB CONC 33 G/DL (32-36); MEAN CORPUSCULAR VOLUME 93 FL (80-99); MEAN PLATELET VOLUME 10.4 FL (7.4-10.4); MONOCYTES # (AUTO) 0.8 X 10^3 (0.0-1.0); MONOCYTES % (AUTO) 8 % (0-12); NEUTROPHILS # (AUTO) 8.7 X 10^3 (1.8-7.8); NEUTROPHILS % (AUTO) 83 % (42-75); PLATELET COUNT 115 10^3/uL (130-400); RED BLOOD COUNT 3.87 10^6/uL (4.35-5.85); RED CELL DISTRIBUTION WIDTH 19.1 % (10.0-14.5); WHITE BLOOD COUNT 10.6 10^3/uL (4.3-11.0)
[2018-01-10 03:54] LABS: MEAN CORPUSCULAR HEMOGLOBIN 30 PG (25-34)
[2018-01-10 04:18] LABS: MAGNESIUM 2.2 MG/DL (1.8-2.4); PHOSPHORUS 3.2 MG/DL (2.3-4.7)
[2018-01-10 04:19] LABS: CALCIUM 9.4 MG/DL (8.5-10.1); CREATININE SERUM 1.28 MG/DL (0.60-1.30); POTASSIUM 3.5 MMOL/L (3.6-5.0)
[2018-01-10] MEDS: hydrALAZINE (APESOLINE) 20 MG/ML VIAL IV PRN (04:45)
[2018-01-10] MEDS ORDERED: KCL 10 MEQ TAB (MICRO K) PO NR (05:15)
[2018-01-10] MEDS ORDERED: HYDROcodone/APAP 10 MG/325 MG (LORTAB) TAB PO PRN (05:15)
[2018-01-10] MEDS ORDERED: DOCUSATE SODIUM 100 MG (COLACE) CAP PO PRN (05:15)
--- NOTE | 2018-01-10 05:21 | Pulmonary Progress Note ---
Sepsis Event Evaluation Height, Weight, BMI Height: 5'2.00" Weight: 167lbs. 9.0oz. [id number]; 22.4 BMI Method:Stated Focused Exam Lactate Level 01/07/18 05:45: Lactic Acid Level 0.93 01/09/18 10:45: Lactic Acid Level 1.10 Exam Exam Vital Signs Date Time Temp Pulse Resp B/P (MAP) Pulse Ox O2 Delivery O2 Flow Rate FiO2 01/10/18 04:00 113 23 185/114 (137) 97 Room Air 01/10/18 03:00 118 21 184/95 (124) 98 Room Air 01/10/18 02:26 98 Room Air 01/10/18 02:00 105 19 189/96 (127) 97 Room Air 01/10/18 01:00 105 01/10/18 01:00 105 19 181/98 (125) 96 Room Air 01/10/18 00:00 110 23 173/88 (116) 96 Room Air 01/10/18 00:00 96 Room Air 01/09/18 23:00 126 25 156/111 (126) 96 Room Air 01/09/18 22:21 97 Room Air 01/09/18 22:00 113 20 184/90 (121) 96 Room Air 01/09/18 21:00 105 21 179/92 (121) 95 Room Air 01/09/18 20:00 94 Room Air 01/09/18 20:00 101 20 188/86 (120) 95 Room Air 01/09/18 19:48 99.1 116 20 182/85 (117) 95 Room Air 01/09/18 19:00 115 01/09/18 19:00 115 21 182/86 (118) 97 Room Air 01/09/18 18:43 97 Room Air 01/09/18 18:00 112 19 167/104 (125) 97 Room Air 01/09/18 17:00 112 18 176/81 (112) 97 Room Air 01/09/18 16:00 114 22 175/81 (112) 96 Room Air 01/09/18 15:57 97.6 01/09/18 15:30 95 Room Air 01/09/18 15:00 98 15 173/91 (118) 98 Room Air 01/09/18 14:00 111 19 182/84 (116) 99 Room Air 01/09/18 13:54 99 Room Air 01/09/18 13:00 102 01/09/18 13:00 113 21 131/111 (118) 97 Room Air 01/09/18 12:00 95 Room Air 01/09/18 11:22 96.7 01/09/18 11:00 107 23 173/82 (112) 98 Room Air 01/09/18 10:08 95 Room Air 01/09/18 10:00 103 22 178/84 (115) 95 Room Air 01/09/18 09:00 105 25 176/92 (120) 95 Room Air 01/09/18 08:00 107 25 187/101 (129) 98 Room Air 01/09/18 08:00 96 Room Air 01/09/18 07:00 101 01/09/18 07:00 105 27 185/101 (129) 97 Room Air 01/09/18 06:30 105 26 180/89 (119) 96 Room Air 01/09/18 06:00 107 21 181/104 (129) 100 Room Air 01/09/18 05:50 95 Room Air 01/09/18 05:30 114 36 164/82 (109) 94 Room Air I & O 01/10/18 07:00 Intake Total 1200 ml Output Total 1100 ml Balance 100 ml Height & Weight Height: 5'2.00" Weight: 167lbs. 9.0oz. 76.816449tu; 22.4 BMI Method:Stated General Appearance: Chronically ill HEENT: Moist Mucous Membranes; No Scleral Icterus (L), No Scleral Icterus (R) Neck: Other Respiratory: Lungs Clear, No Respiratory Distress Cardiovascular: Regular Rate, Rhythm, No Murmur Capillary Refill: Less Than 3 Seconds Gastrointestinal: non tender, distended, tenderness (Slight diffusely try reduce the whole ventral hernia) Extremity: No Calf Tenderness, No Pedal Edema Neurologic/Psychiatric: Alert Skin: Normal Color, Warm/Dry Results Lab Laboratory Tests 01/09/18 03:44 01/10/18 03:45 Assessment/Plan Assessment/Plan Acute on chronic respiratory failure -Pt is now off ventilator -solumedrol 40 IV Q 6 Acute CVA per MRI -Swallow eval -Will start ASA Unresponsive- now awake -Head CT is negative CKD Anemia with recent hx of GIB -protonix 40mg BID Pancytopenia -Consider hematology consult Seizure activity -Keppra -Ativan PRN SAMIR,OUMOU M DO Jan 10, 2018 05:21
[2018-01-10] MEDS ORDERED: LORazepam INJ 2 MG/ML (ATIVAN) VIAL IVP NR (06:00)
[2018-01-10] MEDS ORDERED: niCARdipine IV FOR DRIP 50 MG KIT ONE (06:06)
[2018-01-10] MEDS ORDERED: NS (IVPB) 250 ML ONE (06:06)
[2018-01-10] MEDS ORDERED: niCARdipine IV 50 MG in NS (IVPB) 230 ML IV SCH ×2 (06:15→07:00)
[2018-01-10] MEDS: morphine INJ 4 MG/ML 1 ML (VIAL/SYRINGE) IVP PRN (07:04)
[2018-01-10] MEDS: POTASSIUM CL 10MEQ/50ML IVPB 50 ML IV SCH ×2 (07:32→10:46)
[2018-01-10] MEDS: MAGNESIUM 1 GM/100 ML IVPB 100 ML IV SCH (07:33)
[2018-01-10] MEDS: KCL 20 MEQ TAB (K-DUR) PO SCH (07:33)
[2018-01-10] MEDS: inSUlin ASPART (NovoLOG) 1 UNIT/0.01 ML (CHARGE PER UNIT) SC SCH ×4 (07:33→20:57)
--- NOTE | 2018-01-10 07:38 | Diagnostic Imaging Report ---
INDICATION: Respiratory failure. Upright portable AP view of the chest is obtained with comparison made study of 01/09/2018. FINDINGS: There has been an overall increase in central pulmonary density in both lungs. No pneumothorax is identified. There is blunting of the costophrenic sulci, greater on the right. Advanced degenerative changes are seen in the shoulders and right jugular central venous catheter remains in stable position. IMPRESSION: Increasing edema and/or pneumonitis in the perihilar regions with moderate bilateral pleural fluid. Dictated by: Dictated on workstation # [id number]
[2018-01-10] MEDS: SINEMET 25/250 (CARBIDOPA/LEVODOPA) TAB PO SCH ×4 (07:49→20:32)
[2018-01-10] MEDS: FUROSEMIDE 40 MG (LASIX) TAB PO SCH (07:49)
--- NOTE | 2018-01-10 08:54 | Physical Therapy Progress Note ---
Therapy Progress Note Hold this a.m. per RN due to Pallative care consult. PT will check status in p.m. NOAH OCHOA PT Jan 10, 2018 08:54
[2018-01-10] MEDS: ASPIRIN 325 MG (5 GR) TABLET PO SCH ×2 (09:26→10:43)
[2018-01-10] MEDS: lisINopril 10 MG (PRINIVIL) TABLET PO SCH (09:26)
[2018-01-10] MEDS: meTOprolol TARTRATE 25 MG (LOPRESSOR) TABLET PO SCH (09:26)
[2018-01-10] MEDS: HYDROcodone/APAP 10 MG/325 MG (LORTAB) TAB PO SCH ×2 (09:26→20:40)
[2018-01-10] MEDS: cloNIDine 0.1 MG (CATAPRES) TAB PO SCH ×2 (09:26→20:40)
[2018-01-10] MEDS: DOCUSATE SODIUM 100 MG (COLACE) CAP PO SCH (09:26)
[2018-01-10] MEDS: LEVETIRACETAM INJECTION 500 MG in NS (IVPB) 100 ML IV SCH ×2 (09:27→20:40)
[2018-01-10] MEDS: PANTOPRAZOLE 40 MG (PROTONIX) VIAL IV SCH ×2 (09:27→20:40)
--- NOTE | 2018-01-10 09:35 | Cardiology Progress Note ---
Subjective Date Seen by Provider: Jan 10, 2018 Time Seen by Provider: 09:25 Subjective/Events-last exam Patient was seen at bedside, lethargic, following commands, denied any active pain. No palpitation. Tachycardic. Events since admission were reviewed Review of Systems General: Fatigue, Malaise, Other (Lethargic, unable to provide full review of systems) Pulmonary: Dyspnea Cardiovascular: No: Chest Pain, Palpitations, Orthopnea, Paroxysmal Noc. Dyspnea, Edema, Lt Headedness, Other Focused Exam Lactate Level 01/09/18 10:45: Lactic Acid Level 1.10 Objective-Cardiology Exam Last Set of Vital Signs Vital Signs 01/08/18 01/10/18 01/10/18 16:00 07:44 09:00 Temp 97.5 Pulse 118 Resp 28 B/P (MAP) 158/81 (106) Pulse Ox 94 O2 Delivery Room Air FiO2 21 Capillary Refill : Less Than 3 Seconds I&O Intake and Output 01/10/18 00:00 Intake Total 2600 ml Output Total 1450 ml Balance 1150 ml Intake Oral 350 ml IV Total 2250 ml Output Urine Total 1450 ml General: Alert, Cooperative, Moderate Distress, Severe Distress HEENT: Atraumatic, PERRLA Neck: Supple, No Thyromegaly Lungs: Normal Air Movement, Other (Bilateral rhonchi) Heart: Normal S1, Normal S2, Gallops, Other (Tachycardic, S3 present, systolic murmur at the left sternal border) Abdomen: No Tenderness, No Hepatosplenomegaly, No Masses, Other (Distended abdomen and diminished bowel sounds) Extremities: No Clubbing, No Cyanosis, No Edema, Normal Pulses, No Tenderness/ Swelling Skin: No Rashes, No Breakdown, No Significant Lesion Neuro: Other (Lethargic, following commands) Psych/Mental Status: Mood NL, Other (Lethargic) Results Lab Laboratory Tests 01/10/18 03:45 A/P-Cardiology Admission Diagnosis Acute respiratory failure Sinus tachycardia Hypertension Hepatic cirrhosis Acute CVA Assessment/Plan Status post acute respiratory failure, extubated at this time, still having shortness of breath. Large pleural effusion, given diuretics, was receiving IV fluid earlier. 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 Started on aspirin. Still lethargic, following commands. Moderate to severe left ventricular hypertrophy, diastolic dysfunction, pulmonary hypertension, hyperdynamic LV, worsening by tachycardia. Severe hypertensive heart disease, maintained on beta blockers, PAMELA inhibitor, alpha blockers, continue to monitor blood pressure and titrate medications Hepatic cirrhosis, portal hypertension, ascites, possible paracentesis Chest pain, nonspecific etiology, Cardec enzymes were negative. Currently not having active chest pain. Had elevated troponin last month and treated conservatively due to severe anemia Anemia, thrombocytopenia, improved, had significant anemia last month. Had questionable gastric mass, followed by general surgery and primary care physician Pulmonary hypertension, advanced diastolic dysfunction, continue to monitor at this time Sinus tachycardia, given beta blockers, severely hypertensive. Continue to monitor blood pressure Severe hypertension requiring multiple medication. Currently blood pressure is better, still tachycardic, I will increase beta blockers and monitor tolerance and response Status post recent GI bleed and anemia requiring multiple transfusion Acute on chronic renal failure, improving. Continue to monitor Clinical Quality Measures DVT/VTE Risk/Contraindication: Risk Factor Score Per Nursin RFS Level Per Nursing on Admit: 4+=Very High JASON CAGE MD Jan 10, 2018 09:35
[2018-01-10] MEDS ORDERED: ASPIRIN 81 MG CHEW (CHILDREN'S ASA) ONE (09:40)
--- NOTE | 2018-01-10 11:15 | Physical Therapy Progress Note ---
Therapy Progress Note PT consulted with family on plan. Family declined PT intervention at this time due to patient decline in medical status. PT will continue to monitor patient status. NOAH OCHOA PT Jan 10, 2018 11:15
--- NOTE | 2018-01-10 12:01 | Occ Therapy Progress Note ---
Therapy Progress Note 1158 Family declined OT on this date due to patient medical status. Will continue to follow. visit NIRMAL NOVAK OT Jan 10, 2018 12:01
--- NOTE | 2018-01-10 15:07 | Progress Note-Hospitalist ---
Progress Note Progress Notes/Assess & Plan Date Seen 01/10/18 Time Seen by Provider: 15:05 Assessment & Plan The patient is an 87-year-old white female from [place] known to me. She has been having regular trips here with evidence of edema and respiratory distress. On this visit she had presented by ambulance to the [place] emergency room and had been intubated in route. On her first visit here she had a GI bleed. On the second which followed that visit shortly she had accumulated a fair bit of edema and was short of breath. This did respond to Lasix. She has been living in an assisted living facility in [place]. Focused Exam Lactate Level 01/09/18 10:45: Lactic Acid Level 1.10 JÚNIOR LOREDO MD Jan 10, 2018 15:07
[2018-01-10] MEDS: inSUlin DETERMIR 1 UNIT/0.01 ML (LEVEMIR) CHARGE PER UNIT SQ SCH (20:40)
[2018-01-10] MEDS: meTOprolol TARTRATE 50 MG (LOPRESSOR) TAB PO SCH (20:40)
--- NOTE | 2018-01-10 20:46 | Progress Note ---
Subjective Date Seen by a Provider: Jan 10, 2018 Time Seen by a Provider: 17:00 Subjective/Events-last exam Patient doing same as well as same complaints as yesterday. She has abdominal discomfort and it is distended. Some shortness of breath. Patient was found to have moderate to large amount of ascites. She is unsure if she wishes to have this drained. She is considering hospice care. Patient's family at bedside and they wish to discuss further whether or not they would like to pursue drainage of ascites. Focused Exam Lactate Level 01/09/18 10:45: Lactic Acid Level 1.10 Objective Exam Vital Signs Date Time Temp Pulse Resp B/P (MAP) Pulse Ox O2 Delivery O2 Flow Rate FiO2 01/10/18 20:00 99.6 95 12 146/80 (102) 99 Nasal Cannula 1.00 01/10/18 18:16 100 Nasal Cannula 2.00 01/10/18 18:00 96 14 127/68 (87) 98 Room Air 01/10/18 17:00 91 11 156/79 (104) 100 Room Air 01/10/18 16:00 93 12 152/80 (104) 100 Room Air 01/10/18 16:00 98 Nasal Cannula 2.00 01/10/18 15:00 98 18 147/81 (103) 98 Room Air 01/10/18 14:33 99 Nasal Cannula 2.00 01/10/18 14:00 96 19 151/77 (101) 97 Room Air 01/10/18 13:00 96 17 143/77 (99) 97 Room Air 01/10/18 13:00 110 01/10/18 12:00 102 21 137/69 (91) 96 Room Air 01/10/18 12:00 97 Nasal Cannula 2.00 01/10/18 11:18 95 Nasal Cannula 2.00 01/10/18 11:00 97 17 139/72 (94) 96 Room Air 01/10/18 10:00 101 20 131/58 (82) 95 Room Air 01/10/18 09:00 118 28 158/81 (106) 94 Room Air 01/10/18 08:00 115 28 150/70 (96) 93 Room Air 01/10/18 07:45 93 Room Air 01/10/18 07:44 97.5 01/10/18 07:05 93 Room Air 01/10/18 07:00 122 20 165/104 (124) 91 Room Air 01/10/18 07:00 121 01/10/18 06:00 112 21 203/101 (135) 91 Room Air 01/10/18 05:00 114 24 179/114 (135) 97 Room Air 01/10/18 04:00 94 Room Air 01/10/18 04:00 113 23 185/114 (137) 97 Room Air 01/10/18 03:00 118 21 184/95 (124) 98 Room Air 01/10/18 02:26 98 Room Air 01/10/18 02:00 105 19 189/96 (127) 97 Room Air 01/10/18 01:00 105 01/10/18 01:00 105 19 181/98 (125) 96 Room Air 01/10/18 00:00 110 23 173/88 (116) 96 Room Air 01/10/18 00:00 96 Room Air 01/09/18 23:00 126 25 156/111 (126) 96 Room Air 01/09/18 22:21 97 Room Air 01/09/18 22:00 113 20 184/90 (121) 96 Room Air 01/09/18 21:00 105 21 179/92 (121) 95 Room Air I & O 01/10/18 07:00 Intake Total 1300 ml Output Total 1600 ml Balance -300 ml Capillary Refill : Less Than 3 Seconds General Appearance: Chronically ill HEENT: Moist Mucous Membranes; No Scleral Icterus (L), No Scleral Icterus (R) Neck: Other Respiratory: Lungs Clear, No Respiratory Distress Cardiovascular: Regular Rate, Rhythm, No Murmur Gastrointestinal: non tender, distended, tenderness (Slight diffusely, reducible ventral hernia) Extremity: No Calf Tenderness, No Pedal Edema Neurologic/Psychiatric: Alert Skin: Normal Color, Warm/Dry Results Lab Laboratory Tests 01/09/18 22:03: Glucometer 197H 01/10/18 03:45: White Blood Count 10.6, Red Blood Count 3.87L, Hemoglobin 11.8, Hematocrit 36, Mean Corpuscular Volume 93, Mean Corpuscular Hemoglobin 30, Mean Corpuscular Hemoglobin Concent 33, Red Cell Distribution Width 19.1H, Platelet Count 115L, Mean Platelet Volume 10.4, Neutrophils (%) (Auto) 83H, Lymphocytes (%) (Auto) 10L, Monocytes (%) (Auto) 8, Eosinophils (%) (Auto) 0, Basophils (%) (Auto) 0, Neutrophils # (Auto) 8.7H, Lymphocytes # (Auto) 1.0, Monocytes # (Auto) 0.8, Eosinophils # (Auto) 0.0, Basophils # (Auto) 0.0, Sodium Level 145, Potassium Level 3.5L, Chloride Level 111H, Carbon Dioxide Level 22, Anion Gap 12, Blood Urea Nitrogen 48H, Creatinine 1.28, Estimat Glomerular Filtration Rate 40, BUN/ Creatinine Ratio 38, Glucose Level 172H, Calcium Level 9.4, Phosphorus Level 3.2 , Magnesium Level 2.2 01/10/18 11:25: Glucometer 149H 01/10/18 13:23: Lab Scanned Report Transfusion Reaction Form 01/10/18 17:25: Glucometer 177H Microbiology 01/05/18 Gram Stain - Final, Complete 01/05/18 Sputum Culture - Final, Complete Usual upper respiratory nusrat Assessment/Plan Assessment/Plan Assessment/Plan respiratory failure hypotension unresponsive cirrhosis liver Abdominal ascites symptomatic Small ventral hernia reducible Patient likely benefit from paracentesis. We discussed the patient and patient' s family with myself weren't sure if they wish to proceed with paracentesis. They're also considering hospice care. They will continue to think about it. Will follow up tomorrow Clinical Quality Measures DVT/VTE Risk/Contraindication: Risk Factor Score Per Nursin RFS Level Per Nursing on Admit: 4+=Very High BOBBY BRUCE DO Jan 10, 2018 20:46
[2018-01-11] VITALS (10 sets, daily range): BP systolic 132–169; BP diastolic 62–103
[2018-01-11] MEDS: RT-ALBUTEROL/IPRATROPIUM 3 ML (DUONEB) VIAL INH SCH ×4 (02:30→20:25)
[2018-01-11 03:11] LABS: BASOPHILS % (AUTO) 0 % (0-10); EOSINOPHILS % (AUTO) 1 % (0-10); HEMATOCRIT 28 % (35-52); HEMOGLOBIN 9.1 G/DL (11.5-16.0); LYMPHOCYTES # (AUTO) 0.6 X 10^3 (1.0-4.0); LYMPHOCYTES % (AUTO) 18 % (12-44); MEAN CORPUSCULAR HEMOGLOBIN 31 PG (25-34); MEAN CORPUSCULAR HGB CONC 32 G/DL (32-36); MEAN CORPUSCULAR VOLUME 96 FL (80-99); MEAN PLATELET VOLUME 10.4 FL (7.4-10.4); MONOCYTES # (AUTO) 0.3 X 10^3 (0.0-1.0); MONOCYTES % (AUTO) 9 % (0-12); NEUTROPHILS # (AUTO) 2.3 X 10^3 (1.8-7.8); NEUTROPHILS % (AUTO) 73 % (42-75); PLATELET COUNT 57 10^3/uL (130-400); RED BLOOD COUNT 2.97 10^6/uL (4.35-5.85); RED CELL DISTRIBUTION WIDTH 18.5 % (10.0-14.5); WHITE BLOOD COUNT 3.1 10^3/uL (4.3-11.0)
[2018-01-11 03:29] LABS: CALCIUM 8.7 MG/DL (8.5-10.1); CREATININE SERUM 1.21 MG/DL (0.60-1.30); MAGNESIUM 1.8 MG/DL (1.8-2.4); PHOSPHORUS 3.7 MG/DL (2.3-4.7); POTASSIUM 3.4 MMOL/L (3.6-5.0)
[2018-01-11] MEDS: POTASSIUM CL 10MEQ/50ML IVPB 50 ML IV SCH ×3 (03:36→04:32)
[2018-01-11] MEDS: KCL 20 MEQ TAB (K-DUR) PO SCH (03:36)
[2018-01-11] MEDS: MAGNESIUM 1 GM/100 ML IVPB 100 ML IV SCH (03:36)
[2018-01-11] MEDS: inSUlin ASPART (NovoLOG) 1 UNIT/0.01 ML (CHARGE PER UNIT) SC SCH ×4 (04:07→21:38)
[2018-01-11] MEDS: FUROSEMIDE 40 MG (LASIX) TAB PO SCH (06:27)
[2018-01-11] MEDS: SINEMET 25/250 (CARBIDOPA/LEVODOPA) TAB PO SCH ×4 (06:27→18:26)
--- NOTE | 2018-01-11 06:39 | Pulmonary Progress Note ---
Subjective Time Seen by a Provider: 07:00 Subjective/Events-last exam Pt is more awake now and family at bedside. Sepsis Event Evaluation Height, Weight, BMI Height: 5'2.00" Weight: 170lbs. 5.0oz. 77.834113wo; 22.4 BMI Method:Stated Focused Exam Lactate Level 01/09/18 10:45: Lactic Acid Level 1.10 Exam Exam Vital Signs Date Time Temp Pulse Resp B/P (MAP) Pulse Ox O2 Delivery O2 Flow Rate FiO2 01/11/18 06:00 80 13 154/80 (104) 100 Nasal Cannula 1.00 01/11/18 05:00 90 25 160/103 (122) 90 Nasal Cannula 1.00 01/11/18 04:00 98.4 01/11/18 04:00 78 10 148/81 (103) 99 Nasal Cannula 1.00 01/11/18 03:40 96 Nasal Cannula 1.00 01/11/18 03:00 62 10 132/67 (88) 100 Nasal Cannula 1.00 01/11/18 02:00 82 10 154/81 (105) 100 Nasal Cannula 1.00 01/11/18 01:00 88 10 140/78 (98) 100 Nasal Cannula 1.00 01/11/18 01:00 88 01/11/18 00:00 93 13 153/81 (105) 99 Nasal Cannula 1.00 01/10/18 23:50 97.2 99 Nasal Cannula 1.00 01/10/18 23:30 98 Nasal Cannula 1.00 01/10/18 23:00 86 11 149/77 (101) 100 Nasal Cannula 1.00 01/10/18 22:40 93 Nasal Cannula 0.50 01/10/18 22:00 94 16 149/84 (105) 100 Nasal Cannula 1.00 01/10/18 21:00 90 14 151/83 (105) 98 Nasal Cannula 1.00 01/10/18 20:05 99 Nasal Cannula 1.00 01/10/18 20:00 99.6 95 12 146/80 (102) 99 Nasal Cannula 1.00 01/10/18 19:00 93 12 148/87 (107) 99 Nasal Cannula 1.00 01/10/18 19:00 93 01/10/18 18:16 100 Nasal Cannula 2.00 01/10/18 18:00 96 14 127/68 (87) 98 Room Air 01/10/18 17:00 91 11 156/79 (104) 100 Room Air 01/10/18 16:00 93 12 152/80 (104) 100 Room Air 01/10/18 16:00 98 Nasal Cannula 2.00 01/10/18 15:00 98 18 147/81 (103) 98 Room Air 01/10/18 14:33 99 Nasal Cannula 2.00 01/10/18 14:00 96 19 151/77 (101) 97 Room Air 01/10/18 13:00 96 17 143/77 (99) 97 Room Air 01/10/18 13:00 110 01/10/18 12:00 102 21 137/69 (91) 96 Room Air 01/10/18 12:00 97 Nasal Cannula 2.00 01/10/18 11:18 95 Nasal Cannula 2.00 01/10/18 11:00 97 17 139/72 (94) 96 Room Air 01/10/18 10:00 101 20 131/58 (82) 95 Room Air 01/10/18 09:00 118 28 158/81 (106) 94 Room Air 01/10/18 08:00 115 28 150/70 (96) 93 Room Air 01/10/18 07:45 93 Room Air 01/10/18 07:44 97.5 01/10/18 07:05 93 Room Air 01/10/18 07:00 122 20 165/104 (124) 91 Room Air 01/10/18 07:00 121 I & O 01/11/18 07:00 Intake Total 1405 ml Output Total 1150 ml Balance 255 ml Height & Weight Height: 5'2.00" Weight: 170lbs. 5.0oz. 77.745925fj; 22.4 BMI Method:Stated General Appearance: No Apparent Distress, Chronically ill HEENT: Moist Mucous Membranes; No Scleral Icterus (L), No Scleral Icterus (R) Neck: Other Respiratory: No Respiratory Distress, Crackles Cardiovascular: Regular Rate, Rhythm, No Murmur Capillary Refill: Less Than 3 Seconds Gastrointestinal: non tender, distended, tenderness (Slight diffusely, reducible ventral hernia) Extremity: No Calf Tenderness, No Pedal Edema Neurologic/Psychiatric: Alert Skin: Normal Color, Warm/Dry Results Lab Laboratory Tests 01/10/18 03:45 01/11/18 03:01 Assessment/Plan Assessment/Plan Acute on chronic respiratory failure -improved Acute CVA per MRI -ASA -NPO Unresponsive- now awake -Head CT is negative HTN urgency -- improved CKD Anemia with recent hx of GIB -protonix 40mg BID Seizure activity -Keppra -Ativan PRN Patient and family are strongly considering hospice care. Hospice is consulted for education. Family is at bedside and all questions answered regarding choices and hospice. 60min spent with patient and family discussing options DNR vs hospice vs aggressive care. Time spent with patient (mins): 60 Advance Care discuss with: patient, family member (s) End of Life Care: Comfort Measures, Pallative Care, Hospice (Hospital), Hospice Care (Home) OUMOU DAWSON DO Jan 11, 2018 06:39
--- NOTE | 2018-01-11 08:26 | Diagnostic Imaging Report ---
Indication: Respiratory failure. Comparison: 01/10/2018. Findings: Stable right IJ Port-A-Cath. Low lung volumes and small bilateral pleural effusions are similar. Perihilar heterogeneous consolidations are similar as well. No pneumothorax. Impression: 1. Stable small bilateral pleural effusions with associated basilar and central pulmonary opacities. Dictated by: Dictated on workstation # [id number]
--- NOTE | 2018-01-11 08:54 | Physical Therapy Progress Note ---
Therapy Progress Note Family reports patient will be on Hospice services and decline PT intervention. NOAH OCHOA PT Jan 11, 2018 08:54
--- NOTE | 2018-01-11 09:03 | Cardiology Progress Note ---
Subjective Date Seen by Provider: Jan 11, 2018 Time Seen by Provider: 09:00 Subjective/Events-last exam Patient resting comfortably in bed. Denies any pain at this time. Review of Systems General: Night Sweats; No Fatigue; Malaise HEENT: No Visual Changes, No Dysphasia Pulmonary: No Dyspnea, No Cough Cardiovascular: Edema; No: Chest Pain, Palpitations Gastrointestinal: No: Nausea, Vomiting Genitourinary: No Frequency Musculoskeletal: No: neck pain, back pain Neurological: Weakness; No: Numbness Focused Exam Lactate Level 01/09/18 10:45: Lactic Acid Level 1.10 Objective-Cardiology Exam Last Set of Vital Signs Vital Signs 01/08/18 01/11/18 16:00 06:00 Pulse 80 Resp 13 B/P (MAP) 154/80 (104) Pulse Ox 100 O2 Delivery Nasal Cannula O2 Flow Rate 1.00 FiO2 21 Capillary Refill : Less Than 3 Seconds I&O Intake and Output 01/11/18 00:00 Intake Total 1155 ml Output Total 1400 ml Balance -245 ml Intake Oral 1050 ml IV Total 105 ml Output Urine Total 1400 ml General: Alert, Cooperative, Moderate Distress, Severe Distress HEENT: Atraumatic, PERRLA Neck: Supple, No Thyromegaly Lungs: Normal Air Movement, Other (Bilateral rhonchi) Heart: Normal S1, Normal S2, Gallops, Other ( S3 present, systolic murmur at the left sternal border) Abdomen: No Tenderness, No Hepatosplenomegaly, No Masses, Other (Distended abdomen and diminished bowel sounds) Extremities: No Clubbing, No Cyanosis, No Edema, Normal Pulses, No Tenderness/ Swelling Skin: No Rashes, No Breakdown, No Significant Lesion Neuro: Other (Lethargic, following commands) Psych/Mental Status: Mood NL, Other (Lethargic) Results Lab Laboratory Tests 01/11/18 03:01 A/P-Cardiology Admission Diagnosis Acute respiratory failure Sinus tachycardia Hypertension Hepatic cirrhosis Acute CVA Assessment/Plan Status post acute respiratory failure, extubated at this time, still having shortness of breath. Large pleural effusion. Patient has been made hospice. 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 Started on aspirin. Still lethargic, following commands. Moderate to severe left ventricular hypertrophy, diastolic dysfunction, pulmonary hypertension, hyperdynamic LV, worsening by tachycardia. Severe hypertensive heart disease, maintained on beta blockers, PAMELA inhibitor, alpha blockers, continue to monitor blood pressure and titrate medications Hepatic cirrhosis, portal hypertension, ascites, possible paracentesis Chest pain, nonspecific etiology, Cardec enzymes were negative. Currently not having active chest pain. Had elevated troponin last month and treated conservatively due to severe anemia Anemia, thrombocytopenia, improved, had significant anemia last month. Had questionable gastric mass, followed by general surgery and primary care physician Pulmonary hypertension, advanced diastolic dysfunction, continue to monitor at this time Sinus tachycardia, maintained on beta blockers. Continue to monitor. Severe hypertension requiring multiple medication. Currently blood pressure is better. Status post recent GI bleed and anemia requiring multiple transfusion Acute on chronic renal failure, improving. Continue to monitor Clinical Quality Measures DVT/VTE Risk/Contraindication: Risk Factor Score Per Nursin RFS Level Per Nursing on Admit: 4+=Very High CHELSEY NORMAN Jan 11, 2018 09:03
[2018-01-11] MEDS: PANTOPRAZOLE 40 MG (PROTONIX) VIAL IV SCH ×2 (09:25→21:26)
[2018-01-11] MEDS: meTOprolol TARTRATE 50 MG (LOPRESSOR) TAB PO SCH ×2 (09:27→21:27)
[2018-01-11] MEDS: DOCUSATE SODIUM 100 MG (COLACE) CAP PO SCH (09:27)
[2018-01-11] MEDS: cloNIDine 0.1 MG (CATAPRES) TAB PO SCH ×2 (09:27→21:27)
[2018-01-11] MEDS: lisINopril 10 MG (PRINIVIL) TABLET PO SCH (09:27)
[2018-01-11] MEDS: ASPIRIN 325 MG (5 GR) TABLET PO SCH (09:27)
[2018-01-11] MEDS: HYDROcodone/APAP 10 MG/325 MG (LORTAB) TAB PO SCH ×2 (09:27→21:27)
[2018-01-11] MEDS: LEVETIRACETAM INJECTION 500 MG in NS (IVPB) 100 ML IV SCH ×2 (09:32→21:26)
--- NOTE | 2018-01-11 10:07 | Cardiology Progress Note ---
Subjective Date Seen by Provider: Jan 11, 2018 Time Seen by Provider: 10:05 Subjective/Events-last exam Patient is laying down in bed, lethargic, unable to provide any history Review of Systems General: Fatigue, Malaise Pulmonary: Dyspnea; No Cough, No Pleuritic Chest Pain, No Other Cardiovascular: No: Chest Pain, Palpitations, Orthopnea, Paroxysmal Noc. Dyspnea, Edema, Lt Headedness, Other Focused Exam Lactate Level 01/09/18 10:45: Lactic Acid Level 1.10 Objective-Cardiology Exam Last Set of Vital Signs Vital Signs 01/08/18 01/11/18 01/11/18 16:00 06:00 09:13 Pulse 80 Resp 13 B/P (MAP) 154/80 (104) Pulse Ox 100 O2 Delivery Room Air O2 Flow Rate 1.00 FiO2 21 Capillary Refill : Less Than 3 Seconds I&O Intake and Output 01/11/18 00:00 Intake Total 1155 ml Output Total 1400 ml Balance -245 ml Intake Oral 1050 ml IV Total 105 ml Output Urine Total 1400 ml General: Alert, Cooperative, Moderate Distress, Severe Distress, Other ( lethargic) HEENT: Atraumatic, PERRLA Neck: Supple, No Thyromegaly Lungs: Normal Air Movement, Other (Bilateral rhonchi) Heart: Normal S1, Normal S2, Gallops, Other ( S3 present, systolic murmur at the left sternal border) Abdomen: No Tenderness, No Hepatosplenomegaly, No Masses, Other (Distended abdomen and diminished bowel sounds) Extremities: No Clubbing, No Cyanosis, No Edema, Normal Pulses, No Tenderness/ Swelling Skin: No Rashes, No Breakdown, No Significant Lesion Neuro: Other (Lethargic, following commands) Psych/Mental Status: Mood NL, Other (Lethargic) Results Lab Laboratory Tests 01/11/18 03:01 A/P-Cardiology Admission Diagnosis Acute respiratory failure Sinus tachycardia Hypertension Hepatic cirrhosis Acute CVA Assessment/Plan Status post acute respiratory failure, extubated at this time, still having shortness of breath. Large pleural effusion. 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 Started on aspirin. Still lethargic, following commands. Moderate to severe left ventricular hypertrophy, diastolic dysfunction, pulmonary hypertension, hyperdynamic LV, worsening by tachycardia. Severe hypertensive heart disease, maintained on beta blockers, PAMELA inhibitor, alpha blockers, continue to monitor blood pressure and titrate medications Hepatic cirrhosis, portal hypertension, ascites, possible paracentesis Chest pain, nonspecific etiology, Cardec enzymes were negative. Currently not having active chest pain. Had elevated troponin last month and treated conservatively due to severe anemia Anemia, thrombocytopenia, improved, had significant anemia last month. Had questionable gastric mass, followed by general surgery and primary care physician Pulmonary hypertension, advanced diastolic dysfunction, continue to monitor at this time Sinus tachycardia, maintained on beta blockers. Continue to monitor. Severe hypertension requiring multiple medication. Currently blood pressure is better. Status post recent GI bleed and anemia requiring multiple transfusion Acute on chronic renal failure, improving. Continue to monitor Clinical Quality Measures DVT/VTE Risk/Contraindication: Risk Factor Score Per Nursin RFS Level Per Nursing on Admit: 4+=Very High JASON CAGE MD Jan 11, 2018 10:06 am
[2018-01-11] MEDS: CATHETER FLUSH 10 ML SYR IV SCH ×2 (10:37→18:26)
--- NOTE | 2018-01-11 12:59 | Occ Therapy Progress Note ---
Therapy Progress Note Per PT, pt's family reports pt will be on hospice services and declined therapy intervention at this time. Will discontinue OT. KIRSTEN BUTTS OT Jan 11, 2018 12:58
--- NOTE | 2018-01-11 14:14 | Progress Note-Hospitalist ---
Progress Note Progress Notes/Assess & Plan Date Seen 01/11/18 Time Seen by Provider: 14:10 Assessment & Plan The patient appears a bit brighter today than yesterday. She was moved from the ICU yesterday to the floor as a bed was needed. Accompanied by Yonny Brito palliative care nurse we had a amadou discussion with the patient and her daughter and son-in-law relative to what she would wish to be done for the future. They have already covered the DO NOT RESUSCITATE issue but have been considering comfort care versus hospice care. The services and requirements of each were explained to the family. They will discuss this and give me their opinion. Physical exam: The patient appears brighter and more interactive today. She remains on oxygen. Lungs show distant breath sounds. CV is regular. Extremities show minimal edema. Impression: Post resuscitation and intubation. Multiple episodes of hospitalization for pulmonary edema since June 2017. 3.diastolic dysfunction. 4.mitral regurgitation and resultant pulmonary hypertension. Plan: Await decision by family. We will go to sleep Focused Exam Lactate Level 01/09/18 10:45: Lactic Acid Level 1.10 JÚNIOR LOREDO MD Jan 11, 2018 14:14
[2018-01-11] MEDS: inSUlin DETERMIR 1 UNIT/0.01 ML (LEVEMIR) CHARGE PER UNIT SQ SCH (21:38)
[2018-01-11] MEDS: fentaNYL PATCH 100 MCG (DURAGESIC) TD SCH (23:03)
[2018-01-12] VITALS (7 sets, daily range): BP systolic 125–176; BP diastolic 60–84
[2018-01-12] MEDS: hydrALAZINE (APESOLINE) 20 MG/ML VIAL IV PRN (01:04)
[2018-01-12] MEDS: morphine INJ 4 MG/ML 1 ML (VIAL/SYRINGE) IVP PRN (01:04)
[2018-01-12] MEDS: CATHETER FLUSH 10 ML SYR IV SCH ×3 (01:43→17:04)
[2018-01-12 04:37] LABS: BASOPHILS % (AUTO) 0 % (0-10); EOSINOPHILS # (AUTO) 0.1 10^3/uL (0.0-0.3); EOSINOPHILS % (AUTO) 1 % (0-10); HEMATOCRIT 33 % (35-52); HEMOGLOBIN 10.6 G/DL (11.5-16.0); LYMPHOCYTES # (AUTO) 0.5 X 10^3 (1.0-4.0); LYMPHOCYTES % (AUTO) 10 % (12-44); MEAN CORPUSCULAR HEMOGLOBIN 31 PG (25-34); MEAN CORPUSCULAR HGB CONC 33 G/DL (32-36); MEAN CORPUSCULAR VOLUME 95 FL (80-99); MEAN PLATELET VOLUME 10.7 FL (7.4-10.4); MONOCYTES # (AUTO) 0.4 X 10^3 (0.0-1.0); MONOCYTES % (AUTO) 8 % (0-12); NEUTROPHILS # (AUTO) 4.2 X 10^3 (1.8-7.8); NEUTROPHILS % (AUTO) 81 % (42-75); PLATELET COUNT 69 10^3/uL (130-400); RED BLOOD COUNT 3.44 10^6/uL (4.35-5.85); RED CELL DISTRIBUTION WIDTH 17.9 % (10.0-14.5); WHITE BLOOD COUNT 5.2 10^3/uL (4.3-11.0)
[2018-01-12 04:58] LABS: CREATININE SERUM 1.15 MG/DL (0.60-1.30); MAGNESIUM 1.3 MG/DL (1.8-2.4); POTASSIUM 3.3 MMOL/L (3.6-5.0)
[2018-01-12] MEDS: SINEMET 25/250 (CARBIDOPA/LEVODOPA) TAB PO SCH ×4 (06:38→18:57)
[2018-01-12] MEDS: inSUlin ASPART (NovoLOG) 1 UNIT/0.01 ML (CHARGE PER UNIT) SC SCH ×4 (06:38→21:35)
[2018-01-12] MEDS: FUROSEMIDE 40 MG (LASIX) TAB PO SCH (06:38)
[2018-01-12] MEDS: RT-ALBUTEROL/IPRATROPIUM 3 ML (DUONEB) VIAL INH SCH ×3 (07:22→19:13)
--- NOTE | 2018-01-12 07:33 | Pulmonary Progress Note ---
Sepsis Event Evaluation Height, Weight, BMI Height: 5'2.00" Weight: 172lbs. 4.8oz. 78.503005lh; 22.4 BMI Method:Stated Focused Exam Lactate Level 01/09/18 10:45: Lactic Acid Level 1.10 Exam Exam Vital Signs Date Time Temp Pulse Resp B/P (MAP) Pulse Ox O2 Delivery O2 Flow Rate FiO2 01/12/18 02:00 148/70 (96) 01/12/18 00:10 97.6 99 20 162/78 (106) 92 Nasal Cannula 2.00 01/11/18 20:30 96 Nasal Cannula 1.00 01/11/18 20:25 93 Nasal Cannula 1.00 01/11/18 19:45 97.3 84 20 141/67 (91) 97 Nasal Cannula 2.00 01/11/18 16:00 96.8 83 20 154/69 (97) 98 Nasal Cannula 2.00 01/11/18 15:21 96 Nasal Cannula 2.00 01/11/18 13:59 97.8 82 133/62 (85) 96 Nasal Cannula 1.00 01/11/18 09:13 Room Air 01/11/18 08:00 100 Room Air 1.00 I & O 01/12/18 07:00 Intake Total 1535 ml Output Total 1600 ml Balance -65 ml Height & Weight Height: 5'2.00" Weight: 172lbs. 4.8oz. 78.324852fw; 22.4 BMI Method:Stated General Appearance: No Apparent Distress, Chronically ill HEENT: Moist Mucous Membranes; No Scleral Icterus (L), No Scleral Icterus (R) Neck: Other Respiratory: No Respiratory Distress, Crackles Cardiovascular: Regular Rate, Rhythm, No Murmur Capillary Refill: Less Than 3 Seconds Gastrointestinal: non tender, distended, tenderness (Slight diffusely, reducible ventral hernia) Extremity: No Calf Tenderness, No Pedal Edema Neurologic/Psychiatric: Alert Skin: Normal Color, Warm/Dry Results Lab Laboratory Tests 01/11/18 03:01 01/12/18 04:31 Assessment/Plan Assessment/Plan Acute on chronic respiratory failure -improved Acute CVA per MRI -ASA -NPO Unresponsive- now awake -Head CT is negative HTN urgency -- improved CKD Anemia with recent hx of GIB -protonix 40mg BID Seizure activity -Keppra -Ativan PRN Family is now comfort care only. Will sign off please call with any questions. OUMOU DAWSON DO Jan 12, 2018 07:33
[2018-01-12] MEDS: DOCUSATE SODIUM 100 MG (COLACE) CAP PO SCH (09:06)
[2018-01-12] MEDS: lisINopril 10 MG (PRINIVIL) TABLET PO SCH (09:06)
[2018-01-12] MEDS: ASPIRIN 325 MG (5 GR) TABLET PO SCH (09:06)
[2018-01-12] MEDS: cloNIDine 0.1 MG (CATAPRES) TAB PO SCH ×2 (09:06→21:35)
[2018-01-12] MEDS: PANTOPRAZOLE 40 MG (PROTONIX) VIAL IV SCH (09:06)
[2018-01-12] MEDS: HYDROcodone/APAP 10 MG/325 MG (LORTAB) TAB PO SCH ×2 (09:06→21:58)
[2018-01-12] MEDS: meTOprolol TARTRATE 50 MG (LOPRESSOR) TAB PO SCH ×2 (09:06→21:35)
[2018-01-12] MEDS: LEVETIRACETAM INJECTION 500 MG in NS (IVPB) 100 ML IV SCH ×2 (09:07→21:35)
--- NOTE | 2018-01-12 11:56 | Progress Note-Hospitalist ---
MARISELA FIGUEROA DO 01/12/18 1156: Subjective HPI/CC On Admission Date Seen by Provider: Jan 12, 2018 Time Seen by Provider: 11:00 Pt is an 87yoCF with a H GI bleed, Parkinson's dementia, CKD stage 3, and chronic anemia who was transferred here from [facility] ED due to respiratory failure requiring mechanical ventilation. She is unable to provide me any history at this time so all history comes from records and EMS. The EMS who transferred her here were also the ones on scene at her [facility]. They state they were called when her nurses found her slumped in a chair, unresponsive, and with agonal breathes. On their arrival she had a respiratory rate around 5 and was not protecting her airway so she was intubated in the field and brought to the ER. Further workup there revealed a mildly elevated troponin and a negative CT head. Her last known well was around 1030AM per RN at [facility] and was found slumped in her chair at 1130am. They even noticed periods of apnea up to 45 seconds. BS was 128 BS and sats were in the 90s. Her last BP was 136/57 last night. The [facility] RN also states she has been feeling well and had been behaving normally prior today. Subjective/Events-last exam Patient is resting well She wakes up periodically I cared for this patient 3 weeks ago and DC to [place] in [facility] Objective Exam Vital Signs Vital Signs Date Time Temp Pulse Resp B/P (MAP) Pulse Ox O2 Delivery O2 Flow Rate FiO2 01/12/18 19:14 94 Nasal Cannula 1.00 01/12/18 16:00 96.3 87 16 168/77 (107) 01/08/18 16:00 21 Capillary Refill : Less Than 3 Seconds General Appearance: No Apparent Distress, WD/WN, Chronically ill, Other ( sleeping) Respiratory: Chest Non Tender, Lungs Clear, Normal Breath Sounds, No Accessory Muscle Use, No Respiratory Distress Cardiovascular: Regular Rate, Rhythm, No Edema, No Gallop, No JVD, No Murmur, Normal Peripheral Pulses Results/Procedures Lab Laboratory Tests 01/12/18 04:31 Patient resulted labs reviewed. Assessment/Plan Assessment and Plan Assess & Plan/Chief Complaint Assessment: End of life status Plan: Comfort care Critical Care Critical Care: Critically Ill Patient Diagnosis/Problems Diagnosis/Problems (1) End of life care Status: Acute Clinical Quality Measures DVT/VTE Risk/Contraindication: Risk Factor Score Per Nursin RFS Level Per Nursing on Admit: 4+=Very High CANDI REIS MED STUDENT 01/12/18 1510: Subjective Subjective/Events-last exam The patient states that she is feeling better this morning She complains of a tightness in her chest She has difficult time answering questions due to shortness of breath She states that she is not in pain Objective Exam General Appearance: No Apparent Distress, WD/WN Respiratory: Chest Non Tender, Lungs Clear, Normal Breath Sounds, No Accessory Muscle Use Cardiovascular: Regular Rate, Rhythm, No Edema, No Gallop, No JVD, No Murmur Neurologic/Psychiatric: Alert, Oriented x3, No Motor/Sensory Deficits, Normal Mood/Affect Skin: Normal Color, Warm/Dry Assessment/Plan Assessment and Plan Assess & Plan/Chief Complaint Assessment: 1) Respiratory failure Plan: 1) Continue to monitor 2) Continue pain control MARISELA FIGUEROA DO Jan 12, 2018 11:56 CANDI REIS MED STUDENT Jan 12, 2018 15:10
[2018-01-12] MEDS: PANTOPRAZOLE 40 MG (PROTONIX) TAB PO SCH (21:35)
[2018-01-12] MEDS: inSUlin DETERMIR 1 UNIT/0.01 ML (LEVEMIR) CHARGE PER UNIT SQ SCH (21:36)
[2018-01-13 00:28] VITALS: BP 149/71
[2018-01-13] MEDS: CATHETER FLUSH 10 ML SYR IV SCH ×4 (02:35→20:22)
[2018-01-13 04:06] VITALS: BP 120/63
[2018-01-13 05:34] LABS: BASOPHILS % (AUTO) 0 % (0-10); EOSINOPHILS # (AUTO) 0.1 10^3/uL (0.0-0.3); EOSINOPHILS % (AUTO) 4 % (0-10); HEMATOCRIT 28 % (35-52); HEMOGLOBIN 8.9 G/DL (11.5-16.0); LYMPHOCYTES # (AUTO) 0.6 X 10^3 (1.0-4.0); LYMPHOCYTES % (AUTO) 18 % (12-44); MEAN CORPUSCULAR HEMOGLOBIN 31 PG (25-34); MEAN CORPUSCULAR HGB CONC 32 G/DL (32-36); MEAN CORPUSCULAR VOLUME 97 FL (80-99); MEAN PLATELET VOLUME 10.8 FL (7.4-10.4); MONOCYTES # (AUTO) 0.4 X 10^3 (0.0-1.0); MONOCYTES % (AUTO) 12 % (0-12); NEUTROPHILS # (AUTO) 2.3 X 10^3 (1.8-7.8); NEUTROPHILS % (AUTO) 67 % (42-75); PLATELET COUNT 62 10^3/uL (130-400); RED BLOOD COUNT 2.88 10^6/uL (4.35-5.85); RED CELL DISTRIBUTION WIDTH 17.1 % (10.0-14.5); WHITE BLOOD COUNT 3.5 10^3/uL (4.3-11.0)
[2018-01-13] MEDS: FUROSEMIDE 40 MG (LASIX) TAB PO SCH (06:24)
[2018-01-13] MEDS: SINEMET 25/250 (CARBIDOPA/LEVODOPA) TAB PO SCH ×4 (06:24→18:28)
[2018-01-13 06:32] LABS: CALCIUM 8.5 MG/DL (8.5-10.1); CREATININE SERUM 1.06 MG/DL (0.60-1.30); MAGNESIUM 1.2 MG/DL (1.8-2.4); PHOSPHORUS 2.9 MG/DL (2.3-4.7)
[2018-01-13] MEDS: inSUlin ASPART (NovoLOG) 1 UNIT/0.01 ML (CHARGE PER UNIT) SC SCH ×4 (06:41→20:40)
[2018-01-13] MEDS: RT-ALBUTEROL/IPRATROPIUM 3 ML (DUONEB) VIAL INH SCH ×3 (07:32→18:54)
[2018-01-13 07:54] VITALS: BP 142/67
[2018-01-13] MEDS: PANTOPRAZOLE 40 MG (PROTONIX) TAB PO SCH ×2 (09:49→20:22)
[2018-01-13] MEDS: cloNIDine 0.1 MG (CATAPRES) TAB PO SCH ×2 (09:49→20:22)
[2018-01-13] MEDS: lisINopril 10 MG (PRINIVIL) TABLET PO SCH (09:49)
[2018-01-13] MEDS: LEVETIRACETAM INJECTION 500 MG in NS (IVPB) 100 ML IV SCH ×2 (09:49→20:21)
[2018-01-13] MEDS: HYDROcodone/APAP 10 MG/325 MG (LORTAB) TAB PO SCH ×2 (09:49→20:22)
[2018-01-13] MEDS: DOCUSATE SODIUM 100 MG (COLACE) CAP PO SCH (09:49)
[2018-01-13] MEDS: meTOprolol TARTRATE 50 MG (LOPRESSOR) TAB PO SCH ×2 (09:50→20:22)
[2018-01-13] MEDS: ASPIRIN 325 MG (5 GR) TABLET PO SCH (09:50)
--- NOTE | 2018-01-13 10:16 | Progress Note-Hospitalist ---
Subjective HPI/CC On Admission Date Seen by Provider: Jan 13, 2018 Time Seen by Provider: 10:00 Pt is an 87yoCF with a H GI bleed, Parkinson's dementia, CKD stage 3, and chronic anemia who was transferred here from [facility] due to respiratory failure requiring mechanical ventilation. She is unable to provide me any history at this time so all history comes from records and EMS. The EMS who transferred her here were also the ones on scene at her [facility]. They state they were called when her nurses found her slumped in a chair, unresponsive, and with agonal breathes. On their arrival she had a respiratory rate around 5 and was not protecting her airway so she was intubated in the field and brought to the ER. Further workup there revealed a mildly elevated troponin and a negative CT head. Her last known well was around 1030AM per RN at [facility] and was found slumped in her chair at 1130am. They even noticed periods of apnea up to 45 seconds. BS was 128 BS and sats were in the 90s. Her last BP was 136/57 last night. The [facility] RN also states she has been feeling well and had been behaving normally prior today. Subjective/Events-last exam Patient not eating well Confusion persists Obsessed about the fact that she can't walk Awaiting fci placement Objective Exam Vital Signs Vital Signs Date Time Temp Pulse Resp B/P (MAP) Pulse Ox O2 Delivery O2 Flow Rate FiO2 01/13/18 09:45 96 Nasal Cannula 1.00 01/13/18 07:54 97.5 84 16 142/67 (92) 01/08/18 16:00 21 Capillary Refill : Less Than 3 Seconds General Appearance: No Apparent Distress, WD/WN, Chronically ill Respiratory: No Accessory Muscle Use, No Respiratory Distress, Crackles, Decreased Breath Sounds Extremity: Pedal Edema Neurologic/Psychiatric: Disoriented Results/Procedures Lab Laboratory Tests 01/13/18 05:28 Patient resulted labs reviewed. Assessment/Plan Assessment and Plan Assess & Plan/Chief Complaint Assessment: End of life status Plan: Comfort care Critical Care Critical Care: Critically Ill Patient Diagnosis/Problems Diagnosis/Problems (1) End of life care Status: Acute Clinical Quality Measures DVT/VTE Risk/Contraindication: Risk Factor Score Per Nursin RFS Level Per Nursing on Admit: 4+=Very High MARISELA FIGUEROA DO Jan 13, 2018 10:16
[2018-01-13 12:10] VITALS: BP 114/57
[2018-01-13 15:50] VITALS: BP 134/60
[2018-01-13 19:15] VITALS: BP 137/62
[2018-01-13] MEDS: inSUlin DETERMIR 1 UNIT/0.01 ML (LEVEMIR) CHARGE PER UNIT SQ SCH (20:40)
[2018-01-14 00:08] VITALS: BP 135/60
[2018-01-14] MEDS: SINEMET 25/250 (CARBIDOPA/LEVODOPA) TAB PO SCH ×2 (06:52→11:00)
[2018-01-14] MEDS: FUROSEMIDE 40 MG (LASIX) TAB PO SCH (06:52)
[2018-01-14] MEDS: inSUlin ASPART (NovoLOG) 1 UNIT/0.01 ML (CHARGE PER UNIT) SC SCH ×2 (07:08→11:41)
[2018-01-14] MEDS ORDERED: DEXTROSE 50% 50 ML (IMS) SYR IV ONE (07:15)
[2018-01-14] MEDS: RT-ALBUTEROL/IPRATROPIUM 3 ML (DUONEB) VIAL INH SCH (07:30)
[2018-01-14 08:00] VITALS: BP 158/78
[2018-01-14] MEDS ORDERED: LEVETIRACETAM 500 MG (KEPPRA) TAB PO SCH (09:00)
[2018-01-14] MEDS ORDERED: FENT1PAT60 TD (09:09)
[2018-01-14] MEDS ORDERED: DIAZ2TAB2 PO (09:09)
[2018-01-14] MEDS ORDERED: ACHD5005 PO (09:09)
--- NOTE | 2018-01-14 09:10 | Discharge Summary-Hospitalist ---
Diagnosis/Chief Complaint Date of Admission Jan 05, 2018 at 15:37 Date of Discharge Discharge Date: Jan 14, 2018 Admission Diagnosis Acute Respiratory Failure Discharge Diagnosis (1) End of life care Status: Acute (2) Stroke Status: Acute (3) Cardiomyopathy Status: Acute (4) Seizure-like activity Status: Acute (5) Unresponsive Status: Acute (6) Acute on chronic renal failure Status: Acute (7) Essential (primary) hypertension Status: Chronic (8) Respiratory failure Assessment & Plan: Extubated 01/08 Pulm consulted, appreciate recs CT chest shows cardiomegaly and splenomegaly only (9) Parkinson disease Status: Chronic (10) Anemia Status: Chronic (11) Insulin dependent diabetes mellitus Status: Chronic (12) Cirrhosis Status: Chronic Discharge Summary Discharge Physical Exam Allergies: Coded Allergies: celecoxib (Verified Allergy, Unknown, 12/12/17) Sulfa (Sulfonamide Antibiotics) (Verified Adverse Reaction, Severe, ) Vitals & I&Os Vital Signs Date Time Temp Pulse Resp B/P (MAP) Pulse Ox O2 Delivery O2 Flow Rate FiO2 01/14/18 14:50 70 16 111/56 92 Nasal Cannula 1.00 01/14/18 12:00 96.9 General Appearance: No Apparent Distress, WD/WN, Chronically ill Hospital Course Hospital course: patient was admitted and received aggressive medical care for respiratory failure which required intubation although at last admit she was deemed a hospice candidate due to liver cirrhosis and end stage illnesses. Pt was successfully extubated and transferred to the floor but she continued to decline and was deemed a hospice candidate. Workup revealed a stroke on MRI which added to her end stage medical issues. Family in agreement for admission to [facility] on Hospice and provide comfort care along with her home meds if she is able to take them. Prognosis is very poor. Labs (last 24 hrs) Microbiology 01/05/18 Gram Stain - Final, Complete 01/05/18 Sputum Culture - Final, Complete Usual upper respiratory nusrat Patient resulted labs reviewed. Pending Labs Discussion & Recommendations Discharge Planning: <30 minutes discharge planning Discharge Home Medications: Active Scripts Active Hydrocodone/Acetaminophen 5/325mg Tablet (Acetaminophen/Hydrocodone Bitart) 1 Tab Tab 1 Tab PO Q4-6HR PRN MDD 10 Duragesic Patch 100MCG (Fentanyl) 1 Each Patch.td72 100 Mcg TD Q72H Diazepam 2 Mg Tablet 2 Mg PO 0900,1300 Reported Floranex Tablet (L. Acidophilus/Bulgaricus) 1 Each Tablet 2 Tab PO BID Spironolactone 25 Mg Tablet 50 Mg PO DAILY TAKES 2 (25MG) TABLETS Lisinopril 10 Mg Tablet 10 Mg PO DAILY Furosemide 40 Mg Tablet 40 Mg PO 0600 Clonidine HCl 0.1 Mg Tablet 0.1 Mg PO BID Citalopram HBr (Citalopram Hydrobromide) 10 Mg Tablet 10 Mg PO DAILY Toujeo Solostar (Insulin Glargine,Hum.rec.anlog) 300 Unit/1 Ml Insuln.pen 18 Unit SQ 1600 Zofran (Ondansetron HCl) 4 Mg Tab 4 Mg PO Q6H PRN Tylenol (Acetaminophen) 325 Mg Tablet 650 Mg PO Q4H PRN Maalox Advanced Suspension (Mag Hydrox/Aluminum Hyd/Simeth) 355 Ml Oral.susp 15 Ml PO UD PRN Pepcid Complete Tablet Chew (Famotidine/Ca Carb/Mag Hydrox) 1 Each Tab.chew 1 Tab PO Q8H PRN Miralax (Polyethylene Glycol 3350) 17 Gm Powd.pack 17 Gm PO Q72H PRN Colace (Docusate Sodium) 100 Mg Capsule 100 Mg PO BID PRN Novolog Flexpen (Insulin Aspart) 300 Units/3 Ml Solution SQ UD PRN >200 = 2 UNITS >250 = 4 UNITS >300 = 6 UNITS [Leg Cramp] 2 Tab PO HS Mirtazapine 30 Mg Tablet 30 Mg PO HS Prochlorperazine Maleate 10 Mg Tablet 10 Mg PO BID PRN Trimethoprim 100 Mg Tablet 100 Mg PO HS Colace (Docusate Sodium) 100 Mg Capsule 100 Mg PO DAILY Neupro (Rotigotine) 1 Each Patch.td24 8 Mg TD HS Carbidopa-Levodopa 25-250 Tab (Carbidopa/Levodopa) 1 Each Tablet 1 Tab PO 0700, 1100,1500,1900 Brimonidine Tartrate 5 Ml Btl 1 Drop OU BID Metoprolol Succinate 25 Mg Tab.er.24h 25 Mg PO 0900,2000 Triamterene-Hctz 37.5-25 mg Tb (Triamterene/Hydrochlorothiazid) 1 Each Tablet 1 Tab PO DAILY Potassium Chloride 10 Meq Tab.er.prt 10 Meq PO DAILY Rivastigmine 1 Each Patch.td24 13.3 Mg TD DAILY Omeprazole 40 Mg Capsule.dr 40 Mg PO DAILY Miralax (Polyethylene Glycol 3350) 119 Gm Powder 8.5 Gm PO DAILY Cranberry (Cranberry Extract) 405 Mg Capsule 405 Mg PO DAILY Instructions to patient/family Please see electronic discharge instructions given to patient. Clinical Quality Measures DVT/VTE Risk/Contraindication: Risk Factor Score Per Nursin RFS Level Per Nursing on Admit: 4+=Very High Problem Qualifiers (1) Stroke: CVA mechanism: unspecified Qualified Codes: I63.9 - Cerebral infarction, unspecified (2) Cardiomyopathy: Cardiomyopathy type: obstructive hypertrophic Qualified Codes: I42.1 - Obstructive hypertrophic cardiomyopathy (3) Acute on chronic renal failure: Acute renal failure type: unspecified Chronic kidney disease stage: stage 3 ( moderate) Qualified Codes: N17.9 - Acute kidney failure, unspecified; N18.3 - Chronic kidney disease, stage 3 (moderate) (4) Respiratory failure: Chronicity: acute Respiratory failure complication: hypoxia Qualified Codes : J96.01 - Acute respiratory failure with hypoxia (5) Anemia: Anemia type: due to chronic kidney disease Chronic kidney disease stage: stage 3 (moderate) Qualified Codes: N18.3 - Chronic kidney disease, stage 3 ( moderate); D63.1 - Anemia in chronic kidney disease MARISELA FIGUEROA DO Jan 14, 2018 09:10
[2018-01-14] MEDS: PANTOPRAZOLE 40 MG (PROTONIX) TAB PO SCH (09:34)
[2018-01-14] MEDS: ASPIRIN 325 MG (5 GR) TABLET PO SCH (09:34)
[2018-01-14] MEDS: lisINopril 10 MG (PRINIVIL) TABLET PO SCH (09:34)
[2018-01-14] MEDS: meTOprolol TARTRATE 50 MG (LOPRESSOR) TAB PO SCH (09:34)
[2018-01-14] MEDS: HYDROcodone/APAP 10 MG/325 MG (LORTAB) TAB PO SCH (09:35)
[2018-01-14] MEDS: DOCUSATE SODIUM 100 MG (COLACE) CAP PO SCH (09:35)
[2018-01-14] MEDS: cloNIDine 0.1 MG (CATAPRES) TAB PO SCH (09:35)
[2018-01-14] MEDS: CATHETER FLUSH 10 ML SYR IV SCH (11:41)
[2018-01-14] MEDS: fentaNYL INJECTION 100 MCG/2 ML AMP IVP PRN ×2 (11:42→14:17)
[2018-01-14 12:00] VITALS: BP 111/56
[2018-01-14 14:50] VITALS: BP 111/56
== END 2018-01-14 14:55 | disposition hospice, inpatient (51) | DRG 208 ==
LOC: ICU 15:37 → 4TH 01-11 08:15
PROVIDERS: ADMIT Family Medicine; ATTEND Internal Medicine
PROC: 5A1945Z Respiratory Ventilation, 24-96 Consecutive Hours (ICD-10-PCS; principal; 2018-01-05)
DX: J96.21 Acute and chronic respiratory failure with hypoxia (principal); I63.9 Cerebral infarction, unspecified; N17.9 Acute kidney failure, unspecified; I42.1 Obstructive hypertrophic cardiomyopathy; R18.8 Other ascites; J90 Pleural effusion, not elsewhere classified; K76.6 Portal hypertension; Z66 Do not resuscitate; Z51.5 Encounter for palliative care; I12.9 Hypertensive chronic kidney disease with stage 1 through stage 4 chronic kidney disease, or unspecified chronic kidney disease; N18.3 Chronic kidney disease, stage 3 (moderate); E11.22 Type 2 diabetes mellitus with diabetic chronic kidney disease; D63.1 Anemia in chronic kidney disease; G20 Parkinson's disease; F02.80 Dementia in other diseases classified elsewhere, unspecified severity, without behavioral disturbance, psychotic disturbance, mood disturbance, and anxiety; K21.9 Gastro-esophageal reflux disease without esophagitis; E87.5 Hyperkalemia; M54.9 Dorsalgia, unspecified; I95.9 Hypotension, unspecified; I27.20 Pulmonary hypertension, unspecified; E86.0 Dehydration; R56.9 Unspecified convulsions; R00.0 Tachycardia, unspecified; R10.84 Generalized abdominal pain; K74.60 Unspecified cirrhosis of liver; K43.9 Ventral hernia without obstruction or gangrene; I16.0 Hypertensive urgency; I25.2 Old myocardial infarction; Z79.4 Long term (current) use of insulin
CPT/HCPCS: 36415; 70450; 70551; 71045; 71250; 74176; 76700; 80048; 80053; 82274; 82805; 82962; 83605; 83735; 83880; 84100; 84478; 84484; 85007; 85014; 85018; 85025; 85027; 86850; 86900; 86901; 86920; 87070; 87205; 93005; 93306; 94002; 94003; 94640; 94760; 94799

== ENCOUNTER 2018-03-16 07:14 | Emergency (ER) | payer MEDICARE, OTHER ==
[~2018-03-16] VITALS: Ht 157.5 cm; Wt 76.9 kg
[~2018-03-16 07:14] MED LIST changes: +ACHD5005 PO; +FENT1PAT60 TD
--- OUTSIDE RECORDS SUMMARY | 2018-03-16 07:19 | XMS REPORT ---
Demographics Preferred Language Unknown Marital Status Unknown Latter-Day Affiliation Unknown Race Unknown Ethnic Group Unknown Author Author TYREE BARR Organization [facility] Address [address] [place] [address] Care Team Providers Care Correctional Treatment Specialist Name Role Phone TYREE BARR Unavailable PROBLEMS Type Condition ICD9-CM Code [id number] Code Onset Dates Condition Status SNOMED Code Problem Vascular dementia without behavioral disturbance F01.50 Active [id number] ALLERGIES Substance Reaction Event Type Date Status Sulfacet-R Unknown Drug Allergy Jan, Active ENCOUNTERS Encounter Location Date Diagnosis [facility] [address] [place], [place] [id number] Jan, Vascular dementia without behavioral disturbance F01.50 ; History of stroke Z86.73 and Hospice care patient Z51.5 IMMUNIZATIONS No Known Immunizations SOCIAL HISTORY Never Assessed REASON FOR VISIT New Admit PLAN OF CARE Activity Details Follow Up prn Reason: VITAL SIGNS MEDICATIONS Medication Instructions Dosage Frequency Start Date End Date Duration Status Hyoscyamine Sulfate 0.125 MG Orally every 4 hrs 1 tablet on the tongue and allow to dissolve as needed 4h Active Furosemide 40 MG Orally Once a day 1 tablet 24h 30 day(s) Active Metoprolol Succinate ER 25 MG Orally Once a day 1 tablet 24h 30 day(s ) Active Carbidopa-Levodopa 25-250 MG Orally four times a day 1 tablet 6h 30 day(s) Active Leg Cramp Relief - as directed Active Diazepam 2 MG Orally 2 times a day 1 tablet as needed 12h Active Fleet Enema 7-19 GM/118ML as directed Active Ondansetron 4 MG Orally every 4 hrs 1 tablet on the tongue and allow to dissolve as needed 4h Active NovoLog 100 UNIT/ML Subcutaneous 4 times a day per sliding scale 6h Active Hydrocodone-Acetaminophen 5-325 MG Orally every 6 hrs 1 tablet as needed 6h Active Morphine Sulfate 20 MG/5ML Orally every 4 hrs (4 mg/mL) 0.5 ml as needed 4h Active Dulcolax 10 MG Rectal Once a day 1 suppository as needed 24h 30 day(s ) Active Triamterene-HCTZ 37.5-25 MG Orally Once a day 1 tablet in the morning 24h 30 day(s) Active Mirtazapine 30 MG Orally Once a day 1 tablet at bedtime 24h 30 day(s ) Active Trimethoprim 100 MG Orally Once a day 1 tablet 24h 10 day(s) Active Toujeo SoloStar 300 UNIT/ML Subcutaneous Once a day 18 units 24h Active Clonidine HCl 0.1 MG Orally 2 times a day 1 tablet 12h 30 day(s) Active Citalopram Hydrobromide 10 MG Orally Once a day 1 tablet 24h 30 day(s ) Active Brimonidine Tartrate 0.2 % Ophthalmic every 8 hrs 1 drop into affected eye 8h Active Potassium Chloride ER 10 MEQ Orally Twice a day 1 tablet with food 12h 30 day(s) Active Pepcid Complete 10-800-165 MG Orally Twice a day 1 tablet as needed 12h Active Spironolactone 25 MG 1 tablet 30 day(s) Active Fentanyl 100 MCG/HR 1 patch to skin Active Docusate Sodium 100 MG Orally Once a day 1 capsule as needed 24h 30 day(s) Active Lisinopril 10 MG Orally Once a day 1 tablet 24h 30 day(s) Active Prochlorperazine Maleate 10 MG Orally Three times a day 1 tablet 8h 30 day(s) Active Maalox Advanced Active Cranberry 405 MG as directed Active Omeprazole 40 MG Orally Once a day 1 capsule 24h 30 day(s) Active Floranex - as directed Active Ativan 1 MG Orally every 4 hours as needed 1 tablet Active Polyethylene Glycol 3350 - as directed Active Rivastigmine 13.3 MG/24HR Transdermal Once a day 1 patch to skin 24h 30 day(s) Active Neupro 8 MG/24HR Transdermal Once a day 1 patch to skin 24h 30 day(s ) Active Milk of Magnesia 400 MG/5ML Orally Four times a day 5 ml as needed 6h Active RESULTS No Results PROCEDURES No Known procedures INSTRUCTIONS MEDICATIONS ADMINISTERED No Known Medications MEDICAL (GENERAL) HISTORY Type Description Date Medical History cerebral infarction Medical History tachycardia Medical History hypertention Medical History cirrhosis of liver Medical History anemia Medical History thrombocyytopenia Medical History chronic kidney disease, stage 3 Medical History parkinson's disease Medical History dementia with lewy bodies Medical History GERD Medical History Type 2 DM Medical History COPD Medical History Spinal Stenosis
--- OUTSIDE RECORDS SUMMARY | 2018-03-16 07:19 | XMS REPORT | Clinical Summary ---
Author Author [facility] Organization [facility] Address Unknown Phone Unavailable Care Team Providers Care Job Specification Writer Name Role Phone PCP Unavailable Allergies Not [...]
[2018-03-16] MEDS ORDERED: fentaNYL INJECTION 100 MCG/2 ML AMP IVP ONE ×2 (07:30→08:30)
[2018-03-16 07:42] LABS: BASOPHILS % (AUTO) 0 % (0-10); EOSINOPHILS % (AUTO) 1 % (0-10); HEMATOCRIT 28 % (35-52); HEMOGLOBIN 9.2 G/DL (11.5-16.0); LYMPHOCYTES # (AUTO) 0.9 X 10^3 (1.0-4.0); LYMPHOCYTES % (AUTO) 32 % (12-44); MEAN CORPUSCULAR HEMOGLOBIN 32 PG (25-34); MEAN CORPUSCULAR HGB CONC 32 G/DL (32-36); MEAN CORPUSCULAR VOLUME 98 FL (80-99); MEAN PLATELET VOLUME 10.6 FL (7.4-10.4); MONOCYTES # (AUTO) 0.3 X 10^3 (0.0-1.0); MONOCYTES % (AUTO) 10 % (0-12); NEUTROPHILS # (AUTO) 1.6 X 10^3 (1.8-7.8); NEUTROPHILS % (AUTO) 57 % (42-75); PLATELET COUNT 110 10^3/uL (130-400); RED CELL DISTRIBUTION WIDTH 14.8 % (10.0-14.5); WHITE BLOOD COUNT 2.9 10^3/uL (4.3-11.0)
[2018-03-16 07:56] LABS: BILIRUBIN,URINE NEGATIVE (NEGATIVE); CLARITY,URINE CLEAR; COLOR,URINE YELLOW; GLUCOSE, URINE (UA) NEGATIVE (NEGATIVE); KETONES,URINE NEGATIVE (NEGATIVE); LEUKOCYTE ESTERASE ,URINE NEGATIVE (NEGATIVE); NITRITE,URINE NEGATIVE (NEGATIVE); PH,URINE 8 (5-9); PROTEIN,URINE 2+ (NEGATIVE); UROBILINOGEN,URINE NORMAL (NORMAL)
[2018-03-16 08:18] LABS: BACTERIA,URINE NEGATIVE /HPF; SQUAMOUS EPITHELIAL CELL,UR RARE /HPF; WBC,URINE 0-2 /HPF
--- NOTE | 2018-03-16 08:18 | ED Fall/Injury ---
General Chief Complaint: Trauma-Non Activation Stated Complaint: FALL Nursing Triage Note: TO ED PER EMS FROM [facility] REPORT FROM CARE HOME STAFF IS THAT PATIENT FELL OFF TOLIET AND C/O L HIP DID HIT HEAD. C COLLAR IN PLACE BY EMS. PATIENT REPORTS SHE WAS WALKING TO BATHROOM AND FELL Source: patient, EMS, [facility]iary records, old records Exam Limitations: no limitations History of Present Illness Date Seen by Provider: Mar 16, 2018 Time Seen by Provider: 07:15 Initial Comments This 87-year-old woman presents to the emergency room via EMS from [facility] [place] with injuries after a fall. Patient was walking to the bathroom from her bed. She reports falling near the threshold from tripping. Injury occurred just prior to EMS activation. She reports pain on the left side of her head where she struck her head and in the left groin. There is concern for hip fracture. Patient was recently admitted to the hospital from January 05 through January 14. She has had numerous severe medical issues and was placed on hospice. Allergies and Home Medications Allergies Coded Allergies: celecoxib (Verified Allergy, Unknown, 12/12/17) Sulfa (Sulfonamide Antibiotics) (Verified Adverse Reaction, Severe, ) Home Medications Acetaminophen 325 Mg Tablet, 650 MG PO Q4H PRN for FEVER, (Reported) Brimonidine Tartrate 5 Ml Btl, 1 DROP OU BID, (Reported) Carbidopa/Levodopa 1 Each Tablet, 1 TAB PO 0700,1100,1500,1900, (Reported) Citalopram Hydrobromide 10 Mg Tablet, 10 MG PO DAILY, (Reported) Clonidine HCl 0.1 Mg Tablet, 0.1 MG PO BID, (Reported) Cranberry Extract 405 Mg Capsule, 405 MG PO DAILY, (Reported) Diazepam 2 Mg Tablet, 2 MG PO 0900,1300 Prescribed by: MARISELA FIGUEROA on 01/14/18 09 Docusate Sodium 100 Mg Capsule, 100 MG PO DAILY, (Reported) Docusate Sodium 100 Mg Capsule, 100 MG PO BID PRN for CONSTIPATION-1ST LINE, ( Reported) Famotidine/Ca Carb/Mag Hydrox 1 Each Tab.chew, 1 TAB PO Q8H PRN for NAUSEA, ( Reported) Fentanyl 1 Each Patch.td72, 100 MCG TD Q72H Prescribed by: MARISELA FIGUEROA on 11/30/18 0909 Furosemide 40 Mg Tablet, 40 MG PO 0600, (Reported) Hydrocodone Bit/Acetaminophen 1 Tab Tab, 1 TAB PO Q4-6HR PRN for PAIN-MODERATE Prescribed by: MARISELA FIGUEROA on 01/14/18 0909 Insulin Aspart 300 Units/3 Ml Solution, SQ UD PRN for BLOOD SUGAR, (Reported) >200 = 2 UNITS >250 = 4 UNITS >300 = 6 UNITS Insulin Glargine,Hum.rec.anlog 300 Unit/1 Ml Insuln.pen, 18 UNIT SQ 1600, ( Reported) L. Acidophilus/Bulgaricus 1 Each Tablet, 2 TAB PO BID, (Reported) Lisinopril 10 Mg Tablet, 10 MG PO DAILY, (Reported) Mag Hydrox/Aluminum Hyd/Simeth 355 Ml Oral.susp, 15 ML PO UD PRN for STOMACH UPSET, (Reported) Metoprolol Succinate 25 Mg Tab.er.24h, 25 MG PO 899,1999, (Reported) Mirtazapine 30 Mg Tablet, 30 MG PO HS, (Reported) Omeprazole 40 Mg Capsule.dr, 40 MG PO DAILY, (Reported) Ondansetron HCl 4 Mg Tab, 4 MG PO Q6H PRN for NAUSEA/VOMITING-1ST LINE, ( Reported) Polyethylene Glycol 3350 119 Gm Powder, 8.5 GM PO DAILY, (Reported) Polyethylene Glycol 3350 17 Gm Powd.pack, 17 GM PO Q72H PRN for CONSTIPATION- 2ND LINE, (Reported) Potassium Chloride 10 Meq Tab.er.prt, 10 MEQ PO DAILY, (Reported) Prochlorperazine Maleate 10 Mg Tablet, 10 MG PO BID PRN for NAUSEA/VOMITING-4TH LINE, (Reported) Rivastigmine 1 Each Patch.td24, 13.3 MG TD DAILY, (Reported) Rotigotine 1 Each Patch.td24, 8 MG TD HS, (Reported) Spironolactone 25 Mg Tablet, 50 MG PO DAILY, (Reported) TAKES 2 (25MG) TABLETS Triamterene/Hydrochlorothiazid 1 Each Tablet, 1 TAB PO DAILY, (Reported) Trimethoprim 100 Mg Tablet, 100 MG PO HS, (Reported) [Leg Cramp] , 2 TAB PO HS, (Reported) Patient Home Medication List Home Medication List Reviewed: Yes Review of Systems Review of Systems Constitutional: no symptoms reported Eyes: No Symptoms Reported Ears, Nose, Mouth, Throat: no symptoms reported Respiratory: no symptoms reported Cardiovascular: no symptoms reported Gastrointestinal: no symptoms reported Genitourinary: no symptoms reported : No Musculoskeletal: see HPI Skin: no symptoms reported Psychiatric/Neurological: No Symptoms Reported Past Bsbywix-Jfzlyj-Bqaysi Hx Past Med/Social Hx: Reviewed and Corrections made Patient Social History Alcohol Use: Denies Use Recreational Drug Use: No Smoking Status: Unknown if Ever Smoked Recent Foreign Travel: No Contact w/Someone Who Travel: No Recent Infectious Disease Expo: No Recent Hopitalizations: Yes (with surgery) Immunizations Up To Date Date of Pneumonia Vaccine: Nov 18, 2015 Date of Influenza Vaccine: Dec 01, 2017 Seasonal Allergies Seasonal Allergies: No Past Medical History Surgeries: Yes Appendectomy, Gallbladder, Hysterectomy, Joint Replacement Respiratory: Yes (history of respiratory failure requiring intubation) Pneumonia, COPD Currently Using CPAP: No Currently Using BIPAP: No Cardiac: Yes Cardiomyopathy, Hypertension Neurological: Yes Dementia, Parkinson's Disease, Stroke Reproductive Disorders: Yes Genitourinary: Yes (CKD) Renal Failure Gastrointestinal: Yes Gastroesophageal Reflux, Liver Disease/Jaundice, Gastrointestinal Bleed, Cirrhosis Musculoskeletal: Yes (SPINAL STENOSIS) Chronic Back Pain Endocrine: Yes Diabetes, Non-Insulin dep HEENT: No Cancer: No Psychosocial: No Integumentary: No Blood Disorders: Yes (chronic anemia) Adverse Reaction/Blood Tranf: No Family Medical History Reviewed Nursing Family Hx Cancer, Diabetes Physical Exam Vital Signs Vital Signs - First Documented 03/16/18 07:14 Temp 97.3 Pulse 83 Resp 18 B/P (MAP) 218/117 (150) Pulse Ox 98 O2 Delivery Simple Mask Capillary Refill : Less Than 3 Seconds Height, Weight, BMI Height: 5'2.00" Weight: 169lbs. 7.0oz. 76.376376rt; 22.4 BMI Method:Stated General Appearance: WD/WN, no apparent distress, thin HEENT: PERRL/EOMI, normal ENT inspection, other (oropharynx somewhat dry) Neck: normal inspection, other (in c-collar) Cardiovascular: regular rate, rhythm, no edema, no murmur Respiratory: chest non-tender, lungs clear, normal breath sounds, no respiratory distress, no accessory muscle use Gastrointestinal: normal bowel sounds, non tender, soft Extremities: no pedal edema, other (tenderness over the left hip and groin and pain with rotation. Distal left lower extremity unremarkable. 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 tested, no motor/sensory deficits, alert, normal mood/affect, other (alert to person and place and conversational) Skin: normal color, warm/dry [place] Coma Score Best Eye Response: (4) Open Spontaneously Best Verbal Response: (5) Oriented Best Motor Response: (6) Obeys Commands [place] Total: 15 Procedures/Interventions Date of ETT Placement: Jan 05, 2018 Progress/Results/Core Measures Results/Orders Lab Results Laboratory Tests Test 03/16/18 07:32 03/16/18 07:50 03/16/18 08:20 Range/Units White Blood Count 2.9 L 4.3-11.0 10^3/uL Red Blood Count 2.89 L 4.35-5.85 10^6/uL Hemoglobin 9.2 L 11.5-16.0 G/DL Hematocrit 28 L 35-52 % Mean Corpuscular Volume 98 80-99 FL Mean Corpuscular Hemoglobin 32 25-34 PG Mean Corpuscular Hemoglobin Concent 32 32-36 G/DL Red Cell Distribution Width 14.8 H 10.0-14.5 % Platelet Count 110 L 130-400 10^3/uL Mean Platelet Volume 10.6 H 7.4-10.4 FL Neutrophils (%) (Auto) 57 42-75 % Lymphocytes (%) (Auto) 32 12-44 % Monocytes (%) (Auto) 10 0-12 % Eosinophils (%) (Auto) 1 0-10 % Basophils (%) (Auto) 0 0-10 % Neutrophils # (Auto) 1.6 L 1.8-7.8 X 10^3 Lymphocytes # (Auto) 0.9 L 1.0-4.0 X 10^3 Monocytes # (Auto) 0.3 0.0-1.0 X 10^3 Eosinophils # (Auto) 0.0 0.0-0.3 10^3/uL Basophils # (Auto) 0.0 0.0-0.1 10^3/uL Urine Color YELLOW Urine Clarity CLEAR Urine pH 8 5-9 Urine Specific [place] 1.015 L 1.016-1.022 Urine Protein 2+ H NEGATIVE Urine Glucose (UA) NEGATIVE NEGATIVE Urine Ketones NEGATIVE NEGATIVE Urine Nitrite NEGATIVE NEGATIVE Urine Bilirubin NEGATIVE NEGATIVE Urine Urobilinogen NORMAL NORMAL MG/DL Urine Leukocyte Esterase NEGATIVE NEGATIVE Urine RBC (Auto) NEGATIVE NEGATIVE Urine RBC NONE /HPF Urine WBC 0-2 /HPF Urine Squamous Epithelial Cells RARE /HPF Urine Crystals NONE /LPF Urine Bacteria NEGATIVE /HPF Urine Casts NONE /LPF Urine Mucus NEGATIVE /LPF Urine Culture Indicated NO Sodium Level 138 135-145 MMOL/L Potassium Level 5.1 H 3.6-5.0 MMOL/L Chloride Level 104 98-107 MMOL/L Carbon Dioxide Level 23 21-32 MMOL/L Anion Gap 11 5-14 MMOL/L Blood Urea Nitrogen 23 H 7-18 MG/DL Creatinine 1.55 H 0.60-1.30 MG/DL Estimat Glomerular Filtration Rate 32 BUN/Creatinine Ratio 15 Glucose Level 154 H 70-105 MG/DL Calcium Level 10.2 H 8.5-10.1 MG/DL Corrected Calcium 10.6 H 8.5-10.1 MG/DL Total Bilirubin 0.7 0.1-1.0 MG/DL Aspartate Amino Transf (AST/SGOT) 33 5-34 U/L Alanine Aminotransferase (ALT/SGPT) 20 0-55 U/L Alkaline Phosphatase 127 40-136 U/L Total Protein 6.7 6.4-8.2 GM/DL Albumin 3.5 3.2-4.5 GM/DL My Orders Orders - CODY JOHNSON MD Cbc With Automated Diff (03/16/18 07:22) Comprehensive Metabolic Panel (03/16/18 07:22) Ua Culture If Indicated (03/16/18 07:22) Ct Head/Cervical Spine Wo (03/16/18 07:22) Chest 1 View, Ap/Pa Only (03/16/18 07:22) Pelvis With Left Hip 2-3 Views (03/16/18 07:22) Fentanyl Injection (Sublimaze Injection (03/16/18 07:30) Milian Cath (03/16/18 07:55) Fentanyl Injection (Sublimaze Injection (03/16/18 08:30) Morphine Injection (Morphine Injection (03/16/18 09:15) Morphine Injection (Morphine Injection (03/16/18 10:30) Medications Given in ED Current Medications Medications Dose Ordered Sig/Jabari Route Start Time Stop Time Status Last Admin Dose Admin Fentanyl Citrate 25 mcg ONCE ONCE IVP 03/16/18 08:30 03/16/18 08:31 DC 03/16/18 08:22 25 MCG Morphine Sulfate 4 mg ONCE ONCE IVP 03/16/18 09:15 03/16/18 09:16 DC 03/16/18 09:20 4 MG Morphine Sulfate 4 mg ONCE ONCE IVP 03/16/18 10:30 03/16/18 10:31 DC 03/16/18 10:24 4 MG Vital Signs/I&O 03/16/18 03/16/18 03/16/18 03/16/18 07:14 09:34 10:31 12:00 Temp 97.3 Pulse 83 96 82 80 Resp 18 18 18 18 B/P (MAP) 218/117 (150) 143/106 (118) 185/104 (131) 197/87 (123) Pulse Ox 98 98 100 98 O2 Delivery Simple Mask Room Air Room Air Blood Pressure Mean: 150 Progress Progress Note #1: Time: 08:42 Progress Note Patient was seen and evaluated. CT of the head and C-spine was reviewed and discussed with the radiologist. No acute injuries were identified. C-collar was cleared as 08:33. Patient has received 2 doses of fentanyl 25 g for treatment of pain. X-rays are pending. Milian catheter was placed. Progress Note #2: Progress Note After the discovery of hip fracture I had lengthy discussions with both of patient's daughters, Dr. Ulrich, Dr. Mcmillan, and Dr. Martinez. At least 30 minutes of time was spent in discussion and consultation. Dr. Mcmillan felt that there could be some benefit gained by surgical repair of the hip in regard to mobility with transfers, use a wheelchair, etc. He did not think there would necessarily be a significant reduction in overall pain with surgery. He advised deferring the decision for surgery to the territory sales manager medical and family. Patient was determined to be not a competent decision maker due to her dementia. Both daughters were leaning toward staying on hospice and on comfort care. Dr. Ulrich, as medical device assembler, confirm the patient would have to come off of hospice services for the surgery. Ultimately, daughters wished to follow Dr. Martinez's advice since Dr. Martinez knows the patient well from prior admission. Dr. Martinez's position was that any gains from surgery she might get would be negligible and surgery would put the patient through this is surgery stresses. She advised against surgery. Daughters elected to follow this advice. [facility] Diagnostic Imaging Diagonstic Imaging: CT Plain Films/CT/US/NM/MRI: c-spine, head Comments CT head and C-spine viewed by me and report reviewed. Discussed with the radiologist. See report below: NAME: SUSAN POLLARD [facility] REC#: [id number] PT STATUS: REG ER : 1930 PHYSICIAN: CODY JOHNSON MD ADMIT DATE: 03/16/18/ER Draft Date of Exam:03/16/18 CT HEAD/CERVICAL SPINE WO PROCEDURE: CT head and CT cervical spine without contrast. TECHNIQUE: Multiple contiguous axial images were obtained through the brain and cervical spine without the use of intravenous contrast. Sagittal and coronal reformations through the cervical spine were then performed. INDICATION: Fell, Head and neck pain. CT of the head: FINDINGS: There is no mass, shift of midline or hemorrhage to indicate an acute intracranial abnormality. The ventricles are not abnormally dilated and stable in size when compared to prior exam of 01/06/2018. The senescent changes seen on the previous study including cortical atrophy and periventricular encephalomalacia are again visualized and no different. The bone windows show no evidence for fracture or for destructive lesion. However, there does appear to be soft tissue edema over the frontal bones. The orbits are symmetrical and within normal limits. The sinuses where visualized are clear. IMPRESSION: 1. There is soft tissue edema over the frontal bones but there is no sign of skull fracture. There is no acute intracranial abnormality identified either. 2. If clinical concern regarding underlying abnormality persists particularly at if the patient is anticoagulated, then a short-term (24-hour) followup CT head exam would be recommended. CT cervical spine: There are no prior studies available for comparison. This exam is less than optimal due to motion artifact. The reconstructed sagittal images do show fairly severe degenerative disc and bony disease at C5-C6 and C6-C7. There is no high-grade central stenosis of the cervical spine, although there is neural foraminal narrowing bilaterally at both C5-C6 and C6-C7. There is no fracture or acute bony abnormality appreciated. There is no sign of retropharyngeal edema. There does appear to be heavy atherosclerotic plaque involving both carotid bifurcations. The thyroid gland is not enlarged, but there are low density nodules in each lobe. The nodule on the right measures approximately 1 CM in size while the nodule on the left is only 8 mm. If further study is desired, then ultrasound would be recommended. Images through lung apices do show that there is scar formation involving each lung apex, particularly on the right. These findings are similar to the prior CT chest exam of 01/06/2018. However, in the interval since the prior exam, a small 6 MM nodular density has developed in the left upper lung (image 77 of 87). This finding could be secondary to scar formation. It would be less likely that this is due to a neoplastic mass. If further study is desired, then CT of the chest would be recommended. IMPRESSION: 1. There is no evidence for an acute bony abnormality. 2. There is degenerative disc and bony disease at C5-C6 and C6-C7. 3. The nodular density in the left apex is of uncertain etiology. While this is more likely due to scar formation than to neoplasm the possibility that this is neoplastic in nature cannot be entirely excluded. Recommendations as above. 4. These results were discussed with Dr. Johnson in the ER. Dictated on workstation # [id number] Dict: 03/16/18818 Trans: 03/16/1844 [id number] Interpreted by: MICHELL CORTEZ MD Diagonstic Imaging: Xray Plain Films/CT/US/NM/MRI: pelvis, hip Comments X-rays of the pelvis and left hip viewed by me, report reviewed, and discussed with the radiologist. See report below: NAME: SUSAN POLLARD [facility] REC#: [id number] PT STATUS: [facility] ER : 1930 PHYSICIAN: CODY JOHNSON MD ADMIT DATE: 03/16/18/ER Signed Date of Exam: 03/16/18 PELVIS WITH LEFT HIP 2-3 VIEWS CLINICAL INDICATION: Patient status post fall and is in lots of pain. EXAMINATION: X-ray of the pelvis AP view and x-ray of the left hip, AP and crosstable lateral views. COMPARISON: CT scan of the abdomen and pelvis dated 01/09/2018. FINDINGS: There is interval development of a fracture of the left femoral neck with varus angulation. The left femoroacetabular joint is otherwise intact. There is no other fracture seen on this exam. Right hip prosthesis is again seen. There are degenerative spurs involving the lower lumbar spine. IMPRESSION: Left proximal femoral neck fracture with varus angulation. Results of this report discussed with Dr. Cdoy Johnson via the telephone on 03/16/2018 at 0909 hrs. Dictated by: Dictated on workstation # [id number] Dict: 03/16/18902 Trans: 03/16/181703 Interpreted by: HIRAM GONZALEZ MD Electronically signed by: HIRAM GONZALEZ MD 03/16/181703 Diagonstic Imaging: Xray Plain Films/CT/US/NM/MRI: chest Comments Chest x-ray viewed by me and report reviewed. See report below: NAME: SUSAN POLLARD [facility] REC#: [id number] PT STATUS: REG ER : 1930 PHYSICIAN: CODY JOHNSON MD ADMIT DATE: 03/16/18/ER Signed Date of Exam: 03/16/18 CHEST 1 VIEW, AP/PA ONLY INDICATION: Pain after fall. Comparison is made with prior examination from 01/11/2018. FINDINGS: There is cardiomegaly. There is some venous congestion. There is patchy bibasilar atelectasis and/or pneumonitis. There is no pleural effusion. There is no pneumothorax. The mediastinum is unremarkable. IMPRESSION: Patchy bibasilar atelectasis and/or pneumonitis and left pleural effusion. Cardiomegaly and mild central pulmonary venous congestion. Dictated by: Dictated on workstation # [id number] Dict: 03/16/18900 Trans: 03/16/18908 Interpreted by: WHIT FLORES MD Electronically signed by: WHIT FLORES MD 03/16/18 09 Departure Impression Primary Impression: Fall on same level Qualified Codes: W18.30XA - Fall on same level, unspecified, initial encounter Additional Impression: Closed left hip fracture Qualified Codes: S72.002A - Fracture of unspecified part of neck of left femur , initial encounter for closed fracture Disposition: 01 HOME, SELF-CARE Condition: Stable Departure-Patient Inst. Decision time for Depature: 10:50 Referrals: HEIDI PLUMMER MD (PCP/Family) Primary Care Physician Patient Instructions: Hip Fracture Add. Discharge Instructions: Refer to hospice for pain management. Bed rest is recommended. Stabilize left leg and hip when rolling, changing, etc. Contact primary care provider or hospice provider with any further questions or concerns. All discharge instructions reviewed with patient and/or family. Voiced understanding. CODY JOHNSON MD Mar 16, 2018 08:17
--- NOTE | 2018-03-16 08:45 | Diagnostic Imaging Report ---
PROCEDURE: CT head and CT cervical spine without contrast. TECHNIQUE: Multiple contiguous axial images were obtained through the brain and cervical spine without the use of intravenous contrast. Sagittal and coronal reformations through the cervical spine were then performed. INDICATION: Fell, Head and neck pain. CT of the head: FINDINGS: There is no mass, shift of midline or hemorrhage to indicate an acute intracranial abnormality. The ventricles are not abnormally dilated and stable in size when compared to prior exam of 01/06/2018. The senescent changes seen on the previous study including cortical atrophy and periventricular encephalomalacia are again visualized and no different. The bone windows show no evidence for fracture or for destructive lesion. However, there does appear to be soft tissue edema over the frontal bones. The orbits are symmetrical and within normal limits. The sinuses where visualized are clear. IMPRESSION: 1. There is soft tissue edema over the frontal bones but there is no sign of skull fracture. There is no acute intracranial abnormality identified either. 2. If clinical concern regarding underlying abnormality persists particularly at if the patient is anticoagulated, then a short-term (24-hour) followup CT head exam would be recommended. CT cervical spine: There are no prior studies available for comparison. This exam is less than optimal due to motion artifact. The reconstructed sagittal images do show fairly severe degenerative disc and bony disease at C5-C6 and C6-C7. There is no high-grade central stenosis of the cervical spine, although there is neural foraminal narrowing bilaterally at both C5-C6 and C6-C7. There is no fracture or acute bony abnormality appreciated. There is no sign of retropharyngeal edema. There does appear to be heavy atherosclerotic plaque involving both carotid bifurcations. The thyroid gland is not enlarged, but there are low density nodules in each lobe. The nodule on the right measures approximately 1 CM in size while the nodule on the left is only 8 mm. If further study is desired, then ultrasound would be recommended. Images through lung apices do show that there is scar formation involving each lung apex, particularly on the right. These findings are similar to the prior CT chest exam of 01/06/2018. However, in the interval since the prior exam, a small 6 MM nodular density has developed in the left upper lung (image 77 of 87). This finding could be secondary to scar formation. It would be less likely that this is due to a neoplastic mass. If further study is desired, then CT of the chest would be recommended. IMPRESSION: 1. There is no evidence for an acute bony abnormality. 2. There is degenerative disc and bony disease at C5-C6 and C6-C7. 3. The nodular density in the left apex is of uncertain etiology. While this is more likely due to scar formation than to neoplasm the possibility that this is neoplastic in nature cannot be entirely excluded. Recommendations as above. 4. These results were discussed with Dr. Johnson in the ER. Dictated by: Dictated on workstation # [id number]
[2018-03-16 08:58] LABS: ALBUMIN 3.5 GM/DL (3.2-4.5); BILIRUBIN,TOTAL 0.7 MG/DL (0.1-1.0); CALCIUM 10.2 MG/DL (8.5-10.1); CREATININE SERUM 1.55 MG/DL (0.60-1.30); POTASSIUM 5.1 MMOL/L (3.6-5.0); TOTAL PROTEIN 6.7 GM/DL (6.4-8.2)
--- NOTE | 2018-03-16 09:07 | Diagnostic Imaging Report ---
INDICATION: Pain after fall. Comparison is made with prior examination from 01/11/2018. FINDINGS: There is cardiomegaly. There is some venous congestion. There is patchy bibasilar atelectasis and/or pneumonitis. There is no pleural effusion. There is no pneumothorax. The mediastinum is unremarkable. IMPRESSION: Patchy bibasilar atelectasis and/or pneumonitis and left pleural effusion. Cardiomegaly and mild central pulmonary venous congestion. Dictated by: Dictated on workstation # [id number]
--- NOTE | 2018-03-16 09:08 | NUR ---
PATIENT PULLED IV OUT WILL RESTART
[2018-03-16] MEDS ORDERED: morphine INJ 10 MG/ML 1ML (SYR OR VIAL) IVP ONE ×2 (09:15→10:30)
--- NOTE | 2018-03-16 09:16 | Diagnostic Imaging Report ---
CLINICAL INDICATION: Patient status post fall and is in lots of pain. EXAMINATION: X-ray of the pelvis AP view and x-ray of the left hip, AP and crosstable lateral views. COMPARISON: CT scan of the abdomen and pelvis dated 01/09/2018. FINDINGS: There is interval development of a fracture of the left femoral neck with varus angulation. The left femoroacetabular joint is otherwise intact. There is no other fracture seen on this exam. Right hip prosthesis is again seen. There are degenerative spurs involving the lower lumbar spine. IMPRESSION: Left proximal femoral neck fracture with varus angulation. Results of this report discussed with Dr. Cody Johnson via the telephone on 03/16/2018 at 0909 hrs. Dictated by: Dictated on workstation # [id number]
[2018-03-16 09:34] VITALS: BP 143/106
--- NOTE | 2018-03-16 09:56 | NUR ---
MATTHEW AND TALKED TO ANNA AT [facility] [place] INFORMED THAT SHE DOES HAVE A HIP FX
[2018-03-16 10:31] VITALS: BP 185/104
--- NOTE | 2018-03-16 11:19 | NUR ---
EMS CALLED TO TRANSFER PATIENT BACK TO [facility].
--- NOTE | 2018-03-16 11:55 | NUR ---
BAILEY LEFT IN IN PER DR MENDES
--- NOTE | 2018-03-16 11:59 | NUR ---
EMS HERE FOR TRANSFER
[2018-03-16 12:00] VITALS: BP 197/87
== END 2018-03-16 12:00 | disposition home or self-care (01) ==
LOC: EDUNIT# 07:14 → ER 07:15
DX: S72.092A Other fracture of head and neck of left femur, initial encounter for closed fracture (principal); R51 Headache; M54.2 Cervicalgia; J44.9 Chronic obstructive pulmonary disease, unspecified; I10 Essential (primary) hypertension; I42.9 Cardiomyopathy, unspecified; F03.90 Unspecified dementia, unspecified severity, without behavioral disturbance, psychotic disturbance, mood disturbance, and anxiety; G20 Parkinson's disease; R40.2142 Coma scale, eyes open, spontaneous, at arrival to emergency department; R40.2252 Coma scale, best verbal response, oriented, at arrival to emergency department; R40.2362 Coma scale, best motor response, obeys commands, at arrival to emergency department; E11.9 Type 2 diabetes mellitus without complications; D63.8 Anemia in other chronic diseases classified elsewhere; K21.9 Gastro-esophageal reflux disease without esophagitis; Z86.73 Personal history of transient ischemic attack (TIA), and cerebral infarction without residual deficits; Z87.19 Personal history of other diseases of the digestive system; Z87.09 Personal history of other diseases of the respiratory system; Z88.2 Allergy status to sulfonamides; Z88.1 Allergy status to other antibiotic agents; Z79.4 Long term (current) use of insulin; Z90.710 Acquired absence of both cervix and uterus; Z90.49 Acquired absence of other specified parts of digestive tract; Z98.890 Other specified postprocedural states; Z87.01 Personal history of pneumonia (recurrent); W01.198A Fall on same level from slipping, tripping and stumbling with subsequent striking against other object, initial encounter; Y92.002 Bathroom of unspecified non-institutional (private) residence as the place of occurrence of the external cause
CPT/HCPCS: 36415; 70450; 71045; 72125; 80053; 81000; 85025

== ENCOUNTER 2018-04-19 17:42 | Emergency (ER) | payer MEDICARE, OTHER ==
[~2018-04-19] VITALS: Ht 172.7 cm; Wt 55.8 kg
--- OUTSIDE RECORDS SUMMARY | 2018-04-19 17:49 | XMS REPORT | Clinical Summary ---
Author Author [facility] Organization [facility] Address Unknown Phone Unavailable Care Team Providers Care Rod Pointer Name Role Phone PCP Unavailable Allergies Not [...]
[2018-04-19] MEDS ORDERED: NS IV 500 ML 500 ML IV ONE (17:50)
--- NOTE | 2018-04-19 17:57 | ED Abdominal Pain ---
General Stated Complaint: GI BLEED Source of Information: Patient, EMS, Long Term Records Exam Limitations: No Limitations History of Present Illness Date Seen by Provider: Apr 19, 2018 Time Seen by Provider: 17:37 Initial Comments The patient presents to ER by EMS from [facility] with chief complaint that she's had a couple emesis today and the last one had coffee- ground appearance. Patient's having some modest abdominal pain but she does not want anything for it. She was given Zofran en route and a blood sugar was 201. She has a history of diabetes, hip fracture that she elected not to have repaired. She is on hospice. She says she's had dark blood in her vomit before and she's even had scopes done here at [facility] but they never found any results. She says her nausea is better by the time she got here. She is on hospice for congestive heart failure. She had a regular bowel movement this morning she did not strain for and had no dark tarry black or bloody appearance. Allergies and Home Medications Allergies Coded Allergies: celecoxib (Verified Allergy, Unknown, 12/12/17) Sulfa (Sulfonamide Antibiotics) (Verified Adverse Reaction, Severe, ) Home Medications Acetaminophen 325 Mg Tablet, 650 MG PO Q4H PRN for FEVER, (Reported) Brimonidine Tartrate 5 Ml Btl, 1 DROP OU BID, (Reported) Carbidopa/Levodopa 1 Each Tablet, 1 TAB PO 0700,1100,1500,1900, (Reported) Citalopram Hydrobromide 10 Mg Tablet, 10 MG PO DAILY, (Reported) Clonidine HCl 0.1 Mg Tablet, 0.1 MG PO BID, (Reported) Cranberry Extract 405 Mg Capsule, 405 MG PO DAILY, (Reported) Diazepam 2 Mg Tablet, 2 MG PO 0900,1300 Prescribed by: MARISELA FIGUEROA on 01/14/18 09 Docusate Sodium 100 Mg Capsule, 100 MG PO DAILY, (Reported) Docusate Sodium 100 Mg Capsule, 100 MG PO BID PRN for CONSTIPATION-1ST LINE, ( Reported) Famotidine/Ca Carb/Mag Hydrox 1 Each Tab.chew, 1 TAB PO Q8H PRN for NAUSEA, ( Reported) Fentanyl 1 Each Patch.td72, 100 MCG TD Q72H Prescribed by: MARISELA FIGUEROA on 01/14/18908 Furosemide 40 Mg Tablet, 40 MG PO 0600, (Reported) Hydrocodone Bit/Acetaminophen 1 Tab Tab, 1 TAB PO Q4-6HR PRN for PAIN-MODERATE Prescribed by: MARISELA FIGUEROA on 01/14/18908 Insulin Aspart 300 Units/3 Ml Solution, SQ UD PRN for BLOOD SUGAR, (Reported) >200 = 2 UNITS >250 = 4 UNITS >300 = 6 UNITS Insulin Glargine,Hum.rec.anlog 300 Unit/1 Ml Insuln.pen, 18 UNIT SQ 1600, ( Reported) L. Acidophilus/Bulgaricus 1 Each Tablet, 2 TAB PO BID, (Reported) Lisinopril 10 Mg Tablet, 10 MG PO DAILY, (Reported) Mag Hydrox/Aluminum Hyd/Simeth 355 Ml Oral.susp, 15 ML PO UD PRN for STOMACH UPSET, (Reported) Metoprolol Succinate 25 Mg Tab.er.24h, 25 MG PO 899,1999, (Reported) Mirtazapine 30 Mg Tablet, 30 MG PO HS, (Reported) Omeprazole 40 Mg Capsule.dr, 40 MG PO DAILY, (Reported) Ondansetron HCl 4 Mg Tab, 4 MG PO Q6H PRN for NAUSEA/VOMITING-1ST LINE, ( Reported) Polyethylene Glycol 3350 119 Gm Powder, 8.5 GM PO DAILY, (Reported) Polyethylene Glycol 3350 17 Gm Powd.pack, 17 GM PO Q72H PRN for CONSTIPATION- 2ND LINE, (Reported) Potassium Chloride 10 Meq Tab.er.prt, 10 MEQ PO DAILY, (Reported) Prochlorperazine Maleate 10 Mg Tablet, 10 MG PO BID PRN for NAUSEA/VOMITING-4TH LINE, (Reported) Rivastigmine 1 Each Patch.td24, 13.3 MG TD DAILY, (Reported) Rotigotine 1 Each Patch.td24, 8 MG TD HS, (Reported) Spironolactone 25 Mg Tablet, 50 MG PO DAILY, (Reported) TAKES 2 (25MG) TABLETS Triamterene/Hydrochlorothiazid 1 Each Tablet, 1 TAB PO DAILY, (Reported) Trimethoprim 100 Mg Tablet, 100 MG PO HS, (Reported) [Leg Cramp] , 2 TAB PO HS, (Reported) Patient Home Medication List Home Medication List Reviewed: Yes Review of Systems Review of Systems Constitutional: No chills, No diaphoresis EENTM: No Blurred Vision, No Double Vision Respiratory: Denies Cough, Denies Shortness of Air Cardiovascular: Denies Chest Pain, Denies Edema Gastrointestinal: Denies Abdomen Distended; Abdominal Pain, Nausea; Denies Poor Fluid Intake, Denies Rectal Bleeding; Vomiting Genitourinary: Denies Burning, Denies Discharge; Other (fully catheter in place ) Musculoskeletal: No gout, No joint pain Past Ppyldfw-Djaonh-Bcmutj Hx Patient Social History Alcohol Use: Denies Use Recreational Drug Use: No Smoking Status: Never a Smoker Recent Foreign Travel: No Contact w/Someone Who Travel: No Recent Hopitalizations: Yes (with surgery) Immunizations Up To Date Date of Pneumonia Vaccine: Nov 18, 2015 Date of Influenza Vaccine: Dec 01, 2017 Seasonal Allergies Seasonal Allergies: No Past Medical History Surgeries: Yes Appendectomy, Gallbladder, Hysterectomy, Joint Replacement Respiratory: Yes (history of respiratory failure requiring intubation) Pneumonia, COPD Currently Using CPAP: No Currently Using BIPAP: No Cardiac: Yes Cardiomyopathy, Hypertension Neurological: Yes Dementia, Parkinson's Disease, Stroke Reproductive Disorders: Yes Genitourinary: Yes (CKD) Renal Failure Gastrointestinal: Yes Gastroesophageal Reflux, Liver Disease/Jaundice, Gastrointestinal Bleed, Cirrhosis Musculoskeletal: Yes (SPINAL STENOSIS) Chronic Back Pain Endocrine: Yes Diabetes, Non-Insulin dep HEENT: No Cancer: No Psychosocial: No Integumentary: No Blood Disorders: Yes (chronic anemia) Adverse Reaction/Blood Tranf: No Family Medical History Cancer, Diabetes Physical Exam Vital Signs Vital Signs - First Documented 04/19/18 17:42 Temp 97.6 Pulse 100 Resp 18 B/P (MAP) 144/78 (100) Pulse Ox 99 O2 Delivery Nasal Cannula Capillary Refill : Height/Weight/BMI Height: 5'2.00" Weight: 169lbs. 7.0oz. 76.278212bk; 22.4 BMI Method:Stated General Appearance: no apparent distress, thin HEENT: PERRL/EOMI, normal ENT inspection, pharynx normal (oropharynx is mildly dry) Respiratory: chest non-tender, lungs clear, normal breath sounds, no respiratory distress, no accessory muscle use Cardiovascular: normal peripheral pulses, regular rate, rhythm Peripheral Pulses: 2+ Radial Pulses (R), 2+ Radial Pulses (L) Gastrointestinal: normal bowel sounds, soft, tenderness (diffuse, mild especially epigastric) Extremities: normal range of motion, normal capillary refill Neurologic/Psychiatric: alert, normal mood/affect, oriented x 3 Skin: normal color, warm/dry Procedures/Interventions Date of ETT Placement: Jan 05, 2018 Progress/Results/Core Measures Results/Orders Lab Results Laboratory Tests Test 04/19/18 17:49 04/19/18 17:50 04/19/18 17:53 04/19/18 18:27 Range/Units White Blood Count 8.0 4.3-11.0 10^3/uL Red Blood Count 3.68 L 4.35-5.85 10^6/uL Hemoglobin 11.0 L 11.5-16.0 G/DL Hematocrit 35 35-52 % Mean Corpuscular Volume 96 80-99 FL Mean Corpuscular Hemoglobin 30 25-34 PG Mean Corpuscular Hemoglobin Concent 31 L 32-36 G/DL Red Cell Distribution Width 15.3 H 10.0-14.5 % Platelet Count 238 130-400 10^3/uL Mean Platelet Volume 10.8 H 7.4-10.4 FL Neutrophils (%) (Auto) 83 H 42-75 % Lymphocytes (%) (Auto) 11 L 12-44 % Monocytes (%) (Auto) 5 0-12 % Eosinophils (%) (Auto) 1 0-10 % Basophils (%) (Auto) 0 0-10 % Neutrophils # (Auto) 6.7 1.8-7.8 X 10^3 Lymphocytes # (Auto) 0.9 L 1.0-4.0 X 10^3 Monocytes # (Auto) 0.4 0.0-1.0 X 10^3 Eosinophils # (Auto) 0.1 0.0-0.3 10^3/uL Basophils # (Auto) 0.0 0.0-0.1 10^3/uL Urine Color YELLOW Urine Clarity VERY CLOUDY H Urine pH 7 5-9 Urine Specific [place] 1.010 L 1.016-1.022 Urine Protein 3+ H NEGATIVE Urine Glucose (UA) NEGATIVE NEGATIVE Urine Ketones NEGATIVE NEGATIVE Urine Nitrite POSITIVE H NEGATIVE Urine Bilirubin NEGATIVE NEGATIVE Urine Urobilinogen NORMAL NORMAL MG/DL Urine Leukocyte Esterase 3+ H NEGATIVE Urine RBC (Auto) 4+ H NEGATIVE Urine RBC NONE /HPF Urine WBC TNTC H /HPF Urine Squamous Epithelial Cells NONE /HPF Urine Crystals NONE /LPF Urine Bacteria LARGE H /HPF Urine Casts NONE /LPF Urine Mucus NEGATIVE /LPF Urine Culture Indicated YES Glucometer 179 H 70-110 MG/DL Sodium Level 138 135-145 MMOL/L Potassium Level 6.2 H 3.6-5.0 MMOL/L Chloride Level 105 98-107 MMOL/L Carbon Dioxide Level 23 21-32 MMOL/L Anion Gap 10 5-14 MMOL/L Blood Urea Nitrogen 59 H 7-18 MG/DL Creatinine 2.98 H 0.60-1.30 MG/DL Estimat Glomerular Filtration Rate 15 BUN/Creatinine Ratio 20 Glucose Level 173 H 70-105 MG/DL Calcium Level 10.8 H 8.5-10.1 MG/DL Corrected Calcium 11.4 H 8.5-10.1 MG/DL Magnesium Level 2.3 1.8-2.4 MG/DL Total Bilirubin 0.3 0.1-1.0 MG/DL Aspartate Amino Transf (AST/SGOT) 24 5-34 U/L Alanine Aminotransferase (ALT/SGPT) 15 0-55 U/L Alkaline Phosphatase 167 H 40-136 U/L Troponin I < 0.028 <0.028 NG/ML C-Reactive Protein High Sensitivity 3.10 H 0.00-0.50 MG/DL Total Protein 7.1 6.4-8.2 GM/DL Albumin 3.2 3.2-4.5 GM/DL Lipase 50 8-78 U/L My Orders Orders - NAMRATA PACHECO Cbc With Automated Diff (04/19/18 17:50) Comprehensive Metabolic Panel (04/19/18 17:50) Hs C Reactive Protein (04/19/18 17:50) Lipase (04/19/18 17:50) Magnesium (04/19/18 17:50) Troponin I (04/19/18 17:50) Ua Culture If Indicated (04/19/18 17:50) Influenza A And B Antigens (04/19/18 17:50) Accucheck Stat ONCE (04/19/18 17:50) Chest 1 View, Ap/Pa Only (04/19/18 17:50) Saline Lock/Iv-Start (04/19/18 17:50) Ns Iv 500 Ml (Sodium Chloride 0.9%) (04/19/18 17:50) Ekg Tracing (04/19/18 17:50) Continuous Ekg Monitoring (04/19/18 17:50) Urine Culture (04/19/18 17:50) Pantoprazole Injection (Protonix Injecti (04/19/18 19:45) Ondansetron Injection (Zofran Injectio (04/19/18 19:53) Medications Given in ED Current Medications Medications Dose Ordered Sig/Jabari Route Start Time Stop Time Status Last Admin Dose Admin Ondansetron HCl 4 mg STK-MED ONCE .ROUTE 04/19/18 19:53 04/19/18 19:55 DC 04/19/18 19:57 4 MG Pantoprazole 40 mg ONCE ONCE IV 04/19/18 19:45 04/19/18 19:46 DC 04/19/18 19:42 40 MG Sodium Chloride 500 ml @ 0 mls/hr Q0M ONCE IV 04/19/18 17:50 04/19/18 17:52 DC 04/19/18 17:56 500 MLS/HR Vital Signs/I&O 04/19/18 17:42 Temp 97.6 Pulse 100 Resp 18 B/P (MAP) 144/78 (100) Pulse Ox 99 O2 Delivery Nasal Cannula Progress Progress Note #1: Time: 18:00 Progress Note EKG, troponin, chest x-ray looking for aspiration and/or cardiac underlying cause. Sounds at this is a chronic problem and she has not comfortable after some Zofran. We've cleaned her up. Her urine is very cloudy so we will tested for bladder infection and get some basic labs. Progress Note #2: Time: 20:00 Progress Note Patient's kidneys are poor probably owing to her decreased intake. She does not want anything to drink she does not feel dehydrated nor she hungry. Her nausea is chronic and been going on for some time. We'll make sure she has some nausea medicine Phenergan per rectal and Zofran ODT. We have offered to do more workup but with her heart failure she would not really be a candidate for surgery or even a scope likely. She's had scopes in the past. We discussed this at length with her and her wishes are just to have her symptoms controlled and go back to the shelter. She says she's not in any pain right now and her nausea is starting to come back so we'll give her another dose of Zofran 4 mg IV. She does indicate that she has some personal differences with some of the people who work at the facility but does not want to go into them. She says that there understanding of any circumstances were her family is related to them so she does not cause trouble. I encouraged her to talk to the ombudsman who is impartial and might help her resolve her differences. I also offered chaplains Assistance she said she would look into these when she got back to the shelter but did not want to do anything today. Offered to speak to family for her and she has declined. Offered hospital stay versus going home to the shelter and doing antibiotics and after waffling she says she says that she would prefer to go back to the shelter. Discussed the case with the patient's daughter over phone and she agrees with the plan. I encouraged her that if the antibiotics are causing more trouble and they are worse not to use them if they help with her symptoms and they are okay to use. She remarks that last week the patient just finished antibiotics. Initial ECG Impression Date: Apr 19, 2018 Initial ECG Impression Time: 18:18 Initial ECG Rate: 102 Initial ECG Rhythm: Normal Sinus Initial ECG Intervals: Normal Initial ECG Impression: Normal (sinus tachycardia) Comment Sinus tachycardia without ST elevation or depression. Diagnostic Imaging Diagonstic Imaging: Xray Plain Films/CT/US/NM/MRI: chest (1v) Comments [facility], [place] NAME: SUSAN POLLARD [facility] REC#: [id number] PT STATUS: REG ER : 1930 PHYSICIAN: NAMRATA PACHECO MD ADMIT DATE: 04/19/18/ER Draft Date of Exam:04/19/18 CHEST 1 VIEW, AP/PA ONLY INDICATION: GI bleed. COMPARISON: 03/16/2018. FINDINGS: There is infiltrate in the right mid to lower lung suspicious for pneumonia. There is background COPD chronic. The heart size upper limits but stable. Thoracic scoliosis and spondylosis chronic. No pneumothorax. IMPRESSION: Infiltrate in the right lung and mid to lower caba suspicious for pneumonia, background COPD and upper limits heart size stable. No pneumothorax. Dictated on workstation # [id number] Dict: 04/19/18 1837 Trans: 04/19/18 1845 [id number] Interpreted by: SILVINA GUTIÉRREZ Electronically signed by: Reviewed: Reviewed by Me Departure Impression Primary Impression: GI (gastrointestinal bleed) Qualified Codes: K92.2 - Gastrointestinal hemorrhage, unspecified Additional Impressions: Nausea & vomiting Qualified Codes: R11.2 - Nausea with vomiting, unspecified Pneumonia Qualified Codes: J18.9 - Pneumonia, unspecified organism UTI (urinary tract infection) Qualified Codes: N30.01 - Acute cystitis with hematuria Disposition: HOME, SELF-CARE Condition: Stable Departure-Patient Inst. Decision time for Depature: 20:06 Referrals: SELF,HEIDI ARRIAGA (PCP/Family) Primary Care Physician Patient Instructions: Acute Cystitis (DC) Add. Discharge Instructions: We are going to put you on 2 different antibiotics that would cover for your bladder infection and pneumonia. If they're causing any worsening symptoms such as diarrhea, worsening vomiting then you do not have to take them but if they helped her symptoms you may use them. If you have any nausea you can ask for Zofran 1 tablet every 4 hours or Phenergan per rectum every 6 hours as needed. Follow-up with your hospice nurse discuss symptom management. Scripts Ondansetron (Ondansetron Odt) 4 Mg Tab.rapdis 4 MG PO Q4H PRN for NAUSEA/VOMITING-1ST LINE, #30 TAB 0 Refills Prov: NAMRATA PACHECO 04/19/18 Promethazine HCl (Phenergan) 25 Mg Supp.rect 25 MG RC Q6H PRN for NAUSEA/VOMITING-2ND LINE, #14 SUPP.RECT 0 Refills Prov: NAMRATA PACHECO 04/19/18 Azithromycin (Azithromycin) 250 Mg Tablet 250 MG PO UD, #6 TAB TAKE 2 TABLETS ON DAY ONE THEN TAKE 1 TABLET DAILY FOR FOUR MORE DAYS Prov: NAMRATA PACHECO 04/19/18 Cefdinir (Cefdinir) 300 Mg Capsule 300 MG PO BID for 10 Days, #20 CAP 0 Refills Prov: NAMRATA PACHECO 04/19/18 NAMRATA PACHECO Apr 19, 2018 17:57
[2018-04-19 18:01] LABS: BASOPHILS % (AUTO) 0 % (0-10); EOSINOPHILS # (AUTO) 0.1 10^3/uL (0.0-0.3); EOSINOPHILS % (AUTO) 1 % (0-10); HEMATOCRIT 35 % (35-52); LYMPHOCYTES # (AUTO) 0.9 X 10^3 (1.0-4.0); LYMPHOCYTES % (AUTO) 11 % (12-44); MEAN CORPUSCULAR HEMOGLOBIN 30 PG (25-34); MEAN CORPUSCULAR HGB CONC 31 G/DL (32-36); MEAN CORPUSCULAR VOLUME 96 FL (80-99); MEAN PLATELET VOLUME 10.8 FL (7.4-10.4); MONOCYTES # (AUTO) 0.4 X 10^3 (0.0-1.0); MONOCYTES % (AUTO) 5 % (0-12); NEUTROPHILS # (AUTO) 6.7 X 10^3 (1.8-7.8); NEUTROPHILS % (AUTO) 83 % (42-75); PLATELET COUNT 238 10^3/uL (130-400); RED CELL DISTRIBUTION WIDTH 15.3 % (10.0-14.5)
[2018-04-19 18:02] LABS: BILIRUBIN,URINE NEGATIVE (NEGATIVE); CLARITY,URINE VERY CLOUDY; COLOR,URINE YELLOW; GLUCOSE, URINE (UA) NEGATIVE (NEGATIVE); KETONES,URINE NEGATIVE (NEGATIVE); LEUKOCYTE ESTERASE ,URINE 3+ (NEGATIVE); NITRITE,URINE POSITIVE (NEGATIVE); PH,URINE 7 (5-9); PROTEIN,URINE 3+ (NEGATIVE); UROBILINOGEN,URINE NORMAL (NORMAL)
--- NOTE | 2018-04-19 18:11 | NUR ---
LAB CALLED BLOOD HEMOLIZED WILL COME TO DRAW.
[2018-04-19 18:24] LABS: BACTERIA,URINE LARGE /HPF; WBC,URINE TNTC /HPF
--- NOTE | 2018-04-19 18:45 | Diagnostic Imaging Report ---
INDICATION: GI bleed. COMPARISON: 03/16/2018. FINDINGS: There is infiltrate in the right mid to lower lung suspicious for pneumonia. There is background COPD chronic. The heart size upper limits but stable. Thoracic scoliosis and spondylosis chronic. No pneumothorax. IMPRESSION: Infiltrate in the right lung and mid to lower caba suspicious for pneumonia, background COPD and upper limits heart size stable. No pneumothorax. Dictated by: Dictated on workstation # [id number]
[2018-04-19 19:10] LABS: ALANINE AMINOTRANSFERASE 15 U/L (0-55); ALBUMIN 3.2 GM/DL (3.2-4.5); ALKALINE PHOSPHATASE 167 U/L (40-136); BILIRUBIN,TOTAL 0.3 MG/DL (0.1-1.0); BUN/CREATININE RATIO 20; CALCIUM 10.8 MG/DL (8.5-10.1); CARBON DIOXIDE 23 MMOL/L (21-32); CHLORIDE 105 MMOL/L (98-107); CREATININE SERUM 2.98 MG/DL (0.60-1.30); GFR ESTIMATED 15; GLUCOSE 173 MG/DL (70-105); LIPASE 50 U/L (8-78); MAGNESIUM 2.3 MG/DL (1.8-2.4); POTASSIUM 6.2 MMOL/L (3.6-5.0); SODIUM 138 MMOL/L (135-145); TOTAL PROTEIN 7.1 GM/DL (6.4-8.2)
[2018-04-19] MEDS ORDERED: PANTOPRAZOLE 40 MG (PROTONIX) VIAL IV ONE (19:45)
[2018-04-19] MEDS ORDERED: ONDANSETRON 4 MG/2 ML (SDV) Z0FRAN ONE (19:53)
[2018-04-19] MEDS ORDERED: CEFD300C3 PO (20:17)
[2018-04-19] MEDS ORDERED: ONDA4TAB11 PO (20:17)
[2018-04-19] MEDS ORDERED: PROM25SU43 RC (20:17)
[2018-04-19] MEDS ORDERED: AZIT250T12 PO (20:17)
[2018-04-19 20:20] VITALS: BP 154/69
== END 2018-04-19 20:26 | disposition home or self-care (01) ==
LOC: EDUNIT# 17:42 → ER 17:43
DX: K92.2 Gastrointestinal hemorrhage, unspecified (principal); J18.9 Pneumonia, unspecified organism; N39.0 Urinary tract infection, site not specified; J44.9 Chronic obstructive pulmonary disease, unspecified; I42.9 Cardiomyopathy, unspecified; G20 Parkinson's disease; F03.90 Unspecified dementia, unspecified severity, without behavioral disturbance, psychotic disturbance, mood disturbance, and anxiety; E11.22 Type 2 diabetes mellitus with diabetic chronic kidney disease; I11.0 Hypertensive heart disease with heart failure; N18.9 Chronic kidney disease, unspecified; D63.8 Anemia in other chronic diseases classified elsewhere; K21.9 Gastro-esophageal reflux disease without esophagitis; Z87.19 Personal history of other diseases of the digestive system; Z86.73 Personal history of transient ischemic attack (TIA), and cerebral infarction without residual deficits; Z88.1 Allergy status to other antibiotic agents; Z88.2 Allergy status to sulfonamides; Z79.4 Long term (current) use of insulin; Z90.49 Acquired absence of other specified parts of digestive tract; Z90.710 Acquired absence of both cervix and uterus; Z98.890 Other specified postprocedural states; Z87.01 Personal history of pneumonia (recurrent)
CPT/HCPCS: 36415; 71045; 80053; 81000; 82962; 83690; 83735; 84484; 85025; 86141; 87077; 87088; 87186; 93005